=== PATIENT | male | born 1955 | race Caucasian/White ===

== ENCOUNTER 2019-09-19 18:01 | Inpatient (IN) | payer BC, SELFPAY ==
[2019-09-19] VITALS (16 sets, daily range): BP systolic 111–151; BP diastolic 84–129; PULSE 61–153; RESP 20–97; TEMP 36.6–36.9; O2SAT 96–100; BMI 35.2
--- NOTE | 2019-09-19 18:33 | EKG12_ITS ---
Test Reason : SOB Blood Pressure : / mmHG Vent. Rate : 140 BPM Atrial Rate : 138 BPM P-R Int : 000 ms QRS Dur : 106 ms QT Int : 266 ms P-R-T Axes : 000 -33 119 degrees QTc Int : 406 ms Atrial fibrillation with rapid ventricular response Left axis deviation Inferior infarct , age undetermined Anterior [place], Age undetermined Abnormal ECG Confirmed by RAGHAV LYONS, JASMIN ([id number]), clinical editor MARTIN FOWLER ([id number]) on 09/21/2019 1:35:57 PM Referred By: ALFREDITO Confirmed By:JASMIN AVILEZ MD
--- NOTE | 2019-09-19 18:35 | ED.VIS.GEN ---
History of Present Illness Chief Complaint: Shortness of Breath Informant: Patient Onset: Weeks Context: Gradual Onset Timing: Continuous Current Severity: Moderate Maximum Severity: Moderate Narrative: The patient presents to the emergency department with shortness of breath. He states for the past month, he has been having dyspnea. He states in the morning, after he has coffee, he will just feel nauseated and generally unwell. He states throughout the day, he will have the sensation that his heart will be racing. If he walks a distance, he states that he gets short of breath. Over the past week, he is been having increasing orthopnea. He does admit to a 30 pound weight gain. The patient does have a history of congestive heart failure. He denies any chest pain. He denies any fevers or chills. Prior similar symptoms: No Recent Illness/Hospitalization: No Past Medical History - Allergies and Home Meds Allergies/Adverse Reactions: Allergies No Known Allergies Allergy (Verified 09/19/19 18:05) Primary Care Physician: Dayo Avilez MD [Primary Care Provider] - Prior records reviewed: Yes Past Medical History: - - CHF, hypertension, hyperlipidemia Surgical History: noncontributory Lives: With Family Review of Systems General: Denies: Chills, Fever, Sweats Eyes: Denies: Visual changes - bilaterally, Diplopia ENT: Denies: Rhinorrhea, Sore throat Cardiovascular: Reports: Palpitations, Heart racing. Denies: Chest pain Respiratory: Reports: Dyspnea, Dyspnea on exertion, Paroxysmal nocturnal dyspnea. Denies: Cough Gastrointestinal: Denies: Abdominal pain, Nausea, Vomiting, Diarrhea, Melena, Hematochezia Genitourinary: Denies: Dysuria, Hematuria, Frequency Musculoskeletal: Denies: Back pain, Extremity Pain Skin: Denies: Rash, Wounds Neurological: Denies: Headache, Weakness, Numbness Physical Exam Vital Signs/Narrative: Vital Signs Temp Pulse Resp BP Pulse Ox 09/19/19 18:01 98.5 F 61 20 H 139/85 H 96 Inital Vital Signs reviewed: Yes General: Well nourished, Well developed, No Acute Distress Head: Normocephalic, Atraumatic Eyes: Perrl, EOMI ENT: Moist mucous membranes, No rhinorrhea Neck: Supple, Nontender Cardiovascular: No murmurs, Irregular, Tachycardia Respiratory: No distress, Chest nontender, Rales Abdomen: Soft, Nontender, Nondistended, Normal bowel sounds Back: Nontender, Normal Inspection Extremities: Nontender, Edema Skin: Normal color, No rash Neurological: Alert, Oriented x3, Cranial nerves II-XII grossly intact, Normal Strength, Normal Sensation Psychological: Normal affect, Normal Mood Diagnostic/Tx/Re-eval Clinical Impression(s) from Imaging Studies Chest X-Ray 09/19/19 18:37 IMPRESSION: Left base atelectasis and/or small infiltrate. Cardiomegaly. Electronically Signed: Jakobjodi Palacio, at 19:17 EST Tel , Service support , Abnormal Lab Results 09/19/19 09/19/19 09/19/19 18:50 18:50 18:50 WBC 5.2 RBC 4.66 Hgb 15.1 Hct 44.6 MCV 95.7 H MCH 32.4 H MCHC 33.9 RDW Std Deviation 47.3 H RDW Coeff of Nichole 13.5 Plt Count 168 MPV 10.7 Immature Gran % (Auto) 0.800 Neut % (Auto) 60.4 Lymph % (Auto) 26.3 Reagan % (Auto) 11.3 H Eos % (Auto) 0.6 Baso % (Auto) 0.6 Absolute Neuts (auto) 3.2 Absolute Lymphs (auto) 1.37 Nucleated RBC % 0 PT 14.0 INR 1.1 APTT 24.6 Sodium 141 Potassium 4.4 Chloride 110 H Carbon Dioxide 26.0 Anion Gap 5 BUN 20 H Creatinine 1.29 Estim Creat Clear Calc 67.10 Est GFR (MDRD) Af Amer 72 Est GFR (MDRD) Non-Af 60 BUN/Creatinine Ratio 15.5 Glucose 99 Calcium 8.7 Total Bilirubin 0.70 AST 66 H ALT 141 H Alkaline Phosphatase 87 Troponin I 0.108 H Total Protein 6.6 Albumin 3.0 L Globulin 3.6 Albumin/Globulin Ratio 0.8 L - Rhythm Strip Rhythm Strip: A-fib Rate: 150 - EKG Initial EKG Interpretation: Atrial Fibrillation, Non-Specific ST Changes Prior: No Prior - Medical Decision Making The patient presents with exertional dyspnea, orthopnea, and weight gain. EKG was obtained which demonstrated atrial fibrillation with rapid ventricular response. The patient denies any history of atrial fibrillation. I was able to review his records from [facility]. He does have significant history of dilated cardiomyopathy secondary to underlying cardiac disease. The patient was given 3 doses of metoprolol with market improvement of his heart rate and he states that he was feeling improved. His chest x-ray did not show significant volume overload, but given his weight gain and orthopnea, he he was started on IV diuretics. His cardiac enzymes are indeterminant, but with his underlying heart disease and tachycardia I do feel this is likely the cause. He has had no chest pain. At this point, I do feel that he would benefit from admission for continued rate control, diuresis, and cardiology evaluation. Impression 1. New onset atrial fibrillation with rapid ventricular response ED Disposition - Plan for ED Patient: Referrals: Dayo Avilez MD [Primary Care Provider] -
--- NOTE | 2019-09-19 18:37 | RAD_ITS ---
STUDY: X-RAY CHEST REASON FOR EXAM: Male, 64 years old. Shortness of breath TECHNIQUE: Frontal view of the chest COMPARISON: None. FINDINGS: Left base atelectasis and/or small infiltrate is present. The lungs are otherwise clear. There are no pleural effusions. There is no pneumothorax. The heart is enlarged. The visualized osseous structures are within normal limits. RAD/Chest 1 View (Portable) IMPRESSION: Left base atelectasis and/or small infiltrate. Cardiomegaly. Electronically Signed: Jakob Palacio, at 19:17 EST Tel , Service support ,
[2019-09-19 19:07] LABS: Absolute Lymphocyte Count 1.37 X10^3/uL (0.83-4.51); Absolute Neutrophil Count 3.2 X10^3/uL (2.0-7.7); Basophil# 0.03 X10^3/uL; Basophil% 0.6 % (0-1); Eosinophil# 0.03 X10^3/uL; Eosinophils% 0.6 % (0-5); Hematocrit 44.6 % (40-54); Hemoglobin 15.1 g/dL (13.0-16.5); Lymphocyte # 1.37 X10^3/ul (4.0); Lymphocyte % 26.3 % (19-41); Mean Corp Hgb Conc 33.9 g/dL (32-36); Mean Corpuscular Hgb 32.4 pg (27.0-32.0); Mean Corpuscular Volume 95.7 fL (80-94); Mean Platelet Vol. 10.7 fl (6.2-12.0); Monocyte# 0.59 X10^3/uL; Monocyte% 11.3 % (0-10); NRBC Flagged by Analyzer 0 % (0-5); Neutrophil # 3.15 X10^3/uL (2.7-7.7); Neutrophil % 60.4 % (47-70); Platelet Count 168 K/mm3 (150-450); RBC Distribution Width CV 13.5 % (11.6-14.6); RBC Distribution Width SD 47.3 fl (35.1-43.9); Red Blood Count 4.66 M/mm3 (4.6-6.2); White Blood Count 5.2 K/mm3 (4.4-11.0)
[2019-09-19 19:14] LABS: International Normalized Ratio 1.1
[2019-09-19 19:15] LABS: Partial Thromboplast Time 24.6 Seconds (24.1-36.2)
[2019-09-19] MEDS: Metoprolol Tartrate 5 MG/5 ML Vial IV ×3 (19:25→19:37)
[2019-09-19 19:26] LABS: ALB/GLOB Ratio 0.8 RATIO (0.9-2.4); AST(SGOT) 66 U/L (15-37); Alanine Aminotransfer ALT/SGPT 141 U/L (16-61); Alkaline Phosphatase 87 U/L (45-117); Anion Gap 5 (5-15); BUN 20 mg/dL (7-18); BUN/Creat Ratio 15.5 RATIO (10-20); Calcium,Total 8.7 mg/dL (8.5-10.1); Chloride 110 mmol/L (98-107); Creatinine, Serum 1.29 mg/dL (0.70-1.30); EST Glomerular Filtration Rate 60 mL/min (>60); Est Glom Filt Rate - Afr Amer 72 mL/min (>60); Globulin 3.6 g/dL (2.2-4.2); Glucose 99 mg/dL (74-106); Potassium 4.4 mmol/L (3.5-5.1); Protein, Total 6.6 g/dL (6.4-8.2); Sodium Level 141 mmol/L (136-145)
--- NOTE | 2019-09-19 19:51 | PCM.HP.STD ---
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 Associated with symptoms is fatigue. At emergency department patient was found to have A. fib with RVR with heart rate in the 160s for which he was given metoprolol IV and later on started on a Cardizem drip. Past Medical History Medical History: Medical History (Last Reviewed 09/19/19 @ 21:[address] Anuj Jaimes MD) Hypertension I10 Allergies No Known Allergies Allergy (Verified 09/19/19 18:05) Home Medications: Ambulatory Orders Medication Instructions Recorded Apixaban [Eliquis] 5 mg PO BID 09/19/19 Furosemide [Lasix] 40 mg PO DAILY 09/19/19 Lisinopril 5 mg PO DAILY 09/19/19 Lisinopril [Zestril] 20 mg PO DAILY 09/19/19 Metoprolol Succinate [Toprol Xl] 100 mg PO DAILY 09/19/19 Rosuvastatin Calcium 20 mg PO DAILY 09/19/19 Spironolactone 25 mg PO DAILY 09/19/19 Surgical History: - - Cancer cells removed from skin. Lives: With Family Smoking Status: Never smoker Alcohol: Occasional - *Family History Maternal History Items: Diabetes, Stroke Paternal History Items: Heart Disease Review of Systems Constitutional: Reports: Weight Change - Reports about more than 30 pounds weight gain in last 4 months., Fatigue. Denies: Chills, Fever HEENT: Denies: Head Aches, Sinus Congestion, Sinus Drainage Cardiovascular: Reports: Orthopnea, Paroxysmal Noc. Dyspnea. Denies: Chest Pain, Palpitations Respiratory: Reports: Shortness of breath upon exertion. Denies: Cough, Sputum production Gastrointestinal: Denies: Abdominal Pain, Nausea, Vomiting Genitourinary: Denies: Dysuria Musculoskeletal: Denies: Joint Pain, Joint Tenderness Skin: Denies: Rash, Wounds Neurological: Denies: Numbness, Tingling, Focal weakness Psychiatric: Denies: Anxiety, Depression, Homicidal Ideations, Suicidal Ideations Hematologic/ Lymphatic: Denies: Easy Bruising, Easy Bleeding VTE Information - Inpt Only VTE Present on Admission: No VTE Mechan Device Prophylaxis: None VTE Pharm Prophylaxis ordered?: No Reason prophylaxis not ordered:: Treatment Not Indicated - Patient is on Eliquis for history of PE; continue Eliquis for history of PE and for new onset A. fib. Patient Problems: Active and Suspected Problems (Last Updated 09/19/19 @ 21:[address] Anuj Jaimes MD) New onset atrial fibrillation (Acute) Systolic heart failure (Acute) - Physical Exam Vitals/I&O's: Vital Signs Temp Pulse Resp BP Pulse Ox 98.5 F 113 H 24 H 134/114 H 96 09/19/19 18:01 09/19/19 19:36 09/19/19 19:36 09/19/19 19:36 09/19/19 19:36 Oxygen Flow Rate (L/min) 2 Oxygen Delivery Method Nasal Cannula Weight: 121 kg Body Mass Index (BMI) 35.2 General: Alert, Oriented x3, Cooperative HEENT: Atraumatic, PERRLA, EOMI, Normocephalic Neck: Supple, Trachea Midline Lungs: Clear to auscultation, Normal air movement, Short of Breath, Tachypneic Cardiovascular: Normal S1, Normal S2, No murmurs, Irregular Rate, Tachycardic Abdomen: Bowel Sounds Present, Soft, Non Tender Extremities: Capillary Refill Less than 3 Seconds, Edema - Bilateral legs and feet. Skin: No rashes, No breakdown Musculoskeletal: No Tenderness to Palpation of Joints or Extremities Neurological: Cranial nerves II-XII grossly intact Psych/Mental Status: Normal Affect, Appropriate Laboratory Results 09/19/19 18:50: WBC 5.2, RBC 4.66, Hgb 15.1, Hct 44.6, MCV 95.7 H, MCH 32.4 H, MCHC 33.9, RDW Std Deviation 47.3 H, RDW Coeff of Nichole 13.5, Plt Count 168, MPV 10.7, Immature Gran % (Auto) 0.800, Neut % (Auto) 60.4, Lymph % (Auto) 26.3, [place] % (Auto) 11.3 H, Eos % (Auto) 0.6, Baso % (Auto) 0.6, Absolute Neuts (auto) 3.2, Absolute Lymphs (auto) 1.37, Nucleated RBC % 0 09/19/19 18:50: PT 14.0, INR 1.1, APTT 24.6 09/19/19 18:50: Sodium 141, Potassium 4.4, Chloride 110 H, Carbon Dioxide 26.0, Anion Gap 5, BUN 20 H, Creatinine 1.29, Estim Creat Clear Calc 67.10, Est GFR (MDRD) Af Amer 72, Est GFR (MDRD) Non-Af 60, BUN/Creatinine Ratio 15.5, Glucose 99, Calcium 8.7, Total Bilirubin 0.70, AST 66 H, ALT 141 H, Alkaline Phosphatase 87, Troponin I 0.108 H, Total Protein 6.6, Albumin 3.0 L, Globulin 3.6, Albumin/Globulin Ratio 0.8 L 09/19/19 18:50: B-Natriuretic Peptide Pending Assessment/Plan All Active Problems (Last Updated 09/19/19 @ 21:[address] Anuj Jaimes MD) New onset atrial fibrillation (Acute) Systolic heart failure (Acute) The patient is a 64 year old M with a significant history of heart failure; hypertension; hyperlipidemia; basal cell carcinoma of chest wall status post surgery; CAD status post stent who presents emergency department with 2 to 3 weeks 3 of progressively worsening shortness of breath on exertion; and found to have irregularly irregular heart rate and rhythm consistent with acute the patient systolic heart failure and new onset A. fib with rapid ventricular response. New onset A. fib with rapid ventricular response Place on PCU on telemetry Serial cardiac enzymes Last echocardiogram was on August 23, 2019 and it showed ejection fraction 33% . Last echocardiogram was done at [facility]. Per report pulled by emergency department doctor from [facility] left ventricular distal fraction was with 43% on stress echo in June 2015; left ventricular ejection fraction was 21% on echo on January 2018. Resume Eliquis the patient takes at home for history of bilateral PE. Of note last time patient took his Eliquis was about 3 days ago. Received metoprolol IV after which it was discussed emergent department doctor to start patient on Cardizem drip. Continue Cardizem drip started emergency department. Potassium is normal. Check magnesium level. Check TSH Consult [facility] Trend BMP. Acute Exacerbation of systolic heart failure Place on monitored bed on PCU Weight on admission to the floor; and then daily Strict I&O's Impression of chest x-ray: Left basilar atelectasis and/or small infiltrate; cardiomegaly.. Chest x-ray was independently reviewed. I agree with radiologist interpretation. EKG independently reviewed confirms A. fib with rapid ventricular response. Emergency department labs reviewed BNP of 451.3, elevated. Received Lasix 40 mg IV at the emergency department. We will continue patient on Lasix 40 mg IV twice daily. Of note patient is on home Lasix but he is not compliant with. Echocardiogram as above. Patient reports that the plan was to do defibrillator before his presentation. Metoprolol, lisinopril and Aldactone continued. Monitor electrolytes and renal function Titrate diuretics and heart failure/blood pressure medications with blood pressure. Kerlix roll and sean wrap to bilateral lower extremities Fluid restriction of 1500 ml daily 2 g cardiac diet Per note from [facility] system and the plan is for patient to have ICD if his left ventricular ejection fraction remains low. Cardiology consult. Elevated cardiac enzymes Likely secondary to A. fib and acute exacerbation of heart failure. Trend. Elevated liver enzymes Secondary to congestion from heart failure. Trend CMP. CAD status post stent Start patient on aspirin. Crestor continued. DVT Prophylaxis On Eliquis. Code Visit Inpatient E&M: 55757 Init Hosp L3
[2019-09-19] MEDS: Furosemide 40 MG/4 ML Vial IV (20:15)
[2019-09-19] MEDS: APIXABAN 5 MG TABLET PO ×2 (20:15→23:08)
[2019-09-19 20:25] LABS: BNP,B-Type NATRIURETIC PEPTIDE 451.3 pg/mL (0-100)
[2019-09-19 22:37] LABS: Magnesium 2.2 mg/dL (1.6-2.6); Thyroid Stim Hormone (TSH) 2.71 uIU/mL (0.358-3.74)
[2019-09-20] VITALS (45 sets, daily range): BP systolic 92–155; BP diastolic 75–112; PULSE 70–118; RESP 19–35; TEMP 36.7–36.9; O2SAT 95–100
[2019-09-20 02:29] LABS: ALB/GLOB Ratio 0.8 RATIO (0.9-2.4); AST(SGOT) 71 U/L (15-37); Alanine Aminotransfer ALT/SGPT 148 U/L (16-61); Alkaline Phosphatase 91 U/L (45-117); Anion Gap 8 (5-15); BUN 22 mg/dL (7-18); BUN/Creat Ratio 16.3 RATIO (10-20); Calcium,Total 8.5 mg/dL (8.5-10.1); Chloride 110 mmol/L (98-107); Creatinine, Serum 1.35 mg/dL (0.70-1.30); EST Glomerular Filtration Rate 57 mL/min (>60); Est Glom Filt Rate - Afr Amer 69 mL/min (>60); Estimated Creatinine Clearance 62.27 ml/min; Globulin 3.9 g/dL (2.2-4.2); Glucose 124 mg/dL (74-106); Potassium 4.2 mmol/L (3.5-5.1); Protein, Total 6.9 g/dL (6.4-8.2); Sodium Level 141 mmol/L (136-145)
[2019-09-20] MEDS: Aspirin 81 MG TAB.CHEW PO (08:25)
--- NOTE | 2019-09-20 09:38 | CON.PCM_ITS ---
Problem List (1) Systolic heart failure Status: Acute Qualifiers: Heart failure chronicity: acute on chronic Qualified Code(s): I50.23 - Acute on chronic systolic (congestive) heart failure (2) CAD in [place] artery Status: Chronic (3) S/P PTCA (percutaneous transluminal coronary angioplasty) Status: Chronic (4) Cardiomyopathy Status: Chronic Qualifiers: Cardiomyopathy type: ischemic Qualified Code(s): I25.5 - Ischemic cardiomyopathy (5) New onset atrial fibrillation Status: Acute (6) HLD (hyperlipidemia) Status: Chronic (7) HTN (hypertension) Status: Chronic (8) Pulmonary embolism Status: Resolved Reason for Consult Date of Consultation: 09/20/19 History of Present Illness: The patient is a 64 year old old white male who presented for concerns of shortness of breath/dyspnea and was found to be in atrial fibrillation superimposed upon a history of underlying CAD, PCI, and an ischemic mediated cardiomyopathy, pending further evaluation/care for ICD therapy and history of previous pulmonary emboli on chronic anticoagulation therapy-all under the direction of his PCP and his [facility] cardiology team. He states he has been following with [facility] cardiology. He had outpatient visits in August of this year. Based upon his outpatient visits he was referred for evaluation by EP for ICD therapy. In the meantime he states he noticed progressive shortness of breath and dyspnea. He subsequently presented for further evaluation and care. He was found to have atrial fibrillation with RVR. He dates he has been told in the past he has a irregular heartbeat but does not recall whether it is atrial fibrillation or some other form of cardiac dysrhythmia. He denies ongoing chest discomfort. He has had concerns of orthopnea and PND and peripheral pitting edema. There is been no near syncope or syncope. He was found to have indeterminate troponin I levels. He had an ECG that demonstrated atrial fibrillation with rapid ventricular response with a left axis deviation, poor R wave progression, and anterior ND of indeterminate age cannot be excluded, and an inferior ND of indeterminate age pattern. A chest x- ray was performed. The results are as noted. Of note, the patient states that he does not take his prescription medications as they are always prescribed. He states he can miss them for days and then start taking them again. [] Past Medical History Allergies/Adverse Reactions: Allergies No Known Allergies Allergy (Verified 09/19/19 18:05) Home Medications: Ambulatory Orders Medication Instructions Recorded Apixaban [Eliquis] 5 mg PO BID 09/19/19 Furosemide [Lasix] 40 mg PO DAILY 09/19/19 Lisinopril [Zestril] 20 mg PO DAILY 09/19/19 Metoprolol Succinate [Toprol Xl] 100 mg PO DAILY 09/19/19 Rosuvastatin Calcium 20 mg PO DAILY 09/19/19 Spironolactone 25 mg PO DAILY 09/19/19 Past Medical History (Chronic Problems): Chronic Problems (Last Reviewed 09/19/19 @ 21:[address] Anuj Jaimes MD) CAD in [place] artery (Chronic) S/P PTCA (percutaneous transluminal coronary angioplasty) (Chronic) Cardiomyopathy (Chronic) HLD (hyperlipidemia) (Chronic) HTN (hypertension) (Chronic) Surgical History: - - Cancer cells removed from skin. - *Family History Maternal History Items: Diabetes, Stroke Paternal History Items: Heart Disease Lives: With Family Smoking Status: Never smoker Alcohol: Occasional Drugs: None Review of Systems - Review of Systems General: Denies: Fever, Night Sweats, Fatigue Cardiovascular: Reports: Shortness of Breath, Shortness of Breath at Rest, Shortness of Breath with Exertion, Orthopnea, Peripheral Edema. Denies: Chest Discomfort, PND, Palpitations, Lightheadedness, Dizziness, Near Syncope, Syncope Respiratory: Reports: Shortness of Breath. Denies: Cough, Sputum Production, Hemoptysis Gastrointestinal: Denies: Hematemesis, Hematochezia, Melena Genitourinary: Denies: Dysuria, Hematuria Skin: Denies: Rash Subjectve: This is a 64-year-old white male who appears to be resting reasonably comfortably although he does have an element of conversational dyspnea. Objective: Vital Signs Temp Pulse Resp BP Pulse Ox 98.2 F 98 28 H 122/95 H 96 09/20/19 06:00 09/20/19 09:33 09/20/19 09:00 09/20/19 09:00 09/20/19 09:00 Oxygen Flow Rate (L/min) 1.5 Oxygen Delivery Method Room Air Weight: 267 lb 6.731 oz Body Mass Index (BMI) 35.2 Intake and Output for Last 24 Hours 09/18/19 09/19/19 09/20/19 23:59 23:59 23:59 Intake Total 33.92 / 278.92 297.67 / 297.67 Output Total 400 / 400 Balance 33.92 / -121.08 -102.33 / -102.33 General: Awake, Alert, Oriented x 3, Cooperative, Ill Appearing, Obese HEENT: Atraumatic, Normocephalic, PERRL, EOMI, Sclera Non Icteric Oral: Moist Mucosa Neck: Supple, Good ROM, Positive JVD Lungs: Rales - Amor Bases Cardiovascular: Irregular Rhythm, Normal S1, Normal S2 Abdomen: Bowel Sounds Present, Soft, Non Tender Extremities: - - Positive bilateral lower extremity Chava wraps Psych/Mental Status: Appropriate 09/19/19 18:50: WBC 5.2, RBC 4.66, Hgb 15.1, Hct 44.6, MCV 95.7 H, MCH 32.4 H, MCHC 33.9, Plt Count 168, MPV 10.7, Immature Gran % (Auto) 0.800, Neut % (Auto) 60.4, Lymph % (Auto) 26.3, [place] % (Auto) 11.3 H, Eos % (Auto) 0.6, Baso % (Auto) 0.6, Absolute Neuts (auto) 3.2, Nucleated RBC % 0 09/19/19 18:50: PT 14.0, INR 1.1, APTT 24.6 09/19/19 18:50: Sodium 141, Potassium 4.4, Chloride 110 H, Carbon Dioxide 26.0, Anion Gap 5, BUN 20 H, Creatinine 1.29, Est GFR (MDRD) Af Amer 72, Est GFR (MDRD) Non-Af 60, BUN/Creatinine Ratio 15.5, Glucose 99, Calcium 8.7, Total Bilirubin 0.70, Troponin I 0.108 H 09/19/19 18:50: B-Natriuretic Peptide 451.3 H 09/19/19 18:50: Magnesium 2.2 09/19/19 22:32: Troponin I 0.115 H 09/20/19 01:36: Sodium 141, Potassium 4.2, Chloride 110 H, Carbon Dioxide 23.0, Anion Gap 8, BUN 22 H, Creatinine 1.35 H, Est GFR (MDRD) Af Amer 69, Est GFR (MDRD) Non-Af 57 L, BUN/Creatinine Ratio 16.3, Glucose 124 H, Calcium 8.5, Total Bilirubin 0.80 09/20/19 01:36: Troponin I 0.089 H Rhythm: Atrial fibrillation EKG: As above ECHO:?? 20: [facility]: Left ventricle mildly dilated Right ventricle dilated Left atrium dilated Mitral valve-trace MR Tricuspid valve-trace TR Aortic valve-trace AI Pulmonic valve not seen LVEF reported at 34% Stress Test: Cardiac Cath: 06-17-2018: [facility] Left main coronary artery-mild luminal irregularities LAD-proximal 50% stenosis; mid 50% stenosis LCx-20% in-stent stenosis Intermediate ramus-70% stenosis-small branch vessel RCA-moderate disease Impression: Nonobstructive three-vessel CAD in the right dominant distribution Stable CAD when compared to prior catheter in 2014 Cardiac cath: 06-13-2013: [facility] [employer] [place], [place] Left main coronary artery-30% stenosis LAD-60 to 70% stenosis and 70 to 75% stenosis LCx occluded RCA-30 to 40% and 3 to 50% stenosis PCI: [facility] [place] [place] Successful complex angioplasty of the LCx and large obtuse marginal branch using a 3.0?32 and 3.0?12 bare-metal Veriflex stent CXR: Portable chest x-ray: Question increase cardiac silhouette size: Increased pulmonary vascularity: Please see official report Assessment/Plan 1. Acute on chronic systolic mediated CHF The patient presents with findings of acute on chronic systolic mediated CHF. It is unclear whether this is related to dietary indiscretion, medication noncompliance, or concerns of alteration of his underlying cardiovascular disease process. The present time he will be monitored. He will continue medical management. Attempt will be made to augment his medications to improve his underlying card iopulmonary condition. 2. CAD post PCI He has a history of CAD status post previous PCI-remote. His noninvasive and invasive studies, as can be retrieved at this time, are as noted. At the present time he is without ongoing symptoms of acute angina pectoris. He does have indeterminate troponin I levels. This may be a type II event secondary to his acute on chronic systolic mediated CHF with his atrial fibrillation with RVR superimposed upon his ischemic mediated cardiomyopathy and diminished LV systolic function. At the present time he will continue medical management. Depending upon his clinical course he may need further noninvasive or invasive evaluation over time. 3. Ischemic mediated cardiomyopathy He does have a history of an ischemic mediated cardiomyopathy with diminished LV systolic function/V EF as previously noted. It appears he is undergone recent evaluation by his [facility] physicians. He has been recommended for continued medical management and referral for primary prevention ICD therapy. 4. Atrial fibrillation He does have atrial fibrillation. It is unclear whether he has had this in the past. However based on medical records available for review there does not appear to be any immediate mention of atrial fibrillation. At the present time he will continue to be followed. He will continue medical therapy with rate control therapy. He will be placed on IV amiodarone therapy and attempt to assist in rate control and potentially regain sinus rhythm. He will continue his anticoagulant therapy. 5. Hyperlipidemia He will continue medical therapy. 6. Hypertension His blood pressure will be followed. His medications can be adjusted as needed. 7. Pulmonary emboli He has a history of pulmonary emboli. He states he has been on chronic anti coagulant therapy. At the present time this will be continued barring need for interruption for further evaluation and/or care. Comment: The patient's case was discussed and reviewed with the patient and Dr. Ramirez. This note was generated using a voice recognition system and there may be incorrect words, spelling or punctuation that were not noted when reviewing the office note prior to saving.
--- NOTE | 2019-09-20 10:34 | CASEMGMT ---
CHADD WHITFIELD assessment: Face to Face with patient for initial transition planning/care coordination assessment. CHADD WHITFIELD introduced self and role at [facility], pt voices understanding and consents to assessment at this time. Pt is sitting up in bed in no distress at this time. Pt is A/Ox4 at this time and answers all questions appropriately at this time. Care providers, pharmacy, and demographics verified/updated at this time. 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 Pt states was provided discount card initially when started on Eliquis. Living Will/HPOA: Pt states has a LW/HPOA and is aware that they are not on file at [facility] at this time. Pt states that his , Mena Merritt, is HPOA. LNOK: Mena Merritt, Living Arrangements: Pt states lives with in home with shower in basement and states no concerns at home at this time. Pt states he is independent with ADL's. Transportation: Pt states drives self and states no transportation concerns at this time. DME/HHC: Pt states no current DME or need for any at this time. Pt states no hx of HHC or SNF in the past. Pt states was on home oxygen in 2018 s/p PE's and pneumonia. Pt states no concerns with going home at time of discharge. Pt states is retired. Pt states does not smoke and states occasionally drinks ETOH. Pt states no further concerns/needs at this time. CM to follow for any further discharge planning/needs. Advised pt to ask for CM if any further questions/concerns/needs arise, voices understanding. Pt Goal: Home Plan: [place] CHADD WHITFIELD
[2019-09-20] MEDS: 0.9% Saline Lock 10 ML Syringe IV ×2 (10:42→17:17)
[2019-09-20] MEDS: Amiodarone 360 MG in Dextrose 5% Viaflo Bag 192.8 ML 33.3 MG CONT INF (10:56)
[2019-09-20] MEDS: Metoprolol(XL)Succ 100 MG Tablet PO (10:59)
[2019-09-20] MEDS: Spironolactone 25 MG Tablet PO (10:59)
[2019-09-20] MEDS: Furosemide 40 MG/4 ML Vial IV ×2 (10:59→17:18)
[2019-09-20] MEDS: APIXABAN 5 MG TABLET PO ×2 (10:59→22:04)
[2019-09-20] MEDS: Lisinopril 20 MG Tablet PO (10:59)
--- NOTE | 2019-09-20 16:41 | PCM.PROGNOTE ---
Patient Problems: Active and Suspected Problems (Last Reviewed 09/19/19 @ 21:[address] Anuj Jaimes MD) New onset atrial fibrillation (Acute) Systolic heart failure (Acute) Subjective: Patient was seen and examined today, he has no complaints of any shortness of breath or chest discomfort at this time. I talked briefly with cardiology about his care - Physical Exam Vitals/I&O's: Vital Signs Temp Pulse Resp BP Pulse Ox 98.2 F 112 H 27 H 134/100 H 97 09/20/19 06:00 09/20/19 11:30 09/20/19 11:00 09/20/19 11:30 09/20/19 11:00 Oxygen Flow Rate (L/min) 1.5 Oxygen Delivery Method Room Air Weight: 121.3 kg Body Mass Index (BMI) 35.2 Intake and Output for Last 24 Hours 09/18/19 09/19/19 09/20/19 23:59 23:59 23:59 Intake Total 33.92 / 278.92 429.30 / 429.30 Output Total 400 / 400 Balance 33.92 / -121.08 29.30 / 29.30 General: Alert, Oriented x3, Cooperative, No apparent distress, Well developed HEENT: Atraumatic, PERRLA, EOMI, Normocephalic Oral: Moist Mucosa Neck: Supple, No JVD, Negative Carotid Bruits, Trachea Midline, Thyroid Normal Size and Texture Lungs: Normal air movement, No rhonchi, Rales - Inspiratory rales at the bases bilaterally Cardiovascular: No murmurs, PMI Normal, Irregular Rate, No rub noted Abdomen: Bowel Sounds Present, Soft, Non Tender Extremities: Capillary Refill Less than 3 Seconds, Edema - Bilateral lower leg edema is noted, patient is wearing Chava wraps Skin: No rashes, No breakdown Musculoskeletal: No Tenderness to Palpation of Joints or Extremities, No Muscle Wasting Neurological: Cranial nerves II-XII grossly intact, Neuro grossly intact, Sensory exam intact to light touch and pain, Coordination normal Psych/Mental Status: Normal Affect, Appropriate, Alert and oriented to time, place, person, mood and affect Laboratory Results 09/19/19 18:50: WBC 5.2, RBC 4.66, Hgb 15.1, Hct 44.6, MCV 95.7 H, MCH 32.4 H, MCHC 33.9, RDW Std Deviation 47.3 H, RDW Coeff of Nichole 13.5, Plt Count 168, MPV 10.7, Immature Gran % (Auto) 0.800, Neut % (Auto) 60.4, Lymph % (Auto) 26.3, [place] % (Auto) 11.3 H, Eos % (Auto) 0.6, Baso % (Auto) 0.6, Absolute Neuts (auto) 3.2, Absolute Lymphs (auto) 1.37, Nucleated RBC % 0 09/19/19 18:50: PT 14.0, INR 1.1, APTT 24.6 09/19/19 18:50: Sodium 141, Potassium 4.4, Chloride 110 H, Carbon Dioxide 26.0, Anion Gap 5, BUN 20 H, Creatinine 1.29, Estim Creat Clear Calc 67.10, Est GFR (MDRD) Af Amer 72, Est GFR (MDRD) Non-Af 60, BUN/Creatinine Ratio 15.5, Glucose 99, Calcium 8.7, Total Bilirubin 0.70, AST 66 H, ALT 141 H, Alkaline Phosphatase 87, Troponin I 0.108 H, Total Protein 6.6, Albumin 3.0 L, Globulin 3.6, Albumin/Globulin Ratio 0.8 L 09/19/19 18:50: B-Natriuretic Peptide 451.3 H 09/19/19 18:50: Magnesium 2.2, TSH 2.71 09/19/19 22:32: Troponin I 0.115 H 09/20/19 01:36: Sodium 141, Potassium 4.2, Chloride 110 H, Carbon Dioxide 23.0, Anion Gap 8, BUN 22 H, Creatinine 1.35 H, Estim Creat Clear Calc 62.27, Est GFR (MDRD) Af Amer 69, Est GFR (MDRD) Non-Af 57 L, BUN/Creatinine Ratio 16.3, Glucose 124 H, Calcium 8.5, Total Bilirubin 0.80, AST 71 H, ALT 148 H, Alkaline Phosphatase 91, Total Protein 6.9, Albumin 3.0 L, Globulin 3.9, Albumin/Globulin Ratio 0.8 L 09/20/19 01:36: Troponin I 0.089 H Current Medications Acetaminophen (Tylenol) 650 mg PO Q6H PRN PRN PRN Reason: Pain Score 1-10/Temp > 100.7 F Apixaban (Eliquis) 5 mg PO BID [facility] Last Admin: 09/20/19 10:59 Dose: 5 mg Documented by: Aspirin (Aspirin, Baby) 81 mg PO DAILY@0800 [facility] Last Admin: 09/20/19 08:25 Dose: 81 mg Documented by: Atorvastatin Calcium (Lipitor) 40 mg PO QHS [facility] Furosemide (Lasix) 40 mg IV BIDLX [facility] Last Admin: 09/20/19 10:59 Dose: 40 mg Documented by: Glucagon () 1 mg IM .X1 PRN PRN Reason: Hypoglycemia Diltiazem HCl 125 mg/ Dextrose 125 mls @ 10 mls/hr CONT INF .[id number] [facility]; Protocol Last Titration: 09/20/19 11:30 Dose: 10 mg/hr, 10 mls/hr Documented by: Sodium Chloride () 250 mls @ 15 mls/hr IV .[id number] PRN PRN Reason: Saline Flush Sodium Chloride () 250 mls @ 15 mls/hr IV .[id number] PRN PRN Reason: Additional IVPB Infusion Dextrose (Dextrose 10%-Water) 250 mls @ 999 mls/hr IV .Q16M PRN; Protocol PRN Reason: HYPOGLYCEMIA Amiodarone HCl 360 mg/ (Dextrose) 200 mls @ 16.667 mls/hr CONT INF .Q12H [facility] Stop: 09/21/19 09:44 Lisinopril (Zestril) 20 mg PO DAILY [facility] Last Admin: 09/20/19 10:59 Dose: 20 mg Documented by: Metoprolol Succinate (Toprol Xl (Beta Cuauhtemoc)) 100 mg PO DAILY [facility] Last Admin: 09/20/19 10:59 Dose: 100 mg Documented by: Ondansetron HCl (Zofran) 4 mg IV Q8H PRN PRN PRN Reason: NAUSEA/VOMITING Potassium Ch[facility] ([facility]) [facility] Last Admin: 09/20/19 08:25 Dose: 10 meq Documented by: Sodium Chloride () 10 - 40 ml IV UD PRN PRN Reason: SALINE FLUSH Last Admin: 09/20/19 10:42 Dose: 20 ml Documented by: Spironolactone (Aldactone) 25 mg PO DAILY [facility] Last Admin: 09/20/19 10:59 Dose: 25 mg Documented by: Medical Necessity - Tobacco Use Smoking Status: Never smoker Assessment/Plan All Active Problems (Last Reviewed 09/19/19 @ 21:[address] Anuj Jaimes MD) New onset atrial fibrillation (Acute) Systolic heart failure (Acute) Pulmonary embolism (Resolved) #1 acute on chronic systolic CHF-last EF was 35% on his latest echo that was done in August 2019. Continue present treatment per cardiology #2 new onset atrial fibrillation-continue present treatment #3 coronary artery disease #4 ischemic cardiomyopathy #5 essential hypertension #6 chronic anticoagulation-patient is taking Eliquis-he has a past history of pulmonary emboli #7 noncompliance with medical regimen-patient freely admits he does not take his medications as directed at times can compromise his medical care and complicates care plan Code Visit Inpatient E&M: 47313 Subs Hosp L2
[2019-09-20] MEDS: Amiodarone 360 MG in Dextrose 5% Viaflo Bag 192.8 ML 16.7 MG CONT INF (17:17)
[2019-09-20] MEDS: Atorvastatin Calcium 40 MG Tablet PO (22:04)
[2019-09-21] VITALS (29 sets, daily range): BP systolic 93–146; BP diastolic 72–121; PULSE 85–114; RESP 18–29; TEMP 36.3–36.8; O2SAT 86–100
[2019-09-21] MEDS: Amiodarone 360 MG in Dextrose 5% Viaflo Bag 192.8 ML 16.7 MG CONT INF (04:11)
--- NOTE | 2019-09-21 09:20 | PN.CARD_ITS ---
Subjectve: The patient is awake and alert. He states he still gets somewhat short of breath and dyspneic with being up and ambulating. Objective: Vital Signs Temp Pulse Resp BP Pulse Ox 97.6 F L 96 26 H 120/90 H 97 09/21/19 08:00 09/21/19 09:00 09/21/19 09:00 09/21/19 09:00 09/21/19 09:00 Oxygen Flow Rate (L/min) 1.5 Oxygen Delivery Method Room Air Weight: 267 lb 6.731 oz Body Mass Index (BMI) 35.2 Intake and Output for Last 24 Hours 09/19/19 09/20/19 09/21/19 23:59 23:59 23:59 Intake Total 33.92 / 278.92 1568.39 / 1585.09 167.00 / 167.00 Output Total 1775 / 1775 Balance 33.92 / -121.08 -206.61 / -189.91 167.00 / 167.00 General: Awake, Alert, Oriented x 3, Cooperative, No Acute Distress, Obese HEENT: Atraumatic, Normocephalic, PERRL, EOMI, Sclera Non Icteric Oral: Moist Mucosa Neck: Supple, Good ROM, No JVD Lungs: Rales - Amor Bases Cardiovascular: Irregular Rhythm, Normal S1, Normal S2 Abdomen: Bowel Sounds Present, Soft, Non Tender Extremities: - - Bilateral lower extremity Chava wraps Psych/Mental Status: Appropriate Rhythm: Atrial fibrillation Medical Necessity - Tobacco Use Smoking Status: Never smoker Assessment/Plan 1. Acute on chronic systolic mediated CHF The patient presents with findings of acute on chronic systolic mediated CHF. It is unclear whether this is related to dietary indiscretion, medication noncompliance, or concerns of alteration of his underlying cardiovascular disease process, or the recent development of atrial fibrillation per imposed upon his underlying ischemic mediated cardiomyopathy and diminished LV systolic function. The present time he will be monitored. He will continue medical management. Attempt will be made to augment his medications to improve his underlying car diopulmonary condition. This will include diuretic therapy. 2. CAD post PCI He has a history of CAD status post previous PCI-remote. His noninvasive and invasive studies, as can be retrieved at this time, are as noted. At the present time he is without ongoing symptoms of acute angina pectoris. He does have indeterminate troponin I levels. This may be a type II event secondary to his acute on chronic systolic mediated CHF with his atrial fibrillation with RVR superimposed upon his ischemic mediated cardiomyopathy and diminished LV systolic function. At the present time he will continue medical management. Depending upon his clinical course he may need further noninvasive or invasive evaluation over time. 3. Ischemic mediated cardiomyopathy He does have a history of an ischemic mediated cardiomyopathy with diminished LV systolic function/V EF as previously noted. It appears he is undergone recent evaluation by his [facility] physicians. He has been recommended for continued medical management and referral for primary prevention ICD therapy. 4. Atrial fibrillation He does have atrial fibrillation. It is unclear whether he has had this in the past. However based on medical records available for review there does not appear to be any immediate mention of atrial fibrillation. At the present time he will continue to be followed. He will continue medical therapy with rate control therapy. He will be placed on IV amiodarone therapy with plans to convert to oral medical therapy. He will continue his anticoagulant therapy. 5. Hyperlipidemia He will continue medical therapy. 6. Hypertension His blood pressure will be followed. His medications can be adjusted as needed. 7. Pulmonary emboli He has a history of pulmonary emboli. He states he has been on chronic anticoagulant therapy. At the present time this will be continued barring need for interruption for further evaluation and/or care. Comment: The patient's case was discussed and reviewed with the patient and Dr. Ramirez. This note was generated using a voice recognition system and there may be incorrect words, spelling or punctuation that were not noted when reviewing the office note prior to saving.
[2019-09-21] MEDS: Isosorbide Mononitrate 30 MG Tablet PO (09:35)
[2019-09-21] MEDS: Metoprolol(XL)Succ 100 MG Tablet PO (09:35)
[2019-09-21] MEDS: Spironolactone 25 MG Tablet PO (09:35)
[2019-09-21] MEDS: APIXABAN 5 MG TABLET PO ×2 (09:35→22:09)
[2019-09-21] MEDS: Aspirin 81 MG TAB.CHEW PO (09:35)
[2019-09-21] MEDS: Lisinopril 20 MG Tablet PO (09:35)
[2019-09-21] MEDS: Furosemide 100 MG/10 ML Vial 80 MG IV ×2 (09:35→17:07)
[2019-09-21] MEDS: 0.9% Saline Lock 10 ML Syringe IV ×2 (09:36→17:07)
[2019-09-21] MEDS: Amiodarone 200 MG Tablet PO ×2 (13:57→22:08)
--- NOTE | 2019-09-21 17:18 | PN_ITS ---
Patient Problems: Active and Suspected Problems (Last Reviewed 09/19/19 @ 21:[address] Anuj Jaimes MD) New onset atrial fibrillation (Acute) Systolic heart failure (Acute) Subjective: Patient was seen and examined today, he appears comfortable at this time and does not appear short of breath, he does not have any complaints of chest discomfort. He is currently on room air. - Physical Exam Vitals/I&O's: Vital Signs Temp Pulse Resp BP Pulse Ox 97.4 F L 90 24 H 119/84 H 100 09/21/19 17:05 09/21/19 17:05 09/21/19 17:05 09/21/19 17:05 09/21/19 17:05 Oxygen Flow Rate (L/min) 1.5 Oxygen Delivery Method Room Air Weight: 121.3 kg Body Mass Index (BMI) 35.2 Intake and Output for Last 24 Hours 09/19/19 09/20/19 09/21/19 23:59 23:59 23:59 Intake Total 33.92 / 278.92 1568.39 / 1585.09 751.56 / 751.56 Output Total 1775 / 1775 1750 / 1750 Balance 33.92 / -121.08 -206.61 / -189.91 -998.44 / -998.44 General: Alert, Oriented x3, Cooperative, No apparent distress, Well developed, Well nourished HEENT: Atraumatic, PERRLA, EOMI, Normocephalic Oral: Moist Mucosa Neck: Supple, No JVD, Trachea Midline, Thyroid Normal Size and Texture Lungs: Clear to auscultation, Normal air movement, No rhonchi, No wheeze Cardiovascular: No murmurs, PMI Normal, Irregular Rate, No rub noted, No Gallop Abdomen: Bowel Sounds Present, Soft, Non Tender, Non-Distended Extremities: No clubbing, No cyanosis, Capillary Refill Less than 3 Seconds Skin: No rashes, No breakdown Musculoskeletal: No Tenderness to Palpation of Joints or Extremities Neurological: Cranial nerves II-XII grossly intact, Neuro grossly intact, Sensory exam intact to light touch and pain Psych/Mental Status: Normal Affect, Appropriate, Alert and oriented to time, place, person, mood and affect Current Medications Acetaminophen (Tylenol) 650 mg PO Q6H PRN PRN PRN Reason: Pain Score 1-10/Temp > 100.7 F Amiodarone HCl (Cordarone) 200 mg PO TID [facility] Stop: 09/27/19 22:01 Last Admin: 09/21/19 13:57 Dose: 200 mg Documented by: Amiodarone HCl (Cordarone) 200 mg PO BID [facility] Stop: 10/11/19 22:01 Amiodarone HCl (Cordarone) 200 mg PO DAILY [facility] Apixaban (Eliquis) 5 mg PO BID [facility] Last Admin: 09/21/19 09:35 Dose: 5 mg Documented by: Aspirin (Aspirin, Baby) 81 mg PO DAILY@0800 [facility] Last Admin: 09/21/19 09:35 Dose: 81 mg Documented by: Atorvastatin Calcium (Lipitor) 40 mg PO QHS [facility] Last Admin: 09/20/19 22:04 Dose: 40 mg Documented by: Furosemide (Lasix) 80 mg IV BIDLX [facility] Last Admin: 09/21/19 17:07 Dose: 80 mg Documented by: Glucagon () 1 mg IM .X1 PRN PRN Reason: Hypoglycemia Sodium Chloride () 250 mls @ 15 mls/hr IV .[id number] PRN PRN Reason: Saline Flush Sodium Chloride () 250 mls @ 15 mls/hr IV .[id number] PRN PRN Reason: Additional IVPB Infusion Dextrose (Dextrose 10%-Water) 250 mls @ 999 mls/hr IV .Q16M PRN; Protocol PRN Reason: HYPOGLYCEMIA Isosorbide Mononitrate (Imdur) 30 mg PO DAILY [facility] Last Admin: 09/21/19 09:35 Dose: 30 mg Documented by: Lisinopril (Zestril) 20 mg PO DAILY [facility] Last Admin: 09/21/19 09:35 Dose: 20 mg Documented by: Metoprolol Succinate (Toprol Xl (Beta Cuauhtemoc)) 100 mg PO DAILY [facility] Last Admin: 09/21/19 09:35 Dose: 100 mg Documented by: Ondansetron HCl (Zofran) 4 mg IV Q8H PRN PRN PRN Reason: NAUSEA/VOMITING Potassium [facility] ([facility]) [facility] Last Admin: 09/21/19 09:35 Dose: 10 meq Documented by: Sodium Chloride () 10 - 40 ml IV UD PRN PRN Reason: SALINE FLUSH Last Admin: 09/21/19 17:07 Dose: 10 ml Documented by: Spironolactone (Aldactone) 25 mg PO DAILY [facility] Last Admin: 09/21/19 09:35 Dose: 25 mg Documented by: Medical Necessity - Tobacco Use Smoking Status: Never smoker Assessment/Plan All Active Problems (Last Reviewed 09/19/19 @ 21:[address] Anuj Jaimes MD) New onset atrial fibrillation (Acute) Systolic heart failure (Acute) Pulmonary embolism (Resolved) #1 acute on chronic systolic CHF-last EF was 35% on his latest echo that was done in August 2019. Continue present treatment per cardiology #2 new onset atrial fibrillation-continue present treatment #3 coronary artery disease #4 ischemic cardiomyopathy #5 essential hypertension #6 chronic anticoagulation-patient is taking Eliquis-he has a past history of pulmonary emboli #7 noncompliance with medical regimen-patient freely admits he does not take his medications as directed at times can compromise his medical care and complicates care plan #8 creatinine elevation-I will recheck his BMP tomorrow Code Visit Inpatient E&M: 95594 Subs Hosp L2
[2019-09-21] MEDS: Senna/Docusate Sodium 1 Tablet PO (22:08)
[2019-09-21] MEDS: Atorvastatin Calcium 40 MG Tablet PO (22:14)
[2019-09-22 02:51] VITALS: PULSE 91
[2019-09-22 03:50] VITALS: BP 111/78; PULSE 92; RESP 18; TEMP 36.2; O2SAT 97
[2019-09-22] MEDS: Amiodarone 200 MG Tablet PO (05:45)
[2019-09-22 06:00] LABS: BUN 37 mg/dL (7-18); Glucose 108 mg/dL (74-106)
[2019-09-22 06:01] LABS: Anion Gap 8 (5-15); Calcium,Total 8.4 mg/dL (8.5-10.1); Chloride 108 mmol/L (98-107); Creatinine, Serum 1.68 mg/dL (0.70-1.30); EST Glomerular Filtration Rate 44 mL/min (>60); Est Glom Filt Rate - Afr Amer 53 mL/min (>60); Estimated Creatinine Clearance 51.52 ml/min; Potassium 3.6 mmol/L (3.5-5.1); Sodium Level 140 mmol/L (136-145)
[2019-09-22 07:00] VITALS: PULSE 82
[2019-09-22 07:39] VITALS: O2SAT 99
[2019-09-22 09:13] VITALS: BP 117/80; PULSE 102; RESP 18; TEMP 36.4; O2SAT 99
[2019-09-22] MEDS: Metoprolol(XL)Succ 100 MG Tablet PO (09:13)
[2019-09-22] MEDS: Senna/Docusate Sodium 1 Tablet PO (09:13)
[2019-09-22] MEDS: Aspirin 81 MG TAB.CHEW PO (09:14)
[2019-09-22] MEDS: Lisinopril 20 MG Tablet PO (09:14)
[2019-09-22] MEDS: Furosemide 100 MG/10 ML Vial 80 MG IV (09:14)
[2019-09-22] MEDS: APIXABAN 5 MG TABLET PO (09:14)
[2019-09-22] MEDS: Spironolactone 25 MG Tablet PO (09:14)
[2019-09-22] MEDS: Isosorbide Mononitrate 30 MG Tablet PO (09:14)
[2019-09-22] MEDS: 0.9% Saline Lock 10 ML Syringe IV (09:14)
[2019-09-22 09:23] VITALS: O2SAT 92; O2SAT 99
--- NOTE | 2019-09-22 09:40 | PCM.PN.CARD ---
Subjectve: The patient looks better and states he feels better today. He states he is breathing more comfortably. Objective: Vital Signs Temp Pulse Resp BP Pulse Ox 97.5 F L 102 H 18 117/80 99 09/22/19 09:13 09/22/19 09:13 09/22/19 09:13 09/22/19 09:13 09/22/19 09:23 Oxygen Flow Rate (L/min) 1.5 Oxygen Delivery Method Room Air Weight: 260 lb 12.909 oz Body Mass Index (BMI) 35.2 Intake and Output for Last 24 Hours 09/20/19 09/21/19 09/22/19 23:59 23:59 23:59 Intake Total 1568.39 / 1585.09 1661.56 / 1661.56 150 / 150 Output Total 1775 / 1775 3575 / 3575 500 / 500 Balance -206.61 / -189.91 -1913.44 / -1913.44 -350 / -350 General: Awake, Alert, Oriented x 3, Cooperative, Obese HEENT: Atraumatic, Normocephalic, PERRL, EOMI, Sclera Non Icteric Oral: Moist Mucosa Neck: Supple, Good ROM, No JVD Lungs: Clear to auscultation Cardiovascular: Irregular Rhythm, Normal S1, Normal S2 Abdomen: Bowel Sounds Present, Soft, Non Tender Extremities: Trace RLE Edema, Trace LLE Edema Psych/Mental Status: Appropriate 09/22/19 05:10: Sodium 140, Potassium 3.6, Chloride 108 H, Carbon Dioxide 24.0, Anion Gap 8, BUN 37 H, Creatinine 1.68 H, Est GFR (MDRD) Af Amer 53 L, Est GFR (MDRD) Non-Af 44 L, BUN/Creatinine Ratio 22.0 H, Glucose 108 H, Calcium 8.4 L, Magnesium 2.0 Rhythm: Atrial fibrillation: Nonsustained wide-complex rhythm Medical Necessity - Tobacco Use Smoking Status: Never smoker Assessment/Plan 1. Acute on chronic systolic mediated CHF The patient presents with findings of acute on chronic systolic mediated CHF. It is unclear whether this is related to dietary indiscretion, medication noncompliance, or concerns of alteration of his underlying cardiovascular disease process, or the recent development of atrial fibrillation per imposed upon his underlying ischemic mediated cardiomyopathy and diminished LV systolic function. The present time he will be monitored. He will continue medical management. 2. CAD post PCI He has a history of CAD status post previous PCI-remote. His noninvasive and invasive studies, as can be retrieved at this time, are as noted. At the present time he is without ongoing symptoms of acute angina pectoris. He does have indeterminate troponin I levels. This may be a type II event secondary to his acute on chronic systolic mediated CHF with his atrial fibrillation with RVR superimposed upon his ischemic mediated cardiomyopathy and diminished LV systolic function. At the present time he will continue medical management. Depending upon his clinical course he may need further noninvasive or invasive evaluation over time. 3. Ischemic mediated cardiomyopathy He does have a history of an ischemic mediated cardiomyopathy with diminished LV systolic function/LVEF as previously noted. It appears he is undergone recent evaluation by his [facility] physicians. He has been recommended for continued medical management and referral for primary prevention ICD therapy. 4. Atrial fibrillation He does have atrial fibrillation. It is unclear whether he has had this in the past. However based on medical records available for review there does not appear to be any immediate mention of atrial fibrillation. At the present time he will continue to be followed. He will continue medical therapy with rate control therapy. He has been changed to oral amiodarone therapy. He will continue his anticoagulant therapy. 5. Hyperlipidemia He will continue medical therapy. 6. Hypertension His blood pressure will be followed. His medications can be adjusted as needed. 7. Pulmonary emboli He has a history of pulmonary emboli. He states he has been on chronic anticoagulant therapy. At the present time this will be continued barring need for interruption for further evaluation and/or care. For all, the present time, the patient needs continued medical care. He needs to continue to follow with his [facility] general administrator for his underlying atrial dysrhythmia/CHF as well as referral to electrophysiology for consideration for primary prevention ICD. Comment: The patient's case was discussed and reviewed with the patient and Dr. Ramirez. This note was generated using a voice recognition system and there may be incorrect words, spelling or punctuation that were not noted when reviewing the office note prior to saving.
--- NOTE | 2019-09-22 09:48 | DCINST_ITS ---
- Discharge Diagnoses Current Active Problems: Current Active and Chronic Problems (Last Reviewed 09/19/19 @ 21:[address] Anuj Jaimse MD) New onset atrial fibrillation (Acute) Systolic heart failure (Acute) CAD in [place] artery (Chronic) S/P PTCA (percutaneous transluminal coronary angioplasty) (Chronic) Cardiomyopathy (Chronic) HLD (hyperlipidemia) (Chronic) HTN (hypertension) (Chronic) You will use the following diet at home:: No restrictions Your food should be the consistency of: Regular Your liquids should be the consistency of: Regular/Thin Discharge Activity: Return to Normal Activity Weight Bearing Status: Full weight bearing Allergies/Adverse Reactions: Allergies No Known Allergies Allergy (Verified 09/19/19 18:05) Medications to take at Discharge Apixaban [Eliquis] 5 mg PO BID 09/19/19 Lisinopril [Zestril] 20 mg PO DAILY 09/19/19 Metoprolol Succinate [Toprol Xl] 100 mg PO DAILY 09/19/19 Rosuvastatin Calcium 20 mg PO DAILY 09/19/19 Spironolactone 25 mg PO DAILY 09/19/19 Amiodarone HCl [Cordarone] 200 mg PO UD #60 tab 09/22/19 Aspirin [Aspirin, Baby] 81 mg PO DAILY@0800 tab.chew 09/22/19 Furosemide [Lasix] 80 mg PO BID #120 tab 09/22/19 Isosorbide Mononitrate [Imdur] 30 mg PO DAILY #30 tab 09/22/19 The following prescriptions were given: Amiodarone HCl [Cordarone] 200 mg PO UD #60 tab Transmission Status: Pending to [id number] Isosorbide Mononitrate [Imdur] 30 mg PO DAILY #30 tab Transmission Status: Pending to [id number] Furosemide [Lasix] 80 mg PO BID #120 tab Transmission Status: Pending to [id number] Primary Care Physician: Dayo Avilez MD [Primary Care Provider] - Please follow up with your Primary Care Physician in: in one week-get BMP done Test Results: Test results from this visit will be discussed in further detail at your follow- up appointment, if applicable. Please Follow Up With: Dr. Barnhart When: on October 13-arrive at 1045 am
--- NOTE | 2019-09-22 18:33 | DS.PCM_ITS ---
Discharge Date and Diagnosis Date of Admission: 09/19/19 Date of Discharge: 09/22/19 - Primary Discharge Diagnosis #1 acute on chronic systolic CHF #2 new onset atrial fibrillation #3 coronary artery disease #4 ischemic cardiomyopathy #5 essential hypertension #6 chronic anticoagulation #7 noncompliance with medical regimen #8 creatinine elevation - Secondary Discharge Diagnosis Chronic Problems (Last Reviewed 09/19/19 @ 21:[address] Anuj Jaimes MD) CAD in [place] artery (Chronic) S/P PTCA (percutaneous transluminal coronary angioplasty) (Chronic) Cardiomyopathy (Chronic) HLD (hyperlipidemia) (Chronic) HTN (hypertension) (Chronic) Hospital Course and Treatment Operations: None Procedures: None Summary of Care Provided: The patient is a 64 year old M presented to the emergency room at [facility] with shortness of breath. Patient has a history of heart disease. EKG was obtained which does demonstrate atrial fibrillation with rapid ventricular response, patient had no history of atrial fibrillation. Patient was given metoprolol with improvement of the heart rate, chest x-ray showed a left base atelectasis and/or small infiltrate, Gretta peptide was elevated at 451, troponin was slightly elevated at 0.10. Patient was admitted to PCU for atrial fibrillation new onset with RVR and CHF, he was seen in consultation by cardiology and started on amiodarone. Patient was given IV diuresis, there is a slight rise in the patient's creatinine. On 09/22/2019, patient was seen and examined: On examination he appeared in good health and spirits. Vital signs as documented. Skin warm and dry and without overt rashes. Neck without JVD. Lungs clear. Heart exam notable for irregular rhythm, normal sounds and absence of murmurs, rubs or gallops. Abdomen unremarkable and without evidence of organomegaly, masses, or abdominal aortic enlargement. Extremities nonedematous. Neuro: Cranial nerves II through XII are grossly intact, no focal motor deficits were noted, sensation to light touch and pinprick intact. Psych: Patient is alert and oriented x3, he does not appear anxious or depressed On 09/22/2019, patient was seen and examined and felt to be in stable condition for discharge home. - Physical Exam Vitals/I&O's: Vital Signs Temp Pulse Resp BP Pulse Ox 97.5 F L 102 H 18 117/80 99 09/22/19 09:13 09/22/19 09:13 09/22/19 09:13 09/22/19 09:13 09/22/19 09:23 Oxygen Flow Rate (L/min) 1.5 Oxygen Delivery Method Room Air Weight: 118.3 kg Body Mass Index (BMI) 35.2 Intake and Output for Last 24 Hours 09/20/19 09/21/19 09/22/19 23:59 23:59 23:59 Intake Total 1568.39 / 1585.09 1661.56 / 1661.56 150 / 150 Output Total 1775 / 1775 3575 / 3575 500 / 500 Balance -206.61 / -189.91 -1913.44 / -1913.44 -350 / -350 Laboratory Results 09/22/19 05:10: Sodium 140, Potassium 3.6, Chloride 108 H, Carbon Dioxide 24.0, Anion Gap 8, BUN 37 H, Creatinine 1.68 H, Estim Creat Clear Calc 51.52, Est GFR (MDRD) Af Amer 53 L, Est GFR (MDRD) Non-Af 44 L, BUN/Creatinine Ratio 22.0 H, Glucose 108 H, Calcium 8.4 L, Magnesium 2.0 Discharge Activity: Return to Normal Activity Weight Bearing Status: Full weight bearing Home Medications: Medications to take at Discharge Apixaban [Eliquis] 5 mg PO BID 09/19/19 Lisinopril [Zestril] 20 mg PO DAILY 09/19/19 Metoprolol Succinate [Toprol Xl] 100 mg PO DAILY 09/19/19 Rosuvastatin Calcium 20 mg PO DAILY 09/19/19 Spironolactone 25 mg PO DAILY 09/19/19 Amiodarone HCl [Cordarone] 200 mg PO UD #60 tab 09/22/19 Aspirin [Aspirin, Baby] 81 mg PO DAILY@0800 tab.chew 09/22/19 Furosemide [Lasix] 80 mg PO BID #120 tab 09/22/19 Isosorbide Mononitrate [Imdur] 30 mg PO DAILY #30 tab 09/22/19 Following Prescrptions Were Given to Patient: Amiodarone HCl [Cordarone] 200 mg PO UD #60 tab Transmission Status: Received by [id number] Isosorbide Mononitrate [Imdur] 30 mg PO DAILY #30 tab Transmission Status: Received by [id number] Furosemide [Lasix] 80 mg PO BID #120 tab Transmission Status: Received by [id number] Primary Care Physician: Dayo Avilez MD [Primary Care Provider] - Please follow up with your Primary Care Physician in: in one week-get BMP done Please Follow Up With: Dr. Barnhart When: on October 13-arrive at 1045 am Disposition: Home Minutes spent on discharge:: 32 Patient Condition:: Stable Medical Necessity - Tobacco Use Smoking Status: Never smoker Meaningful Use Info Meaningful Use Diagnoses (Choose all that apply): CHF - CHF CAS/ARB ordered at discharge?: Yes Documented LVEF (%): 35 Inpatient E&M: 29620 Disch Hosp
== END 2019-09-22 11:28 | disposition home or self-care (01) | DRG 308 ==
LOC: ED 19:08 → PCU 22:03
PROVIDERS: Internal Medicine Cardiovascular Disease; Admitting Provider Hospitalist; Emergency Provider Emergency Medicine; PCP Family Medicine; Visit Provider Internal Medicine
DX: I48.91 Unspecified atrial fibrillation (principal); I50.23 Acute on chronic systolic (congestive) heart failure; I25.10 Atherosclerotic heart disease of native coronary artery without angina pectoris; I25.5 Ischemic cardiomyopathy; I11.0 Hypertensive heart disease with heart failure; E78.5 Hyperlipidemia, unspecified; Z86.711 Personal history of pulmonary embolism; Z91.14 Patient's other noncompliance with medication regimen; Z95.5 Presence of coronary angioplasty implant and graft; Z79.01 Long term (current) use of anticoagulants; R74.8 Abnormal levels of other serum enzymes
CPT/HCPCS: 36415; 71045; 80048; 80053; 83735; 83880; 84443; 84484; 85025; 85610; 85730; 93005; 97162; 97802; 99251; 99285; A4216; G0463; J1940

== ENCOUNTER → 2019-09-29 11:47 | Outpatient (CLI) | payer BC, SELFPAY ==
[2019-09-19 21:44] VITALS: BMI 35.2
[2019-09-29 15:45] LABS: Anion Gap 5 (5-15); BUN 27 mg/dL (7-18); BUN/Creat Ratio 14.6 RATIO (10-20); Calcium,Total 8.9 mg/dL (8.5-10.1); Chloride 101 mmol/L (98-107); Creatinine, Serum 1.85 mg/dL (0.70-1.30); EST Glomerular Filtration Rate 40 mL/min (>60); Est Glom Filt Rate - Afr Amer 48 mL/min (>60); Glucose 86 mg/dL (74-106); Potassium 4.1 mmol/L (3.5-5.1); Sodium Level 138 mmol/L (136-145)
== END ==
PROVIDERS: PCP Family Medicine; Visit Provider Family Medicine
DX: I10 Essential (primary) hypertension (principal)
CPT/HCPCS: 36415; 80048

== ENCOUNTER 2020-01-25 10:57 | Inpatient (IN) | payer BC, SELFPAY ==
[2019-09-19 21:44] VITALS: BMI 35.2
[2020-01-25] VITALS (9 sets, daily range): BP systolic 122–153; BP diastolic 76–113; PULSE 76–105; RESP 16–19; TEMP 36.5–37.2; O2SAT 95–97; BMI 33.7; BMI 33.6
--- NOTE | 2020-01-25 11:17 | CT_ITS ---
STUDY: CTA CHEST REASON FOR EXAM: Male, 65 years old. SOB, HX PE RADIATION DOSAGE (If Supplied By Facility): CTDIvol = ( 12.51 ) mGy, DLP = ( 506.57 ) mGycm TECHNIQUE: The examination was performed with the intravenous administration of 100 CC ISOVUE 370. Post-processing of the angiographic images was performed, with multiplanar reformation and 3D reconstruction. Individualized dose optimization techniques were used for this CT. COMPARISON: Comparison is made with prior chest radiograph dated September 19, 2019. FINDINGS: Normal enhancement of the main pulmonary artery and right and left pulmonary arteries. Normal enhancement of the bilateral peripheral pulmonary arteries. There is no demonstrated pulmonary embolism. There is atherosclerotic calcification of the aortic arch with tortuosity. There is no demonstrated aortic dissection. There are calcifications of the coronary arteries. There are visualized mediastinal lymph nodes, which are within normal size limits, and with normal morphology. Normal hilar regions. Normal visualized trachea and bronchi. The lungs are well expanded. There is a 3.8 cm x 2.8 cm peripheral based soft tissue density in the lateral aspect of the left lower lobe. Bronchovascular markings are seen entering this density suggestive of possible round atelectasis. Is also evidence of increased markings in the posterior medial aspect of the right lower lobe suggestive of scarring. There is blunting of the left costophrenic angle. A PET scan is recommended for further evaluation. Normal chest wall structures. There are degenerative changes of thoracic spine. Small anal hernia. CT/CTA Chest W/WO Contrast IMPRESSION: No evidence of palm embolism. Peripheral based 3.8 cm x 2.8 cm soft tissue density in the lateral aspect of the left lower lobe as described. This may represent round atelectasis although a PET scan is recommended for further evaluation. Mild degree of scarring at the right lung base Electronically Signed: Arnold Carrillo, at 12:52 EDT , Service support ,
--- NOTE | 2020-01-25 11:17 | EKG12_ITS ---
Test Reason : DYSRHYTHMIA Blood Pressure : / mmHG Vent. Rate : 098 BPM Atrial Rate : 105 BPM P-R Int : 000 ms QRS Dur : 118 ms QT Int : 364 ms P-R-T Axes : 000 -43 110 degrees QTc Int : 464 ms Atrial fibrillation Left axis deviation Inferior infarct (cited on or before 19-SEP-2019) Abnormal ECG Confirmed by KAYLEIGH LYONS, RADHA ([id number]), manager editorial MARTIN FOWLER ([id number]) on 01/26/2020 1:10:56 PM Referred By: JIMMY Confirmed By:RADHA VICTOR MD
--- NOTE | 2020-01-25 11:20 | ED.DCSUM_ITS ---
History of Present Illness Chief Complaint: General Illness Informant: Patient Onset: Days Activity at onset: Exertion Timing: Intermittent Quality: Dyspnea on exertion Chest Pain: None Narrative: Is a 65-year-old male with history of saddle pulmonary emboli, A. fib and pleural effusions presenting with worsening dyspnea on exertion. Patient saw his retail helper 1 week ago where he, and that he had a couple days of dark stools. At that time he was taken off of his Eliquis. He followed up at [facility] general surgery today for evaluation for endoscopy. There he was found to be pretty dyspneic on exertion and there was concern that he might have developed a pulmonary emboli as he has been off of his Eliquis. He states he is had no further black or bloody stools. He states he has been having some dyspnea on exertion for some time now. He states it is noticeable when he walks to the chicken coop and back. He states this is about [address] He has no worsening swelling of his lower extremities. He denies any associated chest pain. He denies any other complaints at this time. PE Risk Factors: Prior DVT or PE Past Medical History - Allergies and Home Meds Allergies/Adverse Reactions: Allergies No Known Allergies Allergy (Verified 01/25/20 10:57) Primary Care Physician: Dayo Avilez MD [Primary Care Provider] - Past Medical History: - - Systolic heart failure, atrial fibrillation, coronary artery disease, cardiomyopathy, hypertension, hyperlipidemia, pulmonary embolism, history of skin cancer Surgical History: - - Cancer cells removed from skin. Lives: Spouse/ Significant Other Smoking Status: Never smoker - Family History Maternal Family History: Reports: Diabetes, Stroke Paternal Family History: Reports: Heart Disease Review of Systems General: Denies: Chills, Fever, Sweats Eyes: Denies: Visual changes - bilaterally, Diplopia ENT: Denies: Rhinorrhea, Sore throat Cardiovascular: Denies: Chest pain, Palpitations Respiratory: Reports: Dyspnea on exertion. Denies: Dyspnea, Cough, Orthopnea Gastrointestinal: Denies: Abdominal pain, Nausea, Vomiting, Diarrhea, Melena, Hematochezia Genitourinary: Denies: Dysuria, Hematuria, Frequency Musculoskeletal: Denies: Back pain, Extremity Pain Skin: Denies: Rash, Wounds Neurological: Denies: Headache, Weakness, Numbness Physical Exam Vital Signs/Narrative: Vital Signs Temp Pulse Resp BP Pulse Ox 01/25/20 10:58 98.2 F 87 16 143/113 H 95 Inital Vital Signs reviewed: Yes General: Well nourished, Well developed, No Acute Distress Head: Normocephalic, Atraumatic Eyes: Perrl, EOMI. Negative for: Pale conjunctiva ENT: Moist mucous membranes, No rhinorrhea, TM's clear Neck: Supple, Nontender, No JVD Cardiovascular: Regular rate, Regular rhythm, No murmurs Respiratory: No distress, Chest nontender, - - Very mild crackles at the bases bilaterally Abdomen: Soft, Nontender, Nondistended, Normal bowel sounds Back: Nontender, Normal Inspection Extremities: Nontender, No edema Skin: Normal color, No rash Neurological: Alert, Oriented x3, Cranial nerves II-XII grossly intact, Normal Strength, Normal Sensation Psychological: Normal affect, Normal Mood Diagnostic/Tx/Re-eval Clinical Impression(s) from Imaging Studies Chest CTA 01/25/20 11:17 IMPRESSION: No evidence of palm embolism. Peripheral based 3.8 cm x 2.8 cm soft tissue density in the lateral aspect of the left lower lobe as described. This may represent round atelectasis although a PET scan is recommended for further evaluation. Mild degree of scarring at the right lung base Electronically Signed: Arnold Carrillo, at 12:52 EDT , Service support , Laboratory Data 01/25/20 01/25/20 01/25/20 11:36 11:36 11:36 WBC 5.8 RBC 4.66 Hgb 14.5 Hct 45.1 MCV 96.8 H MCH 31.1 MCHC 32.2 RDW Std Deviation 53.9 H RDW Coeff of Nichole 15.2 H Plt Count 151 MPV 10.6 Immature Gran % (Auto) 0.500 Neut % (Auto) 68.0 Lymph % (Auto) 17.4 L [place] % (Auto) 13.0 H Eos % (Auto) 0.2 Baso % (Auto) 0.9 Absolute Neuts (auto) 3.9 Absolute Lymphs (auto) 1.01 Nucleated RBC % 0 Sodium 142 Potassium 4.9 Chloride 110 H Carbon Dioxide 26.0 Anion Gap 6 BUN 32 H Creatinine 1.61 H Estim Creat Clear Calc 53.07 Est GFR (MDRD) Af Amer 56 L Est GFR (MDRD) Non-Af 46 L BUN/Creatinine Ratio 19.9 Glucose 115 H Calcium 9.4 Troponin I < 0.015 B-Natriuretic Peptide 882.6 H - Rhythm Strip Rhythm Strip: A-fib Rate: 98 Ectopy: None - EKG Initial EKG Interpretation: Atrial Fibrillation, - - Atrial fibrillation a rate of 98Left axis deviation. Normal intervalsNonspecific T wave inversion in 1 and aVL with no reciprocal changes - Medical Decision Making Patient is evaluated for worsening dyspnea on exertion. He does have a history of PE that was postoperative and has been off of his Eliquis for the past week due to concern for dark stools and the potential for GI bleed. Patient is guaiac negative in the emergency room. He is now longer having the dark stools. He does have some mild conversational dyspnea on exam. Cardiopulmonary work-up is negative for PE but does show an elevation of his proBNP. Ataxia twice what it was when he was last admitted for CHF exacerbation. Patient is ambulating the emergency room and dropped fairly quickly to 85% on room air. In addition he is symptomatic during this. Patient is given IV Lasix in the emergency room and will be admitted for likely CHF exacerbation. He is agreeable with this plan. He stable for the general medical floor at time of disposition. Patient is found to have an incidental soft tissue mass of his left lung. He is informed of this finding and need for further outpatient follow-up for it. ED Disposition - Plan for ED Patient: Disposition: Acute Care Hospital [facility] Diagnosis: Systolic heart failure, Dyspnea on exertion Referrals: Dayo Avilez MD [Primary Care Provider] -
[2020-01-25 11:43] LABS: Absolute Lymphocyte Count 1.01 X10^3/uL (0.83-4.51); Absolute Neutrophil Count 3.9 X10^3/uL (2.0-7.7); Basophil# 0.05 X10^3/uL; Basophil% 0.9 % (0-1); Eosinophil# 0.01 X10^3/uL; Eosinophils% 0.2 % (0-5); Hematocrit 45.1 % (40-54); Hemoglobin 14.5 g/dL (13.0-16.5); Lymphocyte # 1.01 X10^3/ul (4.0); Lymphocyte % 17.4 % (19-41); Mean Corp Hgb Conc 32.2 g/dL (32-36); Mean Corpuscular Hgb 31.1 pg (27.0-32.0); Mean Corpuscular Volume 96.8 fL (80-94); Mean Platelet Vol. 10.6 fl (6.2-12.0); Monocyte# 0.75 X10^3/uL; NRBC Flagged by Analyzer 0 % (0-5); Neutrophil # 3.94 X10^3/uL (2.7-7.7); Platelet Count 151 K/mm3 (150-450); RBC Distribution Width CV 15.2 % (11.6-14.6); RBC Distribution Width SD 53.9 fl (35.1-43.9); Red Blood Count 4.66 M/mm3 (4.6-6.2); White Blood Count 5.8 K/mm3 (4.4-11.0)
[2020-01-25 12:01] LABS: Anion Gap 6 (5-15); BUN 32 mg/dL (7-18); BUN/Creat Ratio 19.9 RATIO (10-20); Calcium,Total 9.4 mg/dL (8.5-10.1); Chloride 110 mmol/L (98-107); Creatinine, Serum 1.61 mg/dL (0.70-1.30); EST Glomerular Filtration Rate 46 mL/min (>60); Est Glom Filt Rate - Afr Amer 56 mL/min (>60); Estimated Creatinine Clearance 53.07 ml/min; Glucose 115 mg/dL (74-106); Potassium 4.9 mmol/L (3.5-5.1); Sodium Level 142 mmol/L (136-145)
[2020-01-25 12:03] LABS: BNP,B-Type NATRIURETIC PEPTIDE 882.6 pg/mL (0-100)
[2020-01-25] MEDS: Furosemide 40 MG/4 ML Vial IV ×2 (14:10→17:39)
--- NOTE | 2020-01-25 14:27 | HP.PCM_ITS ---
Problem List (1) HFrEF (heart failure with reduced ejection fraction) Status: Acute (2) New onset atrial fibrillation Status: Chronic (3) Systolic heart failure Status: Chronic Qualifiers: Heart failure chronicity: acute on chronic Qualified Code(s): I50.23 - Acute on chronic systolic (congestive) heart failure (4) CAD in [place] artery Status: Chronic (5) S/P PTCA (percutaneous transluminal coronary angioplasty) Status: Chronic (6) Cardiomyopathy Status: Chronic Qualifiers: Cardiomyopathy type: ischemic Qualified Code(s): I25.5 - Ischemic cardiomyopathy (7) HLD (hyperlipidemia) Status: Chronic (8) HTN (hypertension) Status: Chronic (9) Pulmonary embolism Status: Resolved (10) Dyspnea on exertion Status: Acute History of Present Illness Date of Admission: 01/25/20 Chief Complaint: short of breath The patient is a 65 year old M with a known history of CHF as well as pulmonary emboli. Patient had noted some black stool for couple days and notified his pulp screen operator. His cardiology group recommend he discontinue his apixaban that he takes for his atrial fibrillation as well as his history of VTE and to see surgery for colonoscopy as he has never had a colonoscopy before. Patient was to have a colonoscopy today but was sent here because of shortness of breath and having been taken off of his apixaban. Patient underwent a CT angiogram of the chest that showed no pulmonary emboli but did show a peripheral based 3.8 x 2.8 cm soft tissue density in the lateral aspect. Patient BNP was elevated at over 800. Patient did receive IV furosemide. Patient was ambulated in the hallway prior to the furosemide and dropped down to 85% on room air. Patient has just been short of breath with exertion since August but has been more tired as of late and sleeping more. Patient's weight has gone up from roughly 242 to now over 250. Patient states that he does not check his weight daily at home. He states that his furosemide dose was recently decreased due to some concern for his kidney function. [] Past Medical History Past Medical History (Chronic Problems): Chronic Problems (Last Reviewed 09/19/19 @ 21:[address] Anuj Jaimes MD) New onset atrial fibrillation (Chronic) Systolic heart failure (Chronic) CAD in [place] artery (Chronic) S/P PTCA (percutaneous transluminal coronary angioplasty) (Chronic) Cardiomyopathy (Chronic) HLD (hyperlipidemia) (Chronic) HTN (hypertension) (Chronic) Medical History: Medical History (Last Reviewed 09/19/19 @ 21:[address] Anuj Jaimes MD) Hypertension I10 Allergies No Known Allergies Allergy (Verified 01/25/20 10:57) Home Medications: Ambulatory Orders Medication Instructions Recorded Apixaban [Eliquis] 5 mg PO BID 09/19/19 Lisinopril [Zestril] 20 mg PO DAILY 09/19/19 Metoprolol Succinate [Toprol Xl] 150 mg PO DAILY 09/19/19 Rosuvastatin Calcium 20 mg PO QHS 09/19/19 Spironolactone 25 mg PO DAILY 09/19/19 Aspirin [Aspirin, Baby] 81 mg PO DAILY@0800 tab.chew 09/22/19 Isosorbide Mononitrate [Imdur] 30 mg PO DAILY #30 tab 09/22/19 Amiodarone HCl [Cordarone] 200 mg PO DAILY 01/25/20 Cholecalciferol (Vitamin D3) 6,000 unit PO DAILY 01/25/20 [Vitamin D3] Furosemide [Lasix] 20 mg PO DAILY 01/25/20 Nitroglycerin [Nitrostat] 0.4 mg SL Q5M PRN 01/25/20 Potassium Gluconate [Potassium] 198 mg PO DAILY 01/25/20 Surgical History: - - Cancer cells removed from skin. Lives: Spouse/ Significant Other Smoking Status: Former smoker - *Family History Maternal History Items: Diabetes, Stroke Paternal History Items: Heart Disease Review of Systems Constitutional: Reports: Anorexia, Malaise, Weight Change, - - Patient denies any sick contacts to anyone with COVID-19. States that he was checked for COVID-19 a week ago and that was negative.. Denies: Chills, Fever Eyes: Denies: Blurred vision, Double vision HEENT: Denies: Head Aches, Sinus Congestion, Sinus Drainage Cardiovascular: Denies: Chest Pain, Edema Respiratory: Reports: Shortness of Breath, Shortness of breath upon exertion. Denies: Cough Gastrointestinal: Denies: Abdominal Pain, Nausea, Vomiting Genitourinary: Denies: Dysuria Musculoskeletal: Denies: Joint Pain, Joint Tenderness Skin: Denies: Rash, Wounds Neurological: Denies: Numbness, Tingling, Focal weakness Hematologic/ Lymphatic: Reports: Hx of blood clot. Denies: Easy Bruising, Easy Bleeding Comment: All review of systems were negative except as mentioned above in the history of present illness and the other review of systems. VTE Information - Inpt Only VTE Present on Admission: No VTE Mechan Device Prophylaxis: None VTE Pharm Prophylaxis ordered?: No Reason prophylaxis not ordered:: Treatment Not Indicated - Physical Exam Vitals/I&O's: Vital Signs Temp Pulse Resp BP Pulse Ox 36.8 C 89 19 H 153/111 H 97 01/25/20 14:05 01/25/20 14:05 01/25/20 14:05 01/25/20 14:05 01/25/20 14:05 Oxygen Delivery Method Room Air Weight: 116.12 kg Body Mass Index (BMI) 33.7 General: Alert, Cooperative, No apparent distress HEENT: Atraumatic, Normocephalic Oral: Moist Mucosa, No Gingival or Mucosal Lesions/ Ulcerations Neck: No JVD, No Nodes, Thyroid Normal Size and Texture Lungs: Clear to auscultation, Normal air movement, No rhonchi, No wheeze, No rales Cardiovascular: Regular rate, Regular Rhythm, Normal S1, Normal S2, No murmurs Abdomen: Bowel Sounds Present, Soft, Non Tender, Non-Distended, No Hepato- splenomegaly Extremities: No edema, No Calf Tenderness Skin: No rashes, No breakdown Musculoskeletal: No Tenderness to Palpation of Joints or Extremities, No Muscle Wasting Neurological: Coordination normal, Gait narrow based and stable Psych/Mental Status: Normal Affect, Appropriate Microbiology Past 72 Hours 01/25/20 11:20 Stool Stool Occult Blood (ANNE MARIE) - Final Laboratory Results 01/25/20 11:36: WBC 5.8, RBC 4.66, Hgb 14.5, Hct 45.1, MCV 96.8 H, MCH 31.1, MCHC 32.2, RDW Std Deviation 53.9 H, RDW Coeff of Nichole 15.2 H, Plt Count 151, MPV 10.6, Immature Gran % (Auto) 0.500, Neut % (Auto) 68.0, Lymph % (Auto) 17.4 L, [place] % (Auto) 13.0 H, Eos % (Auto) 0.2, Baso % (Auto) 0.9, Absolute Neuts (auto) 3.9, Absolute Lymphs (auto) 1.01, Nucleated RBC % 0 01/25/20 11:36: Sodium 142, Potassium 4.9, Chloride 110 H, Carbon Dioxide 26.0, Anion Gap 6, BUN 32 H, Creatinine 1.61 H, Estim Creat Clear Calc 53.07, Est GFR (MDRD) Af Amer 56 L, Est GFR (MDRD) Non-Af 46 L, BUN/Creatinine Ratio 19.9, Glucose 115 H, Calcium 9.4, Troponin I < 0.015 01/25/20 11:36: B-Natriuretic Peptide 882.6 H EKG reviewed and showed atrial fibrillation with a rate control. CT of the chest showed no pulmonary emboli but did show the mass in the left lower lobe Assessment/Plan All Active Problems (Last Reviewed 09/19/19 @ 21:[address] Anuj Jaimes MD) Pulmonary embolism (Resolved) Dyspnea on exertion (Acute) HFrEF (heart failure with reduced ejection fraction) (Acute) 1. Acute heart failure with reduced ejection fraction: Patient had an echo at [facility] that showed an EF of 34%. Patient's furosemide has recent been decreased and patient is also not checking his weight daily so I feel that patient has just been steadily increasing more short of breath due to progressive fluid accumulation. Patient certainly not in any florid CHF at this time but would benefit from further diuresis with IV furosemide. Patient may benefit from changing his furosemide from 20 daily to 40 daily or twice a day. Continue with the lisinopril and metoprolol succinate. Request records from [facility] for recent echo reports if none has been done in the past 6 months and would recommend getting an echocardiogram while he is here. I did encourage the patient to weigh himself daily when he is discharged. 2. Acute respiratory insufficiency: Patient's pulse ox dropped down to 85% with ambulation. Would recommend checking a amatory pulse ox prior to discharge. 3. Lung mass: Could be atelectasis though could have been commented on x-ray from September. Recommend outpatient follow-up with repeat imaging in the next few months and/or pulmonary consultation. 4. Atrial fibrillation: Rate controlled. There is been discussion with his pulp screen operator to possibly have him cardioverted which was planning being done but with the black stool that was put on pause. We will continue with the apixaban, amiodarone and metoprolol succinate 5. History of VTE: Patient has had a history of saddle embolus. Patient will be resumed on apixaban. 6. History of black stool: Just recently. Patient was Hemoccult negative here. Follow-up with Dr. Atkinson for colonoscopy. 7. VTE prophylaxis: Low risk as patient is already anticoagulated. 8. Advanced care planning: Patient wishes to be full CODE STATUS. Case discussed with the patient's at bedside. Inpatient E&M: 59791 Init Hosp L3
[2020-01-25] MEDS: 0.9% Saline Lock 10 ML Syringe IV (17:39)
[2020-01-25] MEDS: Atorvastatin Calcium 40 MG Tablet PO (21:09)
[2020-01-25] MEDS: APIXABAN 5 MG TABLET PO (21:09)
[2020-01-26] VITALS (9 sets, daily range): BP systolic 92–127; BP diastolic 72–83; PULSE 71–89; RESP 18; TEMP 36.6–36.8; O2SAT 96
[2020-01-26 06:01] LABS: Absolute Lymphocyte Count 1.16 X10^3/uL (0.83-4.51); Absolute Neutrophil Count 2.8 X10^3/uL (2.0-7.7); Basophil# 0.05 X10^3/uL; Basophil% 1.1 % (0-1); Eosinophil# 0.03 X10^3/uL; Eosinophils% 0.6 % (0-5); Hematocrit 46.3 % (40-54); Lymphocyte # 1.16 X10^3/ul (4.0); Lymphocyte % 24.4 % (19-41); Mean Corp Hgb Conc 32.4 g/dL (32-36); Mean Corpuscular Hgb 31.3 pg (27.0-32.0); Mean Corpuscular Volume 96.7 fL (80-94); Mean Platelet Vol. 10.6 fl (6.2-12.0); Monocyte# 0.69 X10^3/uL; Monocyte% 14.5 % (0-10); NRBC Flagged by Analyzer 0 % (0-5); Neutrophil # 2.81 X10^3/uL (2.7-7.7); Platelet Count 133 K/mm3 (150-450); RBC Distribution Width CV 15.3 % (11.6-14.6); RBC Distribution Width SD 53.7 fl (35.1-43.9); Red Blood Count 4.79 M/mm3 (4.6-6.2); White Blood Count 4.8 K/mm3 (4.4-11.0)
[2020-01-26 06:33] LABS: Anion Gap 7 (5-15); BUN 35 mg/dL (7-18); BUN/Creat Ratio 19.9 RATIO (10-20); Calcium,Total 9.2 mg/dL (8.5-10.1); Chloride 102 mmol/L (98-107); Creatinine, Serum 1.76 mg/dL (0.70-1.30); EST Glomerular Filtration Rate 42 mL/min (>60); Est Glom Filt Rate - Afr Amer 51 mL/min (>60); Estimated Creatinine Clearance 48.55 ml/min; Glucose 114 mg/dL (74-106); Potassium 3.9 mmol/L (3.5-5.1); Sodium Level 139 mmol/L (136-145)
[2020-01-26] MEDS: Isosorbide Mononitrate 30 MG Tablet PO (09:09)
[2020-01-26] MEDS: Spironolactone 25 MG Tablet PO (09:09)
[2020-01-26] MEDS: APIXABAN 5 MG TABLET PO (09:09)
[2020-01-26] MEDS: Aspirin 81 MG TAB.CHEW PO (09:09)
[2020-01-26] MEDS: Amiodarone 200 MG Tablet PO (09:09)
[2020-01-26] MEDS: Metoprolol(XL)Succ 50 MG Tablet 150 MG PO (09:09)
[2020-01-26] MEDS: Furosemide 40 MG/4 ML Vial IV (09:10)
[2020-01-26] MEDS: 0.9% Saline Lock 10 ML Syringe IV (09:10)
--- NOTE | 2020-01-26 09:35 | CASEMGMT ---
SW completed a Palliative Care tool on patient. He scored a 1 so no referral was made at this time. Mickie CLARK MSW
--- NOTE | 2020-01-26 10:51 | CASEMGMT ---
CHADD WHITFIELD assessment: Face to Face with patient for initial transition planning/care coordination assessment. CHADD WHITFIELD introduced self and role at [facility], pt voices understanding and consents to assessment at this time. Pt is sitting up in bed in no distress at this time. Pt is A/Ox4 at this time and answers all questions appropriately at this time. Pt's is at bedside during assessment. Care providers, pharmacy, and demographics verified/updated at this time. Presentation: Sent from Teofilo's office for possible blood clots Admitting dx: CHF PCP: Raghav Specialists: Puneet, [facility] cardio; [facility]-has not seen yet Preferred Pharmacy: [facility] Insurance: [place] Prescription Benefit: [place] Living Will/HPOA: Pt states has LW/HPOA and they are on file at [facility] at this time. Pt states his , Mena Merritt, is HPOA. LNOK: Mena Merritt, ; Rasheed Merritt, son Living Arrangements: Pt states lives in 1 story home with and states no concerns at home at this time. Pt states is independent with ADL's. Transportation: Pt states drives self and states no transportation concerns at this time. DME/HHC: Pt states has a w/c and bp cuff but states does not use. Pt states would prefer [facility] pharmacy for home oxygen, if qualifies at discharge. Pt states no hx of HHC or SNF in the past. Pt states no concerns with going home at time of discharge. Pt states is retired. Pt states does not smoke cigarettes or drink ETOH. Pt states no further concerns/needs at this time. CM to follow for home oxygen and any further discharge planning/needs. Advised pt to ask for CM if any further questions/concerns/needs arise, voices understanding. Pt Goal: Home Plan[place]IT[place]
--- NOTE | 2020-01-26 10:52 | PCM.DC ---
- Discharge Diagnoses Current Active Problems: Current Active and Chronic Problems (Last Reviewed 09/19/19 @ 21:[address] Anuj Jaimes MD) Systolic heart failure (Chronic) Dyspnea on exertion (Acute) You will use the following diet at home:: Cardiac, Fluid restricted (specify 2000 mls, 1500 mls) - 1500 cc/day Your food should be the consistency of: Regular Your liquids should be the consistency of: Regular/Thin Discharge Activity: Return to Normal Activity Additional Instructions: You will need a BMP (lab) in 1 week, call your PCP to arrange this. Allergies/Adverse Reactions: Allergies No Known Allergies Allergy (Verified 01/25/20 10:57) Medications to take at Discharge Apixaban [Eliquis] 5 mg PO BID 09/19/19 Lisinopril [Zestril] 20 mg PO DAILY 09/19/19 Metoprolol Succinate [Toprol Xl] 150 mg PO DAILY 09/19/19 Rosuvastatin Calcium 20 mg PO QHS 09/19/19 Spironolactone 25 mg PO DAILY 09/19/19 Aspirin [Aspirin, Baby] 81 mg PO DAILY@0800 tab.chew 09/22/19 Isosorbide Mononitrate [Imdur] 30 mg PO DAILY #30 tab 09/22/19 Amiodarone HCl [Cordarone] 200 mg PO DAILY 01/25/20 Cholecalciferol (Vitamin D3) [Vitamin D3] 6,000 unit PO DAILY 01/25/20 Nitroglycerin [Nitrostat] 0.4 mg SL Q5M PRN 01/25/20 Furosemide [Lasix] 40 mg PO DAILY #30 tab 01/26/20 Potassium Chloride [K-Dur] 20 meq PO DAILY #30 tab 01/26/20 The following prescriptions were given: Potassium Chloride [K-Dur] 20 meq PO DAILY #30 tab Transmission Status: Pending to [facility] Furosemide [Lasix] 40 mg PO DAILY #30 tab Transmission Status: Pending to [facility] Primary Care Physician: Dayo Avilez MD [Primary Care Provider] - Please follow up with your Primary Care Physician in: 1-2 weeks Test Results: Test results from this visit will be discussed in further detail at your follow-up appointment, if applicable. Please Follow Up With: Ahsan Kenney MD - CARDIOLOGY When: 3-4 weeks
--- NOTE | 2020-01-26 13:38 | PCM.DC.SUM ---
<Kody Chapa - Last Filed: 01/26/20 13:38> Discharge Date and Diagnosis Date of Admission: 01/25/20 Date of Discharge: 01/26/20 - Primary Discharge Diagnosis Acute Problems: Active Problems (Last Reviewed 09/19/19 @ 21:[address] Anuj Jaimes MD) Acute on chronic systolic CHF exacerbation pAfib lung soft tissue mass unclear etiology CAD with prior stent, ischemic cardiomyopathy Hx PE Suspected CKDIII - Secondary Discharge Diagnosis Chronic Problems: Chronic Problems (Last Reviewed 09/19/19 @ 21:[address] Anuj Jaimes MD) New onset atrial fibrillation (Chronic) Systolic heart failure (Chronic) CAD in [place] artery (Chronic) S/P PTCA (percutaneous transluminal coronary angioplasty) (Chronic) Cardiomyopathy (Chronic) HLD (hyperlipidemia) (Chronic) HTN (hypertension) (Chronic) Hospital Course and Treatment Imaging Results: CT/CTA Chest W/WO Contrast IMPRESSION: No evidence of palm embolism. Peripheral based 3.8 cm x 2.8 cm soft tissue density in the lateral aspect of the left lower lobe as described. This may represent round atelectasis although a PET scan is recommended for further evaluation. Mild degree of scarring at the right lung base Operations: None Procedures: None Summary of Care Provided: Hospital Course: The patient is a 65 year old M with pmhx of CAD, ischemic CM, systolic CHF, pAfib, PE, who presented to the ER with SOB worse with exertion. He had an elevated BNP, 8 lb weight gain, and CTA without acute process. He had a pulse ox of 85% while ambulating on room air. CTA did reveal a 3.8 x 2.8 cm soft tissue density that will need f.u with as an o/p. He was admitted for acute on chronic systolic CHF exacerbation. He was started on IV Lasix. He had recently had his home Lasix dose cut in half. He responded very well to IV Lasix. The patient had his previous cardiac work-up at the [facility] through his normal technical intern so we did not have all of his records here however in prior records show he had an echocardiogram on November 07, 2019 at [facility] with EF of 34%. He was here in September of this year with an acute on chronic systolic CHF exacerbation as well. Patient had good diuresis overnight and the following morning he was able to ambulate on room air without the need for oxygen. He had no further symptoms and desired to be discharged home. He was transitioned to oral Lasix 40 once daily. He will need a follow-up BMP this week. He will need follow-up with his PCP in 1 to 2 weeks. He desires to follow-up with cardiology here in [place] as opposed to going back to [place], I have recommended that he follow-up with whom he saw on prior admission in 3 to 4 weeks. He was discharged home in stable condition. This patient was seen by Kody Chapa PA-C under the supervision of Doctor Gloria. [] - Physical Exam Vitals/I&O's: Vital Signs Temp Pulse Resp BP Pulse Ox 97.8 F 84 18 92/78 96 01/26/20 08:47 01/26/20 11:58 01/26/20 08:47 01/26/20 13:07 01/26/20 13:23 Oxygen Flow Rate (L/min) [ 95 AMBULATING on Room Air] Oxygen Flow Rate (L/min) [At 95 REST on Room Air] Oxygen Delivery Method Room Air Weight: 251 lb 12.286 oz Body Mass Index (BMI) 33.6 Intake and Output for Last 24 Hours 01/24/20 01/25/20 01/26/20 23:59 23:59 23:59 Intake Total 1140 / 1140 600 / 600 Output Total 4050 / 4050 1250 / 1250 Balance -2910 / -2910 -650 / -650 General: Alert, Oriented x3, Cooperative HEENT: Atraumatic, PERRLA, EOMI, Normocephalic Neck: Supple, No JVD, Negative Carotid Bruits Lungs: Clear to auscultation, Normal air movement Cardiovascular: Regular rate, No murmurs Abdomen: Bowel Sounds Present, Soft, Non Tender Extremities: No edema, Capillary Refill Less than 3 Seconds Skin: No rashes, No breakdown Musculoskeletal: No Tenderness to Palpation of Joints or Extremities Neurological: Cranial nerves II-XII grossly intact Psych/Mental Status: Normal Affect, Appropriate Microbiology Past 72 Hours 01/25/20 11:20 Stool Stool Occult Blood (ANNE MARIE) - Final Laboratory Results 01/25/20 15:04: Troponin I < 0.015 01/25/20 18:05: Troponin I < 0.015 01/26/20 05:30: WBC 4.8, RBC 4.79, Hgb 15.0, Hct 46.3, MCV 96.7 H, MCH 31.3, MCHC 32.4, RDW Std Deviation 53.7 H, RDW Coeff of Nichole 15.3 H, Plt Count 133 L, MPV 10.6, Immature Gran % (Auto) 0.400, Neut % (Auto) 59.0, Lymph % (Auto) 24.4, [place] % (Auto) 14.5 H, Eos % (Auto) 0.6, Baso % (Auto) 1.1 H, Absolute Neuts (auto) 2.8, Absolute Lymphs (auto) 1.16, Nucleated RBC % 0 01/26/20 05:30: Sodium 139, Potassium 3.9, Chloride 102, Carbon Dioxide 30.0, Anion Gap 7, BUN 35 H, Creatinine 1.76 H, Estim Creat Clear Calc 48.55, Est GFR (MDRD) Af Amer 51 L, Est GFR (MDRD) Non-Af 42 L, BUN/Creatinine Ratio 19.9, Glucose 114 H, Calcium 9.2 Current Medications Acetaminophen (Tylenol) 650 mg PO Q6H PRN PRN PRN Reason: Pain Score 1-10/Temp > 100.7 F Amiodarone HCl (Cordarone) 200 mg PO DAILY [facility] Last Admin: 01/26/20 09:09 Dose: 200 mg Documented by: Apixaban (Eliquis) 5 mg PO BID [facility] Last Admin: 01/26/20 09:09 Dose: 5 mg Documented by: Aspirin (Aspirin, Baby) 81 mg PO DAILY@0800 [facility] Last Admin: 01/26/20 09:09 Dose: 81 mg Documented by: Atorvastatin Calcium (Lipitor) 40 mg PO QHS [facility] Last Admin: 01/25/20 21:09 Dose: 40 mg Documented by: Dextrose (D50w Syringe) 0 gm IV X1 PRN; Protocol PRN Reason: Hypoglycemia Furosemide (Lasix) 40 mg IV BID@1000,1800 [facility] Last Admin: 01/26/20 09:10 Dose: 40 mg Documented by: Glucagon () 1 mg IM .X1 PRN PRN Reason: Hypoglycemia Sodium Chloride () 500 mls @ 15 mls/hr IV PRN PRN PRN Reason: Blood Transfusion Sodium Chloride () 250 mls @ 15 mls/hr IV .[id number] PRN PRN Reason: Saline Flush Sodium Chloride () 250 mls @ 15 mls/hr IV .[id number] PRN PRN Reason: Additional IVPB Infusion Isosorbide Mononitrate (Imdur) 30 mg PO DAILY [facility] Last Admin: 01/26/20 09:09 Dose: 30 mg Documented by: Lisinopril (Zestril) 20 mg PO DAILY [facility] Last Admin: 01/26/20 13:11 Dose: Not Given Documented by: Metoprolol Succinate (Toprol Xl (Beta Cuauhtemoc)) 150 mg PO DAILY [facility] Last Admin: 01/26/20 09:09 Dose: 150 mg Documented by: Nitroglycerin (Nitrostat) 0.4 mg SUBLINGUAL Q5M PRN PRN Reason: CARDIAC/CHEST PAIN Ondansetron HCl (Zofran) 4 mg IV Q8H PRN PRN PRN Reason: NAUSEA/VOMITING Sodium Chloride () 10 - 40 ml IV UD PRN PRN Reason: SALINE FLUSH Last Admin: 01/26/20 09:10 Dose: 10 ml Documented by: Spironolactone (Aldactone) 25 mg PO DAILY [facility] Last Admin: 01/26/20 09:09 Dose: 25 mg Documented by: Discharge Diet: Low fat/ Low Cholesterol, 2000 mg Sodium Diet Discharge Activity: Return to Normal Activity Home Medications: Medications to take at Discharge Apixaban [Eliquis] 5 mg PO BID 09/19/19 Lisinopril [Zestril] 20 mg PO DAILY 09/19/19 Metoprolol Succinate [Toprol Xl] 150 mg PO DAILY 09/19/19 Rosuvastatin Calcium 20 mg PO QHS 09/19/19 Spironolactone 25 mg PO DAILY 09/19/19 Aspirin [Aspirin, Baby] 81 mg PO DAILY@0800 tab.chew 09/22/19 Isosorbide Mononitrate [Imdur] 30 mg PO DAILY #30 tab 09/22/19 Amiodarone HCl [Cordarone] 200 mg PO DAILY 01/25/20 Cholecalciferol (Vitamin D3) [Vitamin D3] 6,000 unit PO DAILY 01/25/20 Nitroglycerin [Nitrostat] 0.4 mg SL Q5M PRN 01/25/20 Furosemide [Lasix] 40 mg PO DAILY #30 tab 01/26/20 Potassium Chloride [K-Dur] 20 meq PO DAILY #30 tab 01/26/20 Following Prescrptions Were Given to Patient: Potassium Chloride [K-Dur] 20 meq PO DAILY #30 tab Transmission Status: Received by [facility] Furosemide [Lasix] 40 mg PO DAILY #30 tab Transmission Status: Received by [facility] Primary Care Physician: Dayo Avilez MD [Primary Care Provider] - Please follow up with your Primary Care Physician in: 1-2 weeks Please Follow Up With: Ahsan Kenney MD - CARDIOLOGY When: 3-4 weeks Disposition: Home Minutes spent on discharge:: 35 Patient Condition:: Stable Medical Necessity - Tobacco Use Smoking Status: Never smoker Meaningful Use Info Meaningful Use Diagnoses (Choose all that apply): CHF - CHF CAS/ARB ordered at discharge?: Yes Documented LVEF (%): 34 <Jeannie Castro E - Last Filed: 01/27/20 09:49> Discharge Date and Diagnosis - Primary Discharge Diagnosis Acute Problems: Active Problems (Last Reviewed 09/19/19 @ 21:[address] Anuj Jaimes MD) Dyspnea on exertion (Acute) - Secondary Discharge Diagnosis Chronic Problems: Chronic Problems (Last Reviewed 09/19/19 @ 21:[address] Anuj Jaimes MD) New onset atrial fibrillation (Chronic) Systolic heart failure (Chronic) CAD in [place] artery (Chronic) S/P PTCA (percutaneous transluminal coronary angioplasty) (Chronic) Cardiomyopathy (Chronic) HLD (hyperlipidemia) (Chronic) HTN (hypertension) (Chronic) Hospital Course and Treatment Summary of Care Provided: Hospitalist note: Discharge summary above reviewed and I concur with above discharge and treatment plan. Patient presented to the emergency room because of worsening shortness of breath with exertion, found to have acute on chronic systolic CHF. His EKG revealed no evidence of acute ischemic changes. His troponin was normal. BNP was elevated. Patient was treated with IV Lasix for diuresis. He had 2D echocardiogram from October, that revealed ejection fraction of 35%. With IV diuresis, his symptoms improved and he was able to come off oxygen. Patient mentioned that his dose of Lasix was decreased recently because of worsening creatinine. His creatinine has been around 1.6-1.8 in the last 5 months. Ambulatory pulse oximetry performed and his pulse ox did not drop below 88% with ambulation on room air. Patient discharged home in a stable medical condition, discharged on Lasix 40 mg p.o. daily, discharged on potassium supplement, continued on his previous home medications without any changes, recommended follow-up with PCP in 1 to 2 weeks, follow-up with cardiology in 3 to 4 weeks. - Physical Exam General: Alert, Oriented x3, Cooperative, No apparent distress. HEENT: Atraumatic, PERRLA, EOMI. Neck: Supple, No JVD, Negative Carotid Bruits, Trachea Midline, Thyroid Normal. Lungs: Diminished breath sounds bilateral, otherwise clear, No rhonchi, No wheeze, No rales. Cardiovascular: Regular rate, Regular Rhythm, Normal S1, Normal S2, PMI Normal. Abdomen: Bowel Sounds Present, Soft, Non Tender, Non-Distended, No Hepato-splenomegaly. Extremities: No clubbing, No cyanosis, No edema Skin: No rashes, No breakdown Neurological: Cranial nerves are intact, neuro grossly intact Vital Signs are stable. This note was generated with [employer] dictation software. It may contain incorrect words, spelling, and punctuation that were not noted in checking the note before signing. - Physical Exam Vitals/I&O's: Vital Signs Temp Pulse Resp BP Pulse Ox 97.8 F 84 18 92/78 96 01/26/20 08:47 01/26/20 11:58 01/26/20 08:47 01/26/20 13:07 01/26/20 13:23 Oxygen Flow Rate (L/min) [ 95 AMBULATING on Room Air] Oxygen Flow Rate (L/min) [At 95 REST on Room Air] Oxygen Delivery Method Room Air Weight: 251 lb 12.286 oz Body Mass Index (BMI) 33.6 Intake and Output for Last 24 Hours 01/24/20 01/25/20 01/26/20 23:59 23:59 23:59 Intake Total 1140 / 1140 600 / 600 Output Total 4050 / 4050 1250 / 1250 Balance -2910 / -2910 -650 / -650 Microbiology Past 72 Hours 01/25/20 11:20 Stool Stool Occult Blood (ANNE MARIE) - Final Laboratory Results 01/25/20 15:04: Troponin I < 0.015 01/25/20 18:05: Troponin I < 0.015 01/26/20 05:30: WBC 4.8, RBC 4.79, Hgb 15.0, Hct 46.3, MCV 96.7 H, MCH 31.3, MCHC 32.4, RDW Std Deviation 53.7 H, RDW Coeff of Nichole 15.3 H, Plt Count 133 L, MPV 10.6, Immature Gran % (Auto) 0.400, Neut % (Auto) 59.0, Lymph % (Auto) 24.4, [place] % (Auto) 14.5 H, Eos % (Auto) 0.6, Baso % (Auto) 1.1 H, Absolute Neuts (auto) 2.8, Absolute Lymphs (auto) 1.16, Nucleated RBC % 0 01/26/20 05:30: Sodium 139, Potassium 3.9, Chloride 102, Carbon Dioxide 30.0, Anion Gap 7, BUN 35 H, Creatinine 1.76 H, Estim Creat Clear Calc 48.55, Est GFR (MDRD) Af Amer 51 L, Est GFR (MDRD) Non-Af 42 L, BUN/Creatinine Ratio 19.9, Glucose 114 H, Calcium 9.2 Current Medications Acetaminophen (Tylenol) 650 mg PO Q6H PRN PRN PRN Reason: Pain Score 1-10/Temp > 100.7 F Amiodarone HCl (Cordarone) 200 mg PO DAILY [facility] Last Admin: 01/26/20 09:09 Dose: 200 mg Documented by: Apixaban (Eliquis) 5 mg PO BID [facility] Last Admin: 01/26/20 09:09 Dose: 5 mg Documented by: Aspirin (Aspirin, Baby) 81 mg PO DAILY@0800 [facility] Last Admin: 01/26/20 09:09 Dose: 81 mg Documented by: Atorvastatin Calcium (Lipitor) 40 mg PO QHS [facility] Last Admin: 01/25/20 21:09 Dose: 40 mg Documented by: Dextrose (D50w Syringe) 0 gm IV X1 PRN; Protocol PRN Reason: Hypoglycemia Furosemide (Lasix) 40 mg IV BID@1000,1800 [facility] Last Admin: 01/26/20 09:10 Dose: 40 mg Documented by: Glucagon () 1 mg IM .X1 PRN PRN Reason: Hypoglycemia Sodium Chloride () 500 mls @ 15 mls/hr IV PRN PRN PRN Reason: Blood Transfusion Sodium Chloride () 250 mls @ 15 mls/hr IV .[id number] PRN PRN Reason: Saline Flush Sodium Chloride () 250 mls @ 15 mls/hr IV .[id number] PRN PRN Reason: Additional IVPB Infusion Isosorbide Mononitrate (Imdur) 30 mg PO DAILY [facility] Last Admin: 01/26/20 09:09 Dose: 30 mg Documented by: Lisinopril (Zestril) 20 mg PO DAILY [facility] Last Admin: 01/26/20 13:11 Dose: Not Given Documented by: Metoprolol Succinate (Toprol Xl (Beta Cuauhtemoc)) 150 mg PO DAILY [facility] Last Admin: 01/26/20 09:09 Dose: 150 mg Documented by: Nitroglycerin (Nitrostat) 0.4 mg SUBLINGUAL Q5M PRN PRN Reason: CARDIAC/CHEST PAIN Ondansetron HCl (Zofran) 4 mg IV Q8H PRN PRN PRN Reason: NAUSEA/VOMITING Sodium Chloride () 10 - 40 ml IV UD PRN PRN Reason: SALINE FLUSH Last Admin: 01/26/20 09:10 Dose: 10 ml Documented by: Spironolactone (Aldactone) 25 mg PO DAILY [facility] Last Admin: 01/26/20 09:09 Dose: 25 mg Documented by: Disposition: Home Minutes spent on discharge:: 28 Patient Condition:: Stable Meaningful Use Info Meaningful Use Diagnoses (Choose all that apply): CHF - CHF CAS/ARB ordered at discharge?: Yes Documented LVEF (%): 34 Inpatient E&M: [id number] Disch Hosp
--- NOTE | 2020-01-27 15:23 | CASEMGMT ---
[facility]ADD CM DC PHONE CALL DC DATE: 01/26/2020 DC DISPOSITION: Home DC DIAGNOSIS: CHF LACE/STRATA: 04/21 F/U APPTS MADE PRIOR TO DC: yes Attempted call to phone. No answer and no messaging with name identifier. Shamar TONEYN RN ACM
== END 2020-01-26 14:53 | disposition home or self-care (01) | DRG 293 ==
LOC: ED 13:46 → PCU 14:32
PROVIDERS: Emergency Provider Emergency Medicine; PCP Family Medicine; Visit Provider Hospitalist
DX: I11.0 Hypertensive heart disease with heart failure (principal); I50.23 Acute on chronic systolic (congestive) heart failure; I48.0 Paroxysmal atrial fibrillation; I25.5 Ischemic cardiomyopathy; R06.89 Other abnormalities of breathing; I25.10 Atherosclerotic heart disease of native coronary artery without angina pectoris; E78.5 Hyperlipidemia, unspecified; Z79.01 Long term (current) use of anticoagulants; Z79.899 Other long term (current) drug therapy; Z79.82 Long term (current) use of aspirin; Z86.711 Personal history of pulmonary embolism; Z85.828 Personal history of other malignant neoplasm of skin; Z95.5 Presence of coronary angioplasty implant and graft; Z87.891 Personal history of nicotine dependence
CPT/HCPCS: 36415; 71275; 80048; 82274; 83880; 84484; 85025; 93005; 99285; Q9967; A4216; J1940

== ENCOUNTER → 2020-02-01 14:07 | Outpatient (CLI) | payer BC, SELFPAY ==
[2020-01-25 14:42] VITALS: BMI 33.6
[2020-02-01 17:47] LABS: Anion Gap 11 (5-15); BUN 47 mg/dL (7-18); BUN/Creat Ratio 21.5 RATIO (10-20); Calcium,Total 9.7 mg/dL (8.5-10.1); Chloride 102 mmol/L (98-107); Creatinine, Serum 2.19 mg/dL (0.70-1.30); EST Glomerular Filtration Rate 33 mL/min (>60); Est Glom Filt Rate - Afr Amer 39 mL/min (>60); Glucose 105 mg/dL (74-106); Potassium 4.9 mmol/L (3.5-5.1); Sodium Level 138 mmol/L (136-145)
== END ==
PROVIDERS: PCP Family Medicine; Visit Provider Family Medicine
DX: I50.9 Heart failure, unspecified (principal)
CPT/HCPCS: 36415; 80048

== ENCOUNTER → 2020-02-28 14:56 | Outpatient (CLI) | payer BC, SELFPAY ==
[2020-01-25 14:42] VITALS: BMI 33.6
[2020-02-28 13:45] VITALS: BMI 33.0
[2020-02-28 16:11] LABS: Anion Gap 6 (5-15); BUN 41 mg/dL (7-18); BUN/Creat Ratio 17.7 RATIO (10-20); Calcium,Total 9.1 mg/dL (8.5-10.1); Chloride 108 mmol/L (98-107); Creatinine, Serum 2.32 mg/dL (0.70-1.30); EST Glomerular Filtration Rate 30 mL/min (>60); Est Glom Filt Rate - Afr Amer 37 mL/min (>60); Glucose 100 mg/dL (74-106); Potassium 4.7 mmol/L (3.5-5.1); Sodium Level 140 mmol/L (136-145)
[2020-02-28 16:16] LABS: BNP,B-Type NATRIURETIC PEPTIDE 365.2 pg/mL (0-100)
== END ==
PROVIDERS: PCP Family Medicine; Referring Provider Physician Assistant Medical; Visit Provider Family Medicine
DX: I50.9 Heart failure, unspecified (principal); K92.1 Melena
CPT/HCPCS: 36415; 80048; 83880

== ENCOUNTER → 2020-02-29 | Outpatient (CLI) | payer BC, SELFPAY ==
[2020-02-28 13:45] VITALS: BMI 33.0
== END | disposition home or self-care (01) ==
LOC: LABSPEC 12:17
PROVIDERS: PCP Family Medicine; Referring Provider Physician Assistant Medical; Visit Provider Physician Assistant Medical
DX: K92.1 Melena (principal)
CPT/HCPCS: 82274

== ENCOUNTER 2020-03-28 07:19 | Day surgery (SDC) | payer BC, SELFPAY ==
--- NOTE | 2020-03-14 01:16 | HP_ITS ---
Intake Vital Signs 03/14/20 BMI 33.0 03/14/20 Height 6 ft 1 in 03/14/20 Weight: 251 lb 4 oz 03/14/20 BMI 33.1 03/14/20 BP 130/84 H 03/14/20 Blood Pressure Location Rt brachial 03/14/20 Position Sitting 03/14/20 Respiration 16 Intake Visit Reasons: MELENA Chief Complaint: melena Last [place]er Required: No Is patient in pain?: No Allergies No Known Allergies Allergy (Verified 03/14/20 13:07) Medications Apixaban [Eliquis] 5 mg PO BID 09/19/19 [History Confirmed 03/14/20] Lisinopril [Zestril] 20 mg PO DAILY 09/19/19 [History Confirmed 03/14/20] Metoprolol Succinate [Toprol Xl] 150 mg PO DAILY 09/19/19 [History Confirmed 03/14/20] Rosuvastatin Calcium 20 mg PO QHS 09/19/19 [History Confirmed 03/14/20] Spironolactone 25 mg PO DAILY 09/19/19 [History Confirmed 03/14/20] Aspirin [Aspirin, Baby] 81 mg PO DAILY@0800 tab.chew 09/22/19 [Rx Confirmed 03/14/20] Isosorbide Mononitrate [Imdur] 30 mg PO DAILY #30 tab 09/22/19 [Rx Confirmed 03/14/20] Amiodarone HCl [Cordarone] 200 mg PO DAILY 01/25/20 [History Confirmed 03/14/20] Cholecalciferol (Vitamin D3) [Vitamin D3] 6,000 unit PO DAILY 01/25/20 [History Confirmed 03/14/20] Nitroglycerin [Nitrostat] 0.4 mg SL Q5M PRN 01/25/20 [History Confirmed 03/14/20] Furosemide [Lasix] 40 mg PO DAILY #30 tab 01/26/20 [Rx Confirmed 03/14/20] potassium chloride 20 mEq tablet,extended release(part/cryst) 99 meq PO DAILY tab 02/28/20 [History Confirmed 03/14/20] [facility] Medical History New onset atrial fibrillation (Chronic) CAD in [place] artery (Chronic) Cardiomyopathy (Chronic) HLD (hyperlipidemia) (Chronic) HTN (hypertension) (Chronic) Hypertension (Chronic) Surgical History S/P PTCA (percutaneous transluminal coronary angioplasty) (Chronic) Social History (Updated 03/14/20 @ 13:[address] Isaiah Monzon MD) Smoking Status: Never smoker HPI HPI Surgical H&P: Yes HPI: SADIQ DOYLE, is a 65 M who presents to the office today for Evaluation for colonoscopy. Patient was being evaluated by his claim processor for A. fib and is going to be getting a defibrillator. He was complaining of some dark Stools and fecal occult blood test came back as positive. He does notice that he has some looser stools in the morning. He has had only one episode of dark stools and his stools now have been normal. He is not anemic. ROS General General: Yes weight change and fatigue; no appetite, colon cancer, breast cancer or weakness HEENT HEENT: No difficulty swallowing, eye injury, eye surgery, swollen glands or hoarseness Endo Endocrine: No thyroid disease, diabetes mellitus, thyroid cancer, Hair loss, heat intolerance or cold intolerance Skin Skin: No rash or changing moles Breast Breast: No left breast lump, right breast lump, nipple discharge, breast pain, abnormal mammogram, abnormal US or breast enlargement Musc Musculoskeletal: Yes back problems and arthritis; no rheumatoid arthritis, gout or joint pain Cardio Cardiovascular: Yes murmur, heart disease, atrial fibrillation, high blood pressure, heart attack, heart stent and shortness of breat with exertion; no pacemaker, palpitations or chest pain Psych Psychiatric: No depression, anxiety or hearing voices Resp Respiratory: Yes shortness of breath, Yes sleep apnea, No cough, No COPD, No asthma, No emphysema, No wheezing Gastro Gastrointestinal: No abdominal pain, No nausea or vomiting, Yes diarrhea, No constipation, Yes blood in stool, No acid reflux, Yes hemorrhoids, No ulcers, No gallbladder problem, No black,tarry stools Shivam Hematologic: Yes blood thinners, No blood disorders, No bleeding, No anemia, No blood clots Neuro Neurologic: No system reviewed and no additional complaints, except as docu, No as per HPI, No abnormal walking, No abnormal hearing, No abnormal movements, No abnormal speech, No behavioral changes, No burning sensations, No confusion, No seizure-like activity, No unsteadiness, No dizziness, No localized weakness, No frequent falls, No headache(s), No lack of coordination, No loss of vision, No memory loss, Yes numbness, No other visual disturbances, No radiating pain, No restless legs, No sensory deficit, No fainting, Yes tingling, No tremor(s), No weakness, No other Exam Const General: no acute distress, well developed, well hydrated Orientation: oriented to person, oriented to place, oriented to time [facility] Head: normocephalic, atraumatic Ears: external ears normal Mouth: moist mucous membranes Eyes Sclera: sclerae normal Pupils: normal by confrontation Neck Neck: no lymphadenopathy noted Neck mass: No Thyroid: thyroid normal, symmetrical Chest Chest palpation & inspection: normal inspection of the chest Breast Palpation: No nipple discharge Resp Effort & Inspection: normal respiratory effort Auscultation: clear to auscultation bilaterally Percussion: percussion normal Cardio Rate: regular rate Rhythm: regular rhythm Heart Sounds: murmur GI Palpation: soft, no hepatosplenomegaly, no masses, nontender Rectal Exam: other Other: Rectal exam deferred. Extrem General: normal to inspection, no clubbing, cyanosis or edema Assessment & Plan Problems 1. Heme positive stool R19.5 Plan I have discussed the above with the patient. I have offered the patient colonoscopy for evaluation. I have explained the risks/benefits of the procedure and described the procedure. I have discussed the risks with the patient, including but not limited to: infection, bleeding, perforation of the GI tract requiring emergency surgery, inability to complete the procedure, injury to any internal organs, complications of anesthesia, etc. - the patient understands and agrees to proceed. I have answered all the patient's questions to the patient's satisfaction and the patient has no further questions. The patient has been given instructions for the colon cleansing preparation. Coding Level of Care Code Off vis,new,level 3 Diagnoses Heme positive stool R19.5 COVID (Procedure Consent) Procedure Criteria Procedure Criteria: Yes Elective The surgeon/proceduralist and patient have discussed in detail the risk of exposure to and/or potential harm posed by the COVID-19 virus with having a surgery/procedure at this time versus the risk of? delaying the surgery/procedure. It is not possible to know either the risk of delaying the surgery or procedure or chance of getting an infection with perfect accuracy, but a joint decision was made between the patient and the surgeon/proceduralist ?to proceed at this time with the scheduled surgery/procedure as indicated on the consent form. 03/14/20 1316 <Electronically signed by Isaiah davies MD> Date _ Isaiah Monzon MD I have re-examined the patient. There are no clinical changes since date of exam.
[2020-03-14 13:09] VITALS: BMI 33.0
[2020-03-28] VITALS (7 sets, daily range): BP systolic 86–125; BP diastolic 65–92; PULSE 71–80; RESP 16–18; TEMP 36.1–36.6; O2SAT 94–99; BMI 32.9
[2020-03-28] MEDS: Lactated Ringers 1,000 ML 100 ML IV (07:49)
--- NOTE | 2020-03-28 08:38 | OP.CCLET_ITS ---
03/28/2020 Dayo Avilez Re : Colonoscopy procedure for Rudy Merritt Dear Raghav This procedure was performed on Saturday, March 28, 2020. My impressions and recommendations are as follows: Impressions : - Non-bleeding internal hemorrhoids. - The examination was otherwise normal. - No specimens collected. Recommendations : - Discharge patient to home. - Resume previous diet. - Continue present medications. - Await pathology results. - Repeat colonoscopy in 10 years for screening purposes. - Return to primary care physician (date not yet determined). My findings are described in the full procedure note, which is enclosed. If I can be of further assistance, please feel free to contact me at Doctor phone number(s): , Fax: [phone], Work: . Sincerely, MD Isaiah Kendrick MD 03/28/2020 8:37:50 AM This report has been signed electronically.
--- NOTE | 2020-03-28 08:38 | OP.COLON_ITS ---
Patient Name: Rudy Merritt Procedure Date: 03/28/2020 8:15 AM Date of : 1955 Age: 65 Procedure: Colonoscopy Indications: Heme positive stool Providers: Isaiah Monzon MD Referring MD: Dayo Avilez Medicines: See the Anesthesia note for documentation of the administered medications Patient Profile: This is a 65 year old male. Refer to note in patient chart for documentation of history and physical. Last Colonoscopy: more than 10 years ago. Complications: No immediate complications. Procedure: Pre-Anesthesia Assessment: - Prior to the procedure, a History and Physical was performed, and patient medications and allergies were reviewed. The patient's tolerance of previous anesthesia was also reviewed. The risks and benefits of the procedure and the sedation options and risks were discussed with the patient. All questions were answered, and informed consent was obtained. Prior Anticoagulants: The patient has taken aspirin, last dose was 7 days prior to procedure. ASA Grade Assessment: III - A patient with severe systemic disease. After reviewing the risks and benefits, the patient was deemed in satisfactory condition to undergo the procedure. After I obtained informed consent, the scope was passed under direct vision. Throughout the procedure, the patient's blood pressure, pulse, and oxygen saturations were monitored continuously. The colonoscope was introduced through the anus and advanced to the cecum, identified by appendiceal orifice and ileocecal valve. The colonoscopy was performed without difficulty. The patient tolerated the procedure well. The quality of the bowel preparation was good. Scope In: 8:23:31 AM Scope Withdrawal Time 0 hours 6 minutes 56 seconds Scope Out: 8:33:49 AM Total Procedure Duration Time 0 hours 10 minutes 18 seconds Findings: Non-bleeding internal hemorrhoids were found during retroflexion. The hemorrhoids were mild and small. The exam was otherwise without abnormality. Impression: - Non-bleeding internal hemorrhoids. - The examination was otherwise normal. - No specimens collected. Recommendation: - Discharge patient to home. - Resume previous diet. - Continue present medications. - Await pathology results. - Repeat colonoscopy in 10 years for screening purposes. - Return to primary care physician (date not yet determined). Procedure Code(s): --- Professional --- 42095, Colonoscopy, flexible; diagnostic, including collection of specimen(s) by brushing or washing, when performed (separate procedure) Diagnosis Code(s): --- Professional --- K64.8, Other hemorrhoids R19.5, Other fecal abnormalities CPT copyright 2017 [employer]. All rights reserved. The codes documented in this report are preliminary and upon label coder review may be revised to meet current compliance requirements. MD Isaiah Kendrick MD 03/28/2020 8:37:50 AM This report has been signed electronically. Number of Addenda: 0 Note Initiated On: 03/28/2020 8:15 AM
== END 2020-03-28 09:38 | disposition home or self-care (01) ==
LOC: EN 07:19 → AC 07:20
PROVIDERS: Anesthesiology; PCP Family Medicine; Referring Provider Family Medicine; Visit Provider Surgery
PROC: 0DJD8ZZ Inspection of Lower Intestinal Tract, Via Natural or Artificial Opening Endoscopic (ICD-10-PCS; CPT 45378; principal; 2020-03-28 08:25)
DX: K64.8 Other hemorrhoids (principal); R19.5 Other fecal abnormalities; K92.1 Melena; Z11.59 Encounter for screening for other viral diseases; I48.91 Unspecified atrial fibrillation; I25.10 Atherosclerotic heart disease of native coronary artery without angina pectoris; I42.9 Cardiomyopathy, unspecified; I10 Essential (primary) hypertension; E78.5 Hyperlipidemia, unspecified; R73.03 Prediabetes; M19.90 Unspecified osteoarthritis, unspecified site; G47.30 Sleep apnea, unspecified; Z79.01 Long term (current) use of anticoagulants; Z79.82 Long term (current) use of aspirin; Z79.899 Other long term (current) drug therapy; I25.2 Old myocardial infarction; Z86.711 Personal history of pulmonary embolism; Z87.891 Personal history of nicotine dependence; Z95.5 Presence of coronary angioplasty implant and graft
CPT/HCPCS: 45378; 87635; C9803; J7120; J1610; J2405; U0003

== ENCOUNTER 2020-05-01 10:48 | Day surgery (SDC) | payer BC, SELFPAY ==
--- NOTE | 2020-03-14 01:16 | HP_ITS ---
Intake Vital Signs 03/14/20 BMI 33.0 03/14/20 Height 6 ft 1 in 03/14/20 Weight: 251 lb 4 oz 03/14/20 BMI 33.1 03/14/20 BP 130/84 H 03/14/20 Blood Pressure Location Rt brachial 03/14/20 Position Sitting 03/14/20 Respiration 16 Intake Visit Reasons: MELENA Chief Complaint: melena Care Professional Required: No Is patient in pain?: No Allergies No Known Allergies Allergy (Verified 03/14/20 13:07) Medications Apixaban [Eliquis] 5 mg PO BID 09/19/19 [History Confirmed 03/14/20] Lisinopril [Zestril] 20 mg PO DAILY 09/19/19 [History Confirmed 03/14/20] Metoprolol Succinate [Toprol Xl] 150 mg PO DAILY 09/19/19 [History Confirmed 03/14/20] Rosuvastatin Calcium 20 mg PO QHS 09/19/19 [History Confirmed 03/14/20] Spironolactone 25 mg PO DAILY 09/19/19 [History Confirmed 03/14/20] Aspirin [Aspirin, Baby] 81 mg PO DAILY@0800 tab.chew 09/22/19 [Rx Confirmed 03/14/20] Isosorbide Mononitrate [Imdur] 30 mg PO DAILY #30 tab 09/22/19 [Rx Confirmed 03/14/20] Amiodarone HCl [Cordarone] 200 mg PO DAILY 01/25/20 [History Confirmed 03/14/20] Cholecalciferol (Vitamin D3) [Vitamin D3] 6,000 unit PO DAILY 01/25/20 [History Confirmed 03/14/20] Nitroglycerin [Nitrostat] 0.4 mg SL Q5M PRN 01/25/20 [History Confirmed 03/14/20] Furosemide [Lasix] 40 mg PO DAILY #30 tab 01/26/20 [Rx Confirmed 03/14/20] potassium chloride 20 mEq tablet,extended release(part/cryst) 99 meq PO DAILY tab 02/28/20 [History Confirmed 03/14/20] [facility], [facility] Medical History New onset atrial fibrillation (Chronic) 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 Isaiah Monzon MD) Smoking Status: Never smoker HPI HPI HPI: SADIQ DOYLE, is a 65 M who presents to the office today for HPI HPI Surgical H&P: Yes HPI: SADIQ DOYLE, is a 65 M who presents to the office today for Evaluation for colonoscopy. Patient was being evaluated by his dyer assistant for A. fib and is going to be getting a defibrillator. He was complaining of some dark Stools and fecal occult blood test came back as positive. He does notice that he has some looser stools in the morning. He has had only one episode of dark stools and his stools now have been normal. He is not anemic. ROS General General: Yes weight change and fatigue; no appetite, colon cancer, breast cancer or weakness HEENT HEENT: No difficulty swallowing, eye injury, eye surgery, swollen glands or hoarseness Endo Endocrine: No thyroid disease, diabetes mellitus, thyroid cancer, Hair loss, heat intolerance or cold intolerance Skin Skin: No rash or changing moles Breast Breast: No left breast lump, right breast lump, nipple discharge, breast pain, abnormal mammogram, abnormal US or breast enlargement Musc Musculoskeletal: Yes back problems and arthritis; no rheumatoid arthritis, gout or joint pain Cardio Cardiovascular: Yes murmur, heart disease, atrial fibrillation, high blood pressure, heart attack, heart stent and shortness of breat with exertion; no pacemaker, palpitations or chest pain Psych Psychiatric: No depression, anxiety or hearing voices Resp Respiratory: Yes shortness of breath, Yes sleep apnea, No cough, No COPD, No asthma, No emphysema, No wheezing Gastro Gastrointestinal: No abdominal pain, No nausea or vomiting, Yes diarrhea, No constipation, Yes blood in stool, No acid reflux, Yes hemorrhoids, No ulcers, No gallbladder problem, No black,tarry stools Shivam Hematologic: Yes blood thinners, No blood disorders, No bleeding, No anemia, No blood clots Neuro Neurologic: No system reviewed and no additional complaints, except as docu, No as per HPI, No abnormal walking, No abnormal hearing, No abnormal movements, No abnormal speech, No behavioral changes, No burning sensations, No confusion, No seizure-like activity, No unsteadiness, No dizziness, No localized weakness, No frequent falls, No headache(s), No lack of coordination, No loss of vision, No memory loss, Yes numbness, No other visual disturbances, No radiating pain, No restless legs, No sensory deficit, No fainting, Yes tingling, No tremor(s), No weakness, No other Exam Const General: no acute distress, well developed, well hydrated Orientation: oriented to person, oriented to place, oriented to time [facility] Head: normocephalic, atraumatic Ears: external ears normal Mouth: moist mucous membranes Eyes Sclera: sclerae normal Pupils: normal by confrontation Neck Neck: no lymphadenopathy noted Neck mass: No Thyroid: thyroid normal, symmetrical Chest Chest palpation & inspection: normal inspection of the chest Breast Palpation: No nipple discharge Resp Effort & Inspection: normal respiratory effort Auscultation: clear to auscultation bilaterally Percussion: percussion normal Cardio Rate: regular rate Rhythm: regular rhythm Heart Sounds: murmur GI Palpation: soft, no hepatosplenomegaly, no masses, nontender Rectal Exam: other Other: Rectal exam deferred. Extrem General: normal to inspection, no clubbing, cyanosis or edema Assessment & Plan Problems 1. Heme positive stool R19.5 Plan I have discussed the above with the patient. I have offered the patient colonoscopy for evaluation. I have explained the risks/benefits of the procedure and described the procedure. I have discussed the risks with the patient, including but not limited to: infection, bleeding, perforation of the GI tract requiring emergency surgery, inability to complete the procedure, injury to any internal organs, complications of anesthesia, etc. - the patient understands and agrees to proceed. I have answered all the patient's questions to the patient's satisfaction and the patient has no further questions. The patient has been given instructions for the colon cleansing preparation. Coding Level of Care Code Off vis,new,level 3 Diagnoses Heme positive stool R19.5 COVID (Procedure Consent) Procedure Criteria Procedure Criteria: Yes Elective The surgeon/proceduralist and patient have discussed in detail the risk of exposure to and/or potential harm posed by the COVID-19 virus with having a surgery/procedure at this time versus the risk of? delaying the surgery/procedure. It is not possible to know either the risk of delaying the surgery or procedure or chance of getting an infection with perfect accuracy, but a joint decision was made between the patient and the surgeon/proceduralist ?to proceed at this time with the scheduled surgery/procedure as indicated on the consent form. 03/14/20 1316 <Electronically signed by Isaiah davies MD> Date _ Isaiah Monzon MD
[2020-04-12 10:59] VITALS: BMI 33.5
[2020-04-23 11:11] LABS: Absolute Lymphocyte Count 0.96 X10^3/uL (0.83-4.51); Absolute Neutrophil Count 2.6 X10^3/uL (2.0-7.7); Basophil# 0.03 X10^3/uL; Basophil% 0.7 % (0-1); Eosinophil# 0.01 X10^3/uL; Eosinophils% 0.2 % (0-5); Hematocrit 46.5 % (40-54); Hemoglobin 15.2 g/dL (13.0-16.5); Lymphocyte # 0.96 X10^3/ul (4.0); Mean Corp Hgb Conc 32.7 g/dL (32-36); Mean Corpuscular Hgb 31.6 pg (27.0-32.0); Mean Corpuscular Volume 96.7 fL (80-94); Mean Platelet Vol. 10.3 fl (6.2-12.0); Monocyte# 0.73 X10^3/uL; Monocyte% 16.7 % (0-10); NRBC Flagged by Analyzer 0 % (0-5); Neutrophil # 2.61 X10^3/uL (2.7-7.7); Neutrophil % 59.9 % (47-70); Platelet Count 144 K/mm3 (150-450); RBC Distribution Width SD 49.1 fl (35.1-43.9); Red Blood Count 4.81 M/mm3 (4.6-6.2); White Blood Count 4.4 K/mm3 (4.4-11.0)
[2020-04-23 11:41] LABS: Anion Gap 3 (5-15); BUN 33 mg/dL (7-18); BUN/Creat Ratio 17.3 RATIO (10-20); Calcium,Total 9.3 mg/dL (8.5-10.1); Chloride 107 mmol/L (98-107); Creatinine, Serum 1.91 mg/dL (0.70-1.30); EST Glomerular Filtration Rate 38 mL/min (>60); Est Glom Filt Rate - Afr Amer 46 mL/min (>60); Glucose 115 mg/dL (74-106); Potassium 4.7 mmol/L (3.5-5.1); Sodium Level 140 mmol/L (136-145)
[2020-04-30 08:33] VITALS: BMI 33.5
--- NOTE | 2020-05-01 11:59 | PCM.HP.BLA ---
Problem List (1) New onset atrial fibrillation Status: Chronic History and Physical Date of Admission: 05/01/20 [facility] [address] [place] [address] OFFICE VISIT Date of Service: 04/12/20 MR#: [id number] Acct: [id number] Name: SADIQ DOYLE Rep #: [id number] : 1955 Provider: GILL Frankel Age/Sex: 65/M [place] [facility] [place] Status: Signed HPI HPI History of Present Illness Surgical H&P: Yes Details: This is a 65-year-old gentleman who presents here today a cardiovascular follow up. He was seen by us during a hospital stay in September of this year where he was admitted for increased shortness of breath. He was noted to have atrial fibrillation with RVR. He does have a history of coronary artery disease, PCI, ischemic mediated cardiomyopathy, previous PE. He did follow with [facility] cardiology. He had also noted at that time that he was being referred to EP at [facility] for possible ICD placement. He was started on amiodarone. He sts that EP was not pursuing an ICD He was admitted on January 25, 2020 for acute on chronic systolic heart failure. He was noted to have an 8 pound weight gain. He was given IV Lasix. It was also noted that he had a soft tissue mass in his lung, this was to be worked up and an outpatient basis. He is here today as a hospital follow-up. Pt sts that he was last into see EP at [facility] and he was in the process of getting scheduled for a cardioversion. This was placed on hold d/t blood in his stools. He has not had this worked up yet. The day he was to have this done, it was noted that he was SOB and it was felt that he should be seen on our ER. He did undergo a colonoscopy, his bleeding was felt to be related to hemorrhoids. Pt does not have any chest pain. He does feel that he is SOB with exertion. He notes that this is worse than last year. He does not feel that this is any worse than when he was here last. He does orthopneic. He does not feel any palpitations. He does occasionally have lightheadedness with positional changes. He does not have any edema. EKG today demonstrates atrial fibrillation with a heart rate of 82. Intake Vital Signs 04/12/20 Height 6 ft 1 in 04/12/20 Weight: 254 lb 04/12/20 BMI 33.5 04/12/20 BP 119/90 H 04/12/20 Blood Pressure Location Lt brachial 04/12/20 Position Sitting 04/12/20 Respiration 18 04/12/20 Pulse 62 04/12/20 Pulse Source Monitor 04/12/20 Pulse Oximetry (%) 98 Intake Visit Reasons: 6 wk FU Sawmill Hand Required: No Is patient in pain?: No Allergies No Known Allergies Allergy (Verified 04/12/20 10:59) Medications Apixaban [Eliquis] 5 mg PO BID 09/19/19 [History Confirmed 04/12/20] Metoprolol Succinate [Toprol Xl] 150 mg PO DAILY 09/19/19 [History Confirmed 04/12/20] Rosuvastatin Calcium 20 mg PO QHS 09/19/19 [History Confirmed 04/12/20] Aspirin [Aspirin, Baby] 81 mg PO DAILY@0800 tab.chew 09/22/19 [Rx Confirmed 04/12/20] Isosorbide Mononitrate [Imdur] 30 mg PO DAILY #30 tab 09/22/19 [Rx Confirmed 04/12/20] Cholecalciferol (Vitamin D3) [Vitamin D3] 6,000 unit PO DAILY 01/25/20 [History Confirmed 04/12/20] potassium chloride 20 mEq tablet,extended release(part/cryst) 99 meq PO DAILY tab 02/28/20 [History Confirmed 04/12/20] Ubidecarenone [Coq-10] 200 mg PO DAILY 03/16/20 [History Confirmed 04/12/20] amiodarone 200 mg tablet 200 mg PO DAILY #90 tab 04/12/20 [Rx Confirmed 04/12/20] furosemide 40 mg tablet 40 mg PO DAILY #90 tab 04/12/20 [Rx Confirmed 04/12/20] lisinopril 20 mg tablet 20 mg PO DAILY #90 tab 04/12/20 [Rx Confirmed 04/12/20] nitroglycerin 0.4 mg sublingual tablet 0.4 mg SUBLINGUAL Q5M PRN #25 tab 04/12/20 [Rx Confirmed 04/12/20] PFSH Medical History New onset atrial fibrillation (Chronic) 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) Cardiomyopathy (Chronic) HLD (hyperlipidemia) (Chronic) HTN (hypertension) (Chronic) Hypertension (Chronic) Surgical History S/P PTCA (percutaneous transluminal coronary angioplasty) (Chronic) Social History (Updated 04/12/20 @ 13:35 by Gabriela GARLAND, PA) Smoking Status: Former smoker ROS Const Const: Negative for fatigue, weakness, fever(s) or headache(s) Eyes Eyes: Negative for blind spots, loss of peripheral vision or transient loss of vision ENT ENT: Negative for headache(s) Cardio Chest Pain: No Palpitations: No Edema: None Muscle aches with walking: None Resp Respiratory: Positive for SOB with activity; negative for SOB at rest, SOB orthopnea\SOB lying down or Cough GI GI: Negative nausea, vomiting, heartburn or vomiting blood/hematemesis : Negative for hematuria Musc Musc: Negative for muscle aches/ myalgia Neuro Neuro: Negative for headache(s) or weakness Shivam Hematologic/Lymphatic: Negative for easy bleeding Endo Endo: Negative for fatigue Cardiology Exam Const Appearance: cooperative, no acute distress and well developed Orientation: alert, awake and oriented x3 Head Head: normocephalic and atraumatic Mouth: moist mucous membranes Eyes General: appearance normal, both eyes and all related structures Conjunctivae: conjunctivae normal Pupils: PERRL EOM: EOM intact bilaterally Neck Neck: normal visual inspection, no lymphadenopathy and no JVD Carotids: Negative bruit Neck Mass: Negative Neck mass Chest Chest inspection: normal inspection of the chest and symmetric chest movement Auscultation: Bilateral: Clear to Auscultation Cardio Palpation: normal PMI Rate: regular rate Rhythm: irregularly irregular Heart sounds: S1 normal and S2 normal; negative rub, gallop or murmur GI GI: normal to inspection, soft, no hepatosplenomegaly and bowel sounds present; negative tender Neuro General: alert, awake, oriented x3, CN's II-XI intact bilaterally and moves all extremities Extremities Pulses: Normal: Right Posterior Tibial Pulse, Left Posterior Tibial Pulse, Right Radial Pulse, Left Radial Pulse Lower Extremity Edema: None: Bilateral Psych Psychological: normal affect Assessment & Plan 1. New onset atrial fibrillation I48.91 Plan Patient remains in atrial fibrillation. Would like to proceed with a cardioversion. This is scheduled with Dr. Kenney in the near future. He will have been anticoagulated for at least 30 days. This was stopped for short period of time for his colonoscopy. He will remain on his current dose of beta-nirmal in addition to his amiodarone. Patient Instructions Your cardioversion is scheduled for 05/01 with an arrival time of 1100 and procedure time of 1230. Nothing to eat after midnight. In the morning: Lisinopril, metoprolol, Eliquis, Amiodarone, Isosorbide, ASA. You will need a ambulette driver that day Orders Orders: 12 Lead EKG performed by [facility] Today 2. HTN (hypertension) I10 Plan Adequately controlled on current medications will not make any adjustments. Orders Orders: Basic Metabolic Profile (BMP) 2 Weeks CBC W/Diff, Automated 2 Weeks 3. HLD (hyperlipidemia) E78.5 Plan Patient will continue with current high intensity statin. 4. Ischemic cardiomyopathy I25.5 Plan Patient does not have any symptoms of congestive heart failure. It is noted that his renal function has worsened over the last year. We will have him stop his spironolactone. He will repeat his BMP in 2 weeks. If this is still elevated will consider decreasing his lisinopril or his diuretic. He is on a beta-nirmal. After patient has been cardioverted we will plan on repeating his echocardiogram to reassess his LV function. If it is not improved we will consider him for a ICD and possible CHARGE ACCOUNT IDENTIFICATION CLERK device. Patient Instructions Stop your spirolactone. I am concerned about your renal function. Obtain labs in 2 weeks- which would be prior to your cardioversion. Orders Orders: Basic Metabolic Profile (BMP) 2 Weeks CBC W/Diff, Automated 2 Weeks 5. CAD in [place] artery I25.10 Plan Patient does not have any symptoms of angina. We will continue with aggressive medical management. Plan Detail Other Medications New: amiodarone 200 mg PO DAILY 90 tabs 3RF heart lisinopril 20 mg PO DAILY 90 tabs 3RF blood pressure Changed: From: nitroglycerin 0.4 mg SL Q5M PRN CHEST PAIN To: nitroglycerin 0.4 mg sublingual Q5M PRN 25 tabs 3RF CHEST PAIN Refilled: furosemide 40 mg PO DAILY 90 tabs 3RF water Discontinued: spironolactone Discontinued Reason: Order Completed 25 mg PO DAILY Follow Up 3 Months (MMM/PFM) 04/12/20 (Cardioversion scheduled for 05/01- he will need one week ekg F/U) Coding Level of Care Code Off vis,est,level 4 Diagnoses New onset atrial fibrillation I48.91 HTN (hypertension) I10 HLD (hyperlipidemia) E78.5 Ischemic cardiomyopathy I25.5 ??Cardiomyopathy type: ischemic CAD in [place] artery I25.10 Coding Level of Care Code Off vis,est,level 4 Diagnoses New onset atrial fibrillation I48.91 HTN (hypertension) I10 HLD (hyperlipidemia) E78.5 Ischemic cardiomyopathy I25.5 ??Cardiomyopathy type: ischemic CAD in [place] artery I25.10 Supplemental Info Supplemental Information ECHO:??20 20: [facility]: Left ventricle mildly dilated Right ventricle dilated Left atrium dilated Mitral valve-trace MR Tricuspid valve-trace TR Aortic valve-trace AI Pulmonic valve not seen LVEF reported at 34% Stress Test: Cardiac Cath: 06-17-2018: [facility] Left main coronary artery-mild luminal irregularities LAD-proximal 50% stenosis; mid 50% stenosis LCx-20% in-stent stenosis Intermediate ramus-70% stenosis-small branch vessel RCA-moderate disease Impression: Nonobstructive three-vessel CAD in the right dominant distribution Stable CAD when compared to prior catheter in 2014 Cardiac cath: 06-13-2013: [place], [place] Left main coronary artery-30% stenosis LAD-60 to 70% stenosis and 70 to 75% stenosis LCx occluded RCA-30 to 40% and 3 to 50% stenosis PCI: [place]?25?20 13: [place], [place] Successful complex angioplasty of the LCx and large obtuse marginal branch using a 3.0?32 and 3.0?12 bare-metal Veriflex stent Diagnostics Electrocardiogram 04/12/20 COVID (Procedure Consent) Procedure Criteria Procedure Criteria: Yes Elective The surgeon/proceduralist and patient have discussed in detail the risk of exposure to and/or potential harm posed by the COVID-19 virus with having a surgery/procedure at this time versus the risk of? delaying the surgery/procedure. It is not possible to know either the risk of delaying the surgery or procedure or chance of getting an infection with perfect accuracy, but a joint decision was made between the patient and the surgeon/proceduralist ?to proceed at this time with the scheduled surgery/procedure as indicated on the consent form. 04/12/20 1335 <Electronically signed by Gabriela GARLAND> Date Gabriela GARLAND Cosigner Signature: Date (if applicable) CC: Dr. Dayo Avilez MD ~ I have re-examined the patient. There are no clinical changes since date of exam. Procedure Criteria Procedure Type: Elective COVID Risk Discussion: The surgeon/proceduralist and patient have discussed in detail the risk of exposure to and/or potential harm posed by the COVID-19 virus with having a surgery/procedure at this time versus the risk of delaying the surgery/procedure. It is not possible to know either the risk of delaying the surgery or procedure or chance of getting an infection with perfect accuracy, but a joint decision was made between the patient and the surgeon/proceduralist to proceed at this time with the scheduled surgery/procedure as indicated on the consent form.
--- NOTE | 2020-05-01 12:22 | CARDIOVERS_ITS ---
Cardioversion Cardioversion: Date: 05-01-2020 Procedure: Synchronized Biphasic DC Cardioversion Indications: Atrial fibrillation Consent: Per the Patient Anesthesia: per Dr. Randle of pulmonology and critical care medicine with etomidate 6 mg IV push total Procedure: Synchronized Biphasic DC Cardioversion: 200 J x1: Result: Sinus rhythm Complications: no apparent complications This note was generated with [employer] dictation software. It may contain incorrect words, spelling, and punctuation that were not noted in checking the note before signing.
--- NOTE | 2020-05-01 13:07 | PRO.PCM_ITS ---
Problem List (1) New onset atrial fibrillation Status: Chronic (2) Dyspnea on exertion Status: Acute (3) HFrEF (heart failure with reduced ejection fraction) Status: Acute (4) CAD in [place] artery Status: Chronic (5) HLD (hyperlipidemia) Status: Chronic (6) HTN (hypertension) Status: Chronic (7) S/P PTCA (percutaneous transluminal coronary angioplasty) Status: Chronic Procedure Report Date of Procedure: 05/01/20 - Conscious sedation CONSCIOUS SEDATION REPORT BRIEF HISTORY OF PRESENT ILLNESS: The patient is a 65-year-old male who presented to [facility] for an elective outpatient cardioversion due to underlying atrial fibrillation. The patient reports no PO intake since midnight. The patient does not have a history of obstructive sleep apnea. The patient reports no history of smoking and COPD. The patient denies any recent constitutional symptoms such as fevers, chills, nausea or vomiting. The patient denies previous anesthetic complications. Patient's last ejection fraction was reported at 35%. Patient did take Eliquis on the day of testing. PHYSICAL EXAMINATION: VITAL SIGNS: Reviewed and were acceptable. GENERAL: The patient is a male, in no apparent distress, speaking in full sentences. HEENT: Normocephalic, atraumatic. Mucous membranes are moist and pink. Good mouth opening noted. Trachea is midline. Good neck mobility. MP IV CHEST: S1, S2 irregularly irregular. No murmurs, rubs or gallops were noted. LUNGS: Clear to auscultation bilaterally without appreciable wheezes, rales or rhonchi. ABDOMEN: Soft, nontender, nondistended. Positive bowel sounds. EXTREMITIES: There is no clubbing, cyanosis or edema. ASA Class: II DESCRIPTION OF PROCEDURE: After confirmation of informed consent, the patient's anesthesia plan was reviewed in detail. Etomidate was chosen. Risks and benefits were reviewed and the patient agreed to proceed. At 12:06 PM, the patient was given 4 mg of etomidate. The patient required a total of 6 mg of etomidate throughout the procedure to achieve appropriate sedation. The patient achieved an appropriate level of sedation and received 1 attempt synchronized cardioversion, at [address] Kenney at the bedside. This was successful in achieving normal sinus rhythm. The patient was monitored until 12:20 PM, at which time the patient reached their baseline mental status and function. The patient tolerated the procedure well. COMPLICATIONS: None ESTIMATED BLOOD LOSS: None RECOMMENDATIONS: Okay to recover in usual fashion. [id number]: Other Procedure See Report - 42334 - 14 min
== END 2020-05-01 13:15 | disposition home or self-care (01) ==
PROVIDERS: Physician Assistant Medical; PCP Family Medicine; Referring Provider Internal Medicine Cardiovascular Disease; Visit Provider Internal Medicine Cardiovascular Disease
DX: I48.91 Unspecified atrial fibrillation (principal); I25.10 Atherosclerotic heart disease of native coronary artery without angina pectoris; I11.0 Hypertensive heart disease with heart failure; E78.5 Hyperlipidemia, unspecified; I25.5 Ischemic cardiomyopathy; Z79.01 Long term (current) use of anticoagulants; Z79.82 Long term (current) use of aspirin; Z86.711 Personal history of pulmonary embolism; Z79.899 Other long term (current) drug therapy; Z95.5 Presence of coronary angioplasty implant and graft
CPT/HCPCS: 36415; 80048; 85025; 92960; 93005; J7040

== ENCOUNTER → 2020-07-17 14:12 | Outpatient (CLI) | payer BC, SELFPAY ==
[2020-07-17 12:55] VITALS: BMI 34.4
[2020-07-17 14:59] LABS: ALB/GLOB Ratio 0.8 RATIO (0.9-2.4); AST(SGOT) 66 U/L (15-37); Alanine Aminotransfer ALT/SGPT 55 U/L (16-61); Albumin, Serum 3.5 g/dL (3.2-5.0); Alkaline Phosphatase 83 U/L (45-117); Anion Gap 6 (5-15); BUN 23 mg/dL (7-18); BUN/Creat Ratio 12.3 RATIO (10-20); Calcium,Total 8.2 mg/dL (8.5-10.1); Chloride 103 mmol/L (98-107); Creatinine, Serum 1.87 mg/dL (0.70-1.30); EST Glomerular Filtration Rate 39 mL/min (>60); Est Glom Filt Rate - Afr Amer 47 mL/min (>60); Free T3 2.6 pg/mL (2.18-3.98); Globulin 4.5 g/dL (2.2-4.2); Glucose 95 mg/dL (74-106); Potassium 4.3 mmol/L (3.5-5.1); Sodium Level 137 mmol/L (136-145); T4 Free Direct 1.36 ng/dL (0.76-1.46); Thyroid Stim Hormone (TSH) 3.87 uIU/mL (0.358-3.74)
== END ==
PROVIDERS: PCP Family Medicine; Visit Provider Physician Assistant Medical
DX: I25.10 Atherosclerotic heart disease of native coronary artery without angina pectoris (principal); I48.91 Unspecified atrial fibrillation; I25.5 Ischemic cardiomyopathy; Z79.899 Other long term (current) drug therapy
CPT/HCPCS: 36415; 80053; 84439; 84443; 84481

== ENCOUNTER → 2020-07-27 12:39 | Outpatient (CLI) | payer BC, SELFPAY ==
[2020-07-17 12:55] VITALS: BMI 34.4
--- NOTE | 2020-07-27 13:47 | ECHOCS_ITS ---
Reason For Study: CHF Procedure This was a 2D Doppler, Color Flow transthoracic echocardiogram. The study was technically difficult. Contrast injection was performed. Exam performed in department. Left Ventricle Moderately dilated left ventricle. Moderate segmental systolic dysfunction (see wall motion). The estimated ejection fraction is 30 %. Diastolic function is indeterminate. Anterio-Basal: Hypokinetic. Lateral-Basal: Hypokinetic. Posterior-Basal: Hypokinetic. Infero-Basal: Akinetic. Basal inferoseptal: Hypokinetic. Mid-Anterior : Hypokinetic. Mid-Lateral : Hypokinetic. Mid-Posterior: Akinetic. Mid-Inferior: Akinetic. Anterior [place] : Akinetic. Inferior [place] : Hypokinetic. Lateral [place] : Akinetic. Right Ventricle Normal RV size. Normal systolic function. Atria The left atrium is mildly enlarged. Normal right atrium. No doppler evidence for ASD. Mitral Valve There is no mitral annular calcification. Normal mitral valve. Mild (1+) mitral valve insufficiency. Tricuspid Valve Normal tricuspid valve. Mild tricuspid valve insufficiency. Right ventricular systolic pressure estimated to be 36 mmHg. Aortic Valve Trisinus/trileaflet aortic valve. Mild focal aortic valve calcification. Pulmonic Valve The pulmonic valve is not well visualized. Great Vessels Mildly dilated aortic root. Pericardium/Pleural No pericardial effusion. Medication 22 gauge I.V. with prn adaptor inserted into right arm. Diluted definity 5.0ml given slow IV push to enhance endocardial definition. MMode/2D Measurements & Calculations LVIDd: 6.2 cm IVSd: 1.1 cm Ao root diam: 4.2 cm LVIDs: 5.4 cm LVPWd: 0.99 cm RVDd: 4.4 cm FS: 12.7 % LAV(MOD-bp): 55.7 ml LA A4 area: 22.8 cm2 LA dimension(2D): 4.6 cm LAV(MOD-bp) Indexed: 22.9 ml/m2 LAV(MOD-sp2): 42.5 ml LAV(MOD-sp4): 68.4 ml RA A4 area: 13.7 cm2 Time Measurements MV dec time: 0.35 sec Doppler Measurements & Calculations MV E max mynor: 48.6 cm/sec Lat Peak E' Mynor: 7.5 cm/sec Med Peak E' Mynor: 4.5 cm/sec MV A max mynor: 61.9 cm/sec E/E' lat: 6.5 E/E' med: 10.8 MV E/A: 0.79 Ao V2 max: 120.2 cm/sec LV V1 max: 80.2 cm/sec PA V2 max: 98.0 cm/sec Ao max P.8 mmHg LV V1 max P.6 mmHg TR max mynor: 285.8 cm/sec TR max P.7 mmHg Interpretation Summary The study was technically difficult. Contrast injection was performed. Moderately dilated left ventricle. Moderate segmental systolic dysfunction (see wall motion). The estimated ejection fraction is 30 %. The left atrium is mildly enlarged. Mild (1+) mitral valve insufficiency. Mild tricuspid valve insufficiency. Mild focal aortic valve calcification. Mildly dilated aortic root. Right ventricular systolic pressure estimated to be 36 mmHg. Diastolic function is indeterminate. Ordering Physician: Gabriela Frankel Referring Physician: CONNIE LR Performed By: Mony Leonardo RDCS, RVT
--- NOTE | 2020-07-28 08:36 | PFTCOMP_ITS ---
COMPLETE PULMONARY FUNCTION TEST INTERPRETATION Brief HPI: Patient is a 65 year old male, currently under the care of Dr. Kenney, who presents to [facility] for complete pulmonary function tests secondary to diagnosis of drug therapy. Respiratory therapist reports good effort and reproducible results. Interpretation: Forced expiration spirometry shows no large airways obstructive ventilatory defect with an FEV1 of 43% predicted. There is no significant bronchodilator re sponse by strict ATS criteria. Spirograms are of good quality and plateau slowly, indicating slowly emptying areas of the lungs. The respiratory flow volume loop shows decreased expiratory flow rates at all lung volumes consistent with airway obstruction. Lung volumes by body plethysmography show a decreased total lung capacity at 5.17 L, 75% predicted. There is a trend towards air trapping, but this does not reach clinical significance by ATS criteria Diffusion capacity by carbon monoxide is decreased at 48% predicted. The airway resistance is slightly elevated. No previous pulmonary function tests were available for review. Impression: Mild restrictive ventilatory defect with stigmata of possible concomitant airway obstruction. Consider evaluation for pleural effusion or uncompensated congestive heart failure.
== END ==
PROVIDERS: PCP Family Medicine; Referring Provider Physician Assistant Medical; Visit Provider Physician Assistant Medical
DX: I25.10 Atherosclerotic heart disease of native coronary artery without angina pectoris (principal); I48.91 Unspecified atrial fibrillation; I25.5 Ischemic cardiomyopathy; Z79.899 Other long term (current) drug therapy
CPT/HCPCS: 93306; 94060; 94726; 94729; Q9957; A4216; C8929

== ENCOUNTER 2020-08-31 16:47 | Emergency (ER) | payer BC, SELFPAY ==
[2020-07-17 12:55] VITALS: BMI 34.4
[2020-08-31 16:48] VITALS: BP 169/108; PULSE 61; RESP 18; TEMP 35.1; O2SAT 95; BMI 35.2
--- NOTE | 2020-08-31 17:02 | EKG12_ITS ---
Test Reason : EDEMA Blood Pressure : / mmHG Vent. Rate : 054 BPM Atrial Rate : 054 BPM P-R Int : 216 ms QRS Dur : 114 ms QT Int : 466 ms P-R-T Axes : 016 -43 071 degrees QTc Int : 441 ms Sinus bradycardia with 1st degree A-V block Left axis deviation Anterior infarct , age undetermined Abnormal ECG Confirmed by BRY LYONS, PATRICIA ([id number]), news videotape editor SCOTT BOURGEOIS ([id number]) on 09/03/2020 11:46:14 A M Referred By: RYAN Confirmed By:BONIFACIO LONDONO MD
--- NOTE | 2020-08-31 17:05 | US_ITS ---
STUDY: VENOUS DOPPLER ULTRASOUND - LEFT LOWER EXTREMITY REASON FOR EXAM: Male, 65 years old. LT ANKLE SWELLING/ COLD TECHNIQUE: Ultrasound evaluation of the deep vein system to include hollis-scale imaging and compression was performed. Hollis-scale imaging and Doppler sonographic evaluation, including duplex spectral analysis and qualitative color flow sonography, was performed. COMPARISON: None. FINDINGS: Common Femoral Vein: Normal compression, spontaneity and augmentation. Normal color Doppler. Common Femoral Vein/Greater Saphenous Junction: Normal compression, spontaneity and augmentation. Normal color Doppler. Deep Femoral Vein: Normal compression, spontaneity and augmentation. Normal color Doppler. Femoral Proximal: Normal compression, spontaneity and augmentation. Normal color Doppler. Femoral Middle: Normal compression, spontaneity and augmentation. Normal color Doppler. Femoral Distal: Normal compression, spontaneity and augmentation. Normal color Doppler. Popliteal Vein: Normal compression, spontaneity and augmentation. Normal color Doppler. Posterior Tibial Vein: Normal compression, spontaneity and augmentation. Normal color Doppler. Peroneal Vein: Normal compression, spontaneity and augmentation. Normal color Doppler. The right common femoral vein was evaluated and is normal. US/Venous Duplex Imag/Limited/Uni IMPRESSION: No demonstrated deep venous thrombosis of the left leg Electronically Signed: Rashad Seaman MD at 18:58 EST , Service support ,
--- NOTE | 2020-08-31 17:07 | RAD_ITS ---
STUDY: X-RAY - LEFT ANKLE REASON FOR EXAM: Male, 65 years old. LEFT ANKLE SWELLING. UNKNOWN OF WHEN IT STARTED. NO INJURY. TECHNIQUE: 3 view(s) of the ankle. COMPARISON: None. FINDINGS: Mild cortical spurring and small loose bodies are present in the ankle mortise as well as the connection points of the medial malleolus and talus and lateral malleolus and talus indicating ligamentous involvement. Mild soft tissue swelling is present. Several small loose bodies are present in the posterior aspect of the ankle joint. No visualized fracture. Normal visualized distal tibia and fibula. Normal tibiotalar articulation and ankle mortise. Normal visualized talus and calcaneus. The visualized subtalar, talonavicular, calcaneocuboid and tarsal articulations are normal. The soft tissue structures are unremarkable. RAD/Ankle min 3 Views IMPRESSION: Appearance of avulsive injuries of the deltoid and anterior talofibular ligament insertion points with subsequent cortical spurring in addition to mild osteoarthritis. Electronically Signed: Rashad Seaman MD at 17:46 EST , Service support ,
[2020-08-31 17:36] VITALS: BP 124/73; PULSE 59; RESP 15; TEMP 37; O2SAT 99
[2020-08-31 17:56] LABS: Absolute Lymphocyte Count 1.08 X10^3/uL (0.83-4.51); Absolute Neutrophil Count 2.2 X10^3/uL (2.0-7.7); Basophil# 0.03 X10^3/uL; Basophil% 0.7 % (0-1); Eosinophil# 0.01 X10^3/uL; Eosinophils% 0.2 % (0-5); Hematocrit 50.9 % (40-54); Hemoglobin 16.6 g/dL (13.0-16.5); Lymphocyte # 1.08 X10^3/ul (4.0); Lymphocyte % 26.5 % (19-41); Mean Corp Hgb Conc 32.6 g/dL (32-36); Mean Corpuscular Volume 95.1 fL (80-94); Mean Platelet Vol. 10.5 fl (6.2-12.0); Monocyte# 0.79 X10^3/uL; Monocyte% 19.4 % (0-10); NRBC Flagged by Analyzer 0 % (0-5); Neutrophil # 2.15 X10^3/uL (2.7-7.7); Neutrophil % 52.7 % (47-70); Platelet Count 145 K/mm3 (150-450); RBC Distribution Width CV 13.7 % (11.6-14.6); RBC Distribution Width SD 47.8 fl (35.1-43.9); Red Blood Count 5.35 M/mm3 (4.6-6.2); White Blood Count 4.1 K/mm3 (4.4-11.0)
[2020-08-31 18:20] LABS: BNP,B-Type NATRIURETIC PEPTIDE 157.8 pg/mL (0-100)
[2020-08-31 18:24] LABS: ALB/GLOB Ratio 0.7 RATIO (0.9-2.4); AST(SGOT) 56 U/L (15-37); Alanine Aminotransfer ALT/SGPT 64 U/L (16-61); Albumin, Serum 3.2 g/dL (3.2-5.0); Alkaline Phosphatase 75 U/L (45-117); Anion Gap 5 (5-15); BUN 28 mg/dL (7-18); BUN/Creat Ratio 16.4 RATIO (10-20); Chloride 104 mmol/L (98-107); Creatinine, Serum 1.71 mg/dL (0.70-1.30); EST Glomerular Filtration Rate 43 mL/min (>60); Est Glom Filt Rate - Afr Amer 52 mL/min (>60); Estimated Creatinine Clearance 48.53 ml/min; Globulin 4.5 g/dL (2.2-4.2); Glucose 83 mg/dL (74-106); Potassium 4.3 mmol/L (3.5-5.1); Protein, Total 7.7 g/dL (6.4-8.2); Sodium Level 139 mmol/L (136-145)
--- NOTE | 2020-08-31 18:49 | ED.DCSUM_ITS ---
- ER Visit Summary Date of Service: 08/31/20 Chief Complaint: Left ankle swelling History of Present Illness: The patient is a [address] Dayo Kenney. He reports his left ankles been swollen for 2 weeks. He denies any pain. He denies any trauma. No fall, MVA, or change in activity. Ports he has had paresthesias in his left foot for months. reports that his foot was cold last week and earlier today. Review of systems: General: No fever, chills, cold sweats. Cardiovascular: No chest pain, palpitations. Respiratory: No cough, shortness of breath, dyspnea on exertion. No orthopnea or PND. Gastrointestinal: No abdominal pain, nausea, vomiting, diarrhea, melena, or he matochezia. Genitourinary: No dysuria, frequency, hematuria. Skin: No rash. Neuro: No headache, numbness, weakness. Physical Examination: Vitals: Stable. Afebrile. General: Well-nourished and well-developed. Head: Normocephalic atraumatic. Neck: Supple, no lymphadenopathy. No JVD. Nontender. Cardiovascular: Regular rate and rhythm. No murmurs. Respiratory: No respiratory distress. Clear to auscultation bilaterally. Abdominal: Soft, nontender, nondistended, normal bowel sounds. No guarding, rebound, or peritoneal signs. Back: Nontender. Extremities: Mild soft tissue swelling over the ankle. His foot is not cool or pale. He has decreased sensation to light touch bilaterally. There is no palpable dorsalis pedis pulse bilaterally. He has 3 to 4-second capillary refill on the left and approximately 5-second capillary refill on the right. Skin: Normal color, no rash. Neurologic: Alert and oriented ?3. Cranial nerves II through XII are intact. Normal strength and sensation. Psych: Normal affect. Test Results: EKG sinus bradycardia at 54. It is unchanged from April 2020. Troponin is negative. BNP is 157.8. LFTs show an ALT of 64 and AST of 56. Globulin is 4.5. Chem-7 shows a BUN of 28 and creatinine 1.71. Creatinine ranged between 1.29?2.32 in 2019. CBC shows a white count of 4.1 with a hemoglobin of 16.6, platelets 145, monocytes 19. Clinical Impression(s) from Imaging Studies Venous Duplex 08/31/20 17:05 IMPRESSION: No demonstrated deep venous thrombosis of the left leg Electronically Signed: Rashad Seaman MD at 18:58 EST , Service support , Ankle X-Ray 08/31/20 17:07 IMPRESSION: Appearance of avulsive injuries of the deltoid and anterior talofibular ligament insertion points with subsequent cortical spurring in addition to mild osteoarthritis. Electronically Signed: Rashad Seaman MD at 17:46 EST , Service support , Emergency Department Course and Treatment: Patient refused pain medications and is resting comfortably. I had a prolonged discussion with that I suspect this is really more musculoskeletal swelling from his ankle than anything vascular. Treatment Plan: Patient be discharged instructions to follow-up with his atm mechanic as soon as possible for further evaluation and treatment. Return to the emergency department for any worsening symptoms. Disposition: To home in improved and stable condition. Impression: 1. Left ankle swelling. This note was generated with [employer] dictation software. It may contain incorrect words, spelling, and punctuation that were not noted in review of the chart prior to signing ED Disposition - Plan for ED Patient: Disposition: Home or Assisted Living Instructions: What Is Arthritis? Additional Instructions: Follow up with your Television Tube Inspector as soon as possible.
[2020-08-31 19:07] VITALS: BP 126/77; PULSE 50; RESP 17; RESP 18; O2SAT 94; O2SAT 95
== END 2020-08-31 19:14 | disposition home or self-care (01) ==
LOC: ED 17:07
PROVIDERS: Emergency Provider Emergency Medicine; PCP Family Medicine
DX: M25.472 Effusion, left ankle (principal); R20.2 Paresthesia of skin; I11.0 Hypertensive heart disease with heart failure; I50.9 Heart failure, unspecified; I48.91 Unspecified atrial fibrillation; I25.10 Atherosclerotic heart disease of native coronary artery without angina pectoris; Z79.01 Long term (current) use of anticoagulants; Z79.82 Long term (current) use of aspirin; Z79.899 Other long term (current) drug therapy; Z86.711 Personal history of pulmonary embolism; Z95.5 Presence of coronary angioplasty implant and graft
CPT/HCPCS: 73610; 80053; 83880; 84484; 85025; 93005; 93971; 99284; A4216

== ENCOUNTER → 2020-11-08 11:22 | Outpatient (CLI) | payer BC, SELFPAY ==
[2020-11-08 10:28] VITALS: BMI 34.9
[2020-11-08 13:28] LABS: AST(SGOT) 53 U/L (15-37); Alanine Aminotransfer ALT/SGPT 60 U/L (16-61); Albumin, Serum 3.6 g/dL (3.2-5.0); Alkaline Phosphatase 70 U/L (45-117); Bilirubin, Direct 0.21 mg/dL (0.00-0.30); Free T3 2.7 pg/mL (2.18-3.98); Globulin 4.6 g/dL (2.2-4.2); Protein, Total 8.2 g/dL (6.4-8.2); T4 Free Direct 1.29 ng/dL (0.76-1.46); Thyroid Stim Hormone (TSH) 3.63 uIU/mL (0.358-3.74)
== END ==
PROVIDERS: PCP Family Medicine; Referring Provider Physician Assistant Medical; Visit Provider Physician Assistant Medical
DX: I48.0 Paroxysmal atrial fibrillation (principal); I25.10 Atherosclerotic heart disease of native coronary artery without angina pectoris; Z79.899 Other long term (current) drug therapy
CPT/HCPCS: 36415; 80076; 84439; 84443; 84481

== ENCOUNTER → 2021-01-09 15:01 | Outpatient (CLI) | payer BC, SELFPAY ==
[2021-01-02 13:33] VITALS: BMI 35.1
[2021-01-09 15:07] LABS: Bacteria 0 SEEN /hpf (None Seen); Mucous, Urine 0 SEEN /hpf (<or=2+); Red Blood Cells-Urine 0 SEEN /hpf (0-5); Squamous Epithelial Cells - UA 0 SEEN /hpf (0-5); White Blood Cells 0 SEEN /hpf (0-5)
[2021-01-09 16:07] LABS: Hematocrit 49.6 % (40-54); Hemoglobin 16.7 g/dL (13.0-16.5); Mean Corp Hgb Conc 33.7 g/dL (32-36); Mean Corpuscular Hgb 33.2 pg (27.0-32.0); Mean Corpuscular Volume 98.6 fL (80-94); Mean Platelet Vol. 11.3 fl (6.2-12.0); Platelet Count 151 K/mm3 (150-450); RBC Distribution Width CV 13.6 % (11.6-14.6); RBC Distribution Width SD 49.6 fl (35.1-43.9); Red Blood Count 5.03 M/mm3 (4.6-6.2); White Blood Count 4.9 K/mm3 (4.4-11.0)
[2021-01-09 16:08] LABS: Color, Urine Yellow (Yellow); Glucose, Dipstick Normal (Normal); Ketone-Dipstick Negative (Negative); Leukocyte Esterase-Dipstick Negative /ul (Negative); Nitrite-Dipstick Negative (Negative); Occult Blood-Urine Negative /ul (Negative); Protein-Dipstick Negative (Negative); Urine Bilirubin Dipstick Negative (Negative); Urine Clarity Clear (Clear); Urine Urobilinogen Normal (Normal)
[2021-01-09 16:21] LABS: International Normalized Ratio 1.1; Prothrombin Time (Protime)PT. 13.6 SECONDS (11.7-14.9)
[2021-01-09 16:34] LABS: Anion Gap 7 (5-15); BUN 31 mg/dL (7-18); BUN/Creat Ratio 18.3 RATIO (10-20); Calcium,Total 9.6 mg/dL (8.5-10.1); Chloride 101 mmol/L (98-107); Creatinine, Serum 1.69 mg/dL (0.70-1.30); EST Glomerular Filtration Rate 44 mL/min (>60); Est Glom Filt Rate - Afr Amer 53 mL/min (>60); Glucose 100 mg/dL (74-106); Potassium 4.4 mmol/L (3.5-5.1); Sodium Level 138 mmol/L (136-145)
== END ==
PROVIDERS: PCP Family Medicine; Referring Provider Internal Medicine Cardiovascular Disease; Visit Provider Internal Medicine Cardiovascular Disease
DX: I25.10 Atherosclerotic heart disease of native coronary artery without angina pectoris (principal); I25.5 Ischemic cardiomyopathy; I48.0 Paroxysmal atrial fibrillation; I50.23 Acute on chronic systolic (congestive) heart failure
CPT/HCPCS: 36415; 80048; 81001; 85027; 85610

== ENCOUNTER → 2021-01-11 13:10 | Outpatient (CLI) | payer BC, SELFPAY ==
[2021-01-02 13:33] VITALS: BMI 35.1
== END ==
PROVIDERS: PCP Family Medicine; Referring Provider Physician Assistant Medical; Visit Provider Physician Assistant Medical
DX: I50.20 Unspecified systolic (congestive) heart failure (principal)
CPT/HCPCS: 87635; C9803; U0005; U0003

== ENCOUNTER 2021-01-17 09:44 | Day surgery (SDC) | payer BC, SELFPAY ==
[2020-11-08 10:28] VITALS: BMI 34.9
[2021-01-02 13:33] VITALS: BMI 35.1
[2021-01-16 08:29] VITALS: BMI 35.1
[2021-01-17] VITALS (14 sets, daily range): BP systolic 114–166; BP diastolic 72–107; PULSE 46–54; RESP 16–18; TEMP 36.4–36.9; O2SAT 93–97
--- NOTE | 2021-01-17 10:36 | PCM.HP.BLA ---
History and Physical Date of Admission: 01/17/21 Surgical H&P: Yes Details: This is a 65-year-old gentleman who presents here today to discuss ICD placement. He has a history of coronary artery disease with PCI, ischemic cardiomyopathy, atrial fibrillation with RVR with cardioversion in April 2020, congestive heart failure. He was evaluated by EP at [facility]. Prior to placing an ICD they want to attempt a cardioversion first. Patient was started on amiodarone. There was some delay in having him pursue a cardioversion due to blood in his stools. However patient did undergo a cardioversion in April 2020. He did run out of his diuretic, he did restart his lasix. He does note that he had more SOB. He notes that he has some edema. His SOB was bad enough to consider going to the Er. He is also out of his spirolactone. There has been some confusion over which medication he should be taking. He thought we help his Imdur for his kidney function. This was to be resumed at his last visit for increased BP. BP is okay today. Intake Vital Signs 12/20/20 13:37 Height 6 ft Weight: 259 lb BMI 35.1 BP 116/68 Blood Pressure Location Lt brachial Position Sitting Respiration 18 Pulse 54 L Pulse Source Monitor Intake Visit Reasons: update H & P/ [facility] 1:30 Travelift Operator Required: No Accompanied by: Is patient in pain?: No Allergies No Known Allergies Allergy (Verified 12/20/20 14:02) Medications apixaban 5 mg PO BID 09/19/19 [History Confirmed 12/20/20] aspirin 81 mg PO DAILY@0800 tab.chew 09/22/19 [Rx Confirmed 12/20/20] cholecalciferol (vitamin D3) 6,000 unit PO DAILY 01/25/20 [History Confirmed 12/20/20] coenzyme Q10 200 mg PO DAILY 03/16/20 [History Confirmed 12/20/20] furosemide 40 mg tablet 40 mg PO DAILY #90 tab 04/12/20 [Rx Confirmed 12/20/20] lisinopril 20 mg tablet 20 mg PO DAILY #90 tab 04/12/20 [Rx Confirmed 12/20/20] nitroglycerin 0.4 mg sublingual tablet 0.4 mg SUBLINGUAL Q5M PRN #25 tab 04/12/20 [Rx Confirmed 12/20/20] amiodarone 200 mg tablet 200 mg PO DAILY #90 tab 10/25/20 [Rx Confirmed 12/20/20] metoprolol succinate 100 mg tablet,extended release 24 hr 100 mg PO DAILY tablet 11/08/20 [History Confirmed 12/20/20] potassium chloride 20 mEq tablet,extended release 20 meq PO DAILY 11/08/20 [History Confirmed 12/20/20] spironolactone 25 mg tablet 25 mg PO DAILY #90 tab 12/20/20 [Rx Confirmed 12/20/20] Ejection fraction %: 30 to 34 [facility] Medical History Atherosclerotic heart disease of [place] coronary artery without angina pectoris CAD in [place] artery Cardiomyopathy Essential hypertension HLD (hyperlipidemia) Ischemic cardiomyopathy New onset atrial fibrillation PAF (paroxysmal atrial fibrillation) Surgical History History of cardioversion (~05/01/20) S/P PTCA (percutaneous transluminal coronary angioplasty) Family History Father Heart disease Grandfather Diabetes Social History Smoking Status: Never smoker alcohol intake: current alcohol intake frequency: holidays/special occasions only substance use type: does not use caffeine: Yes Type: coffee Number of servings: 1 ROS Const Const: Negative for fatigue, weakness, headache(s), frequent falls, difficulty sleeping or excessive sweating Eyes Eyes: Negative for loss of peripheral vision, transient loss of vision, blurry vision, double vision or tunnel vision ENT ENT: Positive for balance problems; Negative for headache(s), dizziness or Nosebleed/epistaxis Cardio Chest Pain: No Palpitations: No Edema: Bilateral Muscle aches with walking: None Resp Respiratory: Positive for SOB with activity (With increased activity. Was out of lasix X 1 week, restarted 12/19/20); Negative for SOB at rest, SOB orthopnea\SOB lying down, Cough or paroxysmal nocturnal dyspnea GI GI: Negative nausea, vomiting, heartburn or black,tarry stools : Negative for hematuria Musc Musc: Positive for joint pain and balance problems; Negative for muscle aches/ myalgia or muscle weakness Skin Skin: Negative non-healing lesions, rash or unusual bruising Neuro Neuro: Negative for dizziness, lightheadedness, near syncope, syncope, frequent falls, headache(s), weakness, blurry vision, double vision or lack of coordination Shivam Hematologic/Lymphatic: Negative for easy bleeding or easy bruising Endo Endo: Negative for fatigue, excessive sweating or increased thirst/drinking Psych Psych: Negative for anxiety or depression Allergy Allergy/Immunology: Negative for hives and Negative for rash Cardiology Exam Const Appearance: cooperative, healthy appearing, comfortable, no acute distress and well developed Orientation: alert, awake and oriented x3 Head Head: normal to inspection Ears: hearing grossly normal bilaterally Nose: external nose normal Face and Sinus: face symmetric Mouth: oral mucosae normal, lip normal and moist mucous membranes Eyes General: appearance normal, both eyes and all related structures Eyelids: eyelids normal Conjunctivae: conjunctivae normal Pupils: PERRL EOM: EOM intact bilaterally Neck Neck: normal visual inspection and trachea midline; Negative no JVD Carotids: Negative bruit Chest Chest inspection: normal inspection of the chest Auscultation: Bilateral: Clear to Auscultation Cardio Palpation: normal PMI Rate: regular rate Rhythm: regular rhythm Heart sounds: S1 normal and S2 normal; Negative rub, gallop or murmur GI GI: soft, no hepatosplenomegaly and bowel sounds present Neuro General: patient alert, patient awake, patient oriented x3 and CN's II-XI intact bilaterally Extremities Pulses: Normal: Right Posterior Tibial Pulse, Left Posterior Tibial Pulse, Right Radial Pulse and Left Radial Pulse Lower Extremity Edema: Trace: Bilateral Psych Psychological: normal affect Assessment and Plan Assessment and Plan (1) Systolic heart failure: Status: Chronic Qualifiers: Heart failure chronicity: acute on chronic Qualified Code(s): I50.23 - Acute on chronic systolic (congestive) heart failure Orders: Orders: 12 Lead EKG performed by BMS Today Plan - Gabriela GARLAND, PA: Patient does have [place] heart association class III. Feel that because he ran out of his diuretics his symptoms have worsened. We will have him increase his Lasix to 40 mg twice a day for 3 days. Otherwise he will go back to 40 mg a day. He will continue with his spironolactone. We will have him hold his isosorbide. Would like to evaluate his BMP with the restarting of his spironolactone. Patient Instructions: Do not resume your isosorbide, I am restarting your spirolactone. I will use your blood work from [facility] for your device to recheck your kidney function Increase your lasix to 40 mg in the AM and 40 mg in the afternoon for 3 days (2) Ischemic cardiomyopathy: Status: Chronic Orders: Orders: 12 Lead EKG performed by BMS Today (3) Atherosclerotic heart disease of [place] coronary artery without angina pectoris: Status: Chronic Orders: Orders: 12 Lead EKG performed by BMS Today (4) PAF (paroxysmal atrial fibrillation): Status: Chronic Orders: Orders: 12 Lead EKG performed by BMS Today Sukumar GARLAND PA: Patient has not had any symptomatic recurrence. He will continue with his beta-nirmal, anticoagulation and amiodarone. He will continue to be monitored with his routine labs and pulmonary function test for his amiodarone use. (5) Essential hypertension: Status: Chronic Orders: Orders: 12 Lead EKG performed by BMS Today Sukumar GARLAND PA: Blood pressure adequately controlled today will not make any adjustments. Plan Details Other Medications: New: spironolactone 25 mg PO DAILY 30 tabs 1RF spironolactone 25 mg PO DAILY 90 tabs 3RF Discontinued: isosorbide mononitrate ER Discontinued Reason: Order Completed 30 mg PO DAILY 30 tabs 0RF On Hold: potassium chloride ER Hold Comment: starting spirolactone 20 mEq PO DAILY Other Orders: Orders: 12 Lead EKG performed by BMS Today I50.20 Additional Comments: A SDM interaction occurred at this visit using an SDM tool prior to initial implant of ICD. Follow Up: 12/20/20 (keep as is) Coding Level of Care Code Off vis,est,level 4 Diagnoses Systolic heart failure I50.23 Heart failure chronicity: acute on chronic Ischemic cardiomyopathy I25.5 Atherosclerotic heart disease of [place] coronary artery without angina pectoris I25.10 PAF (paroxysmal atrial fibrillation) I48.0 Essential hypertension I10 Coding Level of Care Code Off vis,est,level 4 Diagnoses Systolic heart failure I50.23 Heart failure chronicity: acute on chronic Ischemic cardiomyopathy I25.5 Atherosclerotic heart disease of [place] coronary artery without angina pectoris I25.10 PAF (paroxysmal atrial fibrillation) I48.0 Essential hypertension I10 Supplemental Info Supplemental Information ECHO:?4?20 20: [facility]: Left ventricle mildly dilated Right ventricle dilated Left atrium dilated Mitral valve-trace MR Tricuspid valve-trace TR Aortic valve-trace AI Pulmonic valve not seen LVEF reported at 34% Stress Test: Cardiac Cath: 06-17-2018: [facility] Left main coronary artery-mild luminal irregularities LAD-proximal 50% stenosis; mid 50% stenosis LCx-20% in-stent stenosis Intermediate ramus-70% stenosis-small branch vessel RCA-moderate disease Impression: Nonobstructive three-vessel CAD in the right dominant distribution Stable CAD when compared to prior catheter in 2014 Cardiac cath: 06-13-2013: [place], [place] Left main coronary artery-30% stenosis LAD-60 to 70% stenosis and 70 to 75% stenosis LCx occluded RCA-30 to 40% and 3 to 50% stenosis PCI: Moses??20 13: [facility] [place], [place] Successful complex angioplasty of the LCx and large obtuse marginal branch using a 3.0?32 and 3.0?12 bare-metal Veriflex stent Echocardiogram 07/2020: Moderately dilated left ventricle. Moderate segmental systolic dysfunction (see wall motion). The estimated ejection fraction is 30 %. The left atrium is mildly enlarged. Mild (1+) mitral valve insufficiency. Mild tricuspid valve insufficiency. Mild focal aortic valve calcification. Mildly dilated aortic root. Right ventricular systolic pressure estimated to be 36 mmHg. Diastolic function is indeterminate. COVID (Elective Procedure): The surgeon/proceduralist and patient have discussed in detail the risk of exposure to and/or potential harm posed by the COVID-19 virus with having a surgery/procedure at this time versus the risk of? delaying the surgery/procedure. It is not possible to know either the risk of delaying the surgery or procedure or chance of getting an infection with perfect accuracy, but a joint decision was made between the patient and the surgeon/proceduralist ?to proceed at this time with the scheduled surgery/procedure as indicated on the consent form. Patient seen and evaluated prior to device implant. No changes noted from most recent office visit. He may proceed with plan per Dr. Coppola and team.
--- NOTE | 2021-01-17 12:34 | OP.PCM_ITS ---
Operative Report Date of Procedure: 01/17/21
--- NOTE | 2021-01-17 12:34 | PCM.OP.BLANK ---
Operative Report Date of Procedure: 01/17/21
--- NOTE | 2021-01-17 12:38 | OP.PCM_ITS ---
Operative Report Date of Procedure: 01/17/21 Diagnosis: Ischemic Cardiomyopathy with NYHA Class ii; Left ventricular ejection fraction 30 despite optimal medical therapy. ICD for primary prevention Preoperative diagnosis implantation of VVI ICD Postoperative diagnosis same as above After informed consent and IV antibiotics the patient was brought to the [place] catheterization laboratory. The left side of the chest was prepped and draped in the usual sterile manner. The patient was sedated with intermittent boluses of IV Versed and fentanyl as well as subcutaneous 1% lidocaine. An incision was made inferior to the clavicle to accommodate the size of the hardware device. The pocket was created using blunt and Bovie dissection. Hemostasis was obtained. Using the Seldinger technique the axillary vein was cannulated once and a guidewire was advanced under fluoroscopic guidance. Over the guidewire a sheath was advanced. Through this sheath, the electrode was positioned under fluoroscopic guidance into the right ventricle and was actively fixated. Once actively fixated, the lead was tested to check for proper sensing, capture threshold, impedance and to exclude diaphragmatic stimulation. Once the lead was implanted and all electrical parameters were confirmed to be functioning normally with appropriate values, the leads was then sutured to the pectoralis muscle with 2-0 silk on the Silastic collar ?2. The sponge and needle count were correct. Hemostasis was obtained. Antibiotic solution was used to flush the pocket. The new device was brought to the field. The lead was placed in the appropriate position of the header of the device and were secured by the setscrews and confirmed by the tug test. The device and the leads were then placed in the pocket. Pocket was closed with a deep layer of running 2-0 Vicryl, superficial layer of running 4-0 Vicryl and skin with Steri- Strips that were covered with a rolled 4 x 4's and Tegaderm. The patient left the lab with the device programmed to chronic parameters. There were no complications. Implanted system is a vvi chamber [place] [employer] ICD Lead and device serial and model numbers are available in the chart documents provided by the device company inside outside sales representative procedure summary.
[2021-01-17] MEDS: Acetaminophen 325 MG Tablet PO (15:56)
[2021-01-17] MEDS: Cefazolin 2 GM in 0.9% Normal Saline 100 ML IV (16:58)
[2021-01-18 03:00] VITALS: PULSE 47
[2021-01-18 04:00] VITALS: BP 130/95; PULSE 52; RESP 18; TEMP 36.8; O2SAT 97
[2021-01-18 04:44] LABS: Absolute Lymphocyte Count 0.99 X10^3/uL (0.83-4.51); Absolute Neutrophil Count 2.3 X10^3/uL (2.0-7.7); Basophil# 0.02 X10^3/uL; Basophil% 0.5 % (0-1); Eosinophil# 0.03 X10^3/uL; Eosinophils% 0.7 % (0-5); Hematocrit 41.2 % (40-54); Hemoglobin 13.5 g/dL (13.0-16.5); Lymphocyte # 0.99 X10^3/ul (0.83-4.51); Lymphocyte % 24.5 % (19-41); Mean Corp Hgb Conc 32.8 g/dL (32-36); Mean Corpuscular Hgb 32.8 pg (27.0-32.0); Mean Platelet Vol. 10.7 fl (6.2-12.0); Monocyte# 0.67 X10^3/uL; Monocyte% 16.6 % (0-10); NRBC Flagged by Analyzer 0 % (0-5); Platelet Count 107 K/mm3 (150-450); RBC Distribution Width CV 13.4 % (11.6-14.6); RBC Distribution Width SD 49.7 fl (35.1-43.9); Red Blood Count 4.12 M/mm3 (4.6-6.2)
[2021-01-18 05:00] LABS: Anion Gap 7 (5-15); BUN 34 mg/dL (7-18); BUN/Creat Ratio 21.4 RATIO (10-20); Calcium,Total 8.3 mg/dL (8.5-10.1); Chloride 105 mmol/L (98-107); Creatinine, Serum 1.59 mg/dL (0.70-1.30); EST Glomerular Filtration Rate 47 mL/min (>60); Est Glom Filt Rate - Afr Amer 57 mL/min (>60); Glucose 109 mg/dL (74-106); Potassium 4.3 mmol/L (3.5-5.1); Sodium Level 139 mmol/L (136-145)
--- NOTE | 2021-01-18 05:55 | RAD_ITS ---
STUDY: X-RAY CHEST REASON FOR EXAM: Male, 66 years old patient status post ICD and pacemaker placement. TECHNIQUE: PA and lateral views of the chest. COMPARISON: Chest radiograph dated 09/19/2019. FINDINGS: Left-sided intracardiac pacemaker is present. Cardiac monitoring leads are present. The lungs are clear and underexpanded. There appears be a small left-sided pleural effusion. There is mild cardiac enlargement. Normal mediastinum and anneliese. Normal visualized pulmonary arteries. There is atherosclerotic calcification of the aortic arch with tortuosity. Normal visualized thoracic spine. Normal visualized ribs, clavicles, and shoulders. There is no demonstrated abnormality of the visualized soft tissue structures of the upper abdomen. RAD/Chest 3 View IMPRESSION: No radiographic evidence for pneumothorax after placement of intracardiac pacemaker. Electronically Signed: Lisset Kendrick MD at 7:58 EDT , Service support ,
[2021-01-18 07:00] VITALS: PULSE 49
--- NOTE | 2021-01-18 07:48 | PCM.DC ---
Discharge Instructions Diet Discharge Diet: Low fat / Low cholesterol Activity Discharge Activity: - (Please see written post ICD placement instructions) May shower in (days): 3 Weight Bearing Status: No weight bearing Keep extremity elevated above heart level: Left Arm (Please see written post ICD instructions) Dressing / Incision Call your doctor if your incision/area has: Continuous Slow Oozing, Sudden Increased Bleeding, Increased Pain/ Swelling, Increased Redness, Foul Smelling Discharge and Swelling at the incision site Call your doctor if you observe: Fever of 101 or Higher, Shortness of breath, Dizziness, Fainting spells, Swelling in the ankles, Chest pain, Increased palpitations (irregular heartbeat) and Uncontrolled pain Suture Line Care: Avoid Pulling/Pushing and Avoid Pinching/Bending Remove Dressing in: 3 days Cleanse incision/area with: Do not get Incision Wet, Keep Dressing Clean & Dry and - (Wound Care: Please see written post ICD instructions) Follow Up Care Please Follow Up With: radha When: [facility] Roberts RN: ICD check: 01/30/2021: 14:00 (2:00 PM) // Dr. Kenney: 05/02/2021: 13:45 (1:45 PM) Test Results: Test results from this visit will be discussed in further detail at your follow-up appointment, if applicable. Discharge Plan Admission Primary Reason for Your Visit: ICD Placement Attending Provider: Vivek Coppola Primary Care Provider: Dayo Avilez Discharge Orders/Prescriptions Prescriptions: Continued nitroglycerin 0.4 mg tablet, sublingual 0.4 mg SUBLINGUAL Q5M PRN (Reason: CHEST PAIN) Qty: 25 RF: 3 furosemide 40 mg tablet 40 mg PO DAILY Qty: 90 RF: 3 lisinopril 20 mg tablet 20 mg PO DAILY Qty: 90 RF: 3 potassium chloride 20 mEq tablet extended release 20 meq PO DAILY RF: 0 Hold Instructions: starting spirolactone spironolactone 25 mg tablet 25 mg PO DAILY Qty: 90 RF: 3 aspirin 81 MG tablet,chewable 81 mg PO DAILY@0800 RF: 0 cholecalciferol (vitamin D3) 2,000 UNIT capsule 6,000 unit PO DAILY RF: 0 coenzyme Q10 100 MG capsule 200 mg PO DAILY RF: 0 amiodarone 200 mg tablet 200 mg PO DAILY Qty: 90 RF: 3 metoprolol succinate 100 mg tablet extended release 24 hr 100 mg PO DAILY RF: 0 Held apixaban 5 mg tablet 5 mg PO BID RF: 0 Hold Instructions: Hold until post ICD wound check in the office Referrals / Follow Up: Ahsan Kenney MD [STAFF PHYSICIAN] - Dayo Avilez MD [Primary Care Provider] - Disposition Disposition (needs filled in before D/C Order can be placed): Home, Self Care
--- NOTE | 2021-01-18 08:03 | DS.PCM_ITS ---
Providers Primary Care Physician: Dr. Dayo Avilez MD Reason For Visit: ISCHEMIC CARDIOMYOPATHY Diagnosis Discharge Diagnosis (1) Atherosclerotic heart disease of [place] coronary artery without angina pectoris: Status: Chronic Code(s): I25.10 - Atherosclerotic heart disease of [place] coronary artery without angina pectoris (2) Ischemic cardiomyopathy: Status: Chronic Code(s): I25.5 - Ischemic cardiomyopathy (3) HFrEF (heart failure with reduced ejection fraction): Status: Acute Code(s): I50.20 - Unspecified systolic (congestive) heart failure (4) PAF (paroxysmal atrial fibrillation): Status: Chronic Code(s): I48.0 - Paroxysmal atrial fibrillation (5) HLD (hyperlipidemia): Status: Chronic Code(s): E78.5 - Hyperlipidemia, unspecified (6) Essential hypertension: Status: Chronic Code(s): I10 - Essential (primary) hypertension (7) ICD (implantable cardioverter-defibrillator), single, in situ: Status: Acute Code(s): Z95.810 - Presence of automatic (implantable) cardiac defibrillator Medications at Discharge Home Medications apixaban 5 mg PO BID 09/19/19 aspirin 81 mg PO DAILY@0800 tab.chew 09/22/19 cholecalciferol (vitamin D3) 6,000 unit PO DAILY 01/25/20 coenzyme Q10 200 mg PO DAILY 03/16/20 furosemide 40 mg tablet 40 mg PO DAILY #90 tab 04/12/20 lisinopril 20 mg tablet 20 mg PO DAILY #90 tab 04/12/20 nitroglycerin 0.4 mg sublingual tablet 0.4 mg SUBLINGUAL Q5M PRN #25 tab 04/12/20 amiodarone 200 mg tablet 200 mg PO DAILY #90 tab 10/25/20 metoprolol succinate 100 mg tablet,extended release 24 hr 100 mg PO DAILY tablet 11/08/20 potassium chloride 20 mEq tablet,extended release 20 meq PO DAILY 11/08/20 spironolactone 25 mg tablet 25 mg PO DAILY #90 tab 12/20/20 Hospital Course Procedures - (ICD Placement) Summary of Care Provided Minutes Spent on Discharge: 45 Hospital Course: This is a 86-year-old white male with a past medical history of CAD, PCI, ischemic mediated cardiomyopathy, heart failure with reduced ejection fraction, paroxysmal atrial fibrillation, hyperlipidemia, and hypertension who presented for ICD placement. The patient underwent ICD placement on 01-17-[address] Coppola of [facility] electrophys[facility]. The patient was monitored overnight. He appeared to be symptomatically and hemodynamically stable. He did not appear to have any acute adverse findings on his post ICD placement follow-up studies. On this day he was felt stable for release home for continued outpatient cardiovascular follow-up. Physical Exam Const alert, oriented x3 and no apparent distress General Appearance: cooperative, comfortable, well kempt and well developed HEENT normocephalic and head/scalp atraumatic Neck full ROM and no JVD Chest Chest: left pectoral incision and other Left pectoral surgical site: Surgical dressing in place: Clean and dry: Resp clear to auscultation bilaterally Cardio regular rate, regular rhythm, S1 normal heart sound and S2 normal heart sound GI normal to inspection, nondistended, normoactive bowel sounds Extremity full ROM Skin no rashes or lesions noted Neuro oriented x3, moves all extremities, no focal motor deficits and no sensory deficits noted Psych mental status grossly normal Weight / BMI Weight Weight: 259 lb Body Mass Index (BMI) 35.1 ABG / Lab / Microbiology Data Result Diagrams: 01/18/21 03:55 01/18/21 03:55 Laboratory: Laboratory Results - last 24 hr 01/18/21 01/18/21 03:55 03:55 WBC 4.0 L RBC 4.12 L Hgb 13.5 Hct 41.2 MCV 100.0 H MCH 32.8 H MCHC 32.8 RDW Std Deviation 49.7 H RDW Coeff of Nichole 13.4 Plt Count 107 L MPV 10.7 Immature Gran % (Auto) 0.700 Neut % (Auto) 57.0 Lymph % (Auto) 24.5 [place] % (Auto) 16.6 H Eos % (Auto) 0.7 Baso % (Auto) 0.5 Absolute Neuts (auto) 2.3 Absolute Lymphs (auto) 0.99 Nucleated RBC % 0 Sodium 139 Potassium 4.3 Chloride 105 Carbon Dioxide 27.0 Anion Gap 7 BUN 34 H Creatinine 1.59 H Est GFR (MDRD) Af Amer 57 L Est GFR (MDRD) Non-Af 47 L BUN/Creatinine Ratio 21.4 H Glucose 109 H Calcium 8.3 L Radiography Diagnostic Testing: Radiology Impression Chest X-Ray 07/02/21 05:55 IMPRESSION: No radiographic evidence for pneumothorax after placement of intracardiac pacemaker. Electronically Signed: Lisset Kendrick MD at 7:58 EDT , Service support , D/C Instructions Discharge Diet: Low fat / Low cholesterol May shower in (days): 3 Weight Bearing Status: No weight bearing Keep extremity elevated above heart level: Left Arm (Please see written post ICD instructions) Call your doctor if your incision/area has: Continuous Slow Oozing, Sudden Increased Bleeding, Increased Pain/ Swelling, Increased Redness, Foul Smelling Discharge and Swelling at the incision site Call your doctor if you observe: Fever of 101 or Higher, Shortness of breath, Dizziness, Fainting spells, Swelling in the ankles, Chest pain, Increased palpitations (irregular heartbeat) and Uncontrolled pain Suture Line Care: Avoid Pulling/Pushing and Avoid Pinching/Bending Cleanse incision/area with: Do not get Incision Wet, Keep Dressing Clean & Dry and - (Wound Care: Please see written post ICD instructions) Please Follow Up With: radha When: [facility] Roberts RN: ICD check: 01/30/2021: 14:00 (2:00 PM) // Dr. Kenney: 05/02/2021: 13:45 (1:45 PM) Meaningful Use Info Meaningful Use Diagnoses (Choose all that apply): None applicable Discharge Plan Admission Primary Reason for Your Visit: ICD Placement Attending Provider: Vivek Coppola Primary Care Provider: Dayo Avilez Discharge Orders/Prescriptions Prescriptions: Continued nitroglycerin 0.4 mg tablet, sublingual 0.4 mg SUBLINGUAL Q5M PRN (Reason: CHEST PAIN) Qty: 25 RF: 3 furosemide 40 mg tablet 40 mg PO DAILY Qty: 90 RF: 3 lisinopril 20 mg tablet 20 mg PO DAILY Qty: 90 RF: 3 potassium chloride 20 mEq tablet extended release 20 meq PO DAILY RF: 0 Hold Instructions: starting spirolactone spironolactone 25 mg tablet 25 mg PO DAILY Qty: 90 RF: 3 aspirin 81 MG tablet,chewable 81 mg PO DAILY@0800 RF: 0 cholecalciferol (vitamin D3) 2,000 UNIT capsule 6,000 unit PO DAILY RF: 0 coenzyme Q10 100 MG capsule 200 mg PO DAILY RF: 0 amiodarone 200 mg tablet 200 mg PO DAILY Qty: 90 RF: 3 metoprolol succinate 100 mg tablet extended release 24 hr 100 mg PO DAILY RF: 0 Held apixaban 5 mg tablet 5 mg PO BID RF: 0 Hold Instructions: Hold until post ICD wound check in the office Referrals / Follow Up: Ahsan Kenney MD [STAFF PHYSICIAN] - Dayo Avilez MD [Primary Care Provider] - Disposition Disposition (needs filled in before D/C Order can be placed): Home, Self Care
[2021-01-18 08:20] VITALS: BP 147/81; PULSE 56; RESP 18; TEMP 36.2; O2SAT 97
[2021-01-18] MEDS: Amiodarone 200 MG Tablet PO (08:26)
[2021-01-18] MEDS: Aspirin 81 MG TAB.CHEW PO (08:26)
[2021-01-18] MEDS: Furosemide 40 MG Tablet PO (08:26)
[2021-01-18] MEDS: Potassium Chloride Oral Tablet 20 MEQ PO (08:26)
[2021-01-18] MEDS: Lisinopril 20 MG Tablet PO (08:26)
[2021-01-18] MEDS: Spironolactone 25 MG Tablet PO (08:26)
[2021-01-18 10:36] VITALS: BP 147/81; PULSE 56; RESP 18; TEMP 36.2; O2SAT 97
[2021-01-18 11:00] VITALS: PULSE 51
--- NOTE | 2021-01-18 12:47 | NURSING ---
D/C problem w/ [employer] involving eliquis order. New system cannot accept meds being on hold. D/C instructions state to hold eliquis until wound check on 01/30/21. Attempted to reach industrial hygiene engineer to fix order. Unable to reach MD d/t his phone was misplaced. Pt verbalized understanding to hold eliquis until wound check on 01/30/21.
== END 2021-01-18 08:00 | disposition home or self-care (01) ==
LOC: CLSP 09:44 → PCU 01-18 07:59
PROVIDERS: Internal Medicine Cardiovascular Disease; PCP Family Medicine; Visit Provider Internal Medicine Cardiovascular Disease
DX: Z45.02 Encounter for adjustment and management of automatic implantable cardiac defibrillator (principal); I25.5 Ischemic cardiomyopathy; I11.0 Hypertensive heart disease with heart failure; I50.23 Acute on chronic systolic (congestive) heart failure; I25.10 Atherosclerotic heart disease of native coronary artery without angina pectoris; E78.5 Hyperlipidemia, unspecified; Z79.01 Long term (current) use of anticoagulants; Z79.82 Long term (current) use of aspirin; Z79.899 Other long term (current) drug therapy; Z95.810 Presence of automatic (implantable) cardiac defibrillator
CPT/HCPCS: 33249; 36415; 71047; 80048; 85025; 93641; 99152; 99153; J7040; J7050; C1894

== ENCOUNTER 2021-01-28 20:29 | Emergency (ER) | payer BC, SELFPAY ==
[2021-01-16 08:29] VITALS: BMI 35.1
[2021-01-28 20:30] VITALS: BP 138/93; PULSE 62; RESP 16; TEMP 37.1; O2SAT 97; BMI 34.8
--- NOTE | 2021-01-28 20:41 | RAD_ITS ---
STUDY: X-RAY - LEFT TIBIA AND FIBULA REASON FOR EXAM: Male, 66 years old. Fall, injury TECHNIQUE: 3 view(s) of the tibia and fibula were obtained. COMPARISON: None. FINDINGS: A moderate size acute oblique fractures present in the proximal one third fibular shaft with mild displacement. No additional acute fractures are seen. The visualized aspects of the tibial shaft are unremarkable. Mild cortical burning) cavity of the medial side of the talar dome is likely due to a small osteochondral defect or sequela from old trauma. The soft tissues of the upper calf are mildly swollen. Atherosclerotic calcifications are present. RAD/Tibia & Fibula 2 Views IMPRESSION: Moderate size acute fracture of the proximal one third fibula Electronically Signed: Rashad Seaman MD at 21:59 EDT , Service support ,
--- NOTE | 2021-01-28 20:55 | RAD_ITS ---
STUDY: X-RAY - LEFT ANKLE REASON FOR EXAM: Male, 66 years old. Pain post fall TECHNIQUE: 3 view(s) of the ankle. COMPARISON: None. FINDINGS: Mild soft tissue swelling is present. A small osteophyte is present at the undersurface of the medial malleolus. An osteophyte or chronic cortical irregularity is seen over the dorsum of the head of the talus which could be degenerative or related to old trauma. There is no evidence of an acute fracture. A small soft tissue calcification or loose body is present posterior aspect of the joint space. Normal visualized distal tibia and fibula. Normal medial and lateral malleoli. Normal tibiotalar articulation and ankle mortise. Normal visualized talus and calcaneus. The visualized subtalar, talonavicular, calcaneocuboid and tarsal articulations are normal. RAD/Ankle min 3 Views IMPRESSION: 1. Mild soft tissue swelling is present. A small osteophyte is present at the undersurface of the medial malleolus. An osteophyte or chronic cortical irregularity is seen over the dorsum of the head of the talus which could be degenerative or related to old trauma. There is no evidence of an acute fracture. Electronically Signed: Rashad Seaman MD at 21:43 EDT , Service support ,
--- NOTE | 2021-01-28 20:59 | ED.VIS.FALL ---
HPI HPI - Fall History of Present Illness Chief Complaint: Fall Informant: patient Narrative Narrative: Patient is a 66-year-old male who presents to the emergency department for injury to left lower extremity. He states he was walking down a small hill whenever he slipped on the grass. He was complaining of carroll pain on the left lower leg. This went down to the ankle. He did not try to ambulate and called the EMS. Patient is currently not on anticoagulation but is typically on apixaban. This was being held as he recently just had a pacemaker placed. He denies hitting his head or losing consciousness. No other injury to other extremities. No chest pain, shortness of breath or abdominal pain. No back pain. [facility] Medical History (Updated 01/28/21 @ 22:[address] Anuj Martinez, ) Atherosclerotic heart disease of [place] coronary artery without angina pectoris CAD in [place] artery Cardiomyopathy Essential hypertension HLD (hyperlipidemia) ICD (implantable cardioverter-defibrillator), single, in situ Ischemic cardiomyopathy New onset atrial fibrillation PAF (paroxysmal atrial fibrillation) Home Medications apixaban 5 mg PO BID 09/19/19 [History Last Taken 01/15/21] aspirin 81 mg PO DAILY@0800 tab.chew 09/22/19 [Rx Last Taken 05/01/20] cholecalciferol (vitamin D3) 6,000 unit PO DAILY 01/25/20 [History Last Taken 03/27/20] coenzyme Q10 200 mg PO DAILY 03/16/20 [History Last Taken 03/27/20] furosemide 40 mg tablet 40 mg PO DAILY #90 tab 04/12/20 [Rx Last Taken Unknown] lisinopril 20 mg tablet 20 mg PO DAILY #90 tab 04/12/20 [Rx Last Taken 01/17/21] nitroglycerin 0.4 mg sublingual tablet 0.4 mg SUBLINGUAL Q5M PRN #25 tab 04/12/20 [Rx Last Taken Unknown] metoprolol succinate 100 mg tablet,extended release 24 hr 100 mg PO DAILY tablet 11/08/20 [History Last Taken 01/17/21] potassium chloride 20 mEq tablet,extended release 20 meq PO DAILY 11/08/20 [History Last Taken Unknown] spironolactone 25 mg tablet 25 mg PO DAILY #90 tab 12/20/20 [Rx Last Taken Unknown] amiodarone 200 mg tablet 200 mg PO DAILY #90 tab 01/23/21 [Rx Last Taken Unknown] hydrocodone-acetaminophen 1 tab PO Q8H PRN 3 Days #10 tab 01/28/21 [Rx Last Taken Unknown] Allergy/AdvReac Type Severity Reaction Status Date / Time No Known Allergies Allergy Verified 01/28/21 20:32 Family History Father Heart disease Grandfather Diabetes Surgical History History of cardioversion (~05/01/20) S/P PTCA (percutaneous transluminal coronary angioplasty) Social History Smoking Status: Never smoker alcohol intake: current alcohol intake frequency: holidays/special occasions only substance use type: does not use caffeine: Yes Type: coffee Number of servings: 1 ROS ROS ED Constitutional Constitutional ED: Denies chills or fever(s) Eyes Eyes: Denies change in vision ENT ENT ED: Denies epistaxis or rhinorrhea Cardiovascular Cardiovascular: Denies chest pain or palpitations Respiratory/Chest Respiratory/Chest: Denies cough or dyspnea Gastrointestinal Gastrointestinal: Denies abdominal pain, nausea or vomiting Musculoskeletal Musculoskeletal: Reports arthralgias; Denies back pain or neck pain Integumentary Denies rash Neurologic Neurologic: Denies dizziness, headache(s) or weakness EXAM Physical Exam Const Vital Signs: 01/28/21 22:23 Respiratory Effort Normal Respiratory Depth Normal Respiratory Pattern Normal Oxygen Delivery Method Room Air Positive well nourished and well developed General Appearance ED: well developed and NAD HEENT Reports normocephalic, head/scalp atraumatic and moist mucous membranes Eyes PERRL and EOMs intact bilaterally Neck supple Chest Wall inspection of chest normal Resp normal respiratory effort and clear to auscultation bilaterally Cardio regular rate and regular rhythm GI non-tender Palpation: soft Extremity Extremity Narrative: 5 out of 5 muscle strength. Good range of motion in all joints of the lower extremity. 2+ DP pulse on the left. Mild decrease in sensation which she states is chronic. There is some swelling around the entire ankle but no significant tenderness. There is tenderness at the distal tibia. No obvious deformity appreciated. Neuro no sensory deficits noted Sensorium / Orientation: alert Motor Exam: strength 5/5 throughout Psych mental status grossly normal Skin no rashes or lesions noted MDM MDM MDM Narrative Medical decision making narrative: Patient presents the ED for left lower extremity injury after fall from standing. Will check an x-ray to evaluate for fracture. No open wounds. Patient currently not on any anticoagulation medications. X-ray was significant for proximal fibula fracture. No other fracture dislocation noted. Will recommend symptomatic treatment at home. He is given orthopedic surgery referral for follow-up. Return precautions are reviewed. He understands and is agreeable this plan. Discharged home in stable condition. All questions were answered. Radiography Diagnostic Testing: Radiology Impression Tibia/Fibula X-Ray 01/28/21 20:41 IMPRESSION: Moderate size acute fracture of the proximal one third fibula Electronically Signed: Rashad Seaman MD at 21:59 EDT , Service support , Ankle X-Ray 01/28/21 20:55 IMPRESSION: 1. Mild soft tissue swelling is present. A small osteophyte is present at the undersurface of the medial malleolus. An osteophyte or chronic cortical irregularity is seen over the dorsum of the head of the talus which could be degenerative or related to old trauma. There is no evidence of an acute fracture. Electronically Signed: Rashad Seaman MD at 21:43 EDT , Service support , X-ray of the ankle and tibia/fibula interpreted by myself. There is a proximal fibula fracture. No other fracture or dislocation appreciated. Agree with radiologist interpretation. Discharge Plan Triage Chief Complaint: Fall ED Provider: Anuj Martinez Dx/Rx/DC Orders Clinical Impression: Fracture of fibula, proximal Instructions: Understanding an Ankle Fracture Prescriptions: New hydrocodone-acetaminophen 5-325 mg tablet 1 tab PO Q8H PRN (Reason: pain) 3 Days Qty: 10 RF: 0 No Action nitroglycerin 0.4 mg tablet, sublingual 0.4 mg SUBLINGUAL Q5M PRN (Reason: CHEST PAIN) Qty: 25 RF: 3 furosemide 40 mg tablet 40 mg PO DAILY Qty: 90 RF: 3 lisinopril 20 mg tablet 20 mg PO DAILY Qty: 90 RF: 3 potassium chloride 20 mEq tablet extended release 20 meq PO DAILY RF: 0 Hold Instructions: starting spirolactone spironolactone 25 mg tablet 25 mg PO DAILY Qty: 90 RF: 3 apixaban 5 mg tablet 5 mg PO BID RF: 0 Hold Instructions: Hold until post ICD wound check in the office aspirin 81 MG tablet,chewable 81 mg PO DAILY@0800 RF: 0 cholecalciferol (vitamin D3) 2,000 UNIT capsule 6,000 unit PO DAILY RF: 0 coenzyme Q10 100 MG capsule 200 mg PO DAILY RF: 0 metoprolol succinate 100 mg tablet extended release 24 hr 100 mg PO DAILY RF: 0 amiodarone 200 mg tablet 200 mg PO DAILY Qty: 90 RF: 3 Primary Care Provider: Dayo Avilez Referrals: Beto Ocampo DO [STAFF PHYSICIAN] - 2 Days Dayo Avilez MD [Primary Care Provider] - Disposition Disposition: Home, Self Care Discharge Date/Time: 01/28/21 22:24
[2021-01-28] MEDS: HYDROcodone Bitartrate/Apap 5/325 Tablet PO (22:16)
== END 2021-01-28 22:24 | disposition home or self-care (01) ==
PROVIDERS: Emergency Provider Emergency Medicine; PCP Family Medicine
DX: S82.832A Other fracture of upper and lower end of left fibula, initial encounter for closed fracture (principal); W17.81XA Fall down embankment (hill), initial encounter; Y93.01 Activity, walking, marching and hiking; Y92.9 Unspecified place or not applicable; Y99.9 Unspecified external cause status; I48.0 Paroxysmal atrial fibrillation; I25.5 Ischemic cardiomyopathy; I25.10 Atherosclerotic heart disease of native coronary artery without angina pectoris; I10 Essential (primary) hypertension; E78.5 Hyperlipidemia, unspecified; Z79.01 Long term (current) use of anticoagulants; Z79.82 Long term (current) use of aspirin; Z79.899 Other long term (current) drug therapy; Z95.810 Presence of automatic (implantable) cardiac defibrillator
CPT/HCPCS: 73590; 73610; 99284

== ENCOUNTER → 2021-03-01 | Outpatient (CLI) | payer BC, SELFPAY | END | disposition home or self-care (01) | LOC: LABSPEC 12:36 | PROVIDERS: PCP Family Medicine; Referring Provider Family Medicine; Visit Provider Family Medicine | DX: R19.7 Diarrhea, unspecified (principal) | CPT/HCPCS: 82274; 83630; 87493; 87506 ==

== ENCOUNTER 2021-10-16 09:47 | Outpatient (CLI) | payer OTHER, BC, SELFPAY ==
[2021-10-16 11:06] LABS: Absolute Neutrophil Count 2.7 X10^3/uL (2.0-7.7); Basophil# 0.03 X10^3/uL; Basophil% 0.6 % (0-1); Eosinophil# 0.04 X10^3/uL; Eosinophils% 0.8 % (0-5); Hematocrit 49.8 % (40-54); Hemoglobin 17.5 g/dL (13.0-16.5); Lymphocyte % 26.2 % (19-41); Mean Corp Hgb Conc 35.1 g/dL (32-36); Mean Corpuscular Hgb 33.7 pg (27.0-32.0); Mean Platelet Vol. 11.1 fl (6.2-12.0); Monocyte# 0.86 X10^3/uL; Monocyte% 17.3 % (0-10); NRBC Flagged by Analyzer 0 % (0-5); Neutrophil % 54.3 % (47-70); Platelet Count 178 K/mm3 (150-450); RBC Distribution Width CV 13.9 % (11.6-14.6); Red Blood Count 5.19 M/mm3 (4.6-6.2)
[2021-10-16 11:37] LABS: BNP,B-Type NATRIURETIC PEPTIDE 98.6 pg/mL (0-100)
[2021-10-16 11:46] LABS: Anion Gap 4 (5-15); BUN 53 mg/dL (7-18); BUN/Creat Ratio 21.2 RATIO (10-20); Calcium,Total 9.7 mg/dL (8.5-10.1); Chloride 98 mmol/L (98-107); EST Glomerular Filtration Rate 28 mL/min (>60); Est Glom Filt Rate - Afr Amer 34 mL/min (>60); Glucose 112 mg/dL (74-106); Magnesium 2.1 mg/dL (1.6-2.6); Potassium 5.4 mmol/L (3.5-5.1); Sodium Level 132 mmol/L (136-145); Thyroid Stim Hormone (TSH) 4.11 uIU/mL (0.358-3.74)
== END 2021-10-16 23:59 | disposition home or self-care (01) ==
LOC: LAB 09:48
PROVIDERS: PCP Family Medicine; Referring Provider Physician Assistant Medical; Visit Provider Physician Assistant Medical
DX: I48.0 Paroxysmal atrial fibrillation (principal); I50.20 Unspecified systolic (congestive) heart failure; I11.0 Hypertensive heart disease with heart failure; I25.5 Ischemic cardiomyopathy; I25.10 Atherosclerotic heart disease of native coronary artery without angina pectoris; E78.5 Hyperlipidemia, unspecified; Z95.810 Presence of automatic (implantable) cardiac defibrillator
CPT/HCPCS: 36415; 80048; 83735; 83880; 84443; 85025

== ENCOUNTER 2021-11-05 10:30 | Day surgery (SDC) | payer OTHER, BC, SELFPAY ==
[2021-11-04 07:24] VITALS: BMI 33.0
--- NOTE | 2021-11-04 16:55 | HP.PCM_ITS ---
History and Physical Date of Admission: 11/05/21 [facility] [address] [place] [address] [phone] OFFICE VISITDate of Service: 10/16/21 MR#:[id number]:[id number]: SADIQ DOYLE Deborah #:[id number]:[id number] Provider: GILL Geller/Sex: 66/M Location:[facility]:Signed HPI HPI History of Present Illness Details: This is a 66-year-old white male who presents today for outpatient cardiovascular follow-up of his history of CAD, PCI, ischemic mediated cardiomyopathy, atrial fibrillation (status post synchronized biphasic DC cardioversion-April,), systolic mediated CHF, status post ICD placement, hyperlipidemia, and hypertension. Pt notes that he has increased SOB over the last few weeks. He notes that he is more SOB with exertion and is having coughing. He finds that his is more fatigued at times. He does not have any chest pain. He does not have any palpitations that he is aware of. He is in AFib today. He does not have any edema or bloating. He does not have any lightheadedness/dizziness. His legs do hurt when he walks. Intake Vital Signs 10/16/21 08:53 Height 6 ft 1 in Weight: 250 lb BMI 33.0 BP 122/88 H Blood Pressure Location Lt brachial Position Sitting Respiration 20 H Pulse 74 Pulse Source Monitor Pulse Oximetry (%) 94 Intake Visit Reasons: needs med refills Area Development Consultant Required: No Is patient in pain?: No Allergies No Known Allergies Allergy (Verified 10/16/21 08:53) Medications aspirin 81 mg PO DAILY@0800 tab.chew 09/22/19 [Rx Confirmed 10/16/21] cholecalciferol (vitamin D3) 6,000 unit PO DAILY 01/25/20 [History Confirmed 10/16/21] coenzyme Q10 200 mg PO DAILY 03/16/20 [History Confirmed 10/16/21] nitroglycerin 0.4 mg sublingual tablet 0.4 mg SUBLINGUAL Q5M PRN #25 tab 04/12/20 [Rx Confirmed 10/16/21] hydrocodone-acetaminophen 1 tab PO Q8H PRN 3 Days #10 tab 01/28/21 [Rx Confirmed 10/16/21] lisinopril 20 mg tablet 20 mg PO DAILY #90 tab 05/09/21 [Rx Confirmed 10/16/21] amiodarone 200 mg tablet 200 mg PO DAILY #90 tab 10/16/21 [Rx Confirmed 10/16/21] apixaban 5 mg tablet 5 mg PO BID #180 tab 10/16/21 [Rx Confirmed 10/16/21] furosemide 40 mg tablet 40 mg PO DAILY #90 tab 10/16/21 [Rx Confirmed 10/16/21] metoprolol succinate 100 mg tablet,extended release 24 hr 100 mg PO DAILY #90 tab 10/16/21 [Rx Confirmed 10/16/21] potassium chloride 20 mEq tablet,extended release 20 meq PO DAILY #90 tab 10/16/21 [Rx Confirmed 10/16/21] spironolactone 25 mg tablet 25 mg PO DAILY #90 tab 10/16/21 [Rx Confirmed 10/16/21] PFSH Medical History Atherosclerotic heart disease of [place] coronary artery without angina pectoris CAD in [place] artery Cardiomyopathy Essential hypertension HLD (hyperlipidemia) ICD (implantable cardioverter-defibrillator), single, in situ Ischemic cardiomyopathy New onset atrial fibrillation PAF (paroxysmal atrial fibrillation) Surgical History History of cardioversion (~05/01/20) S/P PTCA (percutaneous transluminal coronary angioplasty) Family History Father Heart disease Grandfather Diabetes Social History Smoking Status: Never smoker alcohol intake: current alcohol intake frequency: holidays/special occasions only substance use type: does not use caffeine: Yes Type: coffee Number of servings: 1 ROS Const Const: Positive for fatigue; Negative for weakness, headache(s), frequent falls, excessive sweating, weight gain or weight loss Eyes Eyes: Negative for blind spots, loss of peripheral vision, transient loss of vision, blurry vision, change in vision or double vision ENT ENT: Negative for headache(s), dizziness, tinnitus, Nosebleed/epistaxis or balance problems Cardio Chest Pain: No Palpitations: No Edema: None Muscle aches with walking: Bilateral Resp Respiratory: Positive for SOB with activity and Cough; Negative for SOB at rest or SOB orthopnea\SOB lying down GI GI: Negative nausea, vomiting, heartburn, bloating, vomiting blood/hematemesis, bright, red blood in stools or black,tarry stools : Negative for hematuria Musc Musc: Positive for muscle aches/ myalgia and muscle weakness; Negative for joint pain or balance problems Skin Skin: Negative rash or wounds Neuro Neuro: Negative for dizziness, lightheadedness, near syncope, syncope, orthostatic symptoms, frequent falls, headache(s), weakness, confusion, memory loss, restless legs, blurry vision or double vision Shivam Hematologic/Lymphatic: Negative for easy bleeding or easy bruising Endo Endo: Positive for fatigue; Negative for cold intolerance, heat intolerance or excessive sweating Psych Psych: Negative for anxiety or depression Allergy Allergy/Immunology: Negative for rash Cardiology Exam Const Appearance: cooperative, healthy appearing, comfortable, no acute distress and well developed Orientation: alert, awake and oriented x3 Head Head: normal to inspection Ears: hearing grossly normal bilaterally Nose: external nose normal Face and Sinus: face symmetric Mouth: oral mucosae normal, lip normal and moist mucous membranes Eyes General: appearance normal, both eyes and all related structures Eyelids: eyelids normal Conjunctivae: conjunctivae normal Pupils: PERRL EOM: EOM intact bilaterally Neck Neck: normal visual inspection and trachea midline; Negative no JVD Carotids: Negative bruit Chest Chest inspection: normal inspection of the chest Auscultation: Bilateral: Clear to Auscultation Cardio Palpation: normal PMI Rate: regular rate Rhythm: irregularly irregular Heart sounds: S1 normal and S2 normal; Negative rub, gallop or murmur GI GI: soft, no hepatosplenomegaly and bowel sounds present Neuro General: patient alert, patient awake, patient oriented x3 and CN's II-XI intact bilaterally Extremities Pulses: Normal: Right Posterior Tibial Pulse, Left Posterior Tibial Pulse, Right Radial Pulse and Left Radial Pulse Lower Extremity Edema: Trace: Bilateral Psych Psychological: normal affect Supplemental Info Supplemental Information ECHO:?4?20 20: [facility]: Left ventricle mildly dilated Right ventricle dilated Left atrium dilated Mitral valve-trace MR Tricuspid valve-trace TR Aortic valve-trace AI Pulmonic valve not seen LVEF reported at 34% Echocardiogram 07/2020: Moderately dilated left ventricle. Moderate segmental systolic dysfunction (see wall motion). The estimated ejection fraction is 30 %. The left atrium is mildly enlarged. Mild (1+) mitral valve insufficiency. Mild tricuspid valve insufficiency. Mild focal aortic valve calcification. Mildly dilated aortic root. Right ventricular systolic pressure estimated to be 36 mmHg. Diastolic function is indeterminate. [place] Left main coronary artery-30% stenosis LAD-60 to 70% stenosis and 70 to 75% stenosis LCx occluded RCA-30 to 40% and 3 to 50% stenosis PCI: [place]?25?20 13: [place] Successful complex angioplasty of the LCx and large obtuse marginal branch using a 3.0?32 and 3.0?12 bare-metal Veriflex stent Cardiac Cath: 06-17-2018: [facility] Left main coronary artery-mild luminal irregularities LAD-proximal 50% stenosis; mid 50% stenosis LCx-20% in-stent stenosis Intermediate ramus-70% stenosis-small branch vessel RCA-moderate disease Impression: Nonobstructive three-vessel CAD in the right dominant distribution Stable CAD when compared to prior catheter in 2014 Labs: No Data to Display Diagnostics: Electrocardiogram Pacemaker Check Pulmonary: No Data to Display Assessment and Plan Assessment and Plan (1) HFrEF (heart failure with reduced ejection fraction): Status: Acute Orders: Orders: Basic Metabolic Profile (BMP) Today Magnesium Today Thyroid Stim Hormone (TSH) Today CBC W/Diff, Automated Today BNP,B-Type NATRIURETIC PEPTIDE Today Plan - Gabriela GARLAND PA: With pt worsening SOB will obtain labs. Concerned about Acute symptoms of CHF. Concerned that this is related to his return to Afib is contributing to his symptoms. (2) PAF (paroxysmal atrial fibrillation): Status: Chronic Orders: Orders: Basic Metabolic Profile (BMP) Today Magnesium Today Thyroid Stim Hormone (TSH) Today CBC W/Diff, Automated Today BNP,B-Type NATRIURETIC PEPTIDE Today Plan - Gabriela GARLAND, PA: Unfortunatley pt has returned to Afib. He has not stopped his anticoagulation. Will discuss with Dr. Kenney about pursuing a DCCV. His rate is controlled (3) Atherosclerotic heart disease of [place] coronary artery without angina pectoris: Status: Chronic Orders: Orders: Basic Metabolic Profile (BMP) Today Magnesium Today Thyroid Stim Hormone (TSH) Today CBC W/Diff, Automated Today BNP,B-Type NATRIURETIC PEPTIDE Today Plan - Gabriela GARLAND, PA: Stable, from a cardiac standpoint patient does not have any symptoms of angina. We recommend that they continue with current aggressive medical management and risk factor modification. (4) Essential hypertension: Status: Chronic Orders: Orders: Basic Metabolic Profile (BMP) Today Magnesium Today Thyroid Stim Hormone (TSH) Today CBC W/Diff, Automated Today BNP,B-Type NATRIURETIC PEPTIDE Today Plan - Gabriela GARLAND, PA: Blood pressure is well controlled on current medications, we do not recommend any changes at this time. (5) HLD (hyperlipidemia): Status: Chronic Orders: Orders: Basic Metabolic Profile (BMP) Today Magnesium Today Thyroid Stim Hormone (TSH) Today CBC W/Diff, Automated Today BNP,B-Type NATRIURETIC PEPTIDE Today (6) ICD (implantable cardioverter-defibrillator), single, in situ: Status: Acute Orders: Orders: Basic Metabolic Profile (BMP) Today Magnesium Today Thyroid Stim Hormone (TSH) Today CBC W/Diff, Automated Today BNP,B-Type NATRIURETIC PEPTIDE Today Plan - Gabriela GARLAND, PA: ICD is functioning appropriately. Pt has not had any discharges from their device, they will continue with regular scheduled ICD interrogations. Plan Details Other Medications: New: furosemide 40 mg PO DAILY 90 tabs 3RF water metoprolol succinate ER 100 mg PO DAILY 90 tabs 3RF blood pressure potassium chloride ER 20 mEq PO DAILY 90 tabs 3RF Refilled: amiodarone 200 mg PO DAILY 90 tabs 3RF heart apixaban 5 mg PO BID 180 tabs 3RF blood thinner spironolactone 25 mg PO DAILY 90 tabs 3RF Other Orders: Orders: 12 Lead EKG performed by BMS Today I48.91 Basic Metabolic Profile (BMP) Today I25.5 Magnesium Today I25.5 Thyroid Stim Hormone (TSH) Today I25.5 CBC W/Diff, Automated Today I25.5 BNP,B-Type NATRIURETIC PEPTIDE Today I25.5 Additional Comments: Thank you for allowing me to participate in the care of your patient. Please don't hesitate to call if any issues arise. This note was generated using a voice recognition system and there may be incorrect words, spelling or punctuation that were not noted when reviewing the office note prior to saving. Follow Up: 3 Months (MMM) Coding Level of Care Code Off vis,est,level 4 Diagnoses HFrEF (heart failure with reduced ejection fraction) I50.20 PAF (paroxysmal atrial fibrillation) I48.0 Atherosclerotic heart disease of [place] coronary artery without angina pectoris I25.10 Essential hypertension I10 HLD (hyperlipidemia) E78.5 ICD (implantable cardioverter-defibrillator), single, in situ Z95.810 Coding Level of Care Code Off vis,est,level 4 Diagnoses HFrEF (heart failure with reduced ejection fraction) I50.20 PAF (paroxysmal atrial fibrillation) I48.0 Atherosclerotic heart disease of [place] coronary artery without angina pectoris I25.10 Essential hypertension I10 HLD (hyperlipidemia) E78.5 ICD (implantable cardioverter-defibrillator), single, in situ Z95.810 10/16/21 1257<Electronically signed by Gabriela GARLAND>Date Gabriela GARLAND Cosigner Signature:Date (if applicable) CC: Dr. Dayo Avilez MD ~ Assessment & Plan Addt'l Comments I have re-examined the patient. There are no clinical changes since date of exam
--- NOTE | 2021-11-05 12:35 | CARDIOVERS ---
Cardioversion Cardioversion: Date: 11-05-2021 Procedure: Synchronized Biphasic DC Cardioversion Indications: Atrial fibrillation/flutter Consent: Per the Patient Anesthesia: per Dr. Curran of pulmonology and critical care medicine with etomidate 6 mg IV push total Procedure: Synchronized Biphasic DC Cardioversion: 200 J x 1: Result: Atrial flutter with 2-1 AV conduction Anesthesia: Per Dr. Curran of pulmonology and critical care medicine with etomidate 8 mg IV push total Synchronized Biphasic DC cardioversion: 300 J x 1: Result: Sinus rhythm/sinus bradycardia Complications: no apparent complications This note was generated with [employer]u Buruation software. It may contain incorrect words, spelling, and punctuation that were not noted in checking the note before signing.
--- NOTE | 2021-11-05 12:47 | PRO.PCM_ITS ---
Procedure Report Date of Procedure: 11/05/21 CONSCIOUS SEDATION REPORT DATE OF SERVICE: November 05, 2021 BRIEF HISTORY OF PRESENT ILLNESS: The patient is a 66-year-old male who presented to [facility] for elective outpatient cardioversion due to underlying atrial fibrillation. The patient did undergo a prior cardioversion in April 2020, during which time, he received etomidate for sedation. The patient denied any prior anesthetic complications. He has never been diagnosed with obstructive sleep apnea. His last surface echocardiogram demonstrated an ejection fraction of approximately 30%. He is currently anticoagulated on Eliquis. PHYSICAL EXAMINATION: VITAL SIGNS: Reviewed and were acceptable. GENERAL: The patient is an obese male, in no apparent distress, speaking in full sentences. HEENT: Normocephalic, atraumatic. Mucous membranes are moist and pink. Good mouth opening noted. Trachea is midline. CHEST: S1, S2 irregularly irregular. No murmurs, rubs or gallops were noted. LUNGS: Clear to auscultation bilaterally without appreciable wheezes, rales or rhonchi. ABDOMEN: Soft, nontender, nondistended. Positive bowel sounds. EXTREMITIES: There is no clubbing, cyanosis or edema. ASA Class: II DESCRIPTION OF PROCEDURE: After confirmation of informed consent, the patient's anesthesia plan was reviewed in detail. Etomidate was chosen. Risks and benefits were reviewed and the patient agreed to proceed. At 1206, the patient was given 6 mg of etomidate. The patient achieved an appropriate level of sedation and was given a 200 joule synchronized cardioversion by Dr. Kenney at the bedside. This ultimately was unsuccessful in achieving normal sinus rhythm. Therefore, the patient was then administered 8 mg of etomidate and a second attempt at cardioversion at 300 J was undertaken. This attempt was successful in restoring normal sinus rhythm. The patient was monitored until 1230, at which time, he reached his baseline mental status and function. The patient tolerated the procedure well. COMPLICATIONS: None ESTIMATED BLOOD LOSS: None RECOMMENDATIONS: Okay to recover in usual fashion. Procedures Pulmonary 9xxxx: [id number] Con Sedation (+ [id number] (Total of 24 minutes))
== END 2021-11-05 13:30 | disposition home or self-care (01) ==
LOC: CLSP 10:31
PROVIDERS: PCP Family Medicine; Referring Provider Physician Assistant Medical; Visit Provider Physician Assistant Medical
DX: I48.0 Paroxysmal atrial fibrillation (principal); I11.0 Hypertensive heart disease with heart failure; I50.22 Chronic systolic (congestive) heart failure; I25.10 Atherosclerotic heart disease of native coronary artery without angina pectoris; E78.5 Hyperlipidemia, unspecified; I25.5 Ischemic cardiomyopathy; Z95.810 Presence of automatic (implantable) cardiac defibrillator; Z79.82 Long term (current) use of aspirin; Z79.01 Long term (current) use of anticoagulants; Z98.61 Coronary angioplasty status
CPT/HCPCS: 92960; 93005; J7040

== ENCOUNTER → 2021-11-12 | Outpatient (CLI) | payer OTHER, BC, SELFPAY ==
[2021-11-12 10:39] LABS: Anion Gap 5 (5-15); BUN 38 mg/dL (7-18); BUN/Creat Ratio 17.6 RATIO (10-20); Calcium,Total 8.9 mg/dL (8.5-10.1); Chloride 103 mmol/L (98-107); Creatinine, Serum 2.16 mg/dL (0.70-1.30); EST Glomerular Filtration Rate 33 mL/min (>60); Est Glom Filt Rate - Afr Amer 40 mL/min (>60); Glucose 109 mg/dL (74-106); Potassium 4.7 mmol/L (3.5-5.1); Sodium Level 137 mmol/L (136-145)
== END | disposition home or self-care (01) ==
PROVIDERS: PCP Family Medicine; Referring Provider Internal Medicine Cardiovascular Disease; Visit Provider Internal Medicine Cardiovascular Disease
DX: I48.0 Paroxysmal atrial fibrillation (principal); I25.10 Atherosclerotic heart disease of native coronary artery without angina pectoris
CPT/HCPCS: 36415; 80048

== ENCOUNTER → 2022-01-28 | Outpatient (CLI) | payer MEDICARE, SELFPAY ==
[2022-01-28 11:10] LABS: BNP,B-Type NATRIURETIC PEPTIDE 204.9 pg/mL (0-100)
[2022-01-28 11:18] LABS: Anion Gap 6 (5-15); BUN 25 mg/dL (7-18); BUN/Creat Ratio 14.4 RATIO (10-20); Chloride 104 mmol/L (98-107); Creatinine, Serum 1.74 mg/dL (0.70-1.30); EST Glomerular Filtration Rate 42 mL/min (>60); Est Glom Filt Rate - Afr Amer 51 mL/min (>60); Glucose 103 mg/dL (74-106); Potassium 3.8 mmol/L (3.5-5.1); Sodium Level 138 mmol/L (136-145)
== END | disposition home or self-care (01) ==
LOC: LAB 09:56
PROVIDERS: PCP Family Medicine; Referring Provider Physician Assistant Medical; Visit Provider Physician Assistant Medical
DX: I25.5 Ischemic cardiomyopathy (principal); I50.20 Unspecified systolic (congestive) heart failure
CPT/HCPCS: 36415; 80048; 83880

== ENCOUNTER → 2022-02-07 | Outpatient (CLI) | payer MEDICARE, SELFPAY ==
--- NOTE | 2022-02-07 14:03 | RAD_ITS ---
EXAM: XR CHEST, 2 VIEWS CLINICAL INDICATION: Cardioversion TECHNIQUE: Frontal and lateral views of the chest. This report was created using Splother report generation technology. COMPARISON: 01/18/2021. FINDINGS: LUNGS AND PLEURAL SPACES: Scarring or atelectasis in the left base. No pneumothorax. No effusion. HEART: Unremarkable. Cardiac silhouette not enlarged. MEDIASTINUM: Central airways and mediastinal contour are unremarkable. BONES/JOINTS: Unremarkable. SOFT TISSUES: Unremarkable. TUBES, LINES AND DEVICES: No change AICD pacemaker. RAD/Chest PA and Lateral IMPRESSION: 1. Scarring or atelectasis in the left base. 2. No acute cardiopulmonary abnormality. Electronically Signed: Beto Laird MD at 0:02 EDT ,
== END | disposition home or self-care (01) ==
LOC: RAD 14:02
PROVIDERS: PCP Family Medicine; Referring Provider Physician Assistant Medical; Visit Provider Physician Assistant Medical
DX: I48.19 Other persistent atrial fibrillation (principal); I48.92 Unspecified atrial flutter; Z95.810 Presence of automatic (implantable) cardiac defibrillator
CPT/HCPCS: 71046

== ENCOUNTER 2022-02-18 10:14 | Day surgery (SDC) | payer MEDICARE, SELFPAY ==
--- NOTE | 2022-02-13 14:37 | HP.PCM_ITS ---
History and Physical Date of Admission: 02/18/22 [facility] [address] [place], [place] [address] OFFICE VISIT Date of Service:? 01/28/22 MR#: [id number] Acct: [id number] Name:? SADIQ DOYLE Rep #: [id number] : 1955 ?Provider: ?GILL Frankel Age/Sex:? 67/M ?Location: [facility] Status: Signed HPI HPI History of Present Illness Details: This is a 66-year-old white male who presents today for outpatient cardiovascular follow-up of his history of CAD, PCI, ischemic mediated cardiomyopathy, atrial fibrillation (status post synchronized biphasic DC cardioversion-April,, October 2021), systolic mediated CHF, status post ICD placement, hyperlipidemia, and hypertension. Pt did undergo a successful cardioversion in October.? He was symptomatic with his Atrial fib. Unfortunately today it appears he returned to Afib. EKG today demonstrates this.? He notes that he has been having dizziness.? He notes that approx 4 weeks ago he was walking, he felt his legs suddenly fo weak and he felt dizzy.? he fell in his neighbors yard.? He notes that since then he has felt more dizzy.? It is noted that on his HF index on his device it has been increasing. He finds that his is more SOB with exertion, this is more recent.? At times he is okay. He does not have any swelling that he is aware of. Intake Vital Signs ? 10/17/2207:53 11/05/2210:04 01/28/2209:05 01/28/2209:39 Height 6 ft 1 in 6 ft 1 in 6 ft 1 in 6 ft 1 in Weight: ? 250 lb 252 lb 254 lb BMI ? ? 33.2 33.5 BP ? ? ? 118/70 Pulse ? ? ? 71 Intake Visit Reasons:?3 M FU Water Analyst Required: No Accompanied by: no one Is patient in pain?: No Allergies No Known Allergies Allergy (Verified 01/28/22 09:11) Medications aspirin 81 mg chewable tablet 81 mg PO DAILY@0800 09/22/19 [Rx Confirmed 01/28/22] cholecalciferol (vitamin D3) 50 mcg (2,000 unit) capsule 6,000 unit PO DAILY SUPPLEMENT 01/25/20 [History Confirmed 01/28/22] coenzyme Q10 100 mg capsule 200 mg PO DAILY 03/16/20 [History Confirmed 01/28/22] nitroglycerin 0.4 mg sublingual tablet 0.4 mg sublingual Q5M PRN CHEST PAIN #25 tabs 04/12/20 [Rx Confirmed 01/28/22] hydrocodone-acetaminophen 5-325mg 5mg-325mg 1 tab PO Q8H PRN pain 3 days #10 tabs 01/28/21 [Rx Confirmed 01/28/22] amiodarone 200 mg tablet 200 mg PO DAILY heart #90 tabs 10/16/21 [Rx Confirmed 01/28/22] apixaban 5 mg tablet 5 mg PO BID blood thinner #180 tabs 10/16/21 [Rx Confirmed 01/28/22] furosemide 40 mg tablet 40 mg PO DAILY water #90 tabs 10/16/21 [Rx Confirmed 01/28/22] lisinopril 20 mg tablet 10 mg PO DAILY blood pressure #90 tabs 11/05/21 [Rx Confirmed 01/28/22] metoprolol succinate 100 mg tablet,extended release 24 hr 50 mg PO DAILY blood pressure #90 tabs 11/13/21 [Rx Confirmed 01/28/22] PFSH Medical History? Atherosclerotic heart disease of [place] coronary artery without angina pectoris CAD in [place] artery Cardiomyopathy Essential hypertension HLD (hyperlipidemia) ICD (implantable cardioverter-defibrillator), single, in situ Ischemic cardiomyopathy New onset atrial fibrillation PAF (paroxysmal atrial fibrillation) Persistent atrial fibrillation Surgical History? History of cardioversion (~11/05/21) S/P PTCA (percutaneous transluminal coronary angioplasty) Family History? Father Heart diseaseGrandfather Diabetes Social History? Smoking Status:? Never smoker alcohol intake:? current alcohol intake frequency: holidays/special occasions only substance use type:? does not use caffeine:? Yes Type: coffee Number of servings: 1 ROS Const Const: Negative for fatigue, weakness, headache(s), frequent falls, excessive sweating, weight gain or weight loss Eyes Eyes: Negative for blind spots, loss of peripheral vision, transient loss of vision, blurry vision, change in vision or double vision ENT ENT: Positive for dizziness; Negative for headache(s), tinnitus, Nosebleed/epistaxis or balance problems Cardio Chest Pain: No Palpitations: No Edema: None Muscle aches with walking: None Resp Respiratory: Positive for SOB with activity; Negative for SOB at rest, SOB orthopnea\SOB lying down or Cough GI GI: Negative nausea, vomiting, heartburn, bloating, vomiting blood/hematemesis, bright, red blood in stools or black,tarry stools : Negative for hematuria Musc Musc: Negative for muscle aches/ myalgia, muscle weakness, joint pain or balance problems Skin Skin: Negative rash or wounds Neuro Neuro: Positive for dizziness and near syncope; Negative for lightheadedness, syncope, orthostatic symptoms, frequent falls, headache(s), weakness, confusion, memory loss, restless legs, blurry vision or double vision Shivam Hematologic/Lymphatic: Negative for easy bleeding or easy bruising Endo Endo: Negative for fatigue, cold intolerance, heat intolerance or excessive sweating Psych Psych: Negative for anxiety or depression Allergy Allergy/Immunology: Negative for rash Cardiology Exam Const Appearance: cooperative, healthy appearing, comfortable, no acute distress and well developed Orientation: alert, awake and oriented x3 Head Head: normal to inspection Ears: hearing grossly normal bilaterally Nose: external nose normal Face and Sinus: face symmetric Mouth: oral mucosae normal, lip normal and moist mucous membranes Eyes General: appearance normal, both eyes and all related structures Eyelids: eyelids normal Conjunctivae: conjunctivae normal Pupils: PERRL EOM: EOM intact bilaterally Neck Neck: normal visual inspection and trachea midline; Negative no JVD Carotids: Negative bruit Chest Chest inspection: normal inspection of the chest Auscultation: Bilateral: Clear to Auscultation Cardio Palpation: normal PMI Rate: regular rate Rhythm: irregularly irregular Heart sounds: S1 normal and S2 normal; Negative rub, gallop or murmur GI GI: soft, no hepatosplenomegaly and bowel sounds present Neuro General: patient alert, patient awake, patient oriented x3 and CN's II-XI intact bilaterally Extremities Pulses: Normal: Right Posterior Tibial Pulse, Left Posterior Tibial Pulse, Right Radial Pulse and Left Radial Pulse Lower Extremity Edema: Trace: Bilateral Psych Psychological: normal affect Supplemental Info Supplemental Information ECHO:??20 20: [facility]: Left ventricle mildly dilated Right ventricle dilated Left atrium dilated Mitral valve-trace MR Tricuspid valve-trace TR Aortic valve-trace AI Pulmonic valve not seen LVEF reported at 34% Echocardiogram 07/2020: Moderately dilated left ventricle. Moderate segmental systolic dysfunction (see wall motion). The estimated ejection fraction is 30 %. The left atrium is mildly enlarged. Mild (1+) mitral valve insufficiency. Mild tricuspid valve insufficiency. Mild focal aortic valve calcification. Mildly dilated aortic root. Right ventricular systolic pressure estimated to be 36 mmHg. Diastolic function is indeterminate. [facility] [place] [place] Left main coronary artery-30% stenosis LAD-60 to 70% stenosis and 70 to 75% stenosis LCx occluded RCA-30 to 40% and 3 to 50% stenosis PCI: [facility]??20 13[facility] [place] [place] Successful complex angioplasty of the LCx and large obtuse marginal branch using a 3.0?32 and 3.0?12 bare-metal Veriflex stent Cardiac Cath: 06-17-2018: [facility] Left main coronary artery-mild luminal irregularities LAD-proximal 50% stenosis; mid 50% stenosis LCx-20% in-stent stenosis Intermediate ramus-70% stenosis-small branch vessel RCA-moderate disease Impression: Nonobstructive three-vessel CAD in the right dominant distribution Stable CAD when compared to prior catheter in 2014 Labs: ?? ? No Data to Display Diagnostics: ?? ? Electrocardiogram ? Pacemaker Check ? Pulmonary: ?? ? No Data to Display Assessment and Plan Assessment and Plan (1) HFrEF (heart failure with reduced ejection fraction): ?Status:?Acute ?Plan: Patient's [employer] device is demonstrating heart failure symptoms.? He does have some weight gain and does appear more short of breath with exertion.? Do believe that he is having symptoms of heart failure.? Would like to increase his Lasix to 40 mg twice a day for 5 days.? Will obtain labs. (2) PAF (paroxysmal atrial fibrillation): ?Status:?Chronic ?Plan: We will unfortunately pt has returned to Afib. Question if this is paroxysmal.? It does seem to correlate with the elevated HF reading on his ICD.? He has not stopped his anticoagulation.? He is on metoprolol and amiodarone.? Will discuss with Dr. Kenney about pursuing a DCCV. His rate is controlled (3) Atherosclerotic heart disease of [place] coronary artery without angina pectoris: ?Status:?Chronic ?Plan: Stable, from a cardiac standpoint patient does not have any symptoms of angina.? We recommend that they continue with current aggressive medical management and risk factor modification. (4) Essential hypertension: ?Status:?Chronic ?Plan: Blood pressure is well controlled on current medications, we do not recommend any changes at this time. (5) HLD (hyperlipidemia): ?Status:?Chronic (6) ICD (implantable cardioverter-defibrillator), single, in situ: ?Status:?Acute ?Plan: ICD is functioning appropriately. Pt has not had any discharges from their device, they will continue with regular scheduled ICD interrogations. ? ? ? Orders: Orders 12 Lead EKG performed by [facility] 01/28/22 I48.19 - Other p ersistent atrial fibrillation ? Basic Metabolic Profile (BMP) 01/28/22 I25.5 - Ischemic cardiomyopathy , I50.20 - Unspecified systolic (congestive) heart failure ? BNP,B-Type NATRIURETIC PEPTIDE 01/28/22 I25.5 - Ischemic cardiomyopathy , I50.20 - Unspecified systolic (congestive) heart failure ?Patient Instructions: Get your labs on your way out Increase your lasix to 40 mg twice a day for 5 days I will call you after I see your labs and talk to Dr. Kenney Plan Details Additional Comments: Thank you for allowing me to participate in the care of your patient.? Please don't hesitate to call if any issues arise. This note was generated using a voice recognition system and there may be incorrect words, spelling or punctuation that were not noted when reviewing the office note prior to saving. Follow Up: ? ? 6 Weeks (MMM) Coding Level of Care Code Off vis,est,level 4 Diagnoses HFrEF (heart failure with reduced ejection fraction)? I50.20 PAF (paroxysmal atrial fibrillation)? I48.0 Atherosclerotic heart disease of [place] coronary artery without angina pectoris? I25.10 Essential hypertension? I10 HLD (hyperlipidemia)? E78.5 ICD (implantable cardioverter-defibrillator), single, in situ? Z95.810 Coding Level of Care Code Off vis,est,level 4 Diagnoses HFrEF (heart failure with reduced ejection fraction)? I50.20 PAF (paroxysmal atrial fibrillation)? I48.0 Atherosclerotic heart disease of [place] coronary artery without angina pectoris? I25.10 Essential hypertension? I10 HLD (hyperlipidemia)? E78.5 ICD (implantable cardioverter-defibrillator), single, in situ? Z95.810 01/30/22 1300 <Electronically signed by Gabriela GARLAND> Date Gabriela GARLAND Cosigner Signature: Date (if applicable) CC:? Dr. Dayo Avilez MD ~ Assessment & Plan Addt'l Comments Addendum: The patient's case has been discussed and reviewed with GILL Mijares. The tentative plan is to continue medical therapy and proceed with an attempt at regaining sinus rhythm with synchronized biphasic DC cardioversion. The procedure risks have been discussed with the patient. He is agreeable to this approach. I have re-examined the patient. There are no clinical changes since date of exam
[2022-02-17 08:58] VITALS: BMI 33.5
--- NOTE | 2022-02-18 12:37 | CARDIOVERS_ITS ---
Cardioversion Cardioversion: Date: 02-18-2022 Procedure: Synchronized Biphasic DC Cardioversion Indications: Atrial flutter Consent: Per the Patient Anesthesia: per Dr. Randle of pulmonology and critical care medicine with etomidate 12 mg IV push total Procedure: Synchronized Biphasic DC Cardioversion: 50 J x 1: Result: Atrial flutter Synchronized Biphasic DC cardioversion: 200 J x 1: Result: Sinus rhythm Complications: no apparent complications This note was generated with Clinverseation software. It may contain incorrect words, spelling, and punctuation that were not noted in checking the note before signing.
--- NOTE | 2022-02-18 13:38 | PCM.OP.PRO ---
Procedure Report Date of Procedure: 02/18/22 CONSCIOUS SEDATION REPORT BRIEF HISTORY OF PRESENT ILLNESS: The patient is a 67-year-old male who presented to [facility] for an elective outpatient cardioversion due to underlying atrial flutter. The patient reports no PO intake since midnight, but is currently therapeutic on anticoagulation. The patient does have a history of DAV, but is noncompliant with therapy. The patient reports no history of smoking or COPD. The patient denies any recent constitutional symptoms such as fevers, chills, nausea or vomiting. The patient denies previous applicable anesthetic complications. PHYSICAL EXAMINATION: VITAL SIGNS: Reviewed and were acceptable. GENERAL: The patient is a male, in no apparent distress, speaking in full sentences. HEENT: Normocephalic, atraumatic. Mucous membranes are moist and pink. Good mouth opening noted. Trachea is midline. Good neck mobility. MP III CHEST: S1, S2 irregularly irregular. No murmurs, rubs or gallops were noted. LUNGS: Clear to auscultation bilaterally without appreciable wheezes, rales or rhonchi. ABDOMEN: Soft, nontender, nondistended. Positive bowel sounds. EXTREMITIES: There is no clubbing, cyanosis or edema. ASA Class: II DESCRIPTION OF PROCEDURE: After confirmation of informed consent, the patient's anesthesia plan was reviewed in detail. Etomidate was chosen. Risks and benefits were reviewed and the patient agreed to proceed. At 11:59 AM, the patient was given 4 mg of etomidate. The patient required a total of 12 mg of propofol throughout the procedure to achieve appropriate sedation. The patient achieved an appropriate level of sedation and received 2 attempt s synchronized cardioversion, at 50 J and [address] Kenney at the bedside. This was successful in achieving normal sinus rhythm. The patient was monitored until 12:13 PM, at which time the patient reached their baseline mental status and function. The patient tolerated the procedure well. COMPLICATIONS: None ESTIMATED BLOOD LOSS: None RECOMMENDATIONS: Okay to recover in usual fashion. Procedures Pulmonary 9xxxx: [id number] Con Sedation
== END 2022-02-18 13:05 | disposition home or self-care (01) ==
PROVIDERS: PCP Family Medicine; Referring Provider Internal Medicine Cardiovascular Disease; Visit Provider Internal Medicine Cardiovascular Disease
DX: I48.91 Unspecified atrial fibrillation (principal); I11.0 Hypertensive heart disease with heart failure; I50.22 Chronic systolic (congestive) heart failure; I48.0 Paroxysmal atrial fibrillation; I48.19 Other persistent atrial fibrillation; I25.5 Ischemic cardiomyopathy; I25.10 Atherosclerotic heart disease of native coronary artery without angina pectoris; E78.5 Hyperlipidemia, unspecified; Z79.01 Long term (current) use of anticoagulants; Z79.899 Other long term (current) drug therapy; Z95.810 Presence of automatic (implantable) cardiac defibrillator
CPT/HCPCS: 92960; 93005; J7040

== ENCOUNTER → 2022-05-22 | Outpatient (CLI) | payer MEDICARE, SELFPAY ==
[2022-05-22 12:10] LABS: Absolute Lymphocyte Count 1.09 X10^3/uL (0.83-4.51); Absolute Neutrophil Count 3.1 X10^3/uL (2.0-7.7); Basophil# 0.04 X10^3/uL; Basophil% 0.8 % (0-1); Eosinophil# 0.06 X10^3/uL; Eosinophils% 1.3 % (0-5); Hemoglobin 17.2 g/dL (13.0-16.5); Lymphocyte # 1.09 X10^3/ul (0.83-4.51); Lymphocyte % 22.8 % (19-41); Mean Corp Hgb Conc 34.4 g/dL (32-36); Mean Corpuscular Volume 95.8 fL (80-94); Mean Platelet Vol. 9.9 fl (6.2-12.0); Monocyte# 0.52 X10^3/uL; Monocyte% 10.9 % (0-10); NRBC Flagged by Analyzer 0 % (0-5); Neutrophil # 3.06 X10^3/uL (2.7-7.7); Neutrophil % 63.8 % (47-70); Platelet Count 151 K/mm3 (150-450); RBC Distribution Width CV 13.7 % (11.6-14.6); RBC Distribution Width SD 48.4 fl (35.1-43.9); Red Blood Count 5.22 M/mm3 (4.6-6.2); White Blood Count 4.8 K/mm3 (4.4-11.0)
[2022-05-22 13:05] LABS: ALB/GLOB Ratio 0.8 RATIO (0.9-2.4); AST(SGOT) 51 U/L (15-37); Alanine Aminotransfer ALT/SGPT 50 U/L (16-61); Albumin, Serum 3.4 g/dL (3.2-5.0); Alkaline Phosphatase 70 U/L (45-117); Anion Gap 6 (5-15); BUN 38 mg/dL (7-18); BUN/Creat Ratio 21.1 RATIO (10-20); Calcium,Total 9.2 mg/dL (8.5-10.1); Chloride 101 mmol/L (98-107); EST Glomerular Filtration Rate 40 mL/min (>60); Est Glom Filt Rate - Afr Amer 49 mL/min (>60); Globulin 4.4 g/dL (2.2-4.2); Glucose 85 mg/dL (74-106); Potassium 4.6 mmol/L (3.5-5.1); Protein, Total 7.8 g/dL (6.4-8.2); Sodium Level 136 mmol/L (136-145); Thyroid Stim Hormone (TSH) 3.34 uIU/mL (0.358-3.74)
== END | disposition home or self-care (01) ==
LOC: LAB 11:32
PROVIDERS: PCP Family Medicine; Referring Provider Physician Assistant Medical; Visit Provider Physician Assistant Medical
DX: I11.0 Hypertensive heart disease with heart failure (principal); I50.20 Unspecified systolic (congestive) heart failure; I48.91 Unspecified atrial fibrillation; I25.10 Atherosclerotic heart disease of native coronary artery without angina pectoris; E78.5 Hyperlipidemia, unspecified
CPT/HCPCS: 36415; 80053; 84443; 85025

== ENCOUNTER → 2022-05-28 | Outpatient (CLI) | payer MEDICARE, SELFPAY ==
--- NOTE | 2022-05-29 05:41 | PFTCOMP_ITS ---
COMPLETE PULMONARY FUNCTION TEST INTERPRETATION Brief HPI: Patient is a 67-year-old male, currently under the care of Gabriela Frankel, who presents to [facility] for complete pulmonary function tests secondary to diagnosis of high risk med use. Respiratory therapist reports good effort and reproducible results. Interpretation: Forced expiration spirometry shows a moderately severe large airways obstructive ventilatory defect with an FEV1 of 51% predicted. There is a significant bronc hodilator response in FVC and FEV1 by strict ATS criteria. Spirograms are of good quality and plateau slowly, indicating slowly emptying areas of the lungs. The respiratory flow volume loop shows decreased expiratory flow rates at all lung volumes consistent with airway obstruction. Lung volumes by body plethysmography show a decreased total lung capacity at 4.52 L, 62% predicted. All other lung volumes are reduced symmetrically. Diffusion capacity by carbon monoxide is normal at 81% predicted. The airway resistance is elevated. Compared to previous pulmonary function tests from 07/27/2020, there is been a significant decrease in air trapping with improvement in DLCO. Impression: Partial reversible moderately severe mixed ventilatory defect with relatively p reserved diffusing capacity, but improvements compared to previous testing
== END | disposition home or self-care (01) ==
LOC: PSN 07:54
PROVIDERS: PCP Family Medicine; Visit Provider Physician Assistant Medical
DX: Z79.899 Other long term (current) drug therapy (principal)
CPT/HCPCS: 94060; 94726; 94729

== ENCOUNTER → 2023-01-13 | Outpatient (CLI) | payer MEDICARE, SELFPAY ==
[2023-01-13 10:50] LABS: Anion Gap 6 (5-15); BUN 29 mg/dL (7-18); BUN/Creat Ratio 15.9 RATIO (10-20); Calcium,Total 9.2 mg/dL (8.5-10.1); Chloride 102 mmol/L (98-107); Creatinine, Serum 1.82 mg/dL (0.70-1.30); EST Glomerular Filtration Rate 40 mL/min (>60); Est Glom Filt Rate - Afr Amer 48 mL/min (>60); Glucose 110 mg/dL (74-106); Potassium 4.8 mmol/L (3.5-5.1); Sodium Level 137 mmol/L (136-145)
== END | disposition home or self-care (01) ==
PROVIDERS: PCP Physician Assistant; Referring Provider Internal Medicine Cardiovascular Disease; Visit Provider Internal Medicine Cardiovascular Disease
DX: I48.92 Unspecified atrial flutter (principal)
CPT/HCPCS: 36415; 80048

== ENCOUNTER 2023-01-27 10:52 | Day surgery (SDC) | payer MEDICARE, SELFPAY ==
[2023-01-26 08:08] VITALS: BMI 31.4
--- NOTE | 2023-01-27 12:41 | PCM.OP.PRO ---
Procedure Report Date of Procedure: 01/27/23 DC cardioversion. Indication: 68-year-old man with a history of persistent atrial flutter and ventricular dysfunction. Patient was brought to the cardiac catheterization lab in the postabsorptive nonsedated state. Patient was seen by Dr. Curran of the critical care division. Informed consent was obtained. The patient was administered 10 mg of intravenous etomidate. 300 J of synchronized biphasic energy were applied with prompt reversal to sinus rhythm. Patient was also administered 2 mg of intravenous midazolam. Patient tolerated the procedure well. EKG demonstrated sinus mechanism. Conclusion: Successful DC cardioversion from atrial flutter to sinus rhythm. Increase metoprolol to 50 mg twice a day. Continue anticoagulation. Continue diuretics. Follow-up as per office protocol.
--- NOTE | 2023-01-27 12:46 | PCM.OP.PRO ---
Procedure Report Date of Procedure: 01/27/23 CONSCIOUS SEDATION REPORT DATE OF SERVICE: January 27, 2023 BRIEF HISTORY OF PRESENT ILLNESS: The patient is a 68-year-old male who presented to [facility] for elective outpatient cardioversion due to underlying atrial fibrillation. The patient did undergo a prior cardioversion in February 2022, during which time, etomidate was utilized for sedation purposes. The patient is systemically anticoagulated on Eliquis. His last surface echocardiogram demonstrated an ejection fraction of 30%. The patient does have a history of DAV, but is noncompliant with therapy. He has no tobacco abuse history or diagnosis of COPD. PHYSICAL EXAMINATION: VITAL SIGNS: Reviewed and were acceptable. GENERAL: The patient is a male, in no apparent distress, speaking in full sentences. HEENT: Normocephalic, atraumatic. Mucous membranes are moist and pink. Good mouth opening noted. Trachea is midline. Good neck mobility. CHEST: S1, S2 irregularly irregular. No murmurs, rubs or gallops were noted. LUNGS: Clear to auscultation bilaterally without appreciable wheezes, rales or rhonchi. ABDOMEN: Soft, nontender, nondistended. Positive bowel sounds. EXTREMITIES: There is no clubbing, cyanosis or edema. ASA Class: II DESCRIPTION OF PROCEDURE: After confirmation of informed consent, the patient's anesthesia plan was reviewed in detail. Etomidate was chosen. Risks and benefits were reviewed and the patient agreed to proceed. At 1221, the patient was given 10 mg of etomidate. The patient achieved an appropriate level of sedation and was given a 300 joule synchronized cardioversion by Dr. Maya at the bedside. This was successful in achieving normal sinus rhythm. Postprocedure, the patient was administered 2 mg of Versed as well. The patient was monitored until 1242, at which time he reached his baseline mental status and function. The patient tolerated the procedure well. COMPLICATIONS: None ESTIMATED BLOOD LOSS: None RECOMMENDATIONS: Okay to recover in usual fashion. Procedures Pulmonary 9xxxx: [id number] Con Sedation
== END 2023-01-27 13:35 | disposition home or self-care (01) ==
LOC: CLSP 10:57
PROVIDERS: PCP Physician Assistant; Referring Provider Internal Medicine Cardiovascular Disease; Visit Provider Internal Medicine Cardiovascular Disease
DX: I48.0 Paroxysmal atrial fibrillation (principal); I50.22 Chronic systolic (congestive) heart failure; I11.0 Hypertensive heart disease with heart failure; I48.92 Unspecified atrial flutter; Z79.01 Long term (current) use of anticoagulants; I25.10 Atherosclerotic heart disease of native coronary artery without angina pectoris; E78.5 Hyperlipidemia, unspecified; Z79.82 Long term (current) use of aspirin; Z79.899 Other long term (current) drug therapy; Z95.810 Presence of automatic (implantable) cardiac defibrillator; I25.5 Ischemic cardiomyopathy
CPT/HCPCS: 92960; 93005; J7040

== ENCOUNTER → 2023-04-22 | Outpatient (CLI) | payer MEDICARE, SELFPAY ==
[2023-04-22 12:36] LABS: Anion Gap 8 (5-15); BUN 38 mg/dL (7-18); BUN/Creat Ratio 18.4 RATIO (10-20); Chloride 100 mmol/L (98-107); Creatinine, Serum 2.06 mg/dL (0.70-1.30); EST Glomerular Filtration Rate 35 mL/min (>60); Est Glom Filt Rate - Afr Amer 42 mL/min (>60); Glucose 111 mg/dL (74-106); Potassium 3.5 mmol/L (3.5-5.1); Sodium Level 137 mmol/L (136-145)
== END | disposition home or self-care (01) ==
LOC: LAB 11:41
PROVIDERS: PCP Physician Assistant; Referring Provider Nurse Practitioner Family; Visit Provider Nurse Practitioner Family
DX: I25.10 Atherosclerotic heart disease of native coronary artery without angina pectoris (principal); I50.23 Acute on chronic systolic (congestive) heart failure; I11.0 Hypertensive heart disease with heart failure; I48.91 Unspecified atrial fibrillation; I25.5 Ischemic cardiomyopathy
CPT/HCPCS: 36415; 80048

== ENCOUNTER → 2023-05-06 | Outpatient (CLI) | payer MEDICARE, SELFPAY ==
--- NOTE | 2023-05-06 13:53 | ECHOCS_ITS ---
Reason For Study: ISCHEMIC CARDIOMYOPATHY Procedure This was a 2D Doppler, Color Flow transthoracic echocardiogram. Contrast injection was performed. Exam performed in department. Left Ventricle Mildly dilated left ventricle. The left ventricular ejection fraction is 25 %. There is moderate to severe global hypokinesis of the left ventricle. Right Ventricle Normal RV size. ICD or pacer leads identified within the right ventricle. Normal systolic function. Atria Normal left atrium. Normal right atrium. Mitral Valve Normal mitral valve. Tricuspid Valve Normal tricuspid valve. Mild (1+) tricuspid valve insufficiency. Pulmonary artery systolic pressure is 39 mmHg. Aortic Valve Trisinus/trileaflet aortic valve. Mild focal aortic valve calcification. Pulmonic Valve The pulmonic valve is not well visualized. Great Vessels Normal aortic root. The pulmonary artery is normal size. Normal inferior vena cava. Pericardium/Pleural No pericardial effusion. Medication 22 gauge I.V. with prn adaptor inserted into right arm. Diluted definity 2.5ml given slow IV push to enhance endocardial definition. MMode/2D Measurements & Calculations LVIDd: 6.3 cm IVSd: 0.95 cm LVOT diam: 2.3 cm LVIDs: 5.6 cm LVPWd: 0.82 cm RVDd: 3.8 cm FS: 11.1 % LVOT area: 4.2 cm2 Ao root diam: 3.6 cm LAV(MOD-bp): 64.3 ml LVAd ap4: 41.2 cm2 LAV(MOD-bp) Indexed: 27.7 ml/m2 LVLd ap4: 8.9 cm LAV(MOD-sp2): 62.3 ml EDV(MOD-sp4): 157.9 ml LAV(MOD-sp4): 58.0 ml EDV(sp4-el): 161.9 ml LVAs ap4: 34.8 cm2 LVLs ap4: 8.4 cm ESV(MOD-sp4): 119.1 ml ESV(sp4-el): 122.9 ml EF(MOD-sp4): 24.5 % EF(sp4-el): 24.1 % LVAd ap2: 45.1 cm2 SV(MOD-sp4): 38.8 ml SV(MOD-sp2): 44.3 ml LVLd ap2: 9.6 cm EDV(MOD-sp2): 174.3 ml EDV(sp2-el): 179.6 ml LVAs ap2: 36.3 cm2 LVLs ap2: 8.5 cm ESV(MOD-sp2): 130.0 ml ESV(sp2-el): 131.6 ml EF(MOD-sp2): 25.4 % SV(sp4-el): 39.0 ml LA dimension(2D): 5.0 cm LA A4 area: 21.0 cm2 RA A4 area: 17.7 cm2 TAPSE: 1.9 cm Time Measurements MV dec time: 0.15 sec Doppler Measurements & Calculations MV E max mynor: 65.8 cm/sec Lat Peak E' Mynor: 9.4 cm/sec Med Peak E' Mynor: 7.2 cm/sec E/E' lat: 7.0 E/E' med: 9.1 Ao V2 max: 93.5 cm/sec LV V1 max: 70.7 cm/sec SV(LVOT): 49.5 ml Ao max P.5 mmHg LV V1 max P.0 mmHg Ao V2 mean: 67.8 cm/sec LV V1 mean P.2 mmHg Ao mean P.0 mmHg LV V1 mean: 50.8 cm/sec Ao V2 VTI: 15.3 cm LV V1 VTI: 11.8 cm AV (velocity ratio): 0.77 ELIDA(I,D): 3.2 cm2 ELIDA(V,D): 3.2 cm2 PA V2 max: 66.7 cm/sec TR max mynor: 292.6 cm/sec PA max PG (full): 0.84 mmHg TR max P.3 mmHg ECHO/Echo Complete W/ Contrast Interpretation Summary Mildly dilated left ventricle. The left ventricular ejection fraction is 25 %. There is moderate to severe global hypokinesis of the left ventricle. Pulmonary artery systolic pressure is 39 mmHg. Contrast injection was performed. The study was technically limited. Ordering Physician: Roland Suresh Referring Physician: Roland Suresh Performed By: Randee Aguirre RDCS
== END | disposition home or self-care (01) ==
LOC: CVS 13:51
PROVIDERS: PCP Physician Assistant; Referring Provider Nurse Practitioner Family; Visit Provider Nurse Practitioner Family
DX: I25.5 Ischemic cardiomyopathy (principal)
CPT/HCPCS: 93306; Q9957; A4216; C8929

== ENCOUNTER → 2023-05-21 | Outpatient (CLI) | payer MEDICARE, SELFPAY ==
[2023-05-21 13:16] LABS: Absolute Lymphocyte Count 1.46 X10^3/uL (0.83-4.51); Basophil# 0.05 X10^3/uL; Basophil% 0.9 % (0-1); Eosinophil# 0.01 X10^3/uL; Eosinophils% 0.2 % (0-5); Hematocrit 50.9 % (40-54); Hemoglobin 17.7 g/dL (13.0-16.5); Lymphocyte # 1.46 X10^3/ul (0.83-4.51); Lymphocyte % 26.6 % (19-41); Mean Corp Hgb Conc 34.8 g/dL (32-36); Mean Corpuscular Hgb 33.3 pg (27.0-32.0); Mean Corpuscular Volume 95.7 fL (80-94); Mean Platelet Vol. 10.2 fl (6.2-12.0); Monocyte# 0.96 X10^3/uL; Monocyte% 17.5 % (0-10); NRBC Flagged by Analyzer 0 % (0-5); Neutrophil # 2.97 X10^3/uL (2.7-7.7); Neutrophil % 54.3 % (47-70); Platelet Count 186 K/mm3 (150-450); RBC Distribution Width CV 14.9 % (11.6-14.6); RBC Distribution Width SD 52.7 fl (35.1-43.9); Red Blood Count 5.32 M/mm3 (4.6-6.2); White Blood Count 5.5 K/mm3 (4.4-11.0)
[2023-05-21 13:40] LABS: BNP,B-Type NATRIURETIC PEPTIDE 196.7 pg/mL (0-100)
[2023-05-21 13:41] LABS: Anion Gap 7 (5-15); BUN 30 mg/dL (7-18); BUN/Creat Ratio 14.1 RATIO (10-20); Calcium,Total 9.2 mg/dL (8.5-10.1); Chloride 97 mmol/L (98-107); Creatinine, Serum 2.13 mg/dL (0.70-1.30); EST Glomerular Filtration Rate 33 mL/min (>60); Est Glom Filt Rate - Afr Amer 40 mL/min (>60); Glucose 93 mg/dL (74-106); Potassium 4.1 mmol/L (3.5-5.1); Sodium Level 135 mmol/L (136-145)
== END | disposition home or self-care (01) ==
LOC: LAB 12:10
PROVIDERS: PCP Physician Assistant; Referring Provider Nurse Practitioner Gerontology; Visit Provider Nurse Practitioner Gerontology
DX: R06.00 Dyspnea, unspecified (principal)
CPT/HCPCS: 36415; 80048; 83880; 85025

== ENCOUNTER → 2023-06-18 | Outpatient (CLI) | payer MEDICARE, SELFPAY ==
--- NOTE | 2023-06-18 18:24 | STRESSREP_ITS ---
Stress Test Report Pharmacologic myocardial perfusion stress test. 68-year-old man with a history of ischemic cardiomyopathy status post ICD implantation Resting EKG demonstrates atrial fibrillation with a rate of 69 bpm. Resting blood pressure is 132/98 mmHg. 0.4 mg of regadenoson was infused per usual protocol followed by rapid intravenous saline flush injection. Continuous EKG monitoring was performed. The maximum heart rate was 80 bpm which was 51% of max impacted heart rate the maximum workload was 1 metabolic equivalent. At rest there were no ST or T wave changes noted to suggest ischemia and at peak infusion nonspecific ST changes were noted which did not meet the criteria for ischemia. No clinical angina is noted. The final blood pressure was 116/80 mmHg. Myocardial perfusion protocol. 14.5 mCi of technetium 99m sestamibi was injected at rest. 0.4 mg of regadenoson was infused per usual protocol. At peak infusion 45 mCi of tech netium 99m sestamibi was injected stress images were obtained stress and rest images were reconstructed and compared in the short axis vertical long and horizontal long axis. Gated images were also obtained. Perfusion SPECT analysis: Review of the stress images demonstrate normal uptake of tracer noted in all areas of the myocardium except for the lateral wall which had a medium size defect. The resting images similar demonstrated normal uptake of tracer noted in all areas of the myocardium with a medium size defect noted in the lateral wall.. No areas of reversibility are noted to suggest ischemia. The above was suggestive of a previous lateral wall infarct. Gated SPECT analysis: The gated ejection fraction is 21%. Conclusion: Pharmacologic myocardial perfusion stress test with evidence of lateral wall infarct No ischemia noted Cardiomyopathy present Atrial fibrillation present
== END | disposition home or self-care (01) ==
LOC: CVS 07:00
PROVIDERS: PCP Physician Assistant; Referring Provider Nurse Practitioner Gerontology; Visit Provider Nurse Practitioner Gerontology
DX: R06.09 Other forms of dyspnea (principal); I50.23 Acute on chronic systolic (congestive) heart failure; I25.10 Atherosclerotic heart disease of native coronary artery without angina pectoris; I25.5 Ischemic cardiomyopathy; E78.5 Hyperlipidemia, unspecified
CPT/HCPCS: 78452; 93017; A9500; A4216; J2785

== ENCOUNTER 2023-07-27 10:21 | Day surgery (SDC) | payer MEDICARE, SELFPAY ==
--- NOTE | 2023-07-06 11:35 | RAD_ITS ---
STUDY: X-RAY CHEST REASON FOR EXAM: Male, 68 years old. Cardioversion TECHNIQUE: 02/07/2022 COMPARISON: 02/07/2022 FINDINGS: Left pacer in place. Bilateral basilar atelectasis is present similar to prior exam. There is no demonstrated pleural abnormality. Normal size heart. Normal mediastinum and anneliese. Normal visualized pulmonary arteries. Normal visualized aortic arch and descending thoracic aorta. Normal visualized thoracic spine. Normal visualized ribs, clavicles, and shoulders. There is no demonstrated abnormality of the visualized soft tissue structures of the upper abdomen. RAD/Chest PA and Lateral IMPRESSION: Similar basilar atelectasis compared to prior with no evidence of new focal infiltrate. Electronically Signed: Aba Vera DO at 18:46 EST ,
[2023-07-06 12:06] LABS: Anion Gap 8 (5-15); BUN 26 mg/dL (7-18); Calcium,Total 8.8 mg/dL (8.5-10.1); Chloride 99 mmol/L (98-107); EST Glomerular Filtration Rate 36 mL/min (>60); Est Glom Filt Rate - Afr Amer 43 mL/min (>60); Glucose 141 mg/dL (74-106); Potassium 3.8 mmol/L (3.5-5.1); Sodium Level 138 mmol/L (136-145)
--- NOTE | 2023-07-07 09:54 | PCM.HP.BLA ---
History and Physical Date of Admission: 07/27/23 This is a 68-year-old white male who presents today for cardioversion. He has a history of CAD, PCI, ischemic mediated cardiomyopathy, atrial fibrillation (status post synchronized biphasic DC cardioversion-April,, October 2021, February 2022), systolic mediated CHF, status post ICD placement, hyperlipidemia, and hypertension. Pt did undergo a successful cardioversion in February. From a cardiac standpoint, the patient is doing well. He denies any palpitations, chest pain, pressure or heaviness. He does have SOB with walking too fast. He denies Orthopnea, and PND. He does not have bleeding issues; no blood in urine, stool or nosebleeds. He does acknowledge a decrease in energy level. He denies myalgias, or claudication. He does not have edema, or sudden weight gain. He does have occasional lightheadedness with quick positional changes. He denies dizziness, syncopal or near syncopal episodes, and headaches. Intake Vital Signs See EMR Allergies See EMR Medications See EMR [facility] Medical History Atherosclerotic heart disease of [place] coronary artery without angina pectoris CAD in [place] artery Cardiomyopathy Essential hypertension HLD (hyperlipidemia) ICD (implantable cardioverter-defibrillator), single, in situ Ischemic cardiomyopathy New onset atrial fibrillation PAF (paroxysmal atrial fibrillation) Persistent atrial fibrillation Surgical History History of cardioversion (~11/05/21) S/P PTCA (percutaneous transluminal coronary angioplasty) Family History Father Heart diseaseGrandfather Diabetes Social History Smoking Status: Never smoker alcohol intake: current alcohol intake frequency: holidays/special occasions only substance use type: does not use caffeine: Yes Type: coffee Number of servings: 1 Cardiology Exam Const Appearance: cooperative, healthy appearing, comfortable, no acute distress and well developed Orientation: alert, awake and oriented x3 Head Head: normal to inspection Ears: hearing grossly normal bilaterally Nose: external nose normal Face and Sinus: face symmetric Eyes General: appearance normal, both eyes and all related structures Eyelids: eyelids normal Conjunctivae: conjunctivae normal Pupils: PERRL EOM: EOM intact bilaterally Neck Neck: normal visual inspection and trachea midline; Negative no JVD Carotids: Negative bruit Chest Chest inspection: normal inspection of the chest Auscultation: Bilateral: Clear to Auscultation Cardio Palpation: normal PMI Rate: regular rate Rhythm: irregular rhythm Heart sounds: S1 normal and S2 normal; Negative rub, gallop or murmur GI GI: normal to inspection and soft Neuro General: patient alert, patient awake, patient oriented x3 and CN's II-XI intact bilaterally Extremities Pulses: Normal: Right Posterior Tibial Pulse, Left Posterior Tibial Pulse, Right Radial Pulse and Left Radial Pulse Lower Extremity Edema: None: Bilateral Psych Psychological: normal affect Supplemental Info Supplemental Information Assessment and Plan Assessment and Plan (1) PAF (paroxysmal atrial fibrillation): Status: Chronic Plan: Patient has a history of paroxysmal atrial fibrillation. His most recent echocardiogram from 05/06/2023 demonstrated ejection fraction of 25%, and normal atrial size. This was reviewed with him. His most recent demonstrated atrial flutter/fibrillation with a heart rate of 68 bpm, and left bundle branch block. He was referred to EP for possible ablation, and EP is recommending a cardioversion prior to ablation. Patient is agreeable to this, and will proceed. At this time, he will continue amiodarone 200 mg daily, metoprolol succinate 50 mg twice daily, and Eliquis 5 mg twice daily.
[2023-07-24 08:29] VITALS: BMI 32.0
--- OUTSIDE RECORDS SUMMARY | 2023-07-27 10:51 | XMS RPT_ITS | CCD ---
Author Name Unknown Address [id number] [place] [address] Organization [facility] Care Team Providers Care Oncology Nurse Name Role Phone GARO VELIZ Unavailable Unavailable RAGHAVDAYO POWELL Unavailable Unavailable Jaffe, Rhoda Bre Unavailable Unavaila ble Jaffe, Rhoda Bre Unavailable Unavaila ble Rings Keegan Admitting Unavailable Rings Keegan Attending Unavailable Dayo Avilez A Primary Care Unavailable Newbill, Maggy Lira Admitting Unavailable NewbillMaggy Attending Unavailable Raghav, Dayo A Primary Care Unavailable Newbill, Maggy Lira Admitting Unavailable Newbill, Maggy Lira Attending Unavailable Raghav, Dayo A Primary Care Unavailable Newbill, Maggy Lira Admitting Unavailable NewbillMaggy Attending Unavailable Raghav, Dayo A Primary Care Unavailable Guanakito Dsouza Attending Unavailable Raghav, Dayo A Primary Care Unavailable Tiki Lopez Admitting Unavailabl e Tiki Lopez Attending Unavailabl e Guanakito Dsouza Consulting Unavailable Raghav Dayo A Primary Care Unavailable Vish, Catie R Unavailable Newbill, Maggy M Unavailable Unavailable Unavailable Newbill, Maggy Primary Care Unavailable Dr. Shaniqua Barrow Attending Unavailable Newbill, Maggy Primary Care Unavailable Hipolito Camacho Attending Unavailable Hipolito Camacho Referring Unavailable Newbill, Maggy Primary Care Unavailable Newbill, Maggy Attending Unavailable Dr. Shaniqua Barrow Attending Unavailable Newbill, Maggy Primary Care Unavailable Dr. Hipolito Camacho Referring Unavail able DOUG, DRESS FITTER, DNP KARINA CLARK Attending Unava ilable Newbill, Maggy Primary Care Unavailable Newbill, Maggy Referring Unavailable Doug, Dr. Hipolito Car Attending Unavail able Newbill, Maggy Primary Care Unavailable Young, Dr. Hipolito Car Attending Unavail able Young, Dr. Hipolito Car Referring Unavail able Newbill, Maggy Primary Care Unavailable Newbill, Maggy Primary Care Unavailable Newbill, Maggy Attending Unavailable Newbill, Maggy Referring Unavailable Dayo Avilez MD Primary Care Provider No, Referral Unavailable Unavailable Beto Barnhart MD Unavailable [phone] Newbill PA-C, Maggy M Unavailable Newbill PA-C Maggy M Primary Care Provider [phone] NEWBILL, MAGGY M Referring Unavailable NEWBILL, MAGGY M Primary Care Unavailable NEWBILL, MAGGY M Attending Unavailable NEWBILL, MAGGY M Primary Care Unavailable NEWBILL, MAGGY M Primary Care Unavailable KOCHAR, ARSHNEEL Referring Unavailable KOCHAR, ARSHNEEL Referring Unavailable KOCHAR, ARSHNEEL Attending Unavailable KOCHAR, ARSHNEEL Referring Unavailable Allergies Allergy Classification Reported Allergen(s) Allergy Type Date of Onset Reaction(s) Facility (6 sources) bee pollen Allergy to substance (finding) [facility] [place] [facility] Work Phone: (8 sources) Bee pollen; Translations: [BEE POLLEN] Drug Allergy 9 Other: See Comments [facility] (7 sources) ragwee, pollen [Other] Propensity to adverse reactions 6 [facility] (1 source) OTHER; Translations: [OTHER] Propensity to adverse reactions (disorder) 6 [facility] Repository Medications Current Medications Medication Drug Class(es) Dates Sig (Normalized) Sig (Original) 24 hr metoprolol succinate 50 mg extended release oral tablet (16 sources) beta-Adrenergic Cuauhtemoc Start: 09-02-2022 take 1 tablet by mouth twice daily metoprolol succinate XL (Toprol-XL) 50 mg 24 hr tablet Take 1 tablet (50 mg) by mouth 2 times a day. 0 09/02/2022 Active Completed/Discontinued Medications Medication Drug Class(es) Dates Sig (Normalized) Sig (Original) amiodarone hydrochloride 200 mg oral tablet (12 sources) Antiarrhythmic Start: 10-14-2019 take 1 tablet by mouth once daily amiodarone (PACERONE) 200 mg tablet Take 1 tablet by mouth once daily. 90 tablet 3 10/14/2019 Active Problems Active Problems Problem Classification Problem Date Documented Da te Episodic/Chronic Cardiac dysrhythmias (12 sources) Paroxysmal atrial fibrillation; Translations: [Paroxysmal atrial fibrillation] Onset: 12-28-2019 12-28-2019 Chronic Chronic kidney disease (6 sources) Chronic kidney disease stage 3B ; Translations: [Chronic kidney disease, Stage III (moderate)] Chronic Chronic kidney disease (2 sources) Chronic kidney disease; Translations: [Chronic kidney disease, stage 3b] Onset: 10-03-2022 Chronic ulcer of skin (4 sources) Non-pressure chronic ulcer of unspecified part of right lower leg with unspecified severity; Translations: [Non-pressure chronic ulcer of unspecified part of right lower leg with unspecified severity (CMS/HCC)] Onset: 06-29-2023 Chronic Congestive heart failure; nonhypertensive (13 sources) Heart failure with reduced ejection fraction; Translations: [Unspecified systolic (congestive) heart failure] Onset: 03-26-2018 03-26-2018 Chronic Coronary atherosclerosis and other heart disease (7 sources) Patient post percutaneous transluminal coronary angioplasty; Translations: [Coronary angioplasty status] 06-08-2015 Episodic Disorders of lipid metabolism (7 sources) Hyperlipidemia; Translations: [Hyperlipidemia, unspecified] Onset: 01-12-2002 07-03-2015 Chronic Essential hypertension (13 sources) Hypertensive disorder; Translations: [Unspecified essential hypertension] Onset: 01-12-2002 06-08-2015 Chronic Fracture of lower limb (20 sources) Closed fracture of distal fibula ; Translations: [Aftercare for healing traumatic fracture of lower leg] Onset: 10-22-2022 Episodic Joint disorders and dislocations; trauma-related (7 sources) Derangement of knee; Translations: [Other internal derangement of knee] Onset: 01-12-2002 11-13-2003 Chronic Other connective tissue disease (1 source) Pain in left foot; Translations: [Pain in left foot] Onset: 09-02-2022 Episodic Other diseases of veins and lymphatics (1 source) Stasis dermatitis; Translations: [Venous insufficiency (chronic) (peripheral)] 06-29-2023 Episodic Other diseases of veins and lymphatics (4 sources) Venous insufficiency (chronic) (peripheral); Translations: [Venous insufficiency (chronic) (peripheral)] Onset: 06-29-2023 Episodic Other injuries and conditions due to external causes (6 sources) Injury of left ankle; Translations: [Knee, leg, ankle, and foot injury] Episodic Other injuries and conditions due to external causes (4 sources) Unspecified injury of left ankle, initial encounter; Translations: [Unspecified injury of left ankle, initial encounter] Onset: 09-02-2022 Episodic Other nervous system disorders (17 sources) Abnormal gait; Translations: [Abnormality of gait] Episodic Other non-traumatic joint disorders (17 sources) Ankle stiff; Translations: [Stiffness of joint, not elsewhere classified, ankle and foot] Episodic Other non-traumatic joint disorders (17 sources) Chronic ankle pain; Translations: [Pain in joint, ankle and foot] Episodic Other nutritional; endocrine; and metabolic disorders (7 sources) Disorder of lipid metabolism; Translations: [Disorder of lipoprotein metabolism, unspecified] 06-08-2015 Chronic Other nutritional; endocrine; and metabolic disorders (7 sources) Obese class I; Translations: [Obesity, unspecified] Onset: 08-23-2019 08-23-2019 Chronic Other screening for suspected conditions (not mental disorders or infectious disease) (7 sources) Patient encounter status; Translations: [Screening for malignant neoplasms of prostate] 06-21-2023 Episodic Other skin disorders (1 source) Localized swelling, mass and lump, left lower limb; Translations: [Localized swelling, mass and lump, left lower limb] Onset: 09-02-2022 Episodic Pulmonary heart disease (7 sources) Pulmonary embolism; Translations: [Other pulmonary embolism with acute cor pulmonale] Onset: 03-26-2018 03-26-2018 Chronic Residual codes; unclassified (1 source) 3+ pitting edema; Translations: [Edema, unspecified] 06-29-2023 Episodic Residual codes; unclassified (4 sources) Edema; Translations: [Edema, unspecified] Onset: 06-29-2023 06-29-2023 Episodic Residual codes; unclassified (3 sources) Edema, unspecified; Translations: [Edema, unspecified] Onset: 06-29-2023 Episodic Sprains and strains (20 sources) Sprain of ankle; Translations: [Other specified aftercare] Episodic Superficial injury; contusion (6 sources) Splinter in foot; Translations: [Superficial foreign body (splinter) of foot and toe(s), without major open wound and without mention of infection] Episodic Varicose veins of lower extremity (5 sources) Varicose veins of right lower extremity with ulcer of unspecified site; Translations: [Varicose veins of lower extremities with ulcer] Onset: 06-29-2023 06-29-2023 Episodic Past or Other Problems Problem Classification Problem Date Documented Da te Episodic/Chronic Other non-epithelial cancer of skin (13 sources) History of malignant neoplasm of skin; Translations: [Personal history of other malignant neoplasm of skin] Onset: 02-02-2019 02-02-2019 Episodic Unclassified (2 sources) Onset: 06-29-2023 06-29-2023 Results Test Name Value Interpretation Reference Range Facil ity Vital Signs Date Time Vital Sign Value Performing Clinician Facility 06-29-2023 13:08-0500 Body height 185.4 cm Maggy NewBlossoml PA-C Work Phone: [facility] 06-29-2023 13:08-0500 Body mass index (BMI) [Ratio] 31.29 kg/m2 Maggy Newbill PA-C Work Phone: [facility] 06-29-2023 13:08-0500 Body temperature 97.11 [degF] Maggy Newbill PA-C Work Phone: [facility] 06-29-2023 13:08-0500 Body weight 107.59 kg Maggy Newbill PA-C Work Phone: [facility] 06-29-2023 13:08-0500 Diastolic blood pressure 88 mm[Hg] Maggy Newbill PA-C Work Phone: [facility] 06-29-2023 13:08-0500 Heart rate 69 /min Maggy Newbill PA-C Work Phone: [facility] 06-29-2023 13:08-0500 SaO2% (BldA) [Mass fraction] 94 % Maggy Arizmendi PA-C Work Phone: [facility] 06-29-2023 13:08-0500 Systolic blood pressure 126 mm[Hg] Maggy Arizmendi PA-C Work Phone: [facility] 06-17-2023 15:20-0500 Body height 185.4 cm Garland Escobar MD Work Phone: [facility] 06-17-2023 15:20-0500 Body weight 110.22 kg Garland Escobar MD Work Phone: [facility] 06-17-2023 15:20-0500 Diastolic blood pressure 81 mm[Hg] Garland Escobar MD Work Phone: [facility] 06-17-2023 15:20-0500 Heart rate 69 /min Garland Escobar MD Work Phone: [facility] 06-17-2023 15:20-0500 Systolic blood pressure 120 mm[Hg] Garland Escobar MD Work Phone: [facility] 01-28-2023 10:06-0400 Body mass index (BMI) [Ratio] 32.48 kg/m2 Maggy Augusta Edgardavidsheela Work Phone: [facility] Work Phone: 01-28-2023 10:06-0400 Body surface area Derived from formula 2.35 m2 Maggy Augusta Edgardavidsheela Work Phone: [facility] Uli 3 DO Work Phone: 01-28-2023 10:06-0400 Body weight 111.68 kg Maggy Augusta Terrazassheela Work Phone: [facility] DO Work Phone: 01-28-2023 10:06-0400 Diastolic blood pressure 80 mm[Hg] Maggy Augusta Edgardavidl Work Phone: [facility] Uli 3 DO Work Phone: 01-28-2023 10:06-0400 Heart rate 58 /min Maggy Augusta Terrazasl Work Phone: [facility] Uli 3 DO Work Phone: 01-28-2023 10:06-0400 SaO2% (BldA) [Mass fraction] 95 % Maggy Terrazasl Work Phone: [facility] Uli 3 DO Work Phone: 01-28-2023 10:06-0400 Systolic blood pressure 126 mm[Hg] Maggy Augusta Terrazasl Work Phone: [facility] 3 DO Work Phone: 09-23-2022 13:33-0500 Body mass index (BMI) [Ratio] 33.33 kg/m2 Maggy Arizmendi Work Phone: [facility] Work Phone: 09-23-2022 13:33-0500 Body surface area Derived from formula 2.38 m2 Maggy Arizmendi Work Phone: [facility] Work Phone: 09-23-2022 13:33-0500 Body weight 114.58 kg Maggysonny Arizmendi Work Phone: [facility] Work Phone: 09-23-2022 13:33-0500 Diastolic blood pressure 80 mm[Hg] Maggy Augusta Terrazasl Work Phone: [facility] Work Phone: 09-23-2022 13:33-0500 Heart rate 49 /min Maggysonny Terrazasl Work Phone: [facility] Work Phone: 09-23-2022 13:33-0500 SaO2% (BldA) [Mass fraction] 97 % Maggy Arizmendi Work Phone: [facility] Work Phone: 09-23-2022 13:33-0500 Systolic blood pressure 102 mm[Hg] Maggy Terrazasl Work Phone: [facility] Work Phone: 09-02-2022 14:25-0500 Body height 185.42 cm Maggy Terrazas Work Phone: [facility] [place] [facility] Work Phone: 09-02-2022 14:25-0500 Body mass index (BMI) [Ratio] 33.19 kg/m2 Maggy Arizmendi Work Phone: [facility] [place] [facility] Work Phone: 09-02-2022 14:25-0500 Body surface area Derived from formula 2.37 m2 Maggy Arizmendi Work Phone: [facility] [place] [facility] Work Phone: 09-02-2022 14:25-0500 Body temperature 97.5 [degF] Maggy Arizmendi Work Phone: [facility] [place] [facility] Work Phone: 09-02-2022 14:25-0500 Body weight 114.13 kg Maggy Arizmendi Work Phone: [facility] [place] [facility] Work Phone: 09-02-2022 14:25-0500 Diastolic blood pressure 86 mm[Hg] Maggy Terrazas Work Phone: [facility] [place] [facility] Work Phone: 09-02-2022 14:25-0500 Heart rate 56 /min Maggy Arizmendi Work Phone: [facility] [place] [facility] Work Phone: 09-02-2022 14:25-0500 SaO2% (BldA) [Mass fraction] 99 % Maggy Augusta Ugo Work Phone: [facility] Work Phone: 09-02-2022 14:25-0500 Systolic blood pressure 148 mm[Hg] Maggy Augusta Ugo Work Phone: [facility] Work Phone: Encounters Encounter Date Encounter Type Care Provider Facility Start: 06-30-2023 Telephone encounter Garland mcdaniels MD Work Phone: Cardiology Procedures Date Procedure Procedure Detail Performing Clinician Start: 06-29-2023 XR CHEST 2 VIEWS MAGGY STEWART Start: 06-29-2023 CBC panel - Blood by Automated count MAGGY ARIZMENDI Start: 06-29-2023 Comprehensive metabo lic 2000 panel - Serum or Plasma MAGGY ARIZMENDI Start: 06-29-2023 Natriuretic peptide B [Mass/volume] in Blood MAGGY ARIZMENDI Start: 06-29-2023 Radiologic exam ches t 2 views Maggy GARLAND-C Work Phone: Start: 06-17-2023 ICD CLINIC CHECK Deborah Escobar MD Work Phone: Start: 06-17-2023 Thyrotropin [Units/v olume] in Serum or Plasma [facility] Start: 12-26-2022 Lipid 1996 panel - S eliana or Plasma Garland Escobar MD Work Phone: Start: 09-05-2022 Thyrotropin [Units/v olume] in Serum or Plasma Maggy Arizmendi PA-C Work Phone: Start: 07-02-2015 Lipid 1996 panel - S eliana or Plasma Vince Darling DO Work Phone: Insertion of pulse generator of implantable cardioverter defibrillator Maggy Arizmendi Work Phone: Plan of Treatment Date Care Activity Detail Author Start: 12-27-2027 Lipid 1996 panel - Serum or Plasma Lipid Screening [facility] Start: 12-27-2027 Lipid panel [facility] Start: 06-17-2026 Diabetes Screening Diabetes Screening [facility] Start: 06-17-2024 Thyroid stimulating hormone measurement TSH Level [facility] Start: 09-05-2023 Thyroid stimulating hormone measurement TSH Level [facility] Start: 09-02-2023 FUV, Provider: Maggy Arizmendi, Status: Pen, Time: 10:30 AM FUV, Provider: Maggy Arizmendi, Status: Pen, Time: 10:30 AM [facility] Work Phone: Start: 09-02-2023 End: 09-02-2023 Patient encounter procedure 09/02/2023 10:30 AM EST Office Visit [facility] [address] [place] [id number] Maggy Arizmendi PA-C [address] [facility] [place] [address] [facility] Start: 08-20-2023 End: 06-30-2024 Basic metabolic 2000 panel - Serum or Plasma BASIC METABOLIC PNL Lab Routine Paroxysmal atrial fibrillation (HCC) Expected: 08/20/2023, Expires: 06/30/2024 [facility] Work Phone: Immunizations Immunization Date Immunization Notes Care Provider Fa cility 06-02-1993 hepatitis B vaccine, pediatric or pediatric/adolescent dosage Maggy Deras Newbill Work Phone: [facility] [place] [facility] Work Phone: 12-29-1992 hepatitis B vaccine, pediatric or pediatric/adolescent dosage Maggy M Newbill Work Phone: [facility] [place] [facility] Work Phone: 12-29-1992 TD(adult) unspecifie d formulation Maggy M Newbill Work Phone: [facility] [place] [facility] Work Phone: 11-24-1992 hepatitis B vaccine, pediatric or pediatric/adolescent dosage Maggy M Newbill Work Phone: [facility] [place] [facility] Work Phone: Payers Date Payer Category Payer Medicare [id number] 2022 Medicare [id number] 2017 Unknown 2015 Unknown [id number] 1957 Unknown [id number] 2.16.84 [id number]. 1957 Unknown [id number] 2.16.84 0.1.453616.3.579.2. 1957 Unknown [id number] 2.16.84 0.1.487276.3.579.2. 1957 Unknown [id number] 2.16.84 0.1.247579.3.579.2. 1957 Unknown [id number] 2.16.84 0.1.765642.3.579.2. 1957 Unknown [id number] 2.16.84 0.1.033734.3.579.2. 1957 Unknown [id number] 2.16.8 40.1.852194.3.579.2.1068 1957 Unknown [id number] 2.16.8 [id number] 1957 Unknown [id number] 2.16.8 40.1.001763.3.579.2.1068 1957 Unknown [id number] 2.16.8 40.1.488386.3.579.2.1068 1957 Unknown [id number] 2.16. [id number] 1957 Unknown [id number] 2.16. 840.1.233049.3.579.2.356 1957 Unknown [id number] 2.16. [id number] 1957 Unknown [id number] 2.16. [id number] 1957 Unknown [id number] 2.16.84 0.1.834757.3.579.2.1243 1957 Unknown [id number] 2.16.8 40.1.476064.3.579.2.1244 1957 Unknown [id number] 2.16.8 [id number] Social History Date Type Detail Facility Start: 12-19-2019 End: 06-29-2023 Patient consumes caffeinated coffee Patient consumes caffeinated coffee [facility] Start: 02-01-2018 End: 06-29-2023 Tobacco smoking status NHIS Never smoked tobacco [facility] Start: 02-01-2018 End: 06-17-2023 Tobacco use and exposure Former smokeless tobacco user [facility] End: 2018 History of tobacco use Chews Tobacco [facility] Start: 01-18-2020 End: 06-29-2023 Alcohol intake Ex-drinker (finding) [facility] Start: 12-19-2019 End: 06-29-2023 Alcohol Use Disorder Identification Test - Consumption [AUDIT-C] [facility] How often to you hav e a drink containing alcohol? Never [facility] Average Number of Drinks Not on file [facility] Start: 06-08-2015 End: 06-17-2023 Tobacco Comment 1 can every 4-5 days [facility] Start: 1955 Sex Assigned At Not on file [facility] Start: 06-17-2023 Alcohol intake Current drinker of alcohol (finding) [facility] Start: 06-17-2023 Alcohol Comment rare, few times a year [facility] Start: 06-29-2023 Tobacco use and exposure Smokeless tobacco non-user [facility] Work Phone: Start: 06-19-2023 End: 06-29-2023 Exposure to SARS-CoV-2 (event) Not sure [facility] Clinical Notes 04-26-2021 to 06-30-2023 Telephone Encounter - Lisset Carr RN - 06/30/2023 3:03 PM ESTTelephone Encounter - Lisset Carr RN - 06/30/2023 3:00 PM Reanna Arizmendi PA-C - 06/29/2023 1:10 PM ESTPatient Instructions Note Date & Type Note Facility 06-30-2023 Miscellaneous Notes The date of 09/10/23 with offered & accepted by patient. DCC is scheduled LOCALLY ON 07/27/23. Needs Labs (CBC,BMP,30 day T&S with Confirm) in [facility] within 30 days prior to procedure date - patient will coordinate. Dr. Escobar will see patient on the day of procedure in prep room. Medication instructions given, as indicated below. Stated understanding. ----- Message from Garland Escobar MD sent at 06/21/2023 2:03 PM EST ----- Regarding: PVI +/- Flutter Patient: Rudy Merritt EP Lab Procedure requested: Ablations PVI ablation CPT 82995 Anticoagulation Status: Eliquis (apixaban) Requesting Physician: Garland Escobar MD Procedural Physician: Garland Escobar MD Date of last H&P or Date of upcoming H&P: 06/17/23 Indications for procedure: Atrial Fibrillation Procedure time frame: Patient convenience (as soon as possible) Current Meds: Current Outpatient Medications: metoprolol succinate ER (TOPROL XL) 50 mg 24 hr tablet aspirin 81 mg cap VITAMIN K2 100 MCG CAPSULE KRILL OIL ORAL dapagliflozin propanediol (FARXIGA) 10 mg tablet amLODIPine (NORVASC) 5 mg tablet apixaban (ELIQUIS) 5 mg tab(s) furosemide (LASIX) 40 mg tablet nitroglycerin sublingual (NITROSTAT) 0.4 mg SL tablet amiodarone (PACERONE) 200 mg tablet spironolactone (ALDACTONE) 25 mg tablet cholecalciferol, vitamin D3, (VITAMIN D3 ORAL) Magnesium Oxide 500 mg tab input Section Potential Research Patient: No General anesthesia needed: Yes Moderate anesthesia needed: No Patient a candidate of same day discharge: No Mapping Ablation:Biosense Murillo (CARTO) CT Scan needed pre-procedure: No ECHO needed pre-procedure:None Anticoagulation: Stop :Eliquis (apixaban) Stop medication: Morning of procedure Stop Antiarrhythmic: No Stop Beta Cuauhtemoc/ Calcium Channel Cuauhtemoc: No ASA: N/A Additional instructions:None Garland Escobar MD June 21, 2023 2:03 PM documented in this encounter [facility] 06-29-2023 History of Present illness Narrative Subjective Patient ID: Rudy Merritt is a 68 y.o. male who presents for Leg Swelling (Right lower leg swelling, dark red discoloration with discomfort x 5 days./Patient states thinks it is gout and has been taking his 's antibiotic.). HPI Patient presents for evaluation of right lower leg swelling and erythema. Patient reports at least 5 days of this. Patient initially thought it was gout as instructed by a neighbor or friend. And then the patient started taking his 's doxycycline. The patient's right lower leg has progressively worsened despite the treatment of the and the friend. Patient is in A-fib and is scheduled to have cardioversion. Patient reports worsening shortness of breath. 40 mg Lasix twice daily as well as 25 mg spironolactone. Patient does follow with cardiology. Review of Systems Constitutional: See HPI Cardiovascular: See HPI. Integumentary: See HPI Neurologic: Alert and oriented X4, No numbness, No tingling. All other systems are negative Objective BP 126/88 Pulse 69 Temp 36.2 C (97.1 F) (Temporal) Ht 1.854 m (6' 1 ) Wt 108 kg (237 lb 3.2 oz) SpO2 94% BMI 31.29 kg/m Physical Exam General: Alert and oriented, No acute distress. Eye: Pupils are equal, round and reactive to light, Extraocular movements are intact, Normal conjunctiva. HENT: Normocephalic, Normal hearing, Oral mucosa is moist, No pharyngeal erythema, No sinus tenderness. Neck: Supple, Non-tender, No lymphadenopathy. Respiratory: Lungs are clear to auscultation, Respirations are non-labored, Breath sounds are equal Cardiovascular: Irregularly irregular rhythm, normal rate Gastrointestinal: Non-distended. Musculoskeletal: Normal range of motion, Normal strength, No tenderness, No swelling, No deformity, Normal gait. Integumentary: Right lower leg with 3-4+ pitting edema; the entire lower two thirds of the lower leg is deep red with areas of purple; there is 1 small ulceration anteriorly; no evidence of infection Neurologic: Alert, Oriented, Normal sensory, Normal motor function, No focal deficits, Cranial Nerves II-XII are grossly intact Psychiatric: Cooperative, Appropriate mood & affect. Assessment/Plan Pitting edema/Stasis dermatitis/stasis ulceration/history of heart failure: CBC, CMP, BNP, and chest x-ray. Prescription written for 2 pair of compression socks. Use of these reviewed. Patient counseled that he is on the precipice of having significant complications regarding the stasis ulcerations/dermatitis. Patient advised to elevate legs when at home and wear compression socks all the time except for when sleeping. Recommend close follow-up with cardiology. Patient also encouraged to contact the office if stasis ulceration begins to worsen. Patient instructed to apply Neosporin to any wounds that appear in the meantime. Continue doxycycline. Problem List Items Addressed This Visit None Visit Diagnoses 3+ pitting edema - Primary Relevant Orders Comprehensive Metabolic Panel CBC B-type natriuretic peptide XR chest 2 views Acute stasis dermatitis of right lower extremity Relevant Orders Comprehensive Metabolic Panel CBC B-type natriuretic peptide XR chest 2 views Stasis leg ulcer, right (CMS/HCC) Relevant Orders Comprehensive Metabolic Panel CBC B-type natriuretic peptide XR chest 2 views Heart failure, unspecified HF chronicity, unspecified heart failure type (CMS/HCC) Relevant Medications metoprolol succinate XL (Toprol-XL) 50 mg 24 hr tablet amLODIPine (Norvasc) 5 mg tablet Other Relevant Orders B-type natriuretic peptide Final diagnoses: [R60.9] 3+ pitting edema [I87.2] Acute stasis dermatitis of right lower extremity [I83.019, L97.919] Stasis leg ulcer, right (CMS/HCC) [I50.9] Heart failure, unspecified HF chronicity, unspecified heart failure type (CMS/HCC) documented in this encounter [facility] Work Phone: 06-22-2023 Miscellaneous Notes Called patient in attempt to schedule DCC as requested by Dr. Escobar. The patient stated that he is going to have it done locally at [place]. Leonor Grant RN ----- Message from Garland Escobar MD sent at 06/21/2023 2:02 PM EST ----- Regarding: DCCV Please schedule patient for DCC. Timeframe: now Date of last H&P: 06/17/23 Three weeks uninterrupted anticoagulation: Yes MAVERICK needed: No Special instructions: None Garland Escobar MD June 21, 2023 2:02 PM documented in this encounter [facility] 06-17-2023 Note HNO ID: [id number] Author: Garland Escobar MD Service: ? Author Type: Physician Type: Progress Notes Filed: 06/21/2023 2:05 PM Note Text: [facility] [place] [facility] Department of Cardiovascular Medicine SECTION OF CARDIAC PACING and ELECTROPHYSIOLOGY OUTPATIENT VISIT DATE June 17, 2023 OUTPATIENT VISIT TYPE NEW PRIMARY CARE PHYSICIAN: Dayo Avilez [address] [place] [address] REFERRING PHYSICIAN: SELF CHIEF COMPLAINT: Atrial fibrillation/flutter HISTORY OF PRESENT ILLNESS: Rudy Merritt is a 68 y/o male who presents for atrial fibrillation/atrial flutter and evaluation for ablation. He has a history of CAD, s/p PCI (2012), ICM (EF 25% 04/2023) , s/p VVI ICD (01/2021), HTN, HLD, PE, atrial fibrillation and atrial flutter, s/p multiple DCCV most recently 01/27/2023. He was first diagnosed with Afib/AFL in and underwent multiple DCCV. He was started amiodarone about a year ago. He reports the longest he stayed in SR after DCCV was around a year. His most recent cardioversion was 01/27/2023. He reports he was back out of rhythm around a month later. He has never been on other antiarrhythmics. He was recommended to be evaluated for ablation. He reports he has been very fatigued and doesn't sleep well at night. He endorses shortness of breath with exertion. He can have infrequent chest pain on exertion (thinks only when in cold air). He endorses lightheadedness with positional changes. He denies palpitations or syncope. Last Echo 05/06/2023 EF=25%. He is scheduled for a stress test locally tomorrow. Tolerating Eliquis without bleeding complications CHADS2-Vasc Score Breakdown 4 Total Score 1 Age 65-74 years old 1 History of CHF 1 History of hypertension 1 History of vascular disease PAST MEDICAL HISTORY Diagnosis Date Atrial fibrillation (HCC) Atrial flutter (HCC) CAD (coronary artery disease) Heart failure with reduced ejection fraction (HCC) 03/26/2018 HTN (hypertension) Lipid disorder Other pulmonary embolism with acute cor pulmonale (HCC) 03/26/2018 Post PTCA Pulmonary embolism (HCC) PAST SURGICAL HISTORY Procedure Laterality Date ARTHROSCOPY KNEE DIAGNOSTIC W/WO SYNOVIAL BX SPX Arthroscopy, knee CARDIOVERSION CORONARY ENDARTERCOMY OPEN ANY METHOD 05/20/2013 Angioplasty SOCIAL HISTORY Social History Tobacco Use Smoking status: Never Smokeless tobacco: Former Types: Chew Quit date: 2018 Tobacco comments: 1 can every 4-5 days Vaping Use Vaping Use: Never used Substance Use Topics Alcohol use: Yes Comment: rare, few times a year Drug use: Never FAMILY HISTORY Problem Relation Age of Onset Ischemic Heart Disease Father age 67, congestive failure Hypertension Brother living other (HTN) Mother living other (hTN) Sister living Stroke Maternal Grandfather ALLERGIES: ALLERGIES Allergen Reactions Bee Pollen Other: See Comments sinus Greg, Pollen [Oth* MEDICATIONS: metoprolol succinate ER (TOPROL XL) 50 mg 24 hr tablet Take 50 mg by mouth two times a day. aspirin 81 mg cap Take by mouth. VITAMIN K2 100 MCG CAPSULE KRILL OIL ORAL Take by mouth. dapagliflozin propanediol (FARXIGA) 10 mg tablet Take by mouth daily with breakfast. amLODIPine (NORVASC) 5 mg tablet Take by mouth once daily. apixaban (ELIQUIS) 5 mg tab(s) Take 1 tablet by mouth twice daily. furosemide (LASIX) 40 mg tablet Take 0.5 tablets by mouth once daily. (Patient taking differently: Take 40 mg by mouth two times a day.) amiodarone (PACERONE) 200 mg tablet Take 1 tablet by mouth once daily. spironolactone (ALDACTONE) 25 mg tablet Take 1 tablet by mouth once daily. cholecalciferol, vitamin D3, (VITAMIN D3 ORAL) Take 500 mg by mouth once daily. Magnesium Oxide 500 mg tab Take by mouth once daily. nitroglycerin sublingual (NITROSTAT) 0.4 mg SL tablet Dissolve 1 tablet under the tongue every 5 minutes as needed. REVIEW OF SYSTEMS: General, constitutional: Weight loss or gain- No, Fever or chills-No, Weakness-yes, Trouble sleeping-yes. Head, Eyes, Ears, Mouth: Headache, head injury-No, Glasses or contact lenses-yes, Pain-No, Impaired vision-No, Decreased hearing-No, Ringing in ears-yes, Nose bleeds-yes, Dental difficulties-No, Bleeding gums-No, Dentures-No. Neck: Swelling-No, Pain-yes, Stiffness-yes. Respiratory: Cough-No, Spitting up blood-No, Shortness of breath-yes, Wheezing or asthma-No. Musculoskeletal: Muscle or joint pain or stiffness-yes, Joint swelling-No. Gastrointestinal: Difficulty swallowing-No, Heartburn-No, Change in bowel habits-No, Blood in stool, Dark black stools-No. Neurological/Psychiatric: Weakness, paralysis-yes, Numbness-yes, Tingling-No, Tremor-No, Nervousness or anxiety-No, Depressed mood-No, Memory loss-No. Skin: Rash-No, Itching-No. Hematological: Eas (more content not included)... [facility] 06-17-2023 Instructions Garland Escobar MD - 06/17/2023 4:27 PM EST Please get your bloodwork done (Thyroid function, liver function, kidney function) Please get a chest x ray done Plan for a cardioversion (can be done locally) We will do an atrial fibrillation and atrial flutter ablation in the near future We will also plan to upgrade your defibrillator to a 3 wire system to see if we can improve your heart squeeze function documented in this encounter [facility] 06-17-2023 History of Present illness Narrative Images from the original note were not included. [facility] [place] [facility] Department of Cardiovascular Medicine SECTION OF CARDIAC PACING and ELECTROPHYSIOLOGY OUTPATIENT VISIT DATE June 17, 2023 OUTPATIENT VISIT TYPE NEW PRIMARY CARE PHYSICIAN: Dayo Avilez [address] [place], [place] [id number] REFERRING PHYSICIAN: SELF CHIEF COMPLAINT: Atrial fibrillation/flutter HISTORY OF PRESENT ILLNESS: Rudy Merritt is a 68 y/o male who presents for atrial fibrillation/atrial flutter and evaluation for ablation. He has a history of CAD, s/p PCI (2012), ICM (EF 25% 04/2023) , s/p VVI ICD (01/2021), HTN, HLD, PE, atrial fibrillation and atrial flutter, s/p multiple DCCV most recently 01/27/2023. He was first diagnosed with Afib/AFL in and underwent multiple DCCV. He was started amiodarone about a year ago. He reports the longest he stayed in SR after DCCV was around a year. His most recent cardioversion was 01/27/2023. He reports he was back out of rhythm around a month later. He has never been on other antiarrhythmics. He was recommended to be evaluated for ablation. He reports he has been very fatigued and doesn't sleep well at night. He endorses shortness of breath with exertion. He can have infrequent chest pain on exertion (thinks only when in cold air). He endorses lightheadedness with positional changes. He denies palpitations or syncope. Last Echo 05/06/2023 EF=25%. He is scheduled for a stress test locally tomorrow. Tolerating Eliquis without bleeding complications CHADS2-Vasc Score Breakdown 4 Total Score 1 Age 65-74 years old 1 History of CHF 1 History of hypertension 1 History of vascular disease PAST MEDICAL HISTORY Diagnosis Date Atrial fibrillation (HCC) Atrial flutter (HCC) CAD (coronary artery disease) Heart failure with reduced ejection fraction ([facility]) 03/26/2018 HTN (hypertension) Lipid disorder Other pulmonary embolism with acute cor pulmonale ([facility]) 03/26/2018 Post PTCA Pulmonary embolism ([facility]) PAST SURGICAL HISTORY Procedure Laterality Date ARTHROSCOPY KNEE DIAGNOSTIC W/WO SYNOVIAL BX SPX Arthroscopy, knee CARDIOVERSION CORONARY ENDARTERCOMY OPEN ANY METHOD 05/20/2013 Angioplasty SOCIAL HISTORY Social History Tobacco Use Smoking status: Never Smokeless tobacco: Former Types: Chew Quit date: 2018 Tobacco comments: 1 can every 4-5 days Vaping Use Vaping Use: Never used Substance Use Topics Alcohol use: Yes Comment: rare, few times a year Drug use: Never FAMILY HISTORY Problem Relation Age of Onset Ischemic Heart Disease Father age 67, congestive failure Hypertension Brother living other (HTN) Mother living other (hTN) Sister living Stroke Maternal Grandfather ALLERGIES: ALLERGIES Allergen Reactions Bee Pollen Other: See Comments sinus Serafin Garza [Oth* MEDICATIONS: metoprolol succinate ER (TOPROL XL) 50 mg 24 hr tablet Take 50 mg by mouth two times a day. aspirin 81 mg cap Take by mouth. VITAMIN K2 100 MCG CAPSULE KRILL OIL ORAL Take by mouth. dapagliflozin propanediol (FARXIGA) 10 mg tablet Take by mouth daily with breakfast. amLODIPine (NORVASC) 5 mg tablet Take by mouth once daily. apixaban (ELIQUIS) 5 mg tab(s) Take 1 tablet by mouth twice daily. furosemide (LASIX) 40 mg tablet Take 0.5 tablets by mouth once daily. (Patient taking differently: Take 40 mg by mouth two times a day.) amiodarone (PACERONE) 200 mg tablet Take 1 tablet by mouth once daily. spironolactone (ALDACTONE) 25 mg tablet Take 1 tablet by mouth once daily. cholecalciferol, vitamin D3, (VITAMIN D3 ORAL) Take 500 mg by mouth once daily. Magnesium Oxide 500 mg tab Take by mouth once daily. nitroglycerin sublingual (NITROSTAT) 0.4 mg SL tablet Dissolve 1 tablet under the tongue every 5 minutes as needed. REVIEW OF SYSTEMS: General, constitutional: Weight loss or gain- No, Fever or chills-No, Weakness-yes, Trouble sleeping-yes. Head, Eyes, Ears, Mouth: Headache, head injury-No, Glasses or contact lenses-yes, Pain-No, Impaired vision-No, Decreased hearing-No, Ringing in ears-yes, Nose bleeds-yes, Dental difficulties-No, Bleeding gums-No, Dentures-No. Neck: Swelling-No, Pain-yes, Stiffness-yes. Respiratory: Cough-No, Spitting up blood-No, Shortness of breath-yes, Wheezing or asthma-No. Musculoskeletal: Muscle or joint pain or stiffness-yes, Joint swelling-No. Gastrointestinal: Difficulty swallowing-No, Heartburn-No, Change in bowel habits-No, Blood in stool, Dark black stools-No. Neurological/Psychiatric: Weakness, paralysis-yes, Numbness-yes, Tingling-No, Tremor-No, Nervousness or anxiety-No, Depressed mood-No, Memory loss-No. Skin: Rash-No, Itching-No. Hematological: Easy bruising-yes, Easy bleeding-No. Endocrine: Heat or cold intolerance-No, Excessive sweating-No, Frequent urination-No, Frequent thirst-No. Felisa Clayton RN PHYSICAL EXAMINATION: BP 120/81 Pulse 69 Ht 185.4 cm (6' 1 ) Wt 110.2 kg (243 lb) BMI 32.06 kg/m General: Well appearing, in no acute distress. Skin: No clubbing, no cyanosis. Eyes: Extra ocular movements intact Neck: No jugular venous distention, no carotid bruits, carotids have a normal upstroke Lungs: Clear to auscultation bilaterally, no wheezing or rhonchi. Heart: irregularly irregular rhythm, PMI not displaced, S1, S2 normal, no murmur. Abdomen: Soft, nontender, bowel sounds normal, Extremities: No peripheral edema . Neuro: Oriented to person, place and time, alert, cooperative, gait coordinated. CARDIOVASCULAR MEDICINE TESTING: Today's EKG SINGLE LEAD ICD EVALUATION 06/17/2023 PRESENTS FOR: patient is new to [facility] and has OPD with Dr. Escobar PRESENTING EGM: VS , irregular R-R intervals UNDERLYING RHYTHM: AFL per today's EKG BATTERY STATUS: Estimated time remaining to MYRTLE is 14 years COUNTERS SINCE: past one year ATRIAL ARRHYTHMIAS: no atrial diagnostics. On eliquis per EPIC VENTRICULAR ARRHYTHMIAS: There have been no ventricular detections since the last evaluation. LEAD MEASUREMENTS: Capture and sensing are appropriate. The pacing output maintains safety margin. Review of the lead impedance trends are normal. IMPLANT SITE/ SYMPTOMS: The incision and pocket are pain-free (0/10), well healed and without signs of erosion or infection. No arm swelling, syncope, pre-syncope or device related pocket stimulation. OTHER DIAGNOSTICS: Total V pacing <1%, PROGRAMMING CHANGES MADE TODAY: none FOLLOW UP: Locally Coty Merida RN OSH Echo 05/06/2023 OSH EKG 05/21/2023 IMPRESSION: Mr. Merritt is a 68 year old male with hx CAD, s/p PCI (2012), ICM (EF 25% 04/2023) , s/p VVI ICD (01/2021), HTN, HLD, PE, atrial fibrillation and atrial flutter, s/p multiple DCCV most recently 01/27/2023 who resents for atrial fibrillation/flutter management. Symptomatically he has had more fatigue and SOB recently. EKG today with coarse fib. He appears mildly volume overloaded today on exam with pitting lower extremity edema. Decompensation may be in the setting of atrial fibrillation. Given recurrence despite amiodarone and known CKD will plan for ablation for rhythm control. DCCV in the short term as a bridge to ablation PLAN AND RECOMMENDATIONS: #Atrial fibrillation - Continue apixaban 5mg BID, CHADSVASC 4 - Continue amiodarone 200mg daily (TSH, LFTs wnl today, CXR and PFTs pending) - DCCV (patient to do locally) - PVI +/- flutter ablation #HFrEF (EF 35%) 2/2 ICM - NYHA class III, Stage C - Mild volume overload today - Beta cuauhtemoc: Metop succ 50mg BID - MRA: Spironolactone 35mg daily - SGLT2: Farxiga 10mg daily - CAS/ARB/ARNI: Not on this likely in the s/o CKD - Device: s/p single chamber ICD - consider upgrade to MEDICAID COLLECTION SPECIALIST-D, EKG today with QRS 150, left bundloid IVCD (S waves in V5/V6) I personally interviewed, confirmed and edited the above information as obtained by others. CONTACT INFORMATION: Garland Escobar MD documented in this encounter [facility] 06-15-2023 Miscellaneous Notes Referral and outside medical records scanned into [employer]. Referral routed to appointment desk for appropriate scheduling. documented in this encounter [facility] 09-17-2022 History of Present illness Narrative Patient being seen in follow-up for chronic kidney disease stage IIIb with history of hypertensionLabs reviewedGlucose 107Sodium 136, potassium 3.9, chloride 98, bicarb 29Renal function with a BUN of 29 and creatinine of 1.59, this is essentially unchanged from his check in September at which time he was 21 and 1.57Hepatic function all within normal limits except for an AST of 44Lipid profile with total cholesterol 248, HDL 78, LDL 152, triglycerides 91He is doing wellHe has no complaints of difficulties voidingHe has some mild edema of his left ankle, he also is recovering from multiple fractures from this legHe has no complaints of shortness of breathHis blood pressure has been well controlled [facility] Uli [facility] Work Phone: 04-26-2021 History of Present illness Narrative Had patient don his shoe with this date for all stretches. Patient has an area on opposite leg at the ankle that is scabbed over with some areas that have dried yellow seepage. Instructed patient to inform his MD at the appointment Thursday. Patient states that the other leg has been doing that since his fracture. Patient had DF tightness with slant board stretch this date. Able to use flex band for stretches this date. [facility] Work Phone: [facility] Diagnosis Atrial fibrillation, persistent (HCC)- Primary Atrial fibrillation Encounter for therapeutic drug monitoring Heart failure with reduced ejection fraction (HCC) Heart failure, unspecified [facility] Diagnosis 3+ pitting edema- Primary Acute stasis dermatitis of right lower extremity Stasis leg ulcer, right (CMS/HCC) Heart failure, unspecified HF chronicity, unspecified heart failure type (CMS/HCC) documented in this encounter [facility] Work Phone: Evaluation note* Diagnosis Paroxysmal atrial fibrillation (HCC)- Primary Atrial fibrillation [facility] Diagnosis Edema, unspecified documented in this encounter [facility] Work Phone: History of Present illness Narrative* Mr. MERRITT presents with signs and symptoms consistent with Left Ankle Fracture and Sprain of Tibiofibular Ligament, as well as PT diagnosis of Left ankle pain, stiffness, and difficulty with gait and demonstrates impairments/limitations in Left ankle AROM and PROM, significant myofascial restriction throughout L lower leg musculature, decreased motor control with difficulty with eversion/inversion AROM, and apparent complications with edema and possible start to CRPS with Left lower leg with increased redness compared to RLE this date. Pt verbalized good understanding of all edu and HEP with HO given. Pt educated on desensitization and increasing elevation with LLE to attempt to decrease swelling. They would benefit from skilled Physical Therapy with combination of manual therapy techniques to decrease myofascial and joint restrictions, as well as progression of exercises for ROM, flexibility, strength, core stabilization, and glute retraining, and body mechanics education throughout POC to progress towards independence with ADL s/IADL s and return to PLOF. * Clinical Presentation: Evolving with changing characteristics. * Level of Complexity: low * Problem List: activity limitations, ADLs/IADLs/self care skills, balance, decreased functional level, fall risk, flexibility, gait/locomotion, motor function/control/tone, pain, participation restrictions, range of motion/joint mobility, strength and transfers. [facility] Work Phone: History of Present illness Narrative* Pt confirmed via and Full Name. * Pt presented with Tennis shoe on RLE and Pneumatic Boot on LLE this date. Edu to bring additional tennis shoe at next visits to allow for better performance of OKC exercises until weight bearing outside of boot is allowed. Difficulty with fine motor with marble cigar packer and picker. Added vasopneumatic device with cold at end of session to improve edema in Left Ankle with good response from pt. [facility] Work Phone: History of Present illness NarrativeAdded Nustep this date per protocol. No exacerbation of pain with use of Nustep. Patient took 10 steps to the bike wearing athletic shoe and kept L LE externally rotated. Patient has area on R uninvolved lower leg that is actively seeping and also has dried blood. Encouraged patient to keep the area covered prior to coming to PT and to inform his MD today at his F/U of the persistent area.[facility] Work Phone: History of Present illness NarrativeEncouraged patient again this date to have the L LE looked at by MD. Area was not seeping today anddid not have dried blood but did have some scabbing. Progressed to standing exercises this date in the clinic to focus on more Wbing exercises. Fatigues quickly this date with the new exercises. Patient was challenged by new exercises. Held Game Ready d/t minimal swelling this date after consult with PT. [facility] Work Phone: History of Present illness NarrativePatient was able to complete PRE's better this date in standing vs last visit when he had a lot of discomfort. Improved ROM with heel and toe raises this date in the clinic. Cues to ambulate with feet facing forward d/t exaggerated ER of the LE's, L >R. [facility] Work Phone: History of Present illness Narrative* Was able to add increased standing and proprioception exercises this date. Patient did have to takestanding rest breaks throughout. * Response to treatment: no change in pain, improved motor control and improved knowledge and understanding of condition. [facility] Work Phone: History of Present illness Narrative* Patient was fatigued and challenged by progression of PRE's this date in the clinic on the airex. Patient had to take standing rest breaks. Difficulty with ROM with use of the BAPS board. Patient wants to ER the L LE with side steps. * Response to treatment: no change in pain, improved strength, improved motor control, improved posture, improved gait and improved knowledge and understanding of condition. [facility] Work Phone: History of Present illness Narrative* Pt confirmed via and Full Name. * Pt reassessed this date by supervising PT with improvements noted in Left ankle AROM as well as MMTin LLE compared to initial evaluation. Pt continues to verbalized non-compliance with HEP throughout full POC so no updates given this date. Pt does report subjective improvements with LEFS score improving from 48/80 to 61/80. Pt verbalizes he would like to be done with therapy after final visit with CAT DOG OR OTHER PET GROOMER this upcoming Thursday. He does still have ROM deficits into Left ankle DF and PF, but has demonstrated improved range compared to evaluation. * Response to treatment: no change in pain, improved strength, improved motor control, improved posture, improved gait and improved knowledge and understanding of condition. [facility] Work Phone: history of Present illness Narrative* Pt confirmed via and Full Name. * Pt reassessed this date by supervising PT with improvements noted in Left ankle AROM as well as MMTin LLE compared to initial evaluation. Pt continues to verbalized non-compliance with HEP throughout full POC so no updates given this date. Pt does report subjective improvements with LEFS score improving from 48/80 to 61/80. Pt verbalizes he would like to be done with therapy after final visit with CAT DOG OR OTHER PET GROOMER this upcoming Thursday. He does still have ROM deficits into Left ankle DF and PF, but has demonstrated improved range compared to evaluation. * Response to treatment: no change in pain, improved strength, improved motor control, improved posture, improved gait and improved knowledge and understanding of condition. [facility] Work Phone: History of Present illness Narrative* Made sure patient had everything he needed for HEP at home today prior to completion of session. Answered all questions pertaining to HEP and made sure patient has contact information. Patient continued to have ROM deficits during gait causing increased antalgic gait. Circumducts when stepping overhurdle, improvements after cues. * Response to treatment: no change in pain, improved strength, improved motor control, improved posture, improved gait and improved knowledge and understanding of condition. [facility] Work Phone: History of Present illness Narrative* Patient presents to [facility]. * Patient has medical history of A-fib, SC, bilateral PEs, and hypertension currently managed with lisinopril, amiodarone, Eliquis, potassium, and spironolactone. Patient is status post pacer implantation and cardioversion. This is all managed by cardiology. Patient has chronic onychomycosis and feet numbness managed by podiatry. * The patient's only entry in the charts over the past 3 years is BMP and BNP. Most recently, BMP showed creatinine of 2.36, BUN of 58, sodium of 132, chloride 94, and GFR of 30, BNP was 176 and these were drawn on 30 July 2021. There is one other injury in the chart from 29 April 2021 with similar BMP findings. Patient states that cardiology ordered these and did adjust medications but no other work-up resulted from these findings. Patient was formally on a statin but stopped taking it due to adverse reactions. * Acutely, patient reports subacute left ankle pain. Several months ago, the patient twisted the ankle on ice causing injury. Patient put in a splint and iced it with rest and elevation. Patient reports modest improvement with this treatment but then this was reaggravated recently and swelling, pain,and reduced range of motion persisted. Patient does have a walking boot and use this briefly but iscurrently using an air splint. Pain is exacerbated by ambulation with no alleviating factors. * Patient also requesting evaluation of right plantar foot pain. Patient believes it might be a splinter or a wart on the mid right plantar foot. Pain in this area with ambulation and pressure. No reported evidence of infection or bleeding. * Patient is current with colonoscopy. Patient has not seen primary care in several years. [facility] Work Phone: History of Present illness Narrative* Patient presents to establish care. * Patient has medical history of A-fib, SC, bilateral PEs, and hypertension currently managed with lisinopril, amiodarone, Eliquis, potassium, and spironolactone. Patient is status post pacer implantation and cardioversion. This is all managed by cardiology. Patient has chronic onychomycosis and feet numbness managed by podiatry. * The patient's only entry in the charts over the past 3 years is BMP and BNP. Most recently, BMP showed creatinine of 2.36, BUN of 58, sodium of 132, chloride 94, and GFR of 30, BNP was 176 and these were drawn on 30 July 2021. There is one other injury in the chart from 29 April 2021 with similar BMP findings. Patient states that cardiology ordered these and did adjust medications but no other work-up resulted from these findings. Patient was formally on a statin but stopped taking it due to adverse reactions. * Acutely, patient reports subacute left ankle pain. Several months ago, the patient twisted the ankle on ice causing injury. Patient put in a splint and iced it with rest and elevation. Patient reports modest improvement with this treatment but then this was reaggravated recently and swelling, pain,and reduced range of motion persisted. Patient does have a walking boot and use this briefly but iscurrently using an air splint. Pain is exacerbated by ambulation with no alleviating factors. * Patient also requesting evaluation of right plantar foot pain. Patient believes it might be a splinter or a wart on the mid right plantar foot. Pain in this area with ambulation and pressure. No reported evidence of infection or bleeding. * Patient is current with colonoscopy. Patient has not seen primary care in several years. [facility] Work Phone: History of Present illness Narrative* Patient presents to establish care. * Patient has medical history of A-fib, SC, bilateral PEs, and hypertension currently managed with lisinopril, amiodarone, Eliquis, potassium, and spironolactone. Patient is status post pacer implantation and cardioversion. This is all managed by cardiology. Patient has chronic onychomycosis and feet numbness managed by podiatry. * The patient's only entry in the charts over the past 3 years is BMP and BNP. Most recently, BMP showed creatinine of 2.36, BUN of 58, sodium of 132, chloride 94, and GFR of 30, BNP was 176 and these were drawn on 30 July 2021. There is one other injury in the chart from 29 April 2021 with similar BMP findings. Patient states that cardiology ordered these and did adjust medications but no other work-up resulted from these findings. Patient was formally on a statin but stopped taking it due to adverse reactions. * Acutely, patient reports subacute left ankle pain. Several months ago, the patient twisted the ankle on ice causing injury. Patient put in a splint and iced it with rest and elevation. Patient reports modest improvement with this treatment but then this was reaggravated recently and swelling, pain,and reduced range of motion persisted. Patient does have a walking boot and use this briefly but iscurrently using an air splint. Pain is exacerbated by ambulation with no alleviating factors. * Patient also requesting evaluation of right plantar foot pain. Patient believes it might be a splinter or a wart on the mid right plantar foot. Pain in this area with ambulation and pressure. No reported evidence of infection or bleeding. * Patient is current with colonoscopy. Patient has not seen primary care in several years. [facility] Work Phone: reason for referral (narrative)* Outpatient Procedure (Routine) - Authorized Specialty Diagnoses / Procedures Referred By Kasie gordon Referred To [facility] Diagnoses PAF (paroxysmal atrial fibrillation) (HCC) Procedures ECG COMPLETE ECG ROUTINE ECG W/LEAST 12 LDS W/I&R Garland Escobar MD [address] [place] [id number] [facility] [address] [place] [address] Referral ID Status Reason Start Date Expiration Date Visits Requested Visits Authorized [id number] Authorized Auto-Generat ed Referral 3 06/14/2024 1 1 [facility] for visit Narrative* Initial Evaluation . Left Ankle Sprain. * Referred by: Catie [facility] Work Phone: Summary Purpose Family History No Family History Records FoundUnknown Family Member Name Dates Details Family history of hypertensi on: Mother, Father, Sister, Brother(V17.49, Z82.49) Status:Active Family history of cardiac di sorder: Father(V17.49, Z82.49) Status:Active Unknown Family Member Name Dates Details Family history of hypertensi on: Mother, Father, Sister, Brother(V17.49, Z82.49) Status:Active Family history of cardiac di sorder: Father(V17.49, Z82.49) Status:Active Unknown Family Member Name Dates Details Family history of hypertensi on: Mother, Father, Sister, Brother(V17.49, Z82.49) Status:Active Family history of cardiac di sorder: Father(V17.49, Z82.49) Status:Active Unknown Family Member Name Dates Details Family history of hypertensi on: Mother, Father, Sister, Brother(V17.49, Z82.49) Status:Active Family history of cardiac di sorder: Father(V17.49, Z82.49) Status:Active Unknown Family Member Name Dates Details Family history of hypertensi on: Mother, Father, Sister, Brother(V17.49, Z82.49) Status:Active Family history of cardiac di sorder: Father(V17.49, Z82.49) Status:Active Unknown Family Member Name Dates Details Family history of hypertensi on: Mother, Father, Sister, Brother(V17.49, Z82.49) Status:Active Family history of cardiac di sorder: Father(V17.49, Z82.49) Status:Active Advance Directives No Advanced Directives Records FoundNo Advanced Directives Records FoundNo Advanced Directives Records FoundNo Advanced Directives Records FoundNo Advanced Directives Records FoundNo Advanced Directives Records FoundNo Advanced Directives Records FoundNo Advanced Directives Records FoundNo Advanced Directives Records FoundNo Advanced Directives Records FoundNo Advanced Directives Records Found Chief Complaint * Patient here today to get established as a new patient, last seen by PCP 2-3 years ago. * Having left ankle discomfort with swelling intermittently since injured in June 2022, slipping on the snow at home. * Colonoscopy done 2019, PSA and Prostate exam unknown. * Influenza vaccine offered, patient declined. * Patient here today to get established as a new patient, last seen by PCP 2-3 years ago. * Having left ankle discomfort with swelling intermittently since injured in June 2022, slipping on the snow at home. * Colonoscopy done 2019, PSA and Prostate exam unknown. * Influenza vaccine offered, patient declined. * Patient here today to get established as a new patient, last seen by PCP 2-3 years ago. * Having left ankle discomfort with swelling intermittently since injured in June 2022, slipping on the snow at home. * Colonoscopy done 2019, PSA and Prostate exam unknown. * Influenza vaccine offered, patient declined. 3 MONTH FUV- LAB REVIEW 12/26/2022 Reason for Referral Specialty Diagnoses / Procedures Referred By Contac t Referred To Contact Diagnoses Heart failure with reduced ejection fraction (HCC) Procedures CARDIOVASCULAR MEDICINE OP FOLLOW UP APPT ORDER Garland Escobar MD [address] [place] [id number] Referral ID Status Reason Start Date Expiration Date Visits Requested Visits Authorized [id number] Ref Not Required PCP Requested Referral 06/21/2023 06/20/2024 1 1 Specialty Diagnoses / Procedures Referred By Contcary t Referred To Contact [facility] Diagnoses Paroxysmal atrial fibrillation (HCC) Encounter for therapeutic drug monitoring Procedures SPIROMETRY BASELINE ONLY SPMTRY W/VC EXPIRATORY KAITLIN W/WO MXML VOL VNTJ Garland Escobar MD [address] [place] [id number] [facility] [address] [place] [id number] Referral ID Status Reason Start Date Expiration Date Visits Requested Visits Authorized [id number] Pending Review Auto-Generat ed Referral 06/21/2023 07/20/2024 1 1 Specialty Diagnoses / Procedures Referred By Contac t Referred To Contact [facility] Diagnoses Paroxysmal atrial fibrillation (HCC) Encounter for therapeutic drug monitoring Procedures LUNG DIFFUSION CAPACITY (DLCO) DIFFUSING CAPACITY Garland Escobar MD [address] [place] [address] [facility] [address] [place] [phone] Referral ID Status Reason Start Date Expiration Date Visits Requested Visits Authorized [id number] Pending Review Auto-Generat ed Referral 06/21/2023 07/20/2024 1 1 Specialty Diagnoses / Procedures Referred By Kasie gordon Referred To Contact Radiology Diagnoses 3+ pitting edema Acute stasis dermatitis of right lower extremity Stasis leg ulcer, right (CMS/HCC) Procedures XR chest 2 views Maggy Arizmendi PA-C [address] [facility] [place] [address] Referral ID Status Reason Start Date Expiration Date Visits Requested Visits Authorized [id number] Authorized Perform Procedure 3 06/28/2024 1 1 Specialty Diagnoses / Procedures Referred By Kasie gordon Referred To Contact Radiology Diagnoses Edema, unspecified Procedures XR chest 2 views Maggy Arizmendi, MARIAAC [address] [facility] [place] [address] Referral ID Status Reason Start Date Expiration Date Visits Requested Visits Authorized [id number] Authorized Perform Procedure 3 06/28/2024 1 1 Additional Source Comments (unrecognized sect ion and content) No Status Records FoundNo Status Records FoundNo Status Records FoundNo Status Records FoundNo Status Records FoundNo Status Records FoundNo Status Records FoundNo Status Records FoundNo Status Records FoundNo Status Records FoundNo Status Records Found INFORMATION SOURCE (unrecogn ized section and content) DATE CREATED AUTHOR AUTHOR'S ORGANIZ ATION 03/09/2018 [facility] DATE CREATED AUTHOR AUTHOR'S ORGANIZ ATION 11/14/2018 [facility] DATE CREATED AUTHOR AUTHOR'S ORGANIZ ATION 01/30/2019 [facility] DATE CREATED AUTHOR AUTHOR'S ORGANIZ ATION 10/26/2022 [facility] DATE CREATED AUTHOR AUTHOR'S ORGANIZ ATION 01/29/2023 [facility] DATE CREATED AUTHOR AUTHOR'S ORGANIZ ATION 01/29/2023 [employer] DATE CREATED AUTHOR AUTHOR'S ORGANIZ ATION 07/01/2023 [facility] DATE CREATED AUTHOR AUTHOR'S ORGANIZ ATION 07/01/2023 [facility] DATE CREATED AUTHOR AUTHOR'S ORGANIZ ATION 07/05/2023 [facility] DATE CREATED AUTHOR AUTHOR'S ORGANIZ ATION 07/06/2023 [facility] Source Comments (unrecognize d section and content) In the event this informatio n is protected by the Federal Confidentiality of Alcohol and Drug Abuse Patient Records regulations: The Federal rules restrict any use of the information to criminally investigate or prosecute any alcohol or drug abuse patient.[facility] the event this information is protected by the Federal Confidentiality of Alcohol and Drug Abuse Patient Records regulations: The Federal rules restrict any use of the information to criminally investigate or prosecute any alcohol or drug abuse patient.[facility] the event this information is protected by the Federal Confidentiality of Alcohol and Drug Abuse Patient Records regulations: The Federal rules restrict any use of the information to criminally investigate or prosecute any alcohol or drug abuse patient.[facility] the event this information is protected by the Federal Confidentiality of Alcohol and Drug Abuse Patient Records regulations: The Federal rules restrict any use of the information to criminally investigate or prosecute any alcohol or drug abuse patient.[facility] the event this information is protected by the Federal Confidentiality of Alcohol and Drug Abuse Patient Records regulations: The Federal rules restrict any use of the information to criminally investigate or prosecute any alcohol or drug abuse patient.[facility] the event this information is protected by the Federal Confidentiality of Alcohol and Drug Abuse Patient Records regulations: The Federal rules restrict any use of the information to criminally investigate or prosecute any alcohol or drug abuse patient.[facility] the event this information is protected by the Federal Confidentiality of Alcohol and Drug Abuse Patient Records regulations: The Federal rules restrict any use of the information to criminally investigate or prosecute any alcohol or drug abuse patient.[facility] Reason for Visit (unrecogniz ed section and content) Reason Onset Date Comments Atrial Fibrillation 06/21/2023 Reason Comments Schedule Surgery EPS-DCC Reason Comments Leg Swelling Right lower leg swel ling, dark red discoloration with discomfort x 5 days.Patient states thinks it is gout and has been taking his 's antibiotic. Reason Comments Schedule Surgery PVI ablation+/-AFL R FA Specialty Diagnoses / Procedures Referred By Kasie t Referred To Contact Radiology Diagnoses Edema, unspecified Procedures XR chest 2 views Maggy Arizmendi PA-C [address] [facility] [place] [address] Referral ID Status Reason Start Date Expiration Date Visits Requested Visits Authorized [id number] Authorized Perform Procedure 3 06/28/2024 1 1 Care Teams (unrecognized sec tion and content) Oncology Nurse Relationship Specialty Start Date End Date Dayo Avilez MD [address] [place] [address] PCP - General Family Medicine 03/18/18 No, Referral Referring 06/15/18 Beto Barnhart MD [address] [place] [address] Primary Staff Physician Cardiology 01/23/21 Oncology Nurse Relationship Specialty Start Date End Date No, Referral Referring 06/15/18 Beto Barnhart MD [address] [place] [address] Primary Staff Physician Cardiology 01/23/21 Maggy Arizmendi PA-C [address] [facility] Physician [place], [place] [phone] Hematology/Oncology 06/17/23 Oncology Nurse Relationship Specialty Start Date End Date No, Referral Referring 06/15/18 Beto Barnhart MD [address] [place] [address] Primary Staff Physician Cardiology 01/23/21 Maggy Arizmendi PA-C [address] [facility] [place] [address] Hematology/Oncology 06/17/23 Oncology Nurse Relationship Specialty Start Date End Date No, Referral Referring 06/15/18 Beto Barnhart MD [address] [place], [place] [id number] Primary Staff Physician Cardiology 01/23/21 Maggy Arizmendi PA-C [address] [facility] [place] [address] Hematology/Oncology 06/17/23 Oncology Nurse Relationship Specialty Start Date End Date Maggy Arizmendi PA-C [address] [facility] [place] [address] PCP - General 09/02/22 Oncology Nurse Relationship Specialty Start Date End Date No, Referral Referring 06/15/18 Beto Barnhart MD [address] [place] [address] Primary Staff Physician Cardiology 01/23/21 Maggy Arizmendi PA-C [address] [facility] [place] [address] Hematology/Oncology 06/17/23 Oncology Nurse Relationship Specialty Start Date End Date Maggy Arizmendi PA-C [address] [facility] [place] [address] PCP - General 09/02/22 FOR RECORDS PERTAINING TO PATIENTS WHO ARE OR HAVE BEEN ENROLLED IN A CHEMICAL DEPENDENCY/SUBSTANCEABUSE PROGRAM, SOME INFORMATION MAY BE OMITTED. This clinical summary was aggregated from multiple sources. Caution should be exercised in using it in the provision of clinical care. This summary normalizes information from multiple sources, and as a consequence, information in this document may materially change the coding, format and clinical context of patient data. In addition, data may be omitted in some cases. CLINICAL DECISIONS SHOULD BE BASED ON THE PRIMARY CLINICAL RECORDS. [facility] [employer] [facility]. provides no warranty or guarantee of the accuracy or completeness of information in this document.
--- NOTE | 2023-07-27 12:11 | PCM.OP.PRO ---
Procedure Report Date of Procedure: 07/27/23 CONSCIOUS SEDATION REPORT DATE OF SERVICE: July 27, 2023 BRIEF HISTORY OF PRESENT ILLNESS: The patient is a 68-year-old male who presented to [facility] for elective outpatient cardioversion due to underlying atrial fibrillation. The patient did undergo a prior cardioversion in January 2023, at which time, the patient was noted to require 10 mg of etomidate to achieve an appropriate level of sedation. The patient denied any prior anesthetic complications. His last surface echocardiogram demonstrated an ejection fraction of approximately 25%. The patient is systemically anticoagulated on Eliquis. He does have a known history of obstructive sleep apnea, but is noncompliant with therapy. PHYSICAL EXAMINATION: VITAL SIGNS: Reviewed and were acceptable. GENERAL: The patient is a male, in no apparent distress, speaking in full sentences. HEENT: Normocephalic, atraumatic. Mucous membranes are moist and pink. Good mouth opening noted. Trachea is midline. CHEST: S1, S2 irregularly irregular. No murmurs, rubs or gallops were noted. LUNGS: Clear to auscultation bilaterally without appreciable wheezes, rales or rhonchi. ABDOMEN: Soft, nontender, nondistended. Positive bowel sounds. EXTREMITIES: There is no clubbing, cyanosis or edema. ASA Class: II DESCRIPTION OF PROCEDURE: After confirmation of informed consent, the patient's anesthesia plan was reviewed in detail. Etomidate was chosen. Risks and benefits were reviewed and the patient agreed to proceed. At 1143, the patient was given 8 mg of etomidate. The patient achieved an appropriate level of sedation and was given a 200 joule synchronized cardioversion by Dr. Maya at the bedside. Unfortunately, this was not successful in achieving normal sinus rhythm. The patient was monitored until 1156, at which time he reached his baseline mental status and function. The patient tolerated the procedure well. COMPLICATIONS: None ESTIMATED BLOOD LOSS: None RECOMMENDATIONS: Okay to recover in usual fashion. Procedures Pulmonary 9xxxx: [id number] Con Sedation
--- NOTE | 2023-07-27 13:19 | PRO.PCM_ITS ---
Procedure Report Date of Procedure: 07/27/23 DC cardioversion. 68-year-old male with a history of ischemic cardiomyopathy estimated ejection fraction of 25% who has been in chronic persistent atrial fibrillation. Patient is scheduled to undergo A-fib ablation and on recommendation of the elementary school reading teacher DC cardioversion at this time should be warranted before the ablation. Patient has been on uninterrupted anticoagulation. The patient was seen by Dr. Curarn of the critical care division. Anterior-posterior pads were applied after informed consent was obtained. 8 mg of intravenous etomidate was administered. 200 J of synchronized DC cardioversion energy biphasic was applied with no return to sinus rhythm. It was decided not to further cardiovert him. Conclusion: Unsuccessful DC cardioversion attempts. Follow-up as per office protocol and for him to undergo the PVI.
== END 2023-07-27 12:55 | disposition home or self-care (01) ==
LOC: CLSP 10:25
PROVIDERS: Nurse Practitioner Gerontology; PCP Physician Assistant; Referring Provider Internal Medicine Cardiovascular Disease; Visit Provider Internal Medicine Cardiovascular Disease
DX: I48.0 Paroxysmal atrial fibrillation (principal); I48.19 Other persistent atrial fibrillation; I25.10 Atherosclerotic heart disease of native coronary artery without angina pectoris; E78.5 Hyperlipidemia, unspecified; I10 Essential (primary) hypertension; I25.5 Ischemic cardiomyopathy
CPT/HCPCS: 36415; 71046; 80048; 92960; 93005; J7040

== ENCOUNTER → 2023-08-31 | Outpatient (CLI) | payer MEDICARE, SELFPAY ==
[2023-08-31 14:28] LABS: Absolute Lymphocyte Count 1.59 X10^3/uL (0.83-4.51); Absolute Neutrophil Count 3.8 X10^3/uL (2.0-7.7); Basophil# 0.05 X10^3/uL; Basophil% 0.8 % (0-1); Eosinophil# 0.01 X10^3/uL; Eosinophils% 0.2 % (0-5); Hematocrit 50.8 % (40-54); Hemoglobin 16.6 g/dL (13.0-16.5); Lymphocyte # 1.59 X10^3/ul (0.83-4.51); Lymphocyte % 25.9 % (19-41); Mean Corp Hgb Conc 32.7 g/dL (32-36); Mean Corpuscular Hgb 30.7 pg (27.0-32.0); Mean Corpuscular Volume 94.1 fL (80-94); Mean Platelet Vol. 10.5 fl (6.2-12.0); Monocyte# 0.67 X10^3/uL; Monocyte% 10.9 % (0-10); NRBC Flagged by Analyzer 0 % (0-5); Neutrophil # 3.79 X10^3/uL (2.7-7.7); Neutrophil % 61.7 % (47-70); Platelet Count 170 K/mm3 (150-450); RBC Distribution Width CV 13.8 % (11.6-14.6); RBC Distribution Width SD 47.3 fl (35.1-43.9); White Blood Count 6.1 K/mm3 (4.4-11.0)
[2023-08-31 14:51] LABS: Anion Gap 8 (5-15); BUN 22 mg/dL (7-18); Chloride 103 mmol/L (98-107); Creatinine, Serum 1.47 mg/dL (0.70-1.30); EST Glomerular Filtration Rate 51 mL/min (>60); Est Glom Filt Rate - Afr Amer 62 mL/min (>60); Glucose 96 mg/dL (74-106); Potassium 3.8 mmol/L (3.5-5.1); Sodium Level 140 mmol/L (136-145)
[2023-08-31 14:52] LABS: BNP,B-Type NATRIURETIC PEPTIDE 288.3 pg/mL (0-100)
--- OUTSIDE RECORDS SUMMARY | 2023-08-31 17:49 | XMS RPT_ITS | CCD ---
Author Name Unknown Address [address] [place] [address] Organization [facility] Care Team Providers Care Food And Beverage Order Clerk Name Role Phone GARO VELIZ Unavailable Unavailable RAGHAVDAYO POWELL Unavailable Unavailable Jaffe, Rhodahillary Díaz Unavailable Unavaila ble Jaffe, Rhoda Bre Unavailable Unavaila ble Rings Keegan Admitting Unavailable Rings Keegan Attending Unavailable Dayo Avilez Primary Care Unavailable NewbillMaggy Admitting Unavailable NewbillMaggy Attending Unavailable Raghav, Dayo A Primary Care Unavailable Newbill, Maggy Lira Admitting Unavailable Newbill, Maggy Lira Attending Unavailable Raghav, Dayo A Primary Care Unavailable Newbill, Maggy Lira Admitting Unavailable NewbillMaggy Attending Unavailable RaghavDayo powell A Primary Care Unavailable Guanakito Dsouza Attending Unavailable RaghavDayo powell A Primary Care Unavailable Tiki Lopez Admitting [...] Dr. Hipolito Camacho Referring Unavail able DOUG, METER ATTENDANT, DNP KARINA CLARK Attending Unava ilable Newbill, [...] Referral Unavailable Unavailable Beto Barnhart MD Unavailable [phone] Newbill PA-C, Maggy M Unavailable Newbill PA-C, Maggy M Primary Care Provider NEWBILL, MAGGY M Referring Unavailable NEWBILL, MAGGY M Primary Care Unavailable NEWBILL, MAGGY M Primary Care Unavailable NEWBILL, MAGGY M Attending Unavailable NEWBILL, MAGGY M Primary Care Unavailable KARINA CAMACOH Attending Unavailable NEWBILL, AMGGY M Primary Care Unavailable KOCHAR, ARSHNEEL Referring Unavailable KOCHAR, ARSHNEEL Attending Unavailable KOCHAR, ARSHNEEL Referring Unavailable KOCHAR, ARSHNEEL Referring Unavailable KOCHAR, ARSHNEEL Referring Unavailable KOCHAR, ARSHNEEL Referring Unavailable Allergies Allergy Classification Reported Allergen(s) Allergy Type Date of Onset Reaction(s) Facility (6 sources) bee pollen Allergy to substance (finding) [facility] Work Phone: (10 sources) Bee pollen; Translations: [BEE POLLEN] Drug Allergy 9 Other: See Comments [facility] (9 sources) ragwee, pollen [Other] Propensity to adverse reactions 6 [facility] (1 source) OTHER; Translations: [OTHER] Propensity to adverse reactions (disorder) 6 [facility] Repository Medications Current Medications Medication Drug Class(es) Dates Sig (Normalized) Sig (Original) 24 hr metoprolol succinate 50 mg extended release oral tablet (18 sources) beta-Adrenergic Cuauhtemoc Start: 09-02-2022 take 1 tablet by mouth twice daily metoprolol succinate XL (Toprol-XL) 50 mg 24 hr tablet Take 1 tablet (50 mg) by mouth 2 times a day. 0 09/02/2022 Active Completed/Discontinued Medications Medication Drug Class(es) Dates Sig (Normalized) Sig (Original) amiodarone hydrochloride 200 mg oral tablet (14 sources) Antiarrhythmic Start: 10-14-2019 take 1 tablet by mouth once daily amiodarone (PACERONE) 200 mg tablet Take 1 tablet by mouth once daily. 90 tablet 3 10/14/2019 Active Problems Active Problems Problem Classification Problem Date Documented Da te Episodic/Chronic Cardiac dysrhythmias (14 sources) Paroxysmal atrial fibrillation; Translations: [Paroxysmal atrial fibrillation] Onset: 12-28-2019 12-28-2019 Chronic Chronic kidney disease (6 sources) Chronic kidney disease stage 3B ; Translations: [Chronic kidney disease, Stage III (moderate)] Chronic Chronic kidney disease (4 sources) Chronic kidney disease; Translations: [Chronic kidney disease, stage 3b] Onset: 10-03-2022 Chronic ulcer of skin (4 sources) Non-pressure chronic ulcer of unspecified part of right lower leg with unspecified severity; Translations: [Non-pressure chronic ulcer of unspecified part of right lower leg with unspecified severity (CMS/HCC)] Onset: 06-29-2023 Chronic Congestive heart failure; nonhypertensive (15 sources) Heart failure with reduced ejection fraction; Translations: [Unspecified systolic (congestive) heart failure] Onset: 03-26-2018 03-26-2018 Chronic Coronary atherosclerosis and other heart disease (9 sources) Patient post percutaneous transluminal coronary angioplasty; Translations: [Coronary angioplasty status] 06-08-2015 Episodic Disorders of lipid metabolism (9 sources) Hyperlipidemia; Translations: [Hyperlipidemia, unspecified] Onset: 01-12-2002 07-03-2015 Chronic Essential hypertension (17 sources) Hypertensive disorder; Translations: [Unspecified essential hypertension] Onset: 01-12-2002 06-08-2015 Chronic Fracture of lower limb (20 sources) Closed fracture of distal fibula ; Translations: [Aftercare for healing traumatic fracture of lower leg] Onset: 10-22-2022 Episodic Joint disorders and dislocations; trauma-related (9 sources) Derangement of knee; Translations: [Other internal [...] Episodic Other nutritional; endocrine; and metabolic disorders (9 sources) Disorder of lipid metabolism; Translations: [Disorder of lipoprotein metabolism, unspecified] 06-08-2015 Chronic Other nutritional; endocrine; and metabolic disorders (9 sources) Obese class I; Translations: [Obesity, unspecified] [...] limb] Onset: 09-02-2022 Episodic Pulmonary heart disease (9 sources) Pulmonary embolism; Translations: [Other pulmonary embolism [...] te Episodic/Chronic Other non-epithelial cancer of skin (15 sources) History of malignant neoplasm of skin; Translations: [Personal history of other malignant neoplasm of skin] Onset: 02-02-2019 02-02-2019 Episodic Unclassified (2 sources) Onset: 06-29-2023 06-29-2023 Results Test Name Value Interpretation Reference Range Facil ity Vital Signs Date Time Vital Sign Value Performing Clinician Facility 06-29-2023 13:08-0500 Body height 185.4 cm Maggy [employer]C Work Phone: [facility] 06-29-2023 13:08-0500 Body mass index (BMI) [Ratio] 31.29 kg/m2 Maggy Leaky PA-C Work Phone: [facility] 06-29-2023 13:08-0500 Body temperature 97.11 [degF] Maggy obopayl PA-C Work Phone: [facility] 06-29-2023 13:08-0500 Body weight 107.59 kg Maggy Leaky PA-C Work Phone: [facility] 06-29-2023 13:08-0500 Diastolic blood pressure 88 mm[Hg] Maggy Leaky PA-C Work Phone: [facility] 06-29-2023 13:08-0500 Heart rate 69 /min Maggy Leaky PA-C Work Phone: [facility] 06-29-2023 13:08-0500 SaO2% (BldA) [Mass fraction] 94 % Maggy Arizmendi PA-C Work Phone: [facility] 06-29-2023 13:08-0500 Systolic blood pressure 126 mm[Hg] Maggy Arizmendi PA-C Work Phone: [facility] 06-17-2023 15:20-0500 Body height 185.4 cm Garland Escobar MD Work Phone: [facility] 06-17-2023 15:20-0500 Body weight 110.22 kg Garland Escobar MD Work Phone: [facility] 06-17-2023 15:20-0500 Diastolic blood pressure 81 mm[Hg] Garland Escobar MD Work Phone: [facility] 06-17-2023 15:20-0500 Heart rate 69 /min Garland Escobar MD Work Phone: [facility] 06-17-2023 15:20-0500 Systolic blood pressure 120 mm[Hg] Garland Escobar MD Work Phone: [facility] 01-28-2023 10:06-0400 Body mass index (BMI) [Ratio] 32.48 kg/m2 Maggy Arizmendi Work Phone: [facility] Work Phone: 01-28-2023 10:06-0400 Body surface area Derived from formula 2.35 m2 Maggy Arizmendi Work Phone: [facility] 3 DO Work Phone: 01-28-2023 10:06-0400 Body weight 111.68 kg Maggy Arizmendi Work Phone: [facility] 3 DO Work Phone: 01-28-2023 10:06-0400 Diastolic blood pressure 80 mm[Hg] Maggy M Newbill Work Phone: [facility] 3 DO Work Phone: 01-28-2023 10:06-0400 Heart rate 58 /min Maggy M Newbill Work Phone: [facility] 3 DO Work Phone: 01-28-2023 10:06-0400 SaO2% (BldA) [Mass fraction] 95 % Maggy M Newbill Work Phone: [facility] 3 DO Work Phone: 01-28-2023 10:06-0400 Systolic blood pressure 126 mm[Hg] Maggy M Newbill Work Phone: [facility] 3 DO Work Phone: 09-23-2022 13:33-0500 Body mass index (BMI) [Ratio] 33.33 kg/m2 Maggy Augusta Newbill Work Phone: [facility] Work Phone: 09-23-2022 13:33-0500 Body surface area Derived from formula 2.38 m2 Maggy Augusta Newbill Work Phone: [facility] Work Phone: 09-23-2022 13:33-0500 Body weight 114.58 kg Maggy M Newbill Work Phone: [facility] Work Phone: 09-23-2022 13:33-0500 Diastolic blood pressure 80 mm[Hg] Maggy M Newbill Work Phone: [facility] Work Phone: 09-23-2022 13:33-0500 Heart rate 49 /min Maggy M Newbill Work Phone: [facility] Work Phone: 09-23-2022 13:33-0500 SaO2% (BldA) [Mass fraction] 97 % Maggy Terrazas Work Phone: [facility] Work Phone: 09-23-2022 13:33-0500 Systolic blood pressure 102 mm[Hg] Maggy Terrazasl Work Phone: [facility] Work Phone: 09-02-2022 14:25-0500 Body height 185.42 cm Maggy Terrazasl Work Phone: [facility] Work Phone: 09-02-2022 14:25-0500 Body mass index (BMI) [Ratio] 33.19 kg/m2 Maggy Terrazasl Work Phone: [facility] Work Phone: 09-02-2022 14:25-0500 Body surface area Derived from formula 2.37 m2 Maggy Arizmendi Work Phone: [facility] Work Phone: 09-02-2022 14:25-0500 Body temperature 97.5 [degF] Maggy Arizmendi Work Phone: [facility] Work Phone: 09-02-2022 14:25-0500 Body weight 114.13 kg Maggy Arizmendi Work Phone: [facility] Work Phone: 09-02-2022 14:25-0500 Diastolic blood pressure 86 mm[Hg] Maggy Augusta Terrazasl Work Phone: [facility] Work Phone: 09-02-2022 14:25-0500 Heart rate 56 /min Maggy Terrazasl Work Phone: [facility] [place] Work Phone: 09-02-2022 14:25-0500 SaO2% (BldA) [Mass fraction] 99 % Maggy Arizmendi Work Phone: [facility] Work Phone: 09-02-2022 14:25-0500 Systolic blood pressure 148 mm[Hg] Maggy Arizmendi Work Phone: [facility] [place] Work Phone: Encounters Encounter Date Encounter Type Care Provider Facility Start: 08-26-2023 Telephone encounter Garland mcdaniels MD Work Phone: Cardiology Procedures Date Procedure Procedure Detail Performing Clinician Start: 08-26-2023 Antibody screen MARBELLA ESCOBAR Plan of Treatment Date Care Activity Detail Author Start: 12-27-2027 Lipid 1996 panel - Serum or Plasma Lipid Screening [facility] Start: 12-27-2027 Lipid panel [facility] Start: 08-26-2026 Diabetes Screening Diabetes Screening [facility] Start: 06-17-2026 Diabetes Screening Diabetes Screening [facility] Start: 06-17-2024 Thyroid stimulating hormone measurement TSH Level [facility] Start: 09-05-2023 Thyroid stimulating hormone measurement TSH Level [facility] Start: 09-02-2023 FUV, Provider: Maggy Arizmendi, Status: Pen, Time: 10:30 AM FUV, Provider: Maggy Arizmendi, Status: Pen, Time: 10:30 AM [facility] [place] Work Phone: Start: 09-02-2023 End: 09-02-2023 Patient encounter procedure 09/02/2023 10:30 AM EST Office Visit [facility] [place] [address] [place] [address] Maggy Arizmendi PA-C [address] [facility] [place] [address] [facility] Start: 08-20-2023 End: 06-30-2024 Basic metabolic 2000 panel - Serum or Plasma BASIC METABOLIC PNL Lab Routine Paroxysmal atrial fibrillation (HCC) Expected: 08/20/2023, Expires: 06/30/2024 [facility] Work Phone: Immunizations Immunization Date Immunization Notes Care Provider Jennifer damon 06-02-1993 hepatitis B vaccine, pediatric or pediatric/adolescent dosage Maggy M Newbill Work Phone: [facility] Work Phone: 12-29-1992 hepatitis B vaccine, pediatric or pediatric/adolescent dosage Maggy M Newbill Work Phone: [facility] Work Phone: 12-29-1992 TD(adult) unspecifie d formulation Maggy M Newbill Work Phone: [facility] Work Phone: 11-24-1992 hepatitis B vaccine, pediatric or pediatric/adolescent dosage Maggy M Newbill Work Phone: [facility] Work Phone: Payers Date Payer Category Payer Medicare [id number] 2022 Medicare [id number] 2017 Unknown 2015 Unknown [id number] 1957 Unknown [id number] 2.16.84 [id number] 1957 Unknown [id number] 2.16.84 0.1.608778.3.579.2 1957 Unknown [id number] 2.16.84 0.1.358281.3.579.2 1957 Unknown [id number] 2.16.84 0.1.564380.3.579.2. 1957 Unknown [id number] 2.16.84 0.1.102753.3.579.2.717 1957 Unknown [id number] 2.16.84 0.1.464945.3.579.2.717 1957 Unknown [id number] 2.16.8 40.1.986358.3.579.2.1069 1957 Unknown [id number] 2.16.8 40.1.070946.3.579.2.9 1957 Unknown [id number] 2.16.8 40.1.858473.3.579.2.1069 1957 Unknown [id number] 2.16.8 40.1.522090.3.579.2.9 1957 Unknown [id number] 2.16. 840.1.284431.3.579.2.356 1957 Unknown [id number] 2.16. 840.1.704898.3.579.2.356 1957 Unknown [id number] 2.16. 840.1.367362.3.579.2.356 1957 Unknown [id number] 2.16. 840.1.628896.3.579.2.356 1957 Unknown [id number] 2.16.84 0.1.709912.3.579.2.1243 1957 Unknown [id number] 2.16.8 40.1.583382.3.579.2.5 1957 Unknown [id number] 2.16.8 40.1.303415.3.579.2.1244 1957 Unknown [id number] 2.16.8 40.1.138134.3.579.2.1244 Social History Date Type Detail Facility Start: 12-19-2019 End: 06-17-2023 Patient consumes caffeinated coffee Patient consumes caffeinated coffee [facility] Start: 02-01-2018 End: 06-17-2023 Tobacco smoking status NHIS Never smoked tobacco [facility] Start: 02-01-2018 End: 06-17-2023 Tobacco use and exposure Former smokeless tobacco user [facility] End: 2018 History of tobacco use Chews Tobacco [facility] Start: 01-18-2020 End: 06-29-2023 Alcohol intake Ex-drinker (finding) [facility] Start: 12-19-2019 End: 06-17-2023 Alcohol Use Disorder Identification Test - Consumption [AUDIT-C] [facility] How often to you hav e a drink containing alcohol? Never [facility] Average Number of Drinks Not on file [facility] Start: 06-08-2015 End: 06-17-2023 Tobacco Comment 1 can every 4-5 days [facility] Start: 1955 Sex Assigned At Not on file [facility] Start: 06-17-2023 Alcohol intake Current drinker of alcohol (finding) [facility] Start: 06-17-2023 Alcohol Comment rare, few times a year [facility] Start: 06-29-2023 Tobacco use and exposure Smokeless tobacco non-user [facility] Work Phone: Start: 06-19-2023 End: 06-29-2023 Exposure to SARS-CoV-2 (event) Not sure [facility] Clinical Notes 04-26-2021 to 08-26-2023 Telephone Encounter - Lisset Carr RN - 08/26/2023 1:30 PM ESTTelephone Encounter - Fior Rodriguez RN - 08/24/2023 5:07 PM ESTTelephone Encounter - Lisset Carr RN - 06/30/2023 3:03 PM EST Note Date & Type Note Facility 08-26-2023 Miscellaneous Notes Due to change in physician's schedule, called patient to reschedule PVI ablation with Dr. Escobar currently scheduled on 09/10/23. New date of 10/09/23 with offered & accepted by patient. Needs Labs (CBC,BMP,T&S) on the day of procedure in prep room. Dr. Escobar will see patient on the day of procedure in prep room. Medication instructions reinforced. Stated understanding. documented in this encounter [facility] 08-26-2023 Note HNO ID: [id number] Author: DARRYL RODRÍGUEZ RT(R) Service: Radiology Author Type: Technologist Type: Progress Notes Filed: 08/26/2023 11:24 Note Text: Radiology Service Progress Note PATIENT NAME: Rudy Merritt DATE OF SERVICE: August 26, 2023 TIME: 11:18 AM PATIENT IDENTITY VERIFICATION COMPLETED USING TWO (2) IDENTIFIERS: Name and Date of confirmed by patient verbally. FALL SCREENING: Has the patient had 2 falls in the last year or 1 fall with injury or currently using an Ambulatory Assistive Device (Walker, Cane, Wheelchair, Crutches, etc.)? No PATIENT GENDER DATA: Male PATIENT RELEVANT IMPLANT DATA REVIEWED: Yes PATIENT PRESENTS WITH AN IMPLANTABLE OR ATTACHED LODGE OFFICER: No RADIOLOGY DEPARTMENT: General X-ray: Exam(s) Completed: Chest X-Ray PERIPHERAL IV DATA: Not applicable SIGNED BY: RT Renee(R) August 26, 2023 11:18 AM [facility] 08-24-2023 Miscellaneous Notes Left message for patient to hold Farxiga for 3 days prior to procedure and EP Scheduling number to call if patient has any questions. Fior Rodriguez RN, RN documented in this encounter [facility] 06-30-2023 Miscellaneous Notes The date of 09/10/23 with offered & accepted by patient. DCC is scheduled LOCALLY ON 07/27/23. Needs Labs (CBC,BMP,30 day T&S with Confirm) in [facility] within 30 days prior to procedure date - patient will coordinate. Dr. Escobar will see patient on the day of procedure in prep room. Medication instructions given, as indicated below. Stated understanding. ----- Message from Garland Escobar MD sent at 06/21/2023 2:03 PM EST ----- Regarding: PVI +/- Flutter Patient: Rudy Merritt EP Lab Procedure requested: Ablations PVI ablation CPT 93843 Anticoagulation Status: Eliquis (apixaban) Requesting Physician: Garland [...] 2023 2:03 PM documented in this encounter [facility] 06-29-2023 History of Present illness Narrative [...] failure type (CMS/HCC) documented in this encounter [facility] Work Phone: 06-22-2023 Miscellaneous Notes Called patient in attempt to schedule DCC as requested by Dr. Escoabr. The patient stated that he is going to have it done locally at [place]. Leonor Grant RN ----- Message from Garland Escobar MD sent at 06/21/2023 2:02 PM EST ----- Regarding: DCCV Please schedule patient for DCC. Timeframe: now Date of last H&P: 06/17/23 Three weeks uninterrupted anticoagulation: Yes MAVERICK needed: No Special instructions: None Garland Escobar MD June 21, 2023 2:02 PM documented in this encounter [facility] 06-17-2023 Note HNO ID: [id number] Author: Garland Escobar MD Service: ? Author Type: Physician Type: Progress Notes Filed: 06/21/2023 2:05 PM Note Text: [facility] Department of Cardiovascular Medicine SECTION OF CARDIAC PACING and ELECTROPHYSIOLOGY OUTPATIENT VISIT DATE June 17, 2023 OUTPATIENT VISIT TYPE NEW PRIMARY CARE PHYSICIAN: Dayo Avilez [address] [place] [address] REFERRING PHYSICIAN: SELF CHIEF COMPLAINT: Atrial fibrillation/flutter [...] Itching-No. Hematological: Eas (more content not included)... [facility] 06-17-2023 Instructions Garland Escobar MD - 06/17/2023 [...] heart squeeze function documented in this encounter [facility] 06-17-2023 History of Present illness Narrative Images from the original note were not included. [facility] Department of Cardiovascular Medicine SECTION OF CARDIAC PACING and ELECTROPHYSIOLOGY OUTPATIENT VISIT DATE June 17, 2023 OUTPATIENT VISIT TYPE NEW PRIMARY CARE PHYSICIAN: Dayo Avilez [address] [place] [address] [place] [address] REFERRING PHYSICIAN: SELF CHIEF COMPLAINT: Atrial fibrillation/flutter [...] Reactions Bee Pollen Other: See Comments sinus Carlose, Pollen [Oth* MEDICATIONS: metoprolol succinate ER (TOPROL [...] [facility] and has OPD with Dr. Ecsobar PRESENTING EGM: VS , irregular R-R intervals UNDERLYING RHYTHM: AFL per today's EKG BATTERY STATUS: Estimated time remaining to [facility] is 14 years COUNTERS SINCE: past one year ATRIAL ARRHYTHMIAS: no atrial diagnostics. On eliquis per [facility] VENTRICULAR ARRHYTHMIAS: There have been no ventricular [...] single chamber ICD - consider upgrade to [employer]-D, EKG today with QRS 150, left bundloid IVCD (S waves in V5/V6) I personally interviewed, confirmed and edited the above information as obtained by others. CONTACT INFORMATION: Garland Escobar MD documented in this encounter [facility] 06-15-2023 Miscellaneous Notes Referral and outside medical records scanned into [employer]. Referral routed to appointment desk for appropriate scheduling. documented in this encounter [facility] 09-17-2022 History of Present illness Narrative [...] breathHis blood pressure has been well controlled [facility] Work Phone: 04-26-2021 History [...] flex band for stretches this date. [facility] Work Phone: [facility] Diagnosis Atrial fibrillation, persistent (HCC)- Primary Atrial fibrillation Encounter for therapeutic drug monitoring Heart failure with reduced ejection fraction (HCC) Heart failure, unspecified [facility] Diagnosis 3+ pitting edema- Primary Acute stasis dermatitis of right lower extremity Stasis leg ulcer, right (CMS/HCC) Heart failure, unspecified HF chronicity, unspecified heart failure type (CMS/HCC) documented in this encounter [facility] Work Phone: Evaluation note* Diagnosis Paroxysmal atrial fibrillation (HCC)- Primary Atrial fibrillation [facility] Diagnosis Edema, unspecified documented in this encounter [facility] Work Phone: History of Present illness [...] of motion/joint mobility, strength and transfers. [facility] Work Phone: History of Present illness Narrative* Pt confirmed via and Full Name. * Pt presented with Tennis shoe on RLE and Pneumatic Boot on LLE this date. Edu to bring additional tennis shoe at next visits to allow for better performance of OKC exercises until weight bearing outside of boot is allowed. Difficulty with fine motor with marble black pickler. Added vasopneumatic device with cold at end of session to improve edema in Left Ankle with good response from pt. [facility] Work Phone: History of Present illness NarrativeAdded [...] today at his F/U of the persistent area. [facility] Work Phone: History of Present illness NarrativeEncouraged patient again this date to have the L LE looked at by . Area was not seeping today anddid not have dried blood but did have some scabbing. Progressed to standing exercises this date in the clinic to focus on more Wbing exercises. Fatigues quickly this date with the new exercises. Patient was challenged by new exercises. Held Game Ready d/t minimal swelling this date after consult with PT. [facility] Work Phone: History of Present illness NarrativePatient was able to complete PRE's better this date in standing vs last visit when he had a lot of discomfort. Improved ROM with heel and toe raises this date in the clinic. Cues to ambulate with feet facing forward d/t exaggerated ER of the LE's, L >R. [facility] Work [facility]: [place] of Present illness Narrative* Was able to add increased standing and proprioception exercises this date. Patient did have to takestanding rest breaks throughout. * Response to treatment: no change in pain, improved motor control and improved knowledge and understanding of condition. [facility] Work Phone: history of Present illness Narrative* Patient was fatigued [...] and improved knowledge and understanding of condition. [facility] Work Phone: history of Present illness Narrative* [...] done with therapy after final visit with [employer] UNDER[employer] MACHINE OPERATOR this upcoming Thursday. He does still have ROM deficits into Left ankle DF and PF, but has demonstrated improved range compared to evaluation. * Response to treatment: no change in pain, improved strength, improved motor control, improved posture, improved gait and improved knowledge and understanding of condition. [facility] Work Phone: History of Present illness Narrative* [...] done with therapy after final visit with [employer] UNDER[employer] MACHINE OPERATOR this upcoming Thursday. He does still have ROM deficits into Left ankle DF and PF, but has demonstrated improved range compared to evaluation. * Response to treatment: no change in pain, improved strength, improved motor control, improved posture, improved gait and improved knowledge and understanding of condition. [facility] Work Phone: History of Present illness Narrative* [...] and improved knowledge and understanding of condition. [facility] Work Phone: History of Present illness Narrative* Patient presents to establish care. * Patient has medical history of A-fib, [place], bilateral PEs, and hypertension currently managed with [...] not seen primary care in several years. [facility] Work Phone: History of Present illness Narrative* Patient presents to establish care. * Patient has medical history of A-fib, MN, bilateral PEs, and hypertension currently managed with [...] not seen primary care in several years. [facility] Work Phone: History of Present illness Narrative* [facility]. * Patient has medical history of A-fib, MN, bilateral PEs, and hypertension currently managed with [...] not seen primary care in several years. [facility] Work Phone: reason for referral (narrative)* Outpatient Procedure (Routine) - Authorized Specialty Diagnoses / Procedures Referred By Kasie gordon Referred To [facility] Diagnoses PAF (paroxysmal atrial fibrillation) (HCC) Procedures ECG COMPLETE ECG ROUTINE ECG W/LEAST 12 LDS W/I&R Garland Escobar MD [address] [place], [place] [id number] [facility] [place] [address] Referral ID Status Reason Start Date Expiration Date Visits Requested Visits Authorized [id number] Authorized Auto-Generat ed Referral 3 06/14/2024 1 1 [facility] for visit Narrative* Initial Evaluation . Left Ankle Sprain. * Referred by: Catie [facility]ahl [facility] Work Phone: Summary Purpose Family History No [...] Referral Specialty Diagnoses / Procedures Referred By Kasie gordon Referred To Contact Diagnoses Heart failure with reduced ejection fraction (HCC) Procedures CARDIOVASCULAR MEDICINE OP FOLLOW UP APPT ORDER Garland Escobar MD [address] [place] [address] Referral ID Status Reason Start Date Expiration Date Visits Requested Visits Authorized [id number] Ref Not Required PCP Requested Referral 06/21/2023 06/20/2024 1 1 Specialty Diagnoses / Procedures Referred By Contac t Referred To Contact [facility] Diagnoses Paroxysmal atrial fibrillation (HCC) Encounter for therapeutic drug monitoring Procedures SPIROMETRY BASELINE ONLY SPMTRY W/VC EXPIRATORY KAITLIN W/WO MXML VOL VNTJ Garland Escobar MD [address] [place] [address] [address] Referral ID Status Reason Start Date Expiration Date Visits Requested Visits Authorized [id number] Pending Review Auto-Generat ed Referral 06/21/2023 07/20/2024 1 1 Specialty Diagnoses / Procedures Referred By Contac t Referred To Contact [facility] Diagnoses Paroxysmal atrial fibrillation (HCC) Encounter for therapeutic drug monitoring Procedures LUNG DIFFUSION CAPACITY (DLCO) DIFFUSING CAPACITY Garland Escobar MD [address] [place] [address] [address] Referral ID Status Reason Start Date Expiration Date Visits Requested Visits Authorized [id number] Pending Review Auto-Generat ed Referral 06/21/2023 07/20/2024 1 1 Specialty Diagnoses / Procedures Referred By Contac t Referred To Contact Radiology Diagnoses 3+ pitting edema Acute stasis dermatitis of right lower extremity Stasis leg ulcer, right (CMS/HCC) Procedures XR chest 2 views Maggy Arizmendi PA-C [address] [facility] [place] [address] Referral ID Status Reason Start Date Expiration Date Visits Requested Visits Authorized [id number] Authorized Perform Procedure 3 06/28/2024 1 1 Specialty Diagnoses / Procedures Referred By Contac t Referred To Contact Radiology Diagnoses Edema, unspecified Procedures XR chest 2 views Maggy Arizmendi PA-C [address] [facility] [place] [address] Referral ID Status Reason Start Date Expiration Date Visits Requested Visits Authorized [id number] Authorized Perform Procedure 3 06/28/2024 1 1 Additional Source Comments (unrecognized sect ion and content) No Status Records FoundNo Status Records FoundNo Status Records FoundNo Status Records FoundNo Status Records FoundNo Status Records FoundNo Status Records FoundNo Status Records FoundNo Status Records FoundNo Status Records FoundNo Status Records Found INFORMATION SOURCE (unrecogn ized section and content) DATE CREATED AUTHOR AUTHOR'S ORGANIZ ATION 03/09/2018 [facility] DATE CREATED AUTHOR AUTHOR'S ORGANIZ ATION 11/14/2018 [facility] DATE CREATED AUTHOR AUTHOR'S ORGANIZ ATION 01/30/2019 [facility] DATE CREATED AUTHOR AUTHOR'S ORGANIZ ATION 10/26/2022 [facility] DATE CREATED AUTHOR AUTHOR'S ORGANIZ ATION 01/29/2023 [facility] DATE CREATED AUTHOR AUTHOR'S ORGANIZ ATION 01/29/2023 [facility] DATE CREATED AUTHOR AUTHOR'S ORGANIZ ATION 07/01/2023 [facility] DATE CREATED AUTHOR AUTHOR'S ORGANIZ ATION 07/05/2023 [facility] DATE CREATED AUTHOR AUTHOR'S ORGANIZ ATION 08/02/2023 [facility] DATE CREATED AUTHOR AUTHOR'S ORGANIZ ATION 08/28/2023 [facility] Source Comments (unrecognize d section and content) In the event this informatio n is protected by the [facility] Confidentiality of Alcohol and Drug Abuse Patient Records regulations: The Federal rules restrict any use of the information to criminally investigate or prosecute any alcohol or drug abuse patient.[facility] the event this information is protected by the Federal Confidentiality of Alcohol and Drug Abuse Patient Records regulations: The Federal rules restrict any use of the information to criminally investigate or prosecute any alcohol or drug abuse patient.[facility] the event this information is protected by the Federal Confidentiality of Alcohol and Drug Abuse Patient Records regulations: The Federal rules restrict any use of the information to criminally investigate or prosecute any alcohol or drug abuse patient.[facility] the event this information is protected by the Federal Confidentiality of Alcohol and Drug Abuse Patient Records regulations: The Federal rules restrict any use of the information to criminally investigate or prosecute any alcohol or drug abuse patient.[facility] the event this information is protected by the Federal Confidentiality of Alcohol and Drug Abuse Patient Records regulations: The Federal rules restrict any use of the information to criminally investigate or prosecute any alcohol or drug abuse patient.[facility] the event this information is protected by the Federal Confidentiality of Alcohol and Drug Abuse Patient Records regulations: The Federal rules restrict any use of the information to criminally investigate or prosecute any alcohol or drug abuse patient.[facility] the event this information is protected by the Federal Confidentiality of Alcohol and Drug Abuse Patient Records regulations: The Federal rules restrict any use of the information to criminally investigate or prosecute any alcohol or drug abuse patient.[facility] the event this information is protected by the Federal Confidentiality of Alcohol and Drug Abuse Patient Records regulations: The Federal rules restrict any use of the information to criminally investigate or prosecute any alcohol or drug abuse patient.[facility] the event this information is protected by the Federal Confidentiality of Alcohol and Drug Abuse Patient Records regulations: The Federal rules restrict any use of the information to criminally investigate or prosecute any alcohol or drug abuse patient.[facility] Reason for Visit (unrecogniz ed section [...] FA Specialty Diagnoses / Procedures Referred By Contac t Referred To Contact Radiology Diagnoses Edema, unspecified Procedures XR chest 2 views Maggy Arizmendi PA-C [address] [facility] [place] [address] Referral ID Status Reason Start Date Expiration Date Visits Requested Visits Authorized [id number] Authorized Perform Procedure 3 06/28/2024 1 1 Reason Comments Procedure EP: PVI/ AFL RFA (pr e procedure medication instructions) Reason Comments Appointment Rescheduled Due to change in physician's schedule Care Teams (unrecognized sec tion and content) Food And Beverage Order Clerk Relationship Specialty Start Date End Date Dayo Avilez MD [address] [place] [id number] PCP - General Family Medicine 03/18/18 No, Referral Referring 06/15/18 Beto Barnhart MD [address] [place] [address] Primary Staff Physician Cardiology 01/23/21 Food And Beverage Order Clerk Relationship Specialty Start Date End Date No, Referral Referring 06/15/18 Beto Barnhart MD [address] [place] [address] Primary Staff Physician Cardiology 01/23/21 Maggy Arizmendi PA-C [address] [facility] Physician [place], [place] [phone] Hematology/Oncology 06/17/23 Food And Beverage Order Clerk Relationship Specialty Start Date End Date No, Referral Referring 06/15/18 Beto Barnhart MD [address] [place] [address] Primary Staff Physician Cardiology 01/23/21 Maggy Arizmendi PA-C [address] [facility] [place] [address] Hematology/Oncology 06/17/23 Food And Beverage Order Clerk Relationship Specialty Start Date End Date No, Referral Referring 06/15/18 Beto Barnhart MD [address] [place] [address] Primary Staff Physician Cardiology 01/23/21 Maggy Arizmendi PA-C [address] [facility] Physician [place] [phone] Hematology/Oncology 06/17/23 Food And Beverage Order Clerk Relationship Specialty Start Date End Date Maggy Arizmendi PA-C [address] [facility] [place] [address] PCP - General 09/02/22 Food And Beverage Order Clerk Relationship Specialty Start Date End Date No, Referral Referring 06/15/18 Beto Barnhart MD [address] [place] [address] Primary Staff Physician Cardiology 01/23/21 Maggy Arizmendi PA-C [address] [facility] [place] [address] Hematology/Oncology 06/17/23 Food And Beverage Order Clerk Relationship Specialty Start Date End Date Maggy Arizmendi PA-C [address] [facility] [place] [address] PCP - General 09/02/22 Food And Beverage Order Clerk Relationship Specialty Start Date End Date No, Referral Referring 06/15/18 Beto Barnhart MD [address] [facility] [place] [address] Primary Staff Physician Cardiology 01/23/21 Maggy Arizmendi PA-C [address] [facility] [place] [address] Hematology/Oncology 06/17/23 Food And Beverage Order Clerk Relationship Specialty Start Date End Date No, Referral Referring 06/15/18 Beto Barnhart MD [address] [place] [address] Primary Staff Physician Cardiology 01/23/21 Maggy Arizmendi PA-C [address] [facility] [place] [address] Hematology/Oncology 06/17/23 FOR RECORDS PERTAINING TO PATIENTS WHO ARE [...] BE BASED ON THE PRIMARY CLINICAL RECORDS. [facility]. provides no warranty or guarantee of the accuracy or completeness of information in this document.
== END | disposition home or self-care (01) ==
LOC: LAB 13:42
PROVIDERS: PCP Internal Medicine; Referring Provider Physician Assistant Medical; Visit Provider Physician Assistant Medical
DX: I25.10 Atherosclerotic heart disease of native coronary artery without angina pectoris (principal); I50.23 Acute on chronic systolic (congestive) heart failure; I48.19 Other persistent atrial fibrillation; I25.5 Ischemic cardiomyopathy; Z79.01 Long term (current) use of anticoagulants; Z79.899 Other long term (current) drug therapy
CPT/HCPCS: 36415; 80048; 83880; 85025

== ENCOUNTER → 2023-09-24 | Outpatient (CLI) | payer MEDICARE, SELFPAY ==
--- NOTE | 2023-09-24 13:47 | ECHOLC_ITS ---
Reason For Study: Cardiomyopathy Procedure This was a limited 2D transthoracic echocardiogram. The study was technically difficult. Contrast injection was performed. Exam performed in department. Left Ventricle Normal LV size. The estimated ejection fraction is 20 %. There is moderate to severe global hypokinesis of the left ventricle. Right Ventricle Normal RV size. ICD or pacer leads identified within the right ventricle. Normal systolic function. Atria Normal left atrium. Normal right atrium. Mitral Valve Normal mitral valve. Tricuspid Valve Normal tricuspid valve. Mild to moderate (1-2+) tricuspid valve insufficiency. Pulmonary artery systolic pressure is 47 mmHg. Aortic Valve Trisinus/trileaflet aortic valve. Mild focal aortic valve calcification. Pulmonic Valve The pulmonic valve is not well visualized. Great Vessels Normal aortic root. The pulmonary is not well visualized. Normal inferior vena cava. Pericardium/Pleural No pericardial effusion. Medication 22 gauge I.V. with prn adaptor inserted into right arm. Diluted definity 2ml given slow IV push to enhance endocardial definition. MMode/2D Measurements & Calculations LVIDd: 5.3 cm IVSd: 0.80 cm LA dimension: 4.6 cm LVIDs: 4.7 cm LVPWd: 0.83 cm FS: 12.4 % LVAd ap4: 42.8 cm2 SV(MOD-sp4): 30.0 ml SV(sp4-el): 37.5 ml LVLd ap4: 8.8 cm EDV(MOD-sp4): 169.2 ml EDV(sp4-el): 176.1 ml LVAs ap4: 38.4 cm2 LVLs ap4: 9.0 cm ESV(MOD-sp4): 139.2 ml ESV(sp4-el): 138.6 ml EF(MOD-sp4): 17.7 % EF(sp4-el): 21.3 % Doppler Measurements & Calculations TR max gemma: 325.4 cm/sec TR max P.3 mmHg ECHO/Echo Limited w/Contrast Interpretation Summary Normal LV size. The estimated ejection fraction is 20 %. There is moderate to severe global hypokinesis of the left ventricle. Pulmonary artery systolic pressure is 47 mmHg. Contrast injection was performed. Ordering Physician: Jane Weinstein Referring Physician: Jane Weinstein Performed By: Luiz Funez RCS
--- OUTSIDE RECORDS SUMMARY | 2023-09-24 18:51 | XMS RPT_ITS | CCD ---
Author Name Unknown Address [address] [place] [address] Organization [facility] Care Team Providers Care Leaf Blender Name Role Phone GARO VELIZ Unavailable Unavailable [...] Dr. Hipolito Camacho Referring Unavail able DOUG, ELECTRONICS RESEARCH ENGINEER, DNP KARINA CLARK Attending Unava ilable Newbill, [...] Referral Unavailable Unavailable Beto Barnhart MD Unavailable Newbill PA-C, Maggy M Unavailable Newbill PA-C, Maggy M Primary Care Provider NEWBILL, MAGGY M Referring Unavailable NEWBILL, MAGGY M Primary Care Unavailable NEWBILL, MAGGY M Primary Care Unavailable NEWBILL, MAGGY M Attending Unavailable NEWBILL, MAGGY M Primary Care Unavailable KARINA CAMACHO Attending Unavailable NEWBILL, MAGGY M Primary Care Unavailable KOCHAR, ARSHNEEL Referring Unavailable KOCHAR, ARSHNEEL Attending Unavailable KOCHAR, ARSHNEEL Referring Unavailable KOCHAR, ARSHNEEL Referring Unavailable KOCHAR, ARSHNEEL Referring Unavailable KOCHAR, ARSHNEEL Referring Unavailable Allergies Allergy Classification Reported Allergen(s) Allergy Type Date of Onset Reaction(s) Facility (6 sources) bee pollen Allergy to substance (finding) [facility] Work Phone: (10 sources) Bee pollen; Translations: [BEE POLLEN] Drug Allergy 9 Other: See Comments [facility] (9 sources) ragwee, pollen [Other] Propensity to adverse reactions 6 [facility] (1 source) OTHER; Translations: [OTHER] Propensity to adverse reactions (disorder) 6 [facility] Repository Medications Current Medications Medication Drug [...] 06-29-2023 13:08-0500 Body height 185.4 cm Maggy Nihon Gigei-C Work Phone: [facility] 06-29-2023 13:08-0500 Body mass index (BMI) [Ratio] 31.29 kg/m2 Maggy OpenWhere PA-C Work Phone: [facility] 06-29-2023 13:08-0500 Body temperature 97.11 [degF] Maggy Easycausel PA-C Work Phone: [facility] 06-29-2023 13:08-0500 Body weight 107.59 kg Maggy OpenWhere PA-C Work Phone: [facility] 06-29-2023 13:08-0500 Diastolic blood pressure 88 mm[Hg] Maggy OpenWhere PA-C Work Phone: [facility] 06-29-2023 13:08-0500 Heart rate 69 /min Maggy OpenWhere PA-C Work Phone: [facility] 06-29-2023 13:08-0500 SaO2% (BldA) [Mass fraction] 94 % Maggy Arizmendi PA-C Work Phone: [facility] 06-29-2023 13:08-0500 Systolic blood pressure 126 mm[Hg] Maggy Arizmendi PA-C Work Phone: [facility] 06-17-2023 15:20-0500 Body height 185.4 cm Garland Escobar MD Work Phone: [facility] 06-17-2023 15:20-0500 Body weight 110.22 kg Garland Escobar MD Work Phone: [facility] 06-17-2023 15:20-0500 Diastolic blood pressure 81 mm[Hg] Garland Escobar MD Work Phone: [facility] 06-17-2023 15:20-0500 Heart rate 69 /min Garland Escobar MD Work Phone: [facility] 06-17-2023 15:20-0500 Systolic blood pressure 120 mm[Hg] Garland Escobar MD Work Phone: [facility] 01-28-2023 10:06-0400 Body mass index (BMI) [Ratio] 32.48 kg/m2 Maggy Arizmendi Work Phone: [facility] 3 DO Work Phone: 01-28-2023 10:06-0400 Body surface area Derived from formula 2.35 m2 Maggy Arizmendi Work Phone: [facility] Uli 3 DO Work Phone: 01-28-2023 10:06-0400 Body weight 111.68 kg Maggy Arizmendi Work Phone: [facility] Uli 3 DO Work Phone: 01-28-2023 10:06-0400 Diastolic blood pressure 80 mm[Hg] Maggy M Newbill Work Phone: [facility] Uli 3 DO Work Phone: 01-28-2023 10:06-0400 Heart rate 58 /min Maggy M Newbill Work Phone: [facility] Uli 3 DO Work Phone: 01-28-2023 10:06-0400 SaO2% (BldA) [Mass fraction] 95 % Maggy M Newbill Work Phone: [facility] 3 DO Work Phone: 01-28-2023 10:06-0400 Systolic blood pressure 126 mm[Hg] Maggy M Newbill Work Phone: [facility] 3 DO Work Phone: 09-23-2022 13:33-0500 Body mass index (BMI) [Ratio] 33.33 kg/m2 Maggy Augusta Newbill Work Phone: [facility] Work Phone: 09-23-2022 13:33-0500 Body surface area Derived from formula 2.38 m2 Maggy Augusta Newbill Work Phone: [facility] Work Phone: 09-23-2022 13:33-0500 Body weight 114.58 kg Maggy M Newbill Work Phone: [facility] Work Phone: 09-23-2022 13:33-0500 Diastolic blood pressure 80 mm[Hg] Maggy M Newbill Work Phone: [facility] Work Phone: 09-23-2022 13:33-0500 Heart rate 49 /min Maggy M Newbill Work Phone: [facility] Work Phone: 09-23-2022 13:33-0500 SaO2% (BldA) [Mass fraction] 97 % Maggy Terrazas Work Phone: [facility] Work Phone: 09-23-2022 13:33-0500 Systolic blood pressure 102 mm[Hg] Maggy Terrazasl Work Phone: [facility] Work Phone: 09-02-2022 14:25-0500 Body height 185.42 cm Maggy Terrazasl Work Phone: [facility] Work Phone: 09-02-2022 14:25-0500 Body mass index (BMI) [Ratio] 33.19 kg/m2 Maggy Terrazasl Work Phone: [facility] Work Phone: 09-02-2022 14:25-0500 Body surface area Derived from formula 2.37 m2 Maggy Arizmendi Work Phone: [facility] Work Phone: 09-02-2022 14:25-0500 Body temperature 97.5 [degF] Maggy Arizmendi Work Phone: [facility] Work Phone: 09-02-2022 14:25-0500 Body weight 114.13 kg Maggy Arizmendi Work Phone: [facility] Work Phone: 09-02-2022 14:25-0500 Diastolic blood pressure 86 mm[Hg] Maggy Augusta Terrazasl Work Phone: [facility] Work Phone: 09-02-2022 14:25-0500 Heart rate 56 /min Maggy Terrazasl Work Phone: [facility] Work Phone: 09-02-2022 14:25-0500 SaO2% (BldA) [Mass fraction] 99 % Maggy Arizmendi Work Phone: [facility] Work Phone: 09-02-2022 14:25-0500 Systolic blood pressure 148 mm[Hg] Maggy Arizmendi Work Phone: [facility] Work Phone: Encounters Encounter Date Encounter Type Care Provider Facility Start: 08-26-2023 Telephone encounter Garland mcdaniels MD Work Phone: Cardiology Procedures Date Procedure Procedure Detail Performing Clinician Start: 08-26-2023 Antibody screen MARBELLA ESCOBAR Plan of Treatment Date Care Activity Detail Author Start: 12-27-2027 Lipid 1996 panel - Serum or Plasma Lipid Screening [facility] Start: 12-27-2027 Lipid panel [facility] Start: 08-26-2026 Diabetes Screening Diabetes Screening [facility] Start: 06-17-2026 Diabetes Screening Diabetes Screening [facility] Start: 06-17-2024 Thyroid stimulating hormone measurement TSH Level [facility] Start: 09-05-2023 Thyroid stimulating hormone measurement TSH Level [facility] Start: 09-02-2023 FUV, Provider: Maggy Arizmendi, Status: Pen, Time: 10:30 AM FUV, Provider: Maggy Arizmendi, Status: Pen, Time: 10:30 AM [facility] Work Phone: Start: 09-02-2023 End: 09-02-2023 Patient encounter procedure 09/02/2023 10:30 AM EST Office Visit [facility] [address] [place] [address] Maggy Arizmendi PA-C [address] [facility] [place] [address] [facility] Start: 08-20-2023 End: 06-30-2024 Basic metabolic 2000 panel - Serum or Plasma BASIC METABOLIC PNL Lab Routine Paroxysmal atrial fibrillation (HCC) Expected: 08/20/2023, Expires: 06/30/2024 [facility] Work Phone: Immunizations Immunization Date Immunization Notes Care Provider Jennifer damon 06-02-1993 hepatitis B vaccine, pediatric or pediatric/adolescent dosage Maggy M Newbill Work Phone: [facility] Work Phone: 12-29-1992 hepatitis B vaccine, pediatric or pediatric/adolescent dosage Maggy M Newbill Work Phone: [facility] Work Phone: 12-29-1992 TD(adult) unspecifie d formulation Maggy M Newbill Work Phone: [facility] Work Phone: 11-24-1992 hepatitis B vaccine, pediatric or pediatric/adolescent dosage Maggy M Newbill Work Phone: [facility] Work Phone: Payers Date Payer Category Payer Medicare [id number] 2022 Medicare [id number] 2017 Unknown 2015 Unknown [id number] 1957 Unknown [id number] 2.16.84 [id number] 1957 Unknown [id number] 2.16.84 0.1.295105.3.579.2 1957 Unknown [id number] 2.16.84 0.1.603231.3.579.2 1957 Unknown [id number] 2.16.84 0.1.892879.3.579.2. 1957 Unknown [id number] 2.16.84 0.1.833776.3.579.2.717 1957 Unknown [id number] 2.16.84 0.1.550717.3.579.2.717 1957 Unknown [id number] 2.16.8 40.1.673516.3.579.2.1069 1957 Unknown [id number] 2.16.8 40.1.622078.3.579.2.9 1957 Unknown [id number] 2.16.8 40.1.868534.3.579.2.1069 1957 Unknown [id number] 2.16.8 40.1.981954.3.579.2.9 1957 Unknown [id number] 2.16. 840.1.121522.3.579.2.356 1957 Unknown [id number] 2.16. 840.1.466155.3.579.2.356 1957 Unknown [id number] 2.16. 840.1.733706.3.579.2.356 1957 Unknown [id number] 2.16. 840.1.503214.3.579.2.356 1957 Unknown [id number] 2.16.84 0.1.990251.3.579.2.1243 1957 Unknown [id number] 2.16.8 40.1.641328.3.579.2.5 1957 Unknown [id number] 2.16.8 40.1.305048.3.579.2.1244 1957 Unknown [id number] 2.16.8 40.1.000593.3.579.2.1244 Social History Date Type Detail Facility Start: 12-19-2019 End: 06-17-2023 Patient consumes caffeinated coffee Patient consumes caffeinated coffee [facility] Start: 02-01-2018 End: 06-17-2023 Tobacco smoking status NHIS Never smoked tobacco [facility] Start: 02-01-2018 End: 06-17-2023 Tobacco use and exposure Former smokeless tobacco user [facility] End: 2018 History of tobacco use Chews Tobacco [facility] Start: 01-18-2020 End: 06-29-2023 Alcohol intake Ex-drinker (finding) [facility] Start: 12-19-2019 End: 06-17-2023 Alcohol Use Disorder Identification Test - Consumption [AUDIT-C] [facility] How often to you hav e a drink containing alcohol? Never [facility] Average Number of Drinks Not on file [facility] Start: 06-08-2015 End: 06-17-2023 Tobacco Comment 1 can every 4-5 days [facility] Start: 1955 Sex Assigned At Not on file [facility] Start: 06-17-2023 Alcohol intake Current drinker of alcohol (finding) [facility] Start: 06-17-2023 Alcohol Comment rare, few times a year [facility] Start: 06-29-2023 Tobacco use and exposure Smokeless tobacco non-user [facility] Work Phone: Start: 06-19-2023 End: 06-29-2023 Exposure to SARS-CoV-2 (event) Not sure [facility] Clinical Notes 04-26-2021 to 08-26-2023 Telephone Encounter [...] reinforced. Stated understanding. documented in this encounter [facility] 08-26-2023 Note HNO ID: [id number] Author: DARRYL RODRÍGUEZ RT(R) Service: Radiology Author [...] PATIENT PRESENTS WITH AN IMPLANTABLE OR ATTACHED EXHAUST EMISSIONS AUTOMOTIVE TECHNICIAN: No RADIOLOGY DEPARTMENT: General X-ray: Exam(s) Completed: Chest X-Ray PERIPHERAL IV DATA: Not applicable SIGNED BY: RT Renee(R) August 26, 2023 11:18 AM [facility] 08-24-2023 Miscellaneous Notes Left message for patient to hold Farxiga for 3 days prior to procedure and EP Scheduling number to call if patient has any questions. Fior Rodriguez RN, RN documented in this encounter [facility] 06-30-2023 Miscellaneous Notes The date of [...] Lab Procedure requested: Ablations PVI ablation CPT 41284 Anticoagulation Status: Eliquis (apixaban) Requesting Physician: Garland [...] 2023 2:03 PM documented in this encounter [facility] 06-29-2023 History of Present illness Narrative [...] failure type (CMS/HCC) documented in this encounter [facility] Work Phone: 06-22-2023 Miscellaneous Notes Called patient in attempt to schedule DCC as requested by Dr. Escobar. The patient stated that he is going to have it done locally at [place]. Leonor Grant RN ----- Message from Garland Escobar MD sent at 06/21/2023 2:02 PM EST ----- Regarding: DCCV Please schedule patient for DCC. Timeframe: now Date of last H&P: 06/17/23 Three weeks uninterrupted anticoagulation: Yes MAVERICK needed: No Special instructions: None Garland Escobar MD June 21, 2023 2:02 PM documented in this encounter [facility] 06-17-2023 Note HNO ID: [id number] Author: Garland Escobar MD Service: ? Author Type: Physician Type: Progress Notes Filed: 06/21/2023 2:05 PM Note Text: [facility] Department of Cardiovascular Medicine SECTION OF CARDIAC PACING and ELECTROPHYSIOLOGY OUTPATIENT VISIT DATE June 17, 2023 OUTPATIENT VISIT TYPE NEW PRIMARY CARE PHYSICIAN: Dayo Avilez [address] [place] [address] REFERRING PHYSICIAN: SELF CHIEF COMPLAINT: Atrial fibrillation/flutter [...] Itching-No. Hematological: Eas (more content not included)... [facility] 06-17-2023 Instructions Garland Escobar MD - 06/17/2023 [...] heart squeeze function documented in this encounter [facility] 06-17-2023 History of Present illness Narrative Images from the original note were not included. [facility] Department of Cardiovascular Medicine SECTION OF CARDIAC PACING and ELECTROPHYSIOLOGY OUTPATIENT VISIT DATE June 17, 2023 OUTPATIENT VISIT TYPE NEW PRIMARY CARE PHYSICIAN: Dayo Avilez [address] [place] [address] [place] [address] REFERRING PHYSICIAN: SELF CHIEF COMPLAINT: Atrial fibrillation/flutter [...] 06/17/2023 PRESENTS FOR: patient is new to [facility] and has OPD with Dr. Escobar PRESENTING EGM: VS , irregular R-R intervals UNDERLYING RHYTHM: AFL per today's EKG BATTERY STATUS: Estimated time remaining to [facility] is 14 years COUNTERS SINCE: past one year ATRIAL ARRHYTHMIAS: no atrial diagnostics. On eliquis per [facility] VENTRICULAR ARRHYTHMIAS: There have been no ventricular [...] single chamber ICD - consider upgrade to LENS GRINDER-D, EKG today with QRS 150, left bundloid IVCD (S waves in V5/V6) I personally interviewed, confirmed and edited the above information as obtained by others. CONTACT INFORMATION: Garland Escobar MD documented in this encounter [facility] 06-15-2023 Miscellaneous Notes Referral and outside medical records scanned into [employer]. Referral routed to appointment desk for appropriate scheduling. documented in this encounter [facility] 09-17-2022 History of Present illness Narrative [...] breathHis blood pressure has been well controlled [facility] Work Phone: 04-26-2021 [...] flex band for stretches this date. [facility] Work Phone: [facility] Diagnosis Atrial fibrillation, persistent (HCC)- Primary Atrial fibrillation Encounter for therapeutic drug monitoring Heart failure with reduced ejection fraction (HCC) Heart failure, unspecified [facility] Diagnosis 3+ pitting edema- Primary Acute stasis dermatitis of right lower extremity Stasis leg ulcer, right (CMS/HCC) Heart failure, unspecified HF chronicity, unspecified heart failure type (CMS/HCC) documented in this encounter [facility] Work Phone: Evaluation note* Diagnosis Paroxysmal atrial fibrillation (HCC)- Primary Atrial fibrillation [facility] Diagnosis Edema, unspecified documented in this encounter [facility] Work Phone: History of Present illness Narrative* [...] of motion/joint mobility, strength and transfers. [facility] Work Phone: History of Present illness Narrative* Pt confirmed via and Full Name. * Pt presented with Tennis shoe on RLE and Pneumatic Boot on LLE this date. Edu to bring additional tennis shoe at next visits to allow for better performance of OKC exercises until weight bearing outside of boot is allowed. Difficulty with fine motor with marble potato picker. Added vasopneumatic device with cold at end of session to improve edema in Left Ankle with good response from pt. [facility] Work Phone: History of Present illness NarrativeAdded [...] F/U of the persistent area. [facility] Work Phone: History of Present illness NarrativeEncouraged [...] this date after consult with PT. [facility] Work Phone: History of Present illness NarrativePatient was able to complete PRE's better this date in standing vs last visit when he had a lot of discomfort. Improved ROM with heel and toe raises this date in the clinic. Cues to ambulate with feet facing forward d/t exaggerated ER of the LE's, L >R. [facility] Work Phone: Hisscjs of Present illness Narrative* Was able to add increased standing and proprioception exercises this date. Patient did have to takestanding rest breaks throughout. * Response to treatment: no change in pain, improved motor control and improved knowledge and understanding of condition. [facility] Work Phone: history of Present illness Narrative* [...] and improved knowledge and understanding of condition. [facility] Work Phone: history of Present illness Narrative* [...] done with therapy after final visit with DOCUMENTATION LEAD this upcoming Thursday. He does still have ROM deficits into Left ankle DF and PF, but has demonstrated improved range compared to evaluation. * Response to treatment: no change in pain, improved strength, improved motor control, improved posture, improved gait and improved knowledge and understanding of condition. [facility] Work Phone: History of Present illness Narrative* [...] done with therapy after final visit with DOCUMENTATION LEAD this upcoming Thursday. He does still have ROM deficits into Left ankle DF and PF, but has demonstrated improved range compared to evaluation. * Response to treatment: no change in pain, improved strength, improved motor control, improved posture, improved gait and improved knowledge and understanding of condition. [facility] Work Phone: History of Present illness Narrative* [...] and improved knowledge and understanding of condition. [facility] Work Phone: History of Present illness Narrative* Patient presents to establish care. * Patient has medical history of A-fib, CA, bilateral PEs, and hypertension currently managed with [...] not seen primary care in several years. [facility] Work Phone: History of Present illness Narrative* Patient presents to establish care. * Patient has medical history of A-fib, CA, bilateral PEs, and hypertension currently managed with [...] not seen primary care in several years. [facility] Work Phone: History of Present illness Narrative* Patient presents to [facility]. * Patient has medical history of A-fib, CA, bilateral PEs, and hypertension currently managed with [...] not seen primary care in several years. [facility] Work Phone: reason for referral (narrative)* Outpatient Procedure (Routine) - Authorized Specialty Diagnoses / Procedures Referred By Kasie gordon Ref[facility] Diagnoses PAF (paroxysmal atrial fibrillation) (HCC) Procedures ECG COMPLETE ECG ROUTINE ECG W/LEAST 12 LDS W/I&R Garland Escobar MD [address] [place], [place] [id number] [place] [address] Referral ID Status Reason Start Date Expiration Date Visits Requested Visits Authorized [id number] Authorized Auto-Generat ed Referral 3 06/14/2024 1 1 [facility] for visit Narrative* Initial Evaluation . Left Ankle Sprain. * Referred by: Catie Wahl [facility] Work Phone: Summary Purpose Family History No [...] FOLLOW UP APPT ORDER Garland Escobar MD [address] [place] [address] Referral ID Status Reason Start Date Expiration Date Visits Requested Visits Authorized [id number] Ref Not Required PCP Requested Referral 06/21/2023 06/20/2024 1 1 Specialty Diagnoses / Procedures Referred By Contac t Referred To Contact [facility] Diagnoses Paroxysmal atrial fibrillation (HCC) Encounter for therapeutic drug monitoring Procedures SPIROMETRY BASELINE ONLY SPMTRY W/VC EXPIRATORY KAITLIN W/WO MXML VOL VNTJ Garland Escobar MD [address] [place] [address] [address] Referral ID Status Reason Start Date Expiration Date Visits Requested Visits Authorized [id number] Pending Review Auto-Generat ed Referral 06/21/2023 07/20/2024 1 1 Specialty Diagnoses / Procedures Referred By Contac t Referred To Contact [facility] Diagnoses Paroxysmal atrial fibrillation (HCC) Encounter for therapeutic drug monitoring Procedures LUNG DIFFUSION CAPACITY (DLCO) DIFFUSING CAPACITY Garland Escobar MD [address] [place] [address] [address] Referral ID Status Reason Start Date Expiration Date Visits Requested Visits Authorized [id number] Pending Review Auto-Generat ed Referral 06/21/2023 07/20/2024 1 1 Specialty Diagnoses / Procedures Referred By Contac t Referred To Contact Radiology Diagnoses 3+ pitting edema Acute stasis dermatitis of right lower extremity Stasis leg ulcer, right (CMS/HCC) Procedures XR chest 2 views Maggy Arizmendi PA-C [address] [facility] [place] [address] Referral ID Status Reason Start Date Expiration Date Visits Requested Visits Authorized [id number] Authorized Perform Procedure 3 06/28/2024 1 1 Specialty Diagnoses / Procedures Referred By Contac t Referred To Contact Radiology Diagnoses Edema, unspecified Procedures XR chest 2 views Maggy Arizmendi PA-C [address] [facility] [place] [address] Referral ID Status Reason Start Date Expiration Date Visits Requested Visits Authorized [id number] Authorized Perform Procedure 3 06/28/2024 1 1 Additional Source Comments (unrecognized sect ion and content) No Status Records FoundNo Status Records FoundNo Status Records FoundNo Status Records FoundNo Status Records FoundNo Status Records FoundNo Status Records FoundNo Status Records FoundNo Status Records FoundNo Status Records FoundNo Status Records Found INFORMATION SOURCE (unrecogn ized section and content) DATE CREATED AUTHOR AUTHOR'S ORGANIZ ATION 03/09/2018 [facility] DATE CREATED AUTHOR AUTHOR'S ORGANIZ ATION 11/14/2018 Merged with [facility] DATE CREATED AUTHOR AUTHOR'S ORGANIZ ATION 01/30/2019 [facility] DATE CREATED AUTHOR AUTHOR'S ORGANIZ ATION 10/26/2022 Merged with [facility] DATE CREATED AUTHOR AUTHOR'S ORGANIZ ATION 01/29/2023 [facility] DATE CREATED AUTHOR AUTHOR'S ORGANIZ ATION 01/29/2023 [facility] DATE CREATED AUTHOR AUTHOR'S ORGANIZ ATION 07/01/[address] [facility] DATE CREATED AUTHOR AUTHOR'S ORGANIZ ATION 07/05/[address] [facility] [facility] DATE CREATED AUTHOR AUTHOR'S ORGANIZ ATION 08/02/2023 [facility] DATE CREATED AUTHOR AUTHOR'S ORGANIZ ATION 08/28/2023 [facility] Comments (unrecognize d section and content) In the event this informatio n is protected by the [facility] Confidentiality of Alcohol and Drug Abuse Patient Records regulations: The Federal rules restrict any use of the information to criminally investigate or prosecute any alcohol or drug abuse patient.[facility] the event this information is protected by the Federal Confidentiality of Alcohol and Drug Abuse Patient Records regulations: The Federal rules restrict any use of the information to criminally investigate or prosecute any alcohol or drug abuse patient.[facility] the event this information is protected by the Federal Confidentiality of Alcohol and Drug Abuse Patient Records regulations: The Federal rules restrict any use of the information to criminally investigate or prosecute any alcohol or drug abuse patient.[facility] the event this information is protected by the Federal Confidentiality of Alcohol and Drug Abuse Patient Records regulations: The Federal rules restrict any use of the information to criminally investigate or prosecute any alcohol or drug abuse patient.[facility] the event this information is protected by the Federal Confidentiality of Alcohol and Drug Abuse Patient Records regulations: The Federal rules restrict any use of the information to criminally investigate or prosecute any alcohol or drug abuse patient.[facility] the event this information is protected by the Federal Confidentiality of Alcohol and Drug Abuse Patient Records regulations: The Federal rules restrict any use of the information to criminally investigate or prosecute any alcohol or drug abuse patient.[facility] the event this information is protected by the Federal Confidentiality of Alcohol and Drug Abuse Patient Records regulations: The Federal rules restrict any use of the information to criminally investigate or prosecute any alcohol or drug abuse patient.[facility] the event this information is protected by the Federal Confidentiality of Alcohol and Drug Abuse Patient Records regulations: The Federal rules restrict any use of the information to criminally investigate or prosecute any alcohol or drug abuse patient.[facility] the event this information is protected by the Federal Confidentiality of Alcohol and Drug Abuse Patient Records regulations: The Federal rules restrict any use of the information to criminally investigate or prosecute any alcohol or drug abuse patient.[facility] Reason for Visit (unrecogniz ed section [...] chest 2 views Maggy Arizmendi PA-C [address] [facility] [place] [address] Referral ID Status Reason Start Date Expiration Date Visits Requested Visits Authorized [id number] Authorized Perform Procedure 3 06/28/2024 1 1 Reason Comments Procedure EP: PVI/ AFL RFA (pr e procedure medication instructions) Reason Comments Appointment Rescheduled Due to change in physician's schedule Care Teams (unrecognized sec tion and content) Leaf Blender Relationship Specialty Start Date End Date Dayo Avilez MD [address] [place] [id number] PCP - General Family Medicine 03/18/18 No, Referral Referring 06/15/18 Beto Barnhart MD [address] [place] [address] Primary Staff Physician Cardiology 01/23/21 Leaf Blender Relationship Specialty Start Date End Date No, Referral Referring 06/15/18 Beto Barnhart MD [address] [place] [address] Primary Staff Physician Cardiology 01/23/21 Maggy Arizmendi PA-C [address] [facility] Phys[facility] [place], [place] [id number] Hematology/Oncology 06/17/23 Leaf Blender Relationship Specialty Start Date End Date No, Referral Referring 06/15/18 Beto Barnhart MD [address] [place] [address] Primary Staff Physician Cardiology 01/23/21 Maggy Arizmendi PA-C [address] [facility] [place] [address] Hematology/Oncology 06/17/23 Leaf Blender Relationship Specialty Start Date End Date No, Referral Referring 06/15/18 Beto Barnhart MD [address] [place] [address] Primary Staff Physician Cardiology 01/23/21 Maggy Arizmendi PA-C [address] [facility] Physician [place] [phone] Hematology/Oncology 06/17/23 Leaf Blender Relationship Specialty Start Date End Date Maggy Arizmendi PA-C [address] [facility] [place] [address] PCP - General 09/02/22 Leaf Blender Relationship Specialty Start Date End Date No, Referral Referring 06/15/18 Beto Barnhart MD [address] [place] [address] Primary Staff Physician Cardiology 01/23/21 Maggy Arizmendi PA-C [address] [facility] [place] [address] Hematology/Oncology 06/17/23 Leaf Blender Relationship Specialty Start Date End Date Maggy Arizmendi PA-C [address] [facility] [place] [address] PCP - General 09/02/22 Leaf Blender Relationship Specialty Start Date End Date No, Referral Referring 06/15/18 [facility]o Barnhart MD [address] [facility] [address] Primary Staff Physician Cardiology 01/23/21 Maggy Arizmendi PA-C [address] [facility] [place] [address] Hematology/Oncology 06/17/23 Leaf Blender Relationship Specialty Start Date End Date No, Referral Referring 06/15/18 Beto Barnhart MD [address] [place] [address] Primary Staff Physician Cardiology 01/23/21 Maggy Arizmendi PA-C [address] [facility] [place] [address] Hematology/Oncology 06/17/23 FOR RECORDS PERTAINING TO PATIENTS [...] BE BASED ON THE PRIMARY CLINICAL RECORDS. [employer] [facility]. provides no warranty or guarantee of the accuracy or completeness of information in this document.
== END | disposition home or self-care (01) ==
PROVIDERS: PCP Internal Medicine; Referring Provider Nurse Practitioner Gerontology; Visit Provider Nurse Practitioner Gerontology
DX: R06.00 Dyspnea, unspecified (principal); I42.9 Cardiomyopathy, unspecified
CPT/HCPCS: 93308; Q9957; A4216; C8924

== ENCOUNTER 2024-02-29 17:56 | Emergency (ER) | payer MEDICARE, SELFPAY ==
[2024-02-29 17:57] VITALS: BP 157/88; PULSE 65; RESP 16; TEMP 36.3; O2SAT 99; BMI 30.9
[2024-02-29] MEDS: Morphine 4 MG/ML Syringe IV (22:26)
[2024-02-29] MEDS: Piperacil/Tazobactam 3.375 GM in 0.9% Normal Saline (50mL MB+) 50 ML IV (22:26)
[2024-02-29] MEDS: Ondansetron 4 MG/2 ML Vial IV (22:26)
[2024-02-29 22:35] VITALS: BP 114/86; PULSE 52; RESP 16; TEMP 36.8; O2SAT 97
[2024-02-29 22:35] LABS: Absolute Lymphocyte Count 1.62 X10^3/uL (0.83-4.51); Absolute Neutrophil Count 4.1 X10^3/uL (2.0-7.7); Basophil# 0.05 X10^3/uL; Basophil% 0.8 % (0-1); Eosinophil# 0.05 X10^3/uL; Eosinophils% 0.8 % (0-5); Hematocrit 47.7 % (40-54); Hemoglobin 16.1 g/dL (13.0-16.5); Lymphocyte # 1.62 X10^3/ul (0.83-4.51); Lymphocyte % 24.6 % (19-41); Mean Corp Hgb Conc 33.8 g/dL (32-36); Mean Corpuscular Hgb 30.8 pg (27.0-32.0); Mean Corpuscular Volume 91.4 fL (80-94); Mean Platelet Vol. 10.4 fl (6.2-12.0); Monocyte# 0.78 X10^3/uL; Monocyte% 11.9 % (0-10); NRBC Flagged by Analyzer 0 % (0-5); Neutrophil # 4.05 X10^3/uL (2.7-7.7); Neutrophil % 61.4 % (47-70); Platelet Count 185 K/mm3 (150-450); RBC Distribution Width SD 43.5 fl (35.1-43.9); Red Blood Count 5.22 M/mm3 (4.6-6.2); White Blood Count 6.6 K/mm3 (4.4-11.0)
--- NOTE | 2024-02-29 22:40 | RAD_ITS ---
INDICATION: ? osteo EXAMINATION/TECHNIQUE: X-RAY - LEFT XR Hand Min 3 Views 3 VIEWS COMPARISON: FINDINGS: SOFT TISSUES: There is soft tissue swelling to subcutaneous gas. No radiopaque foreign body. BONES/JOINTS: No acute fracture or subluxation.. Normal alignment. Preservation of the joint space.. No sclerotic or destructive changes observed. RAD/Hand Min 3 Views IMPRESSION: Soft tissue swelling. No radiographic evidence of osteomyelitis. Correlate with MRI if needed. Electronically Signed: Shekhar Tariq DO at 22:54 EDT ,
[2024-02-29 22:41] LABS: Erythrocyte Sedimentation Rate 12 mm/hr (0-20)
[2024-02-29 22:42] LABS: Anion Gap 2 (5-15); BUN 28 mg/dL (7-18); BUN/Creat Ratio 19.4 RATIO (10-20); Calcium,Total 9.4 mg/dL (8.5-10.1); Chloride 101 mmol/L (98-107); Creatinine, Serum 1.44 mg/dL (0.70-1.30); EST Glomerular Filtration Rate 52 mL/min (>60); Est Glom Filt Rate - Afr Amer 63 mL/min (>60); Estimated Creatinine Clearance 63.77 ml/min; Glucose 99 mg/dL (74-106); Potassium 3.8 mmol/L (3.5-5.1); Sodium Level 135 mmol/L (136-145)
[2024-02-29 22:57] LABS: Lactic Acid 1.2 mmol/L (0.4-1.9)
--- NOTE | 2024-02-29 23:27 | EX.ED.DYSGE1 ---
HPI History of Present Illness Chief Complaint: Edema Informant: patient and spouse/S.O. Narrative Narrative: Patient is a 69-year-old male with history of atrial fibrillation status post ablation but currently still on Eliquis. He states that he noticed he had some pain to the dorsal aspect of his left hand roughly 4 to 5 days ago. He states he does not member any trauma or potential injury to the hand prior to the pain beginning. He states he did not think much of it as he will occasionally get exacerbations of carpal tunnel with weather changes. However as time past he developed increased swelling and redness to the left hand and with concern for developing infection he comes in for evaluation. [facility] Medical History Atherosclerotic heart disease of [place] coronary artery without angina pectoris CAD in [place] artery Cardiomyopathy Essential hypertension HLD (hyperlipidemia) ICD (implantable cardioverter-defibrillator), single, in situ Ischemic cardiomyopathy New onset atrial fibrillation PAF (paroxysmal atrial fibrillation) Persistent atrial fibrillation Home Medications ?Medication ?Instructions ?Recorded ?Last Taken ?Type aspirin 81 mg chewable tablet 81 mg PO DAILY@0800 09/22/19 07/27/23 Rx cholecalciferol (vitamin D3) 50 6,000 unit PO DAILY SUPPLEMENT 01/25/20 03/27/20 History mcg (2,000 unit) capsule magnesium oxide 500 mg PO DAILY 05/22/22 Unknown History vitamin K2 45 mcg capsule 45 mcg PO DAILY 05/22/22 Unknown History amiodarone 200 mg tablet 200 mg PO DAILY heart #90 tabs 01/13/23 07/27/23 Rx dapagliflozin propanediol 10 mg 10 mg PO DAILY #30 tabs 04/17/23 Unknown Rx tablet (Farxiga) krill oil 500 mg capsule 1,000 mg PO DAILY 05/21/23 Unknown History nitroglycerin 0.4 mg sublingual 0.4 mg sublingual Q5M PRN CHEST 05/21/23 Unknown Rx tablet PAIN #25 tabs metoprolol succinate 50 mg 50 mg PO BID blood pressure #180 10/07/23 Unknown Rx tablet,extended release 24 hr tabs apixaban 5 mg tablet 5 mg PO BID blood thinner #180 tabs 11/18/23 Unknown Rx furosemide 40 mg tablet (Lasix) 40 mg PO BID 11/18/23 Unknown History pantoprazole 40 mg tablet,delayed 40 mg PO DAILY 11/18/23 Unknown History release spironolactone 25 mg tablet 25 mg PO DAILY #90 tabs 11/18/23 Unknown Rx amlodipine 5 mg tablet 5 mg PO DAILY #30 TABLETS 02/29/24 Unknown Rx clindamycin HCl 300 mg capsule 300 mg PO 4X/DAY 10 days #40 02/29/24 Unknown Rx (Cleocin HCl) CAPSULES oxycodone-acetaminophen 5 mg-325 1 tab PO Q6H PRN pain 3 days #12 02/29/24 Unknown Rx mg tablet (Percocet) tabs Allergy/AdvReac Type Severity Reaction Status Date / Time No Known Allergies Allergy Verified 02/29/24 17:57 Family History Father Heart disease Grandfather Diabetes Surgical History History of cardioversion (~11/05/21) S/P ablation of atrial fibrillation S/P PTCA (percutaneous transluminal coronary angioplasty) Social History Smoking Status: Never smoker alcohol intake: current alcohol intake frequency: holidays/special occasions only substance use type: does not use caffeine: Yes Type: coffee Number of servings: 1 ROS ROS ED Constitutional Constitutional ED: Denies chills or fever(s) ENT ENT ED: Denies sore throat Cardiovascular Cardiovascular: Denies chest pain Respiratory/Chest Respiratory/Chest: Denies cough or dyspnea Gastrointestinal Gastrointestinal: Denies abdominal pain, diarrhea, nausea or vomiting Genitourinary Genitourinary ED: Denies dysuria or hematuria Musculoskeletal Musculoskeletal: Reports other Details: Positive left hand pain and swelling Integumentary Reports other Details: Positive redness left hand ; Denies rash Neurologic Neurologic: Denies headache(s) Hematologic/Lymphatic Hematologic/Lymphatic: Reports easy bleeding and easy bruising EXAM Physical Exam Const Vital Signs: 02/29/24 17:57 02/29/24 22:35 02/29/24 23:30 Temperature 97.4 F L 98.3 F 97.8 F Temperature Source Temporal Oral Pulse Rate 65 52 L 48 L Respiratory Rate 16 16 16 Blood Pressure 157/88 H 114/86 H 111/69 Blood Pressure Mean 111 95 83 Pulse Ox 99 97 98 Oxygen Delivery Method Room Air Room Air Positive well nourished and well developed General Appearance ED: well developed HEENT Reports moist mucous membranes Eyes PERRL and EOMs intact bilaterally Neck supple Resp normal respiratory effort and clear to auscultation bilaterally Cardio regular rate and regular rhythm Extremity Extremity Narrative: Left upper extremity is neurovascularly intact. To the dorsal aspect of the left hand there is diffuse erythema and soft tissue swelling that extends from the MTPs to the wrist. There is no lymphangitic streaking. No obvious abscess formation. No bony deformity or joint effusion noted. Compartments are soft going against compartment syndrome Remainder the exam is normal Neuro oriented x3, CN's II-XII intact bilaterally and no sensory deficits noted Sensorium / Orientation: alert Motor Exam: strength 5/5 throughout Psych mental status grossly normal Skin Skin Narrative: Soft tissue swelling and erythema to the dorsal aspect of the left hand as documented above MDM MDM MDM Narrative Medical decision making narrative: Patient presented to the ER mildly hypertensive but otherwise with stable vitals. He reported pain to the left hand without trauma that increased in redness and swelling over the last few days. Differential diagnosis is for cellulitis versus abscess versus osteomyelitis. Secondary to his basic labs and a x-ray were obtained. Labs showed no leukocytosis or lactic acidosis or left shift. However his CRP was elevated at 73 consistent with inflammatory process. X-ray revealed no signs of bony injury such as fracture or osteomyelitis. Therefore at this time as the patient reports symptoms began without any type of trauma and there is asymmetric redness and swelling I do feel this is most likely cellulitis. As he did not have findings concerning for compartment syndrome or systemic infection or bony infection such as osteomyelitis I do not feel there is need for admission. Patient will be placed on antibiotics and is otherwise safe for discharge History & Record Review Discussion w/independent historian: Patient and Significant other Lab Data Attestation: I reviewed the patient's lab results. Labs: Laboratory Results - last 24 hr 02/29/24 22:23 WBC 6.6 RBC 5.22 Hgb 16.1 Hct 47.7 MCV 91.4 MCH 30.8 MCHC 33.8 RDW Std Deviation 43.5 RDW Coeff of Nichole 13.0 Plt Count 185 MPV 10.4 Immature Gran % (Auto) 0.500 Neut % (Auto) 61.4 Lymph % (Auto) 24.6 [place] % (Auto) 11.9 H Eos % (Auto) 0.8 Baso % (Auto) 0.8 Absolute Neuts (auto) 4.1 Absolute Lymphs (auto) 1.62 Nucleated RBC % 0 ESR 12 Sodium 135 L Potassium 3.8 Chloride 101 Carbon Dioxide 32.0 Anion Gap 2 L BUN 28 H Creatinine 1.44 H Estim Creat Clear Calc 63.77 Est GFR (MDRD) Af Amer 63 Est GFR (MDRD) Non-Af 52 L BUN/Creatinine Ratio 19.4 Glucose 99 Lactic Acid 1.2 Calcium 9.4 C-React Prot Ext Range 73.20 H Radiography Diagnostic Testing: Clinical Impression(s) from Imaging Studies Hand X-Ray 02/29/24 22:40 IMPRESSION: Soft tissue swelling. No radiographic evidence of osteomyelitis. Correlate with MRI if needed. Electronically Signed: Shekhar Tariq DO at 22:54 EDT Reading Location ID and State: [facility] / [place] Tel [phone], Service support , X-ray of the left hand as interpreted by the emergency medicine physician reveals no acute fracture or dislocation or retained foreign body Discharge Plan Triage Chief Complaint: Edema ED Provider: Hao Sheikh Dx/Rx/DC Orders Clinical Impression: Cellulitis of left hand, Essential hypertension, HLD (hyperlipidemia), shelter current use of anticoagulant Instructions: Cellulitis Dc Prescriptions: New clindamycin HCl [Cleocin HCl] 300 mg capsule 300 mg PO 4X/DAY 10 Days Qty: 40 0RF oxycodone-acetaminophen [Percocet] 5-325 mg tablet 1 tab PO Q6H PRN (Reason: pain) 3 Days Qty: 12 0RF No Action magnesium oxide 500 mg tablet 500 mg PO DAILY vitamin K2 45 mcg capsule 45 mcg PO DAILY krill oil 500 mg capsule 1,000 mg PO DAILY nitroglycerin 0.4 mg tablet, sublingual 0.4 mg SUBLINGUAL Q5M PRN (Reason: CHEST PAIN) Qty: 25 3RF amiodarone 200 mg tablet 200 mg PO DAILY Qty: 90 3RF furosemide [Lasix] 40 mg tablet 40 mg PO BID pantoprazole 40 mg tablet,delayed release (DR/EC) 40 mg PO DAILY apixaban 5 mg tablet 5 mg PO BID Qty: 180 3RF spironolactone 25 mg tablet 25 mg PO DAILY Qty: 90 3RF aspirin 81 MG tablet,chewable 81 mg PO DAILY@0800 0RF cholecalciferol (vitamin D3) 2,000 UNIT capsule 6,000 unit PO DAILY Farxiga 10 mg tablet 10 mg PO DAILY Qty: 30 11RF metoprolol succinate 50 mg tablet extended release 24 hr 50 mg PO BID Qty: 180 3RF amlodipine 5 mg tablet 5 mg PO DAILY Qty: 30 11RF Primary Care Provider: Alexandria Shanks Referrals: Alexandria Shanks, [Primary Care Provider] - Activity Restrictions/Additional Instructions: Please take your antibiotics as directed to resolve the infection of your left hand. If the redness and swelling continues to spread up the arm or you develop a fever or have any further concerns please return to the ER for repeat evaluation Print Language: Italian Disposition Disposition: Home, Self Care Discharge Date/Time: 02/29/24 23:40
[2024-02-29 23:30] VITALS: BP 111/69; PULSE 48; RESP 16; TEMP 36.6; O2SAT 98
== END 2024-02-29 23:40 | disposition home or self-care (01) ==
PROVIDERS: Emergency Provider Emergency Medicine; PCP Internal Medicine; Visit Provider Emergency Medicine
DX: L03.114 Cellulitis of left upper limb (principal); I48.0 Paroxysmal atrial fibrillation; I48.19 Other persistent atrial fibrillation; E78.5 Hyperlipidemia, unspecified; I25.10 Atherosclerotic heart disease of native coronary artery without angina pectoris; I10 Essential (primary) hypertension; Z79.01 Long term (current) use of anticoagulants; Z98.890 Other specified postprocedural states
CPT/HCPCS: 73130; 80048; 83605; 85025; 85652; 86140; 96365; 96375; 99283; J7050; A4216; J2405

== ENCOUNTER 2024-12-09 11:09 | Emergency (ER) | payer MEDICARE, SELFPAY ==
[2024-12-09 11:10] VITALS: BP 135/87; PULSE 67; RESP 20; TEMP 36.8; O2SAT 100; BMI 32.8
[2024-12-09] MEDS: oxyCODONE 5 MG Tablet PO (11:17)
--- NOTE | 2024-12-09 11:17 | ED.VIS.LOWEX ---
HPI History of Present Illness Chief Complaint: Lower Extremity Injury Informant: patient Narrative Narrative: Brought in by EMS from home for evaluation pain right hip right knee. Patient states 4 days ago bending down to clean the lawnmower when he felt cramping in his anterior leg. He states the following day symptoms started worsening. No direct injuries. No popping sensation. Yesterday pain on the lateral thigh. Has been using walker for last 2 days. He states he took ibuprofen last night however tries not to due to his heart history. He has had stents and is on Eliquis for paroxysmal A-fib. No fevers. Prior similar symptoms: No PFSH [facility] Medical History Persistent atrial fibrillation ICD (implantable cardioverter-defibrillator), single, in situ PAF (paroxysmal atrial fibrillation) Ischemic cardiomyopathy Atherosclerotic heart disease of [place] coronary artery without angina pectoris Essential hypertension HLD (hyperlipidemia) Cardiomyopathy CAD in [place] artery New onset atrial fibrillation Home Medications ?Medication ?Instructions ?Recorded ?Last Taken ?Type aspirin 81 mg chewable tablet 81 mg PO DAILY@0800 09/22/19 07/27/23 Rx cholecalciferol (vitamin D3) 50 6,000 unit PO DAILY SUPPLEMENT 01/25/20 03/27/20 History mcg (2,000 unit) capsule magnesium oxide 500 mg PO DAILY 05/22/22 Unknown History vitamin K2 45 mcg capsule 45 mcg PO DAILY 05/22/22 Unknown History krill oil 500 mg capsule 1,000 mg PO DAILY 05/21/23 Unknown History nitroglycerin 0.4 mg sublingual 0.4 mg sublingual Q5M PRN CHEST 05/21/23 Unknown Rx tablet PAIN #25 tabs metoprolol succinate 50 mg 50 mg PO BID blood pressure #180 10/07/23 Unknown Rx tablet,extended release 24 hr tabs spironolactone 25 mg tablet 25 mg PO DAILY #90 tabs 11/18/23 Unknown Rx amlodipine 5 mg tablet 5 mg PO DAILY please give 90 day 03/22/24 Unknown Rx supply #90 TABLETS apixaban 5 mg tablet 5 mg PO BID blood thinner #180 tabs 04/12/24 Unknown Rx dapagliflozin propanediol 10 mg 10 mg PO DAILY #90 tabs 08/05/24 Unknown Rx tablet (Farxiga) multivitamin (Daily Multi-Vitamin 1 tab PO QAM 09/20/24 Unknown History tablet) furosemide 40 mg tablet (Lasix) 40 mg PO BID #180 tabs 10/12/24 Unknown Rx oxycodone-acetaminophen 5 mg-325 1 tab PO Q6H PRN PRN Pain 3 days 12/09/24 Unknown Rx mg tablet #12 TABLETS Allergy/AdvReac Type Severity Reaction Status Date / Time No Known Allergies Allergy Verified 12/09/24 11:14 Family History Father Heart disease Grandfather Diabetes Surgical History S/P ablation of atrial fibrillation History of cardioversion (~11/05/21) S/P PTCA (percutaneous transluminal coronary angioplasty) Social History Smoking Status: Never smoker alcohol intake: current alcohol intake frequency: holidays/special occasions only substance use type: does not use caffeine: Yes Type: coffee Number of servings: 1 ROS ROS ED Constitutional Constitutional ED: Denies fever(s) Cardiovascular Cardiovascular: Denies chest pain Respiratory/Chest Respiratory/Chest: Denies cough Gastrointestinal Gastrointestinal: Denies diarrhea or vomiting Musculoskeletal Musculoskeletal: Reports other Details: Right knee and right hip pain Integumentary Denies rash or wounds Neurologic Neurologic: Denies weakness EXAM Physical Exam Const Vital Signs: 12/09/24 11:10 12/09/24 12:50 Temperature 98.2 F 98 F Temperature Source Oral Pulse Rate 67 81 Respiratory Rate 20 H 18 Blood Pressure 135/87 H 148/78 H Blood Pressure Mean 103 101 Pulse Ox 100 98 Oxygen Delivery Method Room Air Positive well nourished and well developed General Appearance ED: well developed HEENT normocephalic and atraumatic Eyes General Eye ED: Yes normal appearance of both eyes Neck full ROM Resp normal respiratory effort and normal air movement Cardio regular rate and regular rhythm GI soft to palpation Extremity Extremity Narrative: Right lower extremity: Straight leg test negative. No shortening or rotation of the leg. Negative logroll. There is tender along the lateral thigh along the IT band reproducible pain with forced adduction. Tender palpation along the quadriceps insertion, there is no defect in center mg intact. Soft compartments. No warmth no erythema of the skin. No patellar ligament tenderness. Soft calves. Pulses intact distally. Neuro oriented x3 Skin no rashes or lesions noted and no wounds MDM MDM MDM Narrative Medical decision making narrative: Interventions / MDM: Differential diagnosis: Quadricep strain, IT band strain Diagnosis considered but do not suspect: No clinical septic joint. No clinical quadriceps tendon or patellar ligament rupture. Patient. Fracture however x-ray negative. My EKG interpretation: N/A Imaging independently reviewed and interpreted by myself: Right hip and pelvis 3 views: Osteoarthritic changes noted no fractures. Right knee 4 views: Small joint effusion, no fractures. Also read by radiology. External documents reviewed: N/A Test considered but not ordered:N/A ED course: Patient clinical exam concerns for IT band strain along with quadricep strain. No clinical rupture, no clinical septic joint. Due to symptoms. 4 days ago worsening I will check imaging studies hip and right knee. Is on Eliquis therefore will avoid NSAIDs. Oxycodone ordered for which he has tolerated in the past. 1210: X-rays negative for fractures a small joint effusion right knee. Patient reported there was swelling of his thigh that moved down to his knee. No fevers. No redness. At this time still concern for inflammatory process. Chava wrap will be placed to the knee and thigh. He has seen [facility] in the past. Referred back to them. Short prescription for pain control. All questions were answered. Re-evaluation: stable Disposition discussed with patient/family/significant other: Patient and spouse Case discussed with consulting clinician: N/A This note was generated with [employer] dictation software. It may contain incorrect words, spelling, and punctuation that were not noted in checking the note before signing. Radiography Diagnostic Testing: Clinical Impression(s) from Imaging Studies Hip/Pelvis X-Ray 12/09/24 11:30 IMPRESSION: DEGENERATIVE OSTEOARTHROSIS. NO ACUTE FINDINGS. Reading Location: [facility] Knee X-Ray 12/09/24 11:30 IMPRESSION: DEGENERATIVE OSTEOARTHROSIS. NO ACUTE FINDINGS. Small joint effusion. Reading Location: [facility] Discharge Plan Triage Chief Complaint: Lower Extremity Injury ED Provider: Ayan Kenyon Dx/Rx/DC Orders Clinical Impression: Strain of right quadriceps, Iliotibial band syndrome of right side Instructions: IT Band Syndrome Tx, ED Knee Effusion, ED Muscle Strain, Extremity Prescriptions: New oxycodone-acetaminophen 5-325 mg tablet 1 tab PO Q6H PRN PRN (Reason: Pain) 3 Days Qty: 12 0RF No Action magnesium oxide 500 mg tablet 500 mg PO DAILY vitamin K2 45 mcg capsule 45 mcg PO DAILY krill oil 500 mg capsule 1,000 mg PO DAILY nitroglycerin 0.4 mg tablet, sublingual 0.4 mg SUBLINGUAL Q5M PRN (Reason: CHEST PAIN) Qty: 25 3RF spironolactone 25 mg tablet 25 mg PO DAILY Qty: 90 3RF multivitamin [Daily Multi-Vitamin] Tablet 1 tab PO QAM aspirin 81 MG tablet,chewable 81 mg PO DAILY@0800 0RF cholecalciferol (vitamin D3) 2,000 UNIT capsule 6,000 unit PO DAILY metoprolol succinate 50 mg tablet extended release 24 hr 50 mg PO BID Qty: 180 3RF amlodipine 5 mg tablet 5 mg PO DAILY Qty: 90 3RF apixaban 5 mg tablet 5 mg PO BID Qty: 180 3RF Farxiga 10 mg tablet 10 mg PO DAILY Qty: 90 3RF furosemide [Lasix] 40 mg tablet 40 mg PO BID Qty: 180 3RF Primary Care Provider: Care Physician,No Primary Referrals: Alexandria Shanks DO [Non-Staff] - Prieto Holt MD [Med Staff - Active Staff] - 3-5 Days Activity Restrictions/Additional Instructions: X-ray right hip and knee negative for fractures. Small joint effusion of the right knee. With injury no clinical rupture of your quadriceps tendon. Use Chava wrap for support. Use your walker for stability. Try Tylenol first if needed use the oxycodone. Follow-up with Dr. Holt. Print Language: American Disposition Disposition: Home, Self Care Discharge Date/Time: 12/09/24 12:51
--- NOTE | 2024-12-09 11:30 | RAD_ITS ---
PROCEDURE: HIP, UNI W/ PELVIS 2-3 VIEWS 12/09/2024 REASON FOR EXAM: PAIN TECHNIQUE: Three views of the right hip were obtained. COMPARISON: None FINDINGS: Bones: Unremarkable Joints: Mild degree of joint space narrowing. Soft tissues: Calcified phleboliths. Other: Disc space narrowing and degeneration of the lower lumbar spine. RAD/HIP, UNI W/ Pelvis 2-3 Views IMPRESSION: DEGENERATIVE OSTEOARTHROSIS. NO ACUTE FINDINGS. Reading Location: [facility]
--- NOTE | 2024-12-09 11:30 | RAD_ITS ---
PROCEDURE: KNEE 4 OR MORE VIEWS 12/09/2024 REASON FOR EXAM: Pain following injury. TECHNIQUE: 4 view(s) of the right knee knee COMPARISON: None FINDINGS: Bones: No fracture. No suspicious bone lesion. Joints: Mild degree of joint space narrowing of the lateral compartment of the knee joint. Effusion: Small joint effusion. Soft tissues: Soft tissues are unremarkable. Other: RAD/Knee 4 or More Views IMPRESSION: DEGENERATIVE OSTEOARTHROSIS. NO ACUTE FINDINGS. Small joint effusion. Reading Location: [place] [id number]
[2024-12-09 12:50] VITALS: BP 148/78; PULSE 81; RESP 18; TEMP 36.6; O2SAT 98
== END 2024-12-09 12:51 | disposition home or self-care (01) ==
PROVIDERS: Emergency Provider Emergency Medicine; Visit Provider Emergency Medicine
DX: S76.111A Strain of right quadriceps muscle, fascia and tendon, initial encounter (principal); I48.0 Paroxysmal atrial fibrillation; M76.31 Iliotibial band syndrome, right leg; X50.1XXA Overexertion from prolonged static or awkward postures, initial encounter; Y93.89 Activity, other specified; M16.11 Unilateral primary osteoarthritis, right hip; I10 Essential (primary) hypertension; I25.5 Ischemic cardiomyopathy; I25.10 Atherosclerotic heart disease of native coronary artery without angina pectoris; E78.5 Hyperlipidemia, unspecified; Z79.82 Long term (current) use of aspirin; Z79.01 Long term (current) use of anticoagulants; Z79.899 Other long term (current) drug therapy; Z95.810 Presence of automatic (implantable) cardiac defibrillator
CPT/HCPCS: 73502; 73564; 99284

== ENCOUNTER 2024-12-14 09:58 | Inpatient (IN) | payer MEDICARE, SELFPAY ==
[2024-12-14] VITALS (9 sets, daily range): BP systolic 118–147; BP diastolic 79–95; PULSE 76–94; RESP 16–24; TEMP 36.8–37.7; O2SAT 97–100; BMI 32.8; BMI 32.2
--- NOTE | 2024-12-14 10:58 | EKG12_ITS ---
Test Reason : Blood Pressure : */* mmHG Vent. Rate : 76 BPM Atrial Rate : 76 BPM P-R Int : 204 ms QRS Dur : 134 ms QT Int : 402 ms P-R-T Axes : 84 -40 82 degrees QTcB Int : 452 ms Sinus rhythm with Fusion complexes and Premature atrial complexes with Aberrant conduction Left axis deviation Left bundle branch block Abnormal ECG Confirmed by TOBIN LU ([id number]), photograph editor SCOTT BOURGEOIS ([id number]) on 12/19/2024 8:04:23 AM Referred By: Luiz Atwood Confirmed By: TOBIN LU
--- NOTE | 2024-12-14 10:58 | RAD_ITS ---
EXAM: XR Chest, 2 Views CLINICAL INDICATION: SHORTNESS OF BREATH TECHNIQUE: Frontal and lateral views of the chest. COMPARISON: No relevant prior studies available. FINDINGS: LUNGS AND PLEURAL SPACES: See below. HEART: Cardiomegaly with mild congestion. MEDIASTINUM: Unremarkable. Normal mediastinal contour. BONES/JOINTS: Unremarkable. No acute fracture. TUBES, LINES AND DEVICES: Left-sided cardiac pacemaker. RAD/Chest PA and Lateral IMPRESSION: Cardiomegaly with mild congestion. Reading Location: [facility]
--- NOTE | 2024-12-14 10:59 | VDLE_ITS ---
Reason For Study Reason For Study: Right leg swelling RIGHT GSV is normal. CFV is compressible, spontaneous, phasic, competent and demonstrates normal augmentation. FV is compressible, spontaneous, phasic, competent and demonstrates normal augmentation. POP V is compressible, spontaneous, phasic, competent and demonstrates normal augmentation. T/P Trunk is compressible. PTV is compressible. RT PerV is compressible. Large nonvascularized structure noted in the right popliteal fossa to mid calf. Procedure This is a venous duplex using B-mode, color flow and spectral Doppler. Exam performed portable in ED. A preliminary report was called and/or faxed to Dr. Atwood. VL/Venous Duplex US, Unilateral Interpretation Summary Deep veins of the right lower extremity are patent and compressible segmentally . There is no evidence of right lower extremity deep vein thrombosis. The right great saphenous vein appears patent a nd compressible segmentally. Large nonvascularized structure noted in the right popliteal fossa to mid calf. Ordering Physician: Luiz Atwood Performed By: Jacqui Cisse RVT
--- NOTE | 2024-12-14 11:14 | ED.VIS.DYS ---
HPI History of Present Illness Chief Complaint: Shortness of Breath Narrative Narrative: Chief complaint and HPI: Right lower extremity pain and swelling. 69-year-old male with past medical history of atrial fibrillation on Eliquis, CAD, CHF, HTN, HLD, history of PE/DVT presents for evaluation of right lower extremity pain and swelling. Patient states last week after bending down to clean the lawnmower he felt cramping in his right anterior thigh. He states the pain did not improve and he developed swelling in the knee so he presented to our emergency department. On chart review, he was given a narcotic prescription and discharged home. He had x-rays of the knee hip/pelvis performed that show no acute finding accepted joint effusion. Patient was discharged home to follow-up with orthopedics. Patient states since discharge she has had increased pain and swelling in the extremity. Now endorsing redness and warmth to the calf. Does not know when the redness began. Was seen in orthopedic office today and immediately sent to the emergency department. States he was not evaluated by the physician there. He denies any fever, chills, nausea, vomiting, numbness, tingling. Patient states that he has not been able to ambulate around the house secondary to the pain. Has not been showering. States that he stopped taking his Lasix the past several days given he was having difficulty getting to the bathroom. He states that he is mildly short of breath with ambulation but not at rest. Denies any chest pain. Review of systems: See HPI Medications: As listed on the chart Allergies: As listed on the chart PFSH: Per chart Vital signs: As listed on the chart. Reviewed. Physical exam: Gen: A&O x3, NAD Head: Normocephalic, atraumatic Eyes: No sclera icterus, conjunctiva clear ENT: Moist mucous membranes Neck: Trachea midline, No JVD CV: RRR, no murmurs Resp: Lungs CTA BL but decreased in the bilateral bases, no w/r/c GI: Abd soft, non-distended, non-tender, no r/r/g Musc: Limited range of motion of the right lower extremity secondary to pain and swelling. Patient has swelling from distal right thigh to the foot-2+ pitting edema, area of swelling is warm/erythematous/tender, most of the erythema is at the anterior calf/mid tib-fib area with ecchymosis, no crepitus or purulent, patient has unclean feet with chronic calluses-states he follows with podiatry, DP/PT pulses difficult to feel due to swelling-both dopplerable bilaterally Skin: Warm, dry Neuro: Alert, oriented, grossly intact, sensation intact Psych: Cooperative, appropriate mood and affect [facility] Medical History Persistent atrial fibrillation ICD (implantable cardioverter-defibrillator), single, in situ PAF (paroxysmal atrial fibrillation) Ischemic cardiomyopathy Atherosclerotic heart disease of [place] coronary artery without angina pectoris Essential hypertension HLD (hyperlipidemia) Cardiomyopathy CAD in [place] artery New onset atrial fibrillation Home Medications ?Medication ?Instructions ?Recorded ?Last Taken ?Type aspirin 81 mg chewable tablet 81 mg PO DAILY@0800 heart 09/22/19 07/27/23 Rx cholecalciferol (vitamin D3) 50 6,000 unit PO DAILY SUPPLEMENT 01/25/20 03/27/20 History mcg (2,000 unit) capsule magnesium oxide 500 mg PO DAILY follow 05/22/22 Unknown History vitamin K2 45 mcg capsule 45 mcg PO DAILY follow -up 05/22/22 Unknown History krill oil 500 mg capsule 1,000 mg PO DAILY follow up 05/21/23 Unknown History nitroglycerin 0.4 mg sublingual 0.4 mg sublingual Q5M PRN CHEST 05/21/23 Unknown Rx tablet PAIN #25 tabs metoprolol succinate 50 mg 50 mg PO BID blood pressure #180 10/07/23 Unknown Rx tablet,extended release 24 hr tabs spironolactone 25 mg tablet 25 mg PO DAILY follow up #90 tabs 11/18/23 Unknown Rx amlodipine 5 mg tablet 5 mg PO DAILY please give 90 day 03/22/24 Unknown Rx supply #90 TABLETS apixaban 5 mg tablet 5 mg PO BID blood thinner #180 tabs 04/12/24 Unknown Rx dapagliflozin propanediol 10 mg 10 mg PO DAILY follow-u[ #90 tabs 08/05/24 Unknown Rx tablet (Farxiga) multivitamin (Daily Multi-Vitamin 1 tab PO QAM follow up 09/20/24 Unknown History tablet) furosemide 40 mg tablet (Lasix) 40 mg PO BID #180 tabs 10/12/24 Unknown Rx oxycodone-acetaminophen 5 mg-325 1 tab PO Q6H PRN PRN Pain 3 days 12/09/24 Unknown Rx mg tablet #12 TABLETS Allergy/AdvReac Type Severity Reaction Status Date / Time No Known Allergies Allergy Verified 12/14/24 14:12 Family History Father Heart disease Grandfather Diabetes Surgical History S/P ablation of atrial fibrillation History of cardioversion (~11/05/21) S/P PTCA (percutaneous transluminal coronary angioplasty) Social History Smoking Status: Never smoker alcohol intake: current alcohol intake frequency: holidays/special occasions only substance use type: does not use caffeine: Yes Type: coffee Number of servings: 1 EXAM Physical Exam Const Vital Signs: 12/14/24 09:58 12/14/24 10:01 12/14/24 11:58 Temperature 98.4 F Temperature Source Oral Pulse Rate 76 80 Respiratory Rate 24 H 19 H Blood Pressure 136/88 H 129/81 H Blood Pressure Mean 104 97 Pulse Ox 100 97 Oxygen Delivery Method Room Air Room Air Room Air 12/14/24 13:00 12/14/24 15:00 Temperature 98.2 F Temperature Source Oral Pulse Rate 80 88 Respiratory Rate 18 16 Blood Pressure 118/79 142/80 H Blood Pressure Mean 92 100 Pulse Ox 100 100 Oxygen Delivery Method Room Air Room Air MDM MDM MDM Narrative Medical decision making narrative: 69-year-old male with past medical history of atrial fibrillation on Eliquis, CAD, CHF, HTN, HLD, history of PE/DVT presents for evaluation of right lower extremity pain and swelling. Patient developed pain in the leg several days ago after bending down. Was originally seen in the emergency department with unremarkable workup and plan to follow-up with orthopedics outpatient. Patient was following up in the office today and was sent to the emergency department. States he was supposed to see Dr. Holt in the office. Patient has significant swelling to the right lower extremity with erythema, warmth, tenderness. Associated symptoms also mild shortness of breath with exertion. However patient states that he has had difficulty performing his daily tasks of living as well as stopped taking his Lasix which is likely the cause of his shortness of breath. Differential diagnosis includes but is not limited to cellulitis, DVT, muscle tear/injury, CHF exacerbation, fracture. On chart review, patient previously had x-ray of the hip/pelvis as well as the knee. Will repeat x-ray of the knee given the increased swelling and pain as well as tib/fib but given that this is where the patient's erythema is concentrated with swelling. For concern of cellulitis, Unasyn and vancomycin ordered. Laboratory workup ordered including venous duplex. Will hold off on fluids given concern for mild CHF exacerbation. Patient is not hypotensive or meet sepsis criteria. Morphine and Zofran ordered for symptoms. EKG reviewed see below. CBC with leukocytosis of 14. No anemia. Platelets unremarkable. INR 1.8. ESR 28 and CRP 382. CMP without any significant electrolyte abnormality or IVETH. Patient has baseline transaminitis. Elevated alkaline phosphatase of 284. Patient not having abdominal pain. I was notified by the gas plant technician that venous duplex was negative for DVT however there was a complex fluid collection. This is not officially been read by a physician however given report, will get CT of the lower extremity to assess further. Troponin 22 and 23, delta less than 6. Patient not having chest pain. Patient was taken to the CT for imaging prior to x-rays being obtained therefore knee and hip/fib x-ray were canceled. Chest x-ray reviewed and shows mild vascular congestion. BNP elevated at 1919. Patient in mild CHF exacerbation. Likely from him not taking his Lasix. IV Lasix ordered. CT of the lower extremity shows a large joint effusion of the knee. There is a complex fluid collection which percents in the posterior medial aspect of the knee joint into the upper calf, measuring approximately 8 cm x 4 cm x 20 cm and extends along the medial head of the gastrocnemius muscle. Differential includes a Rausch's cyst with leaking components, hematoma or muscle strain with perimuscular hemorrhage. There is circumferential subcutaneous edema which extends from the mid calf into the foot, which can indicate venous stasis or cellulitis. Given patient originally had an injury concern is for hematoma or muscular strain with perimuscular hemorrhage. Given this finding, Dr. Kendrick with orthopedic surgery was contacted and patient was discussed. I informed Dr. Kendrick that I will be admitting the patient to the hospitalist service for his cellulitis however would like his recommendation for the fluid collection. No intervention needed at this time. If orthopedic consult is placed in the hospital, someone will evaluate the patient. Patient was updated of all results and the finding as well as the plan. Patient was discussed with hospitalist service who accepted admission. EKG: Interpreted by me/EM physician: EKG shows sinus rhythm with PACs. No acute ischemic changes. No left bundle branch block. Heart rate 67 Diagnostic: Interpreted by me/EM physician: Chest x-ray shows cardiomegaly with mild vascular congestion. No large effusion, no pneumothorax, no pneumonia. Radiology in agreement. Impression: 1. Right lower extremity cellulitis 2. Complex fluid collection of the right lower extremity concern for hematoma or muscle strain with perimuscular hemorrhage 3. Mild CHF exacerbation Lab Data Labs: Laboratory Results - last 24 hr 12/14/24 12/14/24 12:04 14:16 WBC 14.0 H RBC 4.31 L Hgb 13.3 Hct 39.8 L MCV 92.3 MCH 30.9 MCHC 33.4 RDW Std Deviation 48.0 H RDW Coeff of Nichole 14.0 Plt Count 277 MPV 10.5 Immature Gran % (Auto) 0.900 Neut % (Auto) 82.8 H Lymph % (Auto) 7.4 L [place] % (Auto) 8.6 Eos % (Auto) 0.1 Baso % (Auto) 0.2 Absolute Neuts (auto) 11.6 H Absolute Lymphs (auto) 1.03 Nucleated RBC % 0 ESR 28 H PT 21.4 H INR 1.8 APTT 36.0 Sodium 135 Potassium 4.7 Chloride 100 Carbon Dioxide 22.4 Anion Gap 13 BUN 19 Creatinine 1.10 Estim Creat Clear Calc 85.85 Est GFR (MDRD) Non-Af 74 BUN/Creatinine Ratio 17.0 Glucose 111 H Lactic Acid 1.5 Calcium 9.5 Total Bilirubin 0.81 AST 64 H ALT 71 H Alkaline Phosphatase 284 H Troponin T High Sens 22 Troponin T Hi Sens 2 Hr 23 H C-React Prot Ext Range 382.00 H NT pro BNP II 1919 H Total Protein 7.7 Albumin 2.9 L Globulin 4.8 H Albumin/Globulin Ratio 0.6 L Radiography Diagnostic Testing: Clinical Impression(s) from Imaging Studies Chest X-Ray 12/14/24 10:58 IMPRESSION: Cardiomegaly with mild congestion. Reading Location: [facility] Venous Doppler Study 12/14/24 10:59 Interpretation Summary Deep veins of the right lower extremity are patent and compressible segmentally. There is no evidence of right lower extremity deep vein thrombosis. The right great saphenous vein appears patent and compressible segmentally. Large nonvascularized structure noted in the right popliteal fossa to mid calf. Ordering Physician: Luiz Atwood Performed By: Jacqui Cisse RVT Lower Extremity CT 12/14/24 11:20 IMPRESSION: There is a large joint effusion of the knee. There is a complex fluid collection which extends from the posterior medial aspect of the knee joint into the upper calf, measuring approximately 8 cm in AP diameter, 4 cm in transverse dimension, by 20 cm in craniocaudal dimension, and extends along the medial head of the gastrocnemius. The differential includes a Rausch's cyst with leaking components, hematoma, or muscle strain with perimuscular hemorrhage. There is circumferential subcutaneous edema which extends from the mid calf into the foot, which can indicate venous stasis or cellulitis. Reading Location: [facility] Discharge Plan Disposition Disposition: Acute Care Hospital [facility] Discharge Date/Time: 12/14/24 16:26
--- NOTE | 2024-12-14 11:20 | CT_ITS ---
PROCEDURE: EXTREMITY LOWER WITH CONTRAST 12/14/2024 REASON FOR EXAM: PAIN, SWELLING, US SHOWS FLUID COLLECTION TECHNIQUE: Axial CT images of the right lower extremity obtained with intravenous contrast. Coronal and Sagittal reconstruction series were provided. CONTRAST: Contrast dose = not reported One or more dose reduction techniques were used (e.g., Automated exposure control, adjustment of the mA and/or kV according to patient size, use of iterative reconstruction technique). RADIATION DOSE SUMMARY: DLP: 2274.00 mGycm COMPARISON: None FINDINGS: Bones: There is no visible fracture. There are no suspicious bony lesions. There is a large joint effusion of the knee. There is a complex fluid collection which extends from the posterior medial aspect of the knee joint into the upper calf, measuring approximately 8 cm in AP diameter, 4 cm in transverse dimension, by 20 cm in craniocaudal dimension, and extends along the medial head of the gastrocnemius. There is no visible soft tissue air component. There is circumferential subcutaneous edema which extends from the mid calf into the foot, which can indicate venous stasis or cellulitis. There is no visible pathologic adenopathy. There is no significant arterial or venous contrast during the examination. Atherosclerotic calcifications are visible. There is no visible radiopaque foreign body. CT/Extremity Lower WITH Contrast IMPRESSION: There is a large joint effusion of the knee. There is a complex fluid collection which extends from the posterior medial asp ect of the knee joint into the upper calf, measuring approximately 8 cm in AP diameter, 4 cm in transverse dimension, by 2 0 cm in craniocaudal dimension, and extends along the medial head of the gastrocnemius. The differential includes a Rausch's cyst with leaking components, hematoma, or muscle strain with perimuscular hemorrhage. There is circumferential subcutaneous edema which extends from the mid calf int o the foot, which can indicate venous stasis or cellulitis. Reading Location: [facility]
[2024-12-14] MEDS: Ampicillin/Sulbactam 3 GM in 0.9% Normal Saline (100mL MB+) 100 ML IV ×3 (11:59→23:24)
[2024-12-14] MEDS: Ondansetron 4 MG/2 ML Vial IV (12:17)
[2024-12-14] MEDS: Morphine 4 MG/ML Syringe IV (12:17)
[2024-12-14] MEDS: Vancomycin HCl 2,000 MG in 0.9% Normal Saline (500mL Bag) 500 ML 250 MG IV (12:22)
[2024-12-14 12:24] LABS: Erythrocyte Sedimentation Rate 28 mm/hr (0-20)
[2024-12-14 12:30] LABS: Absolute Lymphocyte Count 1.03 X10^3/uL (0.83-4.51); Absolute Neutrophil Count 11.6 X10^3/uL (2.0-7.7); Basophil# 0.03 X10^3/uL; Basophil% 0.2 % (0-1); Eosinophil# 0.01 X10^3/uL; Eosinophils% 0.1 % (0-5); Hematocrit 39.8 % (40-54); Hemoglobin 13.3 g/dL (13.0-16.5); Lymphocyte # 1.03 X10^3/ul (0.83-4.51); Lymphocyte % 7.4 % (19-41); Mean Corp Hgb Conc 33.4 g/dL (32-36); Mean Corpuscular Hgb 30.9 pg (27.0-32.0); Mean Corpuscular Volume 92.3 fL (80-94); Mean Platelet Vol. 10.5 fl (6.2-12.0); Monocyte% 8.6 % (0-10); NRBC Flagged by Analyzer 0 % (0-5); Neutrophil # 11.62 X10^3/uL (2.7-7.7); Neutrophil % 82.8 % (47-70); Platelet Count 277 K/mm3 (150-450); Red Blood Count 4.31 M/mm3 (4.6-6.2)
[2024-12-14 12:39] LABS: International Normalized Ratio 1.8; Prothrombin Time (Protime)PT. 21.4 SECONDS (11.7-14.9)
[2024-12-14 12:51] LABS: Lactic Acid 1.5 mmol/L (0.0-2.0)
[2024-12-14 12:58] LABS: ALB/GLOB Ratio 0.6 RATIO (0.9-2.4); AST(SGOT) 64 U/L (<=37); Alanine Aminotransfer ALT/SGPT 71 U/L (<=46); Albumin, Serum 2.9 g/dL (3.4-4.8); Alkaline Phosphatase 284 U/L (40-129); Anion Gap 13 (5-15); BUN 19 mg/dL (4-19); Calcium,Total 9.5 mg/dL (7.6-11.0); Carbon Dioxide 22.4 mmol/L (21.0-32.0); Chloride 100 mmol/L (98-108); EST Glomerular Filtration Rate 74 (>60); Estimated Creatinine Clearance 85.85 ml/min (50-250); Globulin 4.8 g/dL (2.2-4.2); Glucose 111 mg/dL (70-99); Potassium 4.7 mmol/L (3.3-5.1); Pro- Brain NATRIURETIC PEPTIDE 1919 pg/mL (<=900); Protein, Total 7.7 g/dL (5.9-8.4); Sodium Level 135 mmol/L (133-145); Total Bilirubin 0.81 mg/dL (0.00-1.30); Troponin T High Sensitivity 22 ng/L (<=22)
[2024-12-14] MEDS: Furosemide 40 MG/4 ML Vial IV (13:44)
--- NOTE | 2024-12-14 14:03 | CM.ED ---
Social work Reason for referral: no PCP Referral source: case find This SW identified patient's lack of PCP and need for resources. This SW entered patient's room, introducing self and role at [facility]. Patient's , Mena, was bedside and patient gave permission to speak in front of Mena. Patient confirmed lacking a PCP and accepted resources of [facility] Provider Directory and Rosa Quezada information. Patient denied further needs at this time. Yesenia Alvarado, LEAD MECHANICAL ENGINEER, CAT OPERATOR
[2024-12-14 15:10] LABS: Troponin T High Sens 2 HR 23 ng/L (<=22)
--- NOTE | 2024-12-14 16:03 | PCM.HP.STD ---
[facility] - [facility] Date of Service: 12/14/24 Chief Complaint: Right leg redness and swelling. [facility] Narrative SADIQ DOYLE, is a 69 M who presents with right leg redness and swelling. On December 05, the patient bent over and felt a pop in his right leg and had increased pain and swelling.And presented to the emergency room here on the and was diagnosed with effusion and sent home. But continued get worse. Was referred over to Dr. Holt's office. Patient was seen briefly and with the redness on his leg, patient was sent to the emergency room. Patient notes that he is been having some chills but has not checked his temperature to see if he is had any fevers. Does have some lymphedematous changes but the redness is new over the past few days.'s patient underwent a CT of his lower extremity and was noted to have a large joint effusion of the knee and complex fluid collection extends from the posterior medial aspect of the knee joint into the upper calf measuring 8 x 4 x 20 cm. Also noted circumferential subcutaneous edema which extends from the mid calf into the foot. Patient received ampicillin/sulbactam and vancomycin. The ED physician was concerned about heart failure though the patient himself denies any shortness of breath though he states that his edema has increased primarily in his right leg but he notes that he has been intentionally not taking his diuretic so that he would not have to go to the bathroom as often because of the difficulty walking Dr. Kendrick, orthopedics was contacted from the emergency room and informed the emergency room physician that he would see the patient in consultation. [facility] Medical History Persistent atrial fibrillation ICD (implantable cardioverter-defibrillator), single, in situ PAF (paroxysmal atrial fibrillation) Ischemic cardiomyopathy Atherosclerotic heart disease of [place] coronary artery without angina pectoris Essential hypertension HLD (hyperlipidemia) Cardiomyopathy CAD in [place] artery New onset atrial fibrillation Home Medications ?Medication ?Instructions ?Recorded ?Last Taken ?Type aspirin 81 mg chewable tablet 81 mg PO DAILY@0800 09/22/19 07/27/23 Rx cholecalciferol (vitamin D3) 50 6,000 unit PO DAILY SUPPLEMENT 01/25/20 03/27/20 History mcg (2,000 unit) capsule magnesium oxide 500 mg PO DAILY 05/22/22 Unknown History vitamin K2 45 mcg capsule 45 mcg PO DAILY 05/22/22 Unknown History krill oil 500 mg capsule 1,000 mg PO DAILY 05/21/23 Unknown History nitroglycerin 0.4 mg sublingual 0.4 mg sublingual Q5M PRN CHEST 05/21/23 Unknown Rx tablet PAIN #25 tabs metoprolol succinate 50 mg 50 mg PO BID blood pressure #180 10/07/23 Unknown Rx tablet,extended release 24 hr tabs spironolactone 25 mg tablet 25 mg PO DAILY #90 tabs 11/18/23 Unknown Rx amlodipine 5 mg tablet 5 mg PO DAILY please give 90 day 03/22/24 Unknown Rx supply #90 TABLETS apixaban 5 mg tablet 5 mg PO BID blood thinner #180 tabs 04/12/24 Unknown Rx dapagliflozin propanediol 10 mg 10 mg PO DAILY #90 tabs 08/05/24 Unknown Rx tablet (Farxiga) multivitamin (Daily Multi-Vitamin 1 tab PO QAM 09/20/24 Unknown History tablet) furosemide 40 mg tablet (Lasix) 40 mg PO BID #180 tabs 10/12/24 Unknown Rx oxycodone-acetaminophen 5 mg-325 1 tab PO Q6H PRN PRN Pain 3 days 12/09/24 Unknown Rx mg tablet #12 TABLETS Allergy/AdvReac Type Severity Reaction Status Date / Time No Known Allergies Allergy Verified 12/14/24 14:12 Family History Father Heart disease Grandfather Diabetes Surgical History S/P ablation of atrial fibrillation History of cardioversion (~11/05/21) S/P PTCA (percutaneous transluminal coronary angioplasty) Social History Smoking Status: Never smoker alcohol intake: current alcohol intake frequency: holidays/special occasions only substance use type: does not use caffeine: Yes Type: coffee Number of servings: 1 ROS ROS Narrative All review of systems were negative except as mentioned above in the history of present illness and the other review of systems. Vital Signs Vital Signs Vital Signs: 12/14/24 09:58 12/14/24 10:01 12/14/24 11:58 Temperature 36.9 C Temperature Source Oral Pulse Rate 76 80 Respiratory Rate 24 H 19 H Blood Pressure 136/88 H 129/81 H Blood Pressure Mean 104 97 Pulse Ox 100 97 Oxygen Delivery Method Room Air Room Air Room Air 12/14/24 13:00 12/14/24 15:00 Temperature 36.8 C Temperature Source Oral Pulse Rate 80 88 Respiratory Rate 18 16 Blood Pressure 118/79 142/80 H Blood Pressure Mean 92 100 Pulse Ox 100 100 Oxygen Delivery Method Room Air Room Air Weight Weight: 113 kg Body Mass Index (BMI) 32.8 Physical Exam Narrative - Physical Exam General: Alert, Oriented x3, Cooperative HEENT: Atraumatic, PERRLA, EOMI, Normocephalic Oral: Moist Mucosa, No Gingival or Mucosal Lesions/ Ulcerations Neck: Supple, No JVD, no lymphadenopathy no thyromegaly. Lungs: Clear to auscultation, Normal air movement Cardiovascular: Regular rate, Normal S1, Normal S2, No murmurs Abdomen: Bowel Sounds Present, Soft, Non Tender, Non-Distended, No Hepato-splenomegaly Extremities: Bilateral lower extremity edema with the right being more swollen than the left. Does have some subtle venous stasis changes on the right but there also is circumferential erythema of the distal right lower extremity without any fluctuance. Patient does have a marked right knee effusion but is not warm. Skin: No rashes, No breakdown Musculoskeletal: No Tenderness to Palpation of Joints or Extremities Neurological: Moves all extremities spontaneously. Psych/Mental Status: Normal Affect, Appropriate Results Lab / Micro Data Attestation: I reviewed the patient's lab results. 12/14/24 12:04 12/14/24 12:04 Labs: Laboratory Results - last 24 hr 12/14/24 12:04: WBC 14.0 H, RBC 4.31 L, Hgb 13.3, Hct 39.8 L, MCV 92.3, MCH 30.9, MCHC 33.4, RDW Std Deviation 48.0 H, RDW Coeff of Nichole 14.0, Plt Count 277, MPV 10.5, Immature Gran % (Auto) 0.900, Neut % (Auto) 82.8 H, Lymph % (Auto) 7.4 L, [place] % (Auto) 8.6, Eos % (Auto) 0.1, Baso % (Auto) 0.2, Absolute Neuts (auto) 11.6 H, Absolute Lymphs (auto) 1.03, Nucleated RBC % 0, ESR 28 H, PT 21.4 H, INR 1.8, APTT 36.0, Sodium 135, Potassium 4.7, Chloride 100, Carbon Dioxide 22.4, Anion Gap 13, BUN 19, Creatinine 1.10, Estim Creat Clear Calc 85.85, Est GFR (MDRD) Non-Af 74, BUN/Creatinine Ratio 17.0, Glucose 111 H, Lactic Acid 1.5, Calcium 9.5, Total Bilirubin 0.81, AST 64 H, ALT 71 H, Alkaline Phosphatase 284 H, Troponin T High Sens 22, C-React Prot Ext Range 382.00 H, NT pro BNP II 1919 H, Total Protein 7.7, Albumin 2.9 L, Globulin 4.8 H, Albumin/Globulin Ratio 0.6 L 12/14/24 14:16: Troponin T Hi Sens 2 Hr 23 H Imaging Radiology Impression Chest X-Ray 12/14/24 10:58 IMPRESSION: Cardiomegaly with mild congestion. [facility] Lower Extremity CT 12/14/24 11:20 IMPRESSION: There is a large joint effusion of the knee. There is a complex fluid collection which extends from the posterior medial aspect of the knee joint into the upper calf, measuring approximately 8 cm in AP diameter, 4 cm in transverse dimension, by 20 cm in craniocaudal dimension, and extends along the medial head of the gastrocnemius. The differential includes a Rausch's cyst with leaking components, hematoma, or muscle strain with perimuscular hemorrhage. There is circumferential subcutaneous edema which extends from the mid calf into the foot, which can indicate venous stasis or cellulitis. Reading Location: [facility] Assessment & Plan Assessment/Plan (1) Cellulitis of right lower extremity: PLAN: May be related with the joint effusion and swelling he has posteriorly but he also has some chronic wounds that could been a source as well. Patient received ampicillin/sulbactam and vancomycin. Will continue those for now. Keep right leg elevated is much as possible. Monitor for clinical response to antibiotics. (2) Effusion, right knee: PLAN: Patient had elevated CRP and still elevated ESR as well. Clinically I do not suspect that it is infected but I be more concerned about a hemarthrosis given the pop that the patient heard roughly 10 days ago. Rather large fluid collection measuring 8 x 4 x 20 cm. I am concerned about hemarthrosis. Will consult orthopedics to offer recommendations what they think if it just matter of continued conservative management or if patient would require arthrocentesis or possibly something more. In the meantime, we will hold off on the patient's aspirin as well as the apixaban. PLAN: Plan Chronic conditions HFpEF: EF of 50% from 2D echocardiogram on January 20, 2024. I do not feel the patient is in acute heart failure exacerbation. Does have some slightly increased edema from his baseline but that was due to intentional noncompliance with his medications because he was having difficulty getting around because of his knee and did not want to get up have to put weight on that. Will resume his diuretics (furosemide and spironolactone, as well as the pegol flows and). I do not feel the patient is in acute exacerbation of heart failure at this time. Atrial fibrillation: Continue with metoprolol succinate. Holding off on apixaban given concern for possible hemarthrosis at this time. Obesity class I: Complicates care and recovery. VTE prophylaxis with left lower extremity SCDs. Holding off on chemical prophylaxis at this time given concern for hemarthrosis and avoiding right lower extremity SCD because of the large fluid collection in that leg as well as cellulitis. CODE STATUS: Addressed with the patient. Patient wishes to be full code. Charges/Coding Visit Charges Inpatient E&M: 07593 Init Hosp L3
--- NOTE | 2024-12-14 16:57 | PCM.RX.CS ---
Consult Antibiotic Management Pharmacy has been consulted to manage selected antibiotic: Vancomycin Type of Intervention Type of Consult: New start Suspected Infection Suspected Infection: Skin/Soft tissue Labs Labs: Sodium 135 mmol/L (133-145) 12/14/24 12:04 Potassium 4.7 mmol/L (3.3-5.1) 12/14/24 12:04 Chloride 100 mmol/L (98-108) 12/14/24 12:04 Carbon Dioxide 22.4 mmol/L (21.0-32.0) 12/14/24 12:04 Anion Gap 13 (5-15) 12/14/24 12:04 BUN 19 mg/dL (4-19) 12/14/24 12:04 Creatinine 1.10 mg/dL (0.70-1.20) 12/14/24 12:04 Est GFR (MDRD) Non-Af 74 (>60) 12/14/24 12:04 BUN/Creatinine Ratio 17.0 RATIO (10-20) 12/14/24 12:04 Glucose 111 mg/dL (70-99) H 12/14/24 12:04 Pharmacy Plan for Drug Dosing Pharmacy Plan for Drug Dosing: NEW START IV VANCOMYCIN Consulting Physician: Nam Indication: cellulitis Goal Trough: 15-20 mg/dL SrCr: 1.1 mg/dL CrCl: 85.8 mL/min Comments: given 2000mg loading dose in ER 12/14 @ 1222 Vancomycin Dose: Will start 2000mg Q12 12/15 @ 0000 and get a trough prior to 4th total dose per policy. Pending Level: 12/15/24 @ 2330 Pharmacy Service will continue to monitor and adjust dosing as required.
--- NOTE | 2024-12-14 17:05 | NURSING ---
pt states that he gets his home medication prescriptions filled from his Cardiology office- Dr. Maya office (which is closed)
[2024-12-14] MEDS: Furosemide 40 MG Tablet PO (17:27)
[2024-12-14] MEDS: 0.9% Saline Lock 10 ML Syringe IV (18:24)
[2024-12-14] MEDS: 0.9% Normal Saline (250mL Bag) 250 ML IV (18:24)
[2024-12-14] MEDS: Metoprolol(XL)Succ 50 MG Tablet PO (21:15)
[2024-12-15] MEDS: Vancomycin HCl 2,000 MG in 0.9% Normal Saline (500mL Bag) 500 ML 250 MG IV ×2 (00:29→12:09)
[2024-12-15 03:25] VITALS: BP 140/84; PULSE 97; RESP 16; TEMP 37.1; O2SAT 98
[2024-12-15] MEDS: Ampicillin/Sulbactam 3 GM in 0.9% Normal Saline (100mL MB+) 100 ML IV ×3 (05:04→17:39)
[2024-12-15 06:12] LABS: Absolute Lymphocyte Count 1.04 X10^3/uL (0.83-4.51); Absolute Neutrophil Count 10.8 X10^3/uL (2.0-7.7); Basophil# 0.06 X10^3/uL; Basophil% 0.5 % (0-1); Eosinophil# 0.02 X10^3/uL; Eosinophils% 0.2 % (0-5); Hematocrit 36.7 % (40-54); Hemoglobin 12.6 g/dL (13.0-16.5); Lymphocyte # 1.04 X10^3/ul (0.83-4.51); Lymphocyte % 7.9 % (19-41); Mean Corp Hgb Conc 34.3 g/dL (32-36); Mean Corpuscular Hgb 31.3 pg (27.0-32.0); Mean Corpuscular Volume 91.1 fL (80-94); Mean Platelet Vol. 9.9 fl (6.2-12.0); Monocyte# 1.09 X10^3/uL; Monocyte% 8.3 % (0-10); NRBC Flagged by Analyzer 0 % (0-5); Neutrophil # 10.84 X10^3/uL (2.7-7.7); Neutrophil % 82.3 % (47-70); Platelet Count 284 K/mm3 (150-450); RBC Distribution Width SD 47.3 fl (35.1-43.9); Red Blood Count 4.03 M/mm3 (4.6-6.2); White Blood Count 13.2 K/mm3 (4.4-11.0)
[2024-12-15 06:49] LABS: ALB/GLOB Ratio 0.6 RATIO (0.9-2.4); AST(SGOT) 57 U/L (<=37); Alanine Aminotransfer ALT/SGPT 61 U/L (<=46); Albumin, Serum 2.6 g/dL (3.4-4.8); Alkaline Phosphatase 285 U/L (40-129); Anion Gap 17 (5-15); BUN 20 mg/dL (4-19); BUN/Creat Ratio 16.8 RATIO (10-20); Calcium,Total 8.4 mg/dL (7.6-11.0); Carbon Dioxide 20.4 mmol/L (21.0-32.0); Chloride 100 mmol/L (98-108); Creatinine, Serum 1.17 mg/dL (0.70-1.20); EST Glomerular Filtration Rate 68 (>60); Estimated Creatinine Clearance 79.94 ml/min (50-250); Globulin 4.5 g/dL (2.2-4.2); Glucose 109 mg/dL (70-99); Protein, Total 7.1 g/dL (5.9-8.4); Sodium Level 137 mmol/L (133-145); Total Bilirubin 0.57 mg/dL (0.00-1.30)
[2024-12-15 08:35] VITALS: BP 122/70; PULSE 82; RESP 17; TEMP 36.9; O2SAT 99
[2024-12-15 08:40] VITALS: PULSE 82
[2024-12-15] MEDS: Empagliflozin 25 MG Tablet PO (08:40)
[2024-12-15] MEDS: Metoprolol(XL)Succ 50 MG Tablet PO ×2 (08:40→22:55)
[2024-12-15] MEDS: amLODIPine 5 MG Tablet PO (08:40)
[2024-12-15] MEDS: Furosemide 40 MG Tablet PO ×2 (08:41→16:45)
[2024-12-15] MEDS: Spironolactone 25 MG Tablet PO (08:41)
[2024-12-15] MEDS: Magnesium Chloride 64 MG Delay Rel.Tablet 128 MG PO (08:41)
[2024-12-15] MEDS: 0.9% Saline Lock 10 ML Syringe IV ×3 (08:43→22:54)
--- NOTE | 2024-12-15 11:40 | CASEMGMT ---
RN CM Face to Face with patient for initial transition planning/care coordination assessment. RN CM introduced self and role at [facility]. Patient lying in bed, alert and oriented, at bedside. Patient willing to participate in assessment and is able to answer all questions appropriately. Care providers, pharmacy, and demographics verified. Strata: 2 PCP: No PCP, list provided in ED Specialists: Francesco, stem frazer; Adán, visor installer; Doug, office messenger Preferred Pharmacy: [facility] Insurance: Shree VÁZQUEZ Prescription Benefit: yes Living Will/HPOA: yes, Mena Merritt LNOK: , daughter Living Arrangements: Patient lives with in a single story home with 3 steps and railing to enter the home. Patient states he was independent at home Transportation: self, DME/HHC: Patient has shower chair, raised toilet, cane, walker, and lift chair at home. No previous HHC or SNF. Patient wishes to discharge home, will monitor progress with therapy. CM discussed different levels or care at discharge including SNF, HHC, and outpatient therapy. Patient states he has no further needs or concerns at this time. CM to follow for discharge planning needs that may arise. Disposition Plan: TBD pending progress with therapy. Jacqui SALINAS, RN, CM
[2024-12-15] MEDS: 0.9% Normal Saline (250mL Bag) 250 ML IV (12:15)
--- NOTE | 2024-12-15 12:54 | CONS.ORTHO ---
HPI Consult Data Date of Consult: 12/15/24 HPI Narrative Reason for Consultation: Right knee pain HPI Narrative: SADIQ DOYLE, is a 69 M with a PMH of atrial fibrillation ( Eliquis) , CAD, CHF ( s/p ICD placement, Not MRI compatible), HTN, HLD, history of PE/DVT, who presents to the emergency room yesterday 12/14/2024 after being sent from orthopedics office due to concern of significant shortness of breath. Patient was in the orthopedics office for evaluation of right knee and right leg pain however he was unable to be evaluated due to severity of pain and shortness of breath he was experiencing. Office staff and Dr. Holt were concerned for patient and recommended that he go to the ER. Upon admission to the ER they did no further concern of right lower extremity significant edema and cellulitis likely from venous stasis and chronic wounds. Patient admitted to not taking his chronic diuretics for the past 3 to 4 days because of the fact his knee was hurting him so bad he did not want to get up and go to the bathroom as often as he would have to,so he stopped these on his own. His knee pain began approximately a week ago. He states he was underneath the mower trying to get the grass cleaned out of it and went to stand up felt a little bit of a pop however no major pain at that time until the next day. The next morning he had significant pain on the anterior and lateral aspect of the knee for which eventually did not go away. On 12/09/2024 he decided to go to the emergency room for this evaluation of this right knee pain. He was diagnosed with iliotibial band syndrome and recommended to follow-up with Dr. Holt which that appointment was scheduled on 12/14/2024. Dr. Holt was unable to further diagnose or evaluate the knee. Patient was afebrile in the office. Upon admission to the hospital blood cultures were taken, antibiotics vancomycin and Unasyn were started. Patient's knee and leg pain continued to worsen. CT of lower extremity 12/14/2024 revealed a fluid collection in the effusion approximately 8 cm in AP diameter, 4 cm in transverse dimension by 20 cm in craniocaudal dimension extending along the medial head of gastrocnemius with differential including Rausch's cyst, hematoma or muscle strain. ultrasound was performed to rule out LE DVT 12/14/24, which was negative. WBC 14.0 ESR 28 and CRP 382 orthopaedics consulted for further management of knee pain and effusion. [facility] Medical History Persistent atrial fibrillation ICD (implantable cardioverter-defibrillator), single, in situ PAF (paroxysmal atrial fibrillation) Ischemic cardiomyopathy Atherosclerotic heart disease of [place] coronary artery without angina pectoris Essential hypertension HLD (hyperlipidemia) Cardiomyopathy CAD in [place] artery New onset atrial fibrillation Home Medications ?Medication ?Instructions ?Recorded ?Last Taken ?Type aspirin 81 mg chewable tablet 81 mg PO DAILY@0800 heart 09/22/19 07/27/23 Rx cholecalciferol (vitamin D3) 50 6,000 unit PO DAILY SUPPLEMENT 01/25/20 03/27/20 History mcg (2,000 unit) capsule magnesium oxide 500 mg PO DAILY follow 05/22/22 Unknown History vitamin K2 45 mcg capsule 45 mcg PO DAILY follow -up 05/22/22 Unknown History krill oil 500 mg capsule 1,000 mg PO DAILY follow up 05/21/23 Unknown History nitroglycerin 0.4 mg sublingual 0.4 mg sublingual Q5M PRN CHEST 05/21/23 Unknown Rx tablet PAIN #25 tabs metoprolol succinate 50 mg 50 mg PO BID blood pressure #180 10/07/23 Unknown Rx tablet,extended release 24 hr tabs spironolactone 25 mg tablet 25 mg PO DAILY follow up #90 tabs 11/18/23 Unknown Rx amlodipine 5 mg tablet 5 mg PO DAILY please give 90 day 03/22/24 Unknown Rx supply #90 TABLETS apixaban 5 mg tablet 5 mg PO BID blood thinner #180 tabs 04/12/24 Unknown Rx dapagliflozin propanediol 10 mg 10 mg PO DAILY follow-u[ #90 tabs 08/05/24 Unknown Rx tablet (Farxiga) multivitamin (Daily Multi-Vitamin 1 tab PO QAM follow up 09/20/24 Unknown History tablet) furosemide 40 mg tablet (Lasix) 40 mg PO BID #180 tabs 10/12/24 Unknown Rx oxycodone-acetaminophen 5 mg-325 1 tab PO Q6H PRN PRN Pain 3 days 12/09/24 Unknown Rx mg tablet #12 TABLETS Allergy/AdvReac Type Severity Reaction Status Date / Time No Known Allergies Allergy Verified 12/14/24 14:12 Family History Father Heart disease Grandfather Diabetes Surgical History S/P ablation of atrial fibrillation History of cardioversion (~11/05/21) S/P PTCA (percutaneous transluminal coronary angioplasty) Social History Smoking Status: Never smoker alcohol intake: current alcohol intake frequency: holidays/special occasions only substance use type: does not use caffeine: Yes Type: coffee Number of servings: 1 Vital Signs Vital Signs Vital Signs: 12/14/24 13:00 12/14/24 15:00 12/14/24 16:25 Temperature 98.2 F 98.7 F Temperature Source Oral Pulse Rate 80 88 89 Respiratory Rate 18 16 18 Respiratory Effort Blood Pressure 118/79 142/80 H 135/86 H Blood Pressure Mean 92 100 102 Blood Pressure Source Blood Pressure Position Blood Pressure Location Pulse Ox 100 100 99 Oxygen Delivery Method Room Air Room Air 12/14/24 16:46 12/14/24 21:13 12/14/24 21:15 Temperature 98.5 F 99.9 F H Temperature Source Oral Oral Pulse Rate 91 94 94 Respiratory Rate 18 16 Respiratory Effort Blood Pressure 147/95 H 126/80 H 126/80 H Blood Pressure Mean 112 95 Blood Pressure Source Monitor Monitor Blood Pressure Position Semi-Fowlers Semi-Fowlers Blood Pressure Location Right Arm Right Arm Pulse Ox 100 97 Oxygen Delivery Method Room Air Room Air 12/14/24 21:15 12/15/24 03:25 12/15/24 03:25 Temperature 98.8 F Temperature Source Oral Pulse Rate 97 Respiratory Rate 16 Respiratory Effort Normal Non-Labored Normal Non-Labored Blood Pressure 140/84 H Blood Pressure Mean 102 Blood Pressure Source Monitor Blood Pressure Position Semi-Fowlers Blood Pressure Location Right Arm Pulse Ox 98 Oxygen Delivery Method Room Air Room Air Room Air 12/15/24 08:35 12/15/24 08:40 Temperature 98.5 F Temperature Source Oral Pulse Rate 82 82 Respiratory Rate 17 Respiratory Effort Blood Pressure 122/70 H Blood Pressure Mean 87 Blood Pressure Source Monitor Blood Pressure Position Semi-Fowlers Blood Pressure Location Right Arm Pulse Ox 99 Oxygen Delivery Method Room Air Weight Weight: 110.767 kg Body Mass Index (BMI) 32.2 Physical Exam Narrative AA&O x 3 satting well on RA no acute distress. no labored breathing. Right knee and lower extremity exam is limited due to severity of pain There is a 3+ knee effusion that is fluctuant and extremely painful to palpation There is a large well demarcated area of significant erythema of the right lower extremity which is outlined with a marker at this point in time. There is significant edema and 4+ pitting edema of the right lower extremity. There are noted several abrasions and scrapes and 1 area that is approximately 2 cm of a chronic ulceration. Left lower extremity with minimal edema maybe 1+ at the most. Mild erythema of the effusion The knee is globally tender to palpation and any movement Tolerates 0 flexion extension. Patient maintains at approximately 10 to 20 degrees flexed. Patient is able to wiggle all toes Cap refill less than 3 seconds Patient is able to flex at the hip though this causes significant pain in the knee. Procedure Note: Right knee aspiration - verbal consent obtained at bedside from patient and - sterile gloves were used to prep aspiration site of superior lateral patella. chlorhexidine prep used to sterilize skin. 18guage needle was used to aspirate knee. entered superior lateral patella. upon aspiration there was 40cc of fluid collected. fluid was very turbid, yellow/brown color with some blood tinge in the later syringe. there was a small collection of white thick substance which may have represented purulence, however there was no do pus on aspiration. -fluid was sent in a sterile syringe with sterile cap and appropriate lables - CHADD Ferguson was assisting during entire procedure - fluid sent directly to lab for analysis. Lab / Micro Data 12/15/24 05:57 12/15/24 05:57 Labs: Laboratory Results - last 24 hr 12/14/24 12:04: Sodium 135, Potassium 4.7, Chloride 100, Carbon Dioxide 22.4, Anion Gap 13, BUN 19, Creatinine 1.10, Estim Creat Clear Calc 85.85, Est GFR (MDRD) Non-Af 74, BUN/Creatinine Ratio 17.0, Glucose 111 H, Calcium 9.5, Total Bilirubin 0.81, AST 64 H, ALT 71 H, Alkaline Phosphatase 284 H, Troponin T High Sens 22, C-React Prot Ext Range 382.00 H, NT pro BNP II 1919 H, Total Protein 7.7, Albumin 2.9 L, Globulin 4.8 H, Albumin/Globulin Ratio 0.6 L 12/14/24 14:16: Troponin T Hi Sens 2 Hr 23 H 12/15/24 05:57: WBC 13.2 H, RBC 4.03 L, Hgb 12.6 L, Hct 36.7 L, MCV 91.1, MCH 31.3, MCHC 34.3, RDW Std Deviation 47.3 H, RDW Coeff of Nichole 14.0, Plt Count 284, MPV 9.9, Immature Gran % (Auto) 0.800, Neut % (Auto) 82.3 H, Lymph % (Auto) 7.9 L, [place] % (Auto) 8.3, Eos % (Auto) 0.2, Baso % (Auto) 0.5, Absolute Neuts (auto) 10.8 H, Absolute Lymphs (auto) 1.04, Nucleated RBC % 0, Sodium 137, Potassium 4.0, Chloride 100, Carbon Dioxide 20.4 L, Anion Gap 17 H, BUN 20 H, Creatinine 1.17, Estim Creat Clear Calc 79.94, Est GFR (MDRD) Non-Af 68, BUN/Creatinine Ratio 16.8, Glucose 109 H, Calcium 8.4, Total Bilirubin 0.57, AST 57 H, ALT 61 H, Alkaline Phosphatase 285 H, Total Protein 7.1, Albumin 2.6 L, Globulin 4.5 H, Albumin/Globulin Ratio 0.6 L Micro: Microbiology 12/14/24 11:50 Blood Culture (Wb) - Anticubital Left Bacteria Detection (PCR) - Final Coag Negative Staph 12/14/24 11:50 Blood Culture (Wb) - Anticubital Left Blood Culture - Preliminary Imaging Radiology Impression Chest X-Ray 12/14/24 10:58 IMPRESSION: Cardiomegaly with mild congestion. Reading Location: [facility] Venous Doppler Study 12/14/24 10:59 Interpretation Summary Deep veins of the right lower extremity are patent and compressible segmentally. There is no evidence of right lower extremity deep vein thrombosis. The right great saphenous vein appears patent and compressible segmentally. Large nonvascularized structure noted in the right popliteal fossa to mid calf. Ordering Physician: Luiz Atwood Performed By: Jacqui Cisse RVT Lower Extremity CT 12/14/24 11:20 IMPRESSION: There is a large joint effusion of the knee. There is a complex fluid collection which extends from the posterior medial aspect of the knee joint into the upper calf, measuring approximately 8 cm in AP diameter, 4 cm in transverse dimension, by 20 cm in craniocaudal dimension, and extends along the medial head of the gastrocnemius. The differential includes a Rausch's cyst with leaking components, hematoma, or muscle strain with perimuscular hemorrhage. There is circumferential subcutaneous edema which extends from the mid calf into the foot, which can indicate venous stasis or cellulitis. Reading Location: [facility] Assessment & Plan Assessment/Plan (1) Effusion, right knee: PLAN: Case was staffed with Dr. Carter who is on-call. 1. At this point in time there is concern for possible right knee septic arthritis. patient does have leukocytosis of 14.0 and 13.2 upon repeat labs. he remains afebrile. blood cultures gram stain with coag neg staph. remainder are still pending. 2. Knee aspiration performed at bedside after verbal consent was obtained. see procedure note 3. Continue antibiotics per primary for now 4. continue diuresis per primary, as cellulitis likely was exacerbated or due to chronic wounds/ venous stasis from him d/c home medication without recommendation. 5. Further recommendations pending aspiration results. 6. pain control with tylenol 1000mg every 8 hours, oxycodone q4-6 hrs prn. (2) Cellulitis of right lower extremity: Procedure Criteria Type of Procedure Procedure Type: Elective (Right knee aspiration) Elective Risks - COVID COVID Risk Discussion: The surgeon/proceduralist and patient have discussed in detail the risk of exposure to and/or potential harm posed by the COVID-19 virus with having a surgery/procedure at this time versus the risk of delaying the surgery/procedure. It is not possible to know either the risk of delaying the surgery or procedure or chance of getting an infection with perfect accuracy, but a joint decision was made between the patient and the surgeon/proceduralist to proceed at this time with the scheduled surgery/procedure as indicated on the consent form.
--- NOTE | 2024-12-15 14:03 | PN_ITS ---
Subjective Subjective Patient seen and examined. He had no active complaints. His right lower extremity remains swollen but is not as tender as it was. Review of systems otherwise negative. He has remained hemodynamically stable. Objective Data Objective Data Vital Signs: Vital Signs Temp Pulse Resp BP Pulse Ox O2 Del Method 98.5 F 82 17 122/70 H 99 Room Air 12/15/24 08:35 12/15/24 08:40 12/15/24 08:35 12/15/24 08:35 12/15/24 08:35 12/15/24 08:35 Oxygen Delivery Method Room Air Weight: 244 lb 3.2 oz Body Mass Index (BMI) 32.2 Intake & Output: Intake and Output for Last 24 Hours 12/13/24 12/14/24 12/15/24 23:59 23:59 23:59 Intake Total 1240.05 / 1240.05 1043.08 / 1043.08 Output Total 525 / 525 Balance 1240.05 / 1240.05 518.08 / 518.08 Lab / Micro Data 12/15/24 05:57 12/15/24 05:57 Labs: Laboratory Results - last 24 hr 12/14/24 12:04: C-React Prot Ext Range 382.00 H 12/14/24 14:16: Troponin T Hi Sens 2 Hr 23 H 12/15/24 05:57: WBC 13.2 H, RBC 4.03 L, Hgb 12.6 L, Hct 36.7 L, MCV 91.1, MCH 31.3, MCHC 34.3, RDW Std Deviation 47.3 H, RDW Coeff of Nichole 14.0, Plt Count 284, MPV 9.9, Immature Gran % (Auto) 0.800, Neut % (Auto) 82.3 H, Lymph % (Auto) 7.9 L, [place] % (Auto) 8.3, Eos % (Auto) 0.2, Baso % (Auto) 0.5, Absolute Neuts (auto) 10.8 H, Absolute Lymphs (auto) 1.04, Nucleated RBC % 0, Sodium 137, Potassium 4.0, Chloride 100, Carbon Dioxide 20.4 L, Anion Gap 17 H, BUN 20 H, Creatinine 1.17, Estim Creat Clear Calc 79.94, Est GFR (MDRD) Non-Af 68, BUN/Creatinine Ratio 16.8, Glucose 109 H, Calcium 8.4, Total Bilirubin 0.57, AST 57 H, ALT 61 H , Alkaline Phosphatase 285 H, Total Protein 7.1, Albumin 2.6 L, Globulin 4.5 H, Albumin/Globulin Ratio 0.6 L Micro: Microbiology 12/14/24 11:50 Blood Culture (Wb) - Anticubital Left Bacteria Detection (PCR) - Final Coag Negative Staph 12/14/24 11:50 Blood Culture (Wb) - Anticubital Left Blood Culture - Preliminary Radiography Diagnostic Testing: Radiology Impression Venous Doppler Study 12/14/24 10:59 Interpretation Summary Deep veins of the right lower extremity are patent and compressible segmentally. There is no evidence of right lower extremity deep vein thrombosis. The right great saphenous vein appears patent and compressible segmentally. Large nonvascularized structure noted in the right popliteal fossa to mid calf. Ordering Physician: Luiz Atwood Performed By: Jacqui Cisse RVT Physical Exam Const alert, oriented x3, no apparent distress and well nourished General Appearance: cooperative HEENT normocephalic, head/scalp atraumatic, moist oral mucous membranes and oropharynx normal Eyes PERRL and EOMs intact bilaterally Neck no lymphadenopathy and supple Lymph Lymphatic: no lymphadenopathy noted Resp normal respiratory effort, normal air movement and clear to auscultation bilaterally Cardio regular rate, regular rhythm, S1 normal heart sound, S2 normal heart sound and no murmurs GI normal to inspection, nondistended, normoactive bowel sounds, soft to palpation, non-tender and non-distended Extremity Extremity Narrative: RLE edematous, erythema from just above ankle to mid carroll, with a blister in the middle of the right carroll. Tender to touch, with differential warmth. Skin Skin Narrative: as under extremities Neuro CN's II-XII intact bilaterally, no focal motor deficits and no sensory deficits noted Motor Exam: strength 5/5 throughout and general weakness Psych thought process normal and cooperative Appearance: appropriate Assessment & Plan Assessment/Plan (1) Effusion, right knee: (2) Cellulitis of right lower extremity: PLAN: Plan #Cellulitis of the right lower extremity * Likely related to the joint effusion from ruptured bursa. * On IV vancomycin and Unasyn. * Orthopedic surgery consulted in light of the possible hemarthrosis. Likely aspirated the leg and okay with patient being placed on DVT prophylaxis. * PO tylenol, IV morphine and PO oxycodone prn for pain * duplex of the RLE was negative for any evidence of DVT. * #Right knee effusion * orthopedics on board. they did do an aspiration today and fluid sent for analysis and culture * PT/OT on board * per ortho, to keep NPO past midnight in case he needs to have surgery * #HFpEF: not in exacerbation. Has known EF of 50% from 2D echo in January 2024. We need to know if bronchodilators #A-fib: On metoprolol. Eliquis held on admission due to concerns about hemarthrosis #Class I obesity: BMI is 32.2. Complicates acute care, expected recovery and prognosis. DVT prophylaxis: Start on Lovenox for now. Charges/Coding Visit Charges Inpatient E&M: 54131 Subs Hosp L2
[2024-12-15 14:21] VITALS: BP 134/73; PULSE 88; RESP 18; TEMP 37.1; O2SAT 98
[2024-12-15 14:21] LABS: Pathologist Comment May follow
[2024-12-15] MEDS: Enoxaparin 40 MG/0.4 ML Syringe SC (14:50)
--- NOTE | 2024-12-15 15:10 | NURSING ---
spouse at bedside, makes comments about pt poor hygiene and odor at home. spouse states that pt sees Dr. Mccain 3-4x a year, however only washes his feet at home when they start to stink or I make him. He is walking around barefoot in all kinds of stuff . Discussion/education/active listening/reinforcement/reflection and feedback to pt/spouse about importance of foot care/hygiene and risks/ramifications/complications to poor hygiene and pt health. spouse verbalizes understanding, initially pt engages in conversation with nurse and pt spouse but then pt stops making eye contact with said nurse and stares at the TV instead and stops actively engaging in discussion.
[2024-12-15 17:17] LABS: AUTO B FLUID DILUENT BKGD CT WBC <0.1 RBC <0.01 (W<.1,R<.01)
[2024-12-15 17:18] LABS: CRYSTALS, BODY FLUID NO CRYSTALS SEEN; Color / Synovial Fluid Yellow (Pale Yellow); Source / Synovial Fluid RIGHT KNEE; Source- Body Fluid SYNOVIAL
[2024-12-15 17:19] LABS: Appearance /Synovial Fluid Turbid (CLEAR)
[2024-12-15 17:21] LABS: Synovial Fld Mononuclear WBC % 3.4 %; Synovial Fld Polynuclear WBC # 32.675 10^3/uL; Synovial Fld Polynuclear WBC % 96.6 %
[2024-12-15 17:22] LABS: Lymph 3 %; Monocyte /Synovial Fluid 2 %; Neutrophil 95 % (0-25)
[2024-12-15] MEDS: Acetaminophen 325 MG Tablet 650 MG PO (18:21)
[2024-12-15] MEDS: oxyCODONE 5 MG Tablet PO (18:21)
[2024-12-15 22:47] VITALS: BP 128/70; PULSE 88; RESP 16; TEMP 37; O2SAT 99
[2024-12-15 22:55] VITALS: BP 128/70; PULSE 88
[2024-12-16] VITALS (17 sets, daily range): BP systolic 115–176; BP diastolic 71–106; PULSE 74–99; RESP 16–20; TEMP 36.8–37.6; O2SAT 91–99; BMI 32.2
[2024-12-16 00:19] LABS: Vancomycin, Trough Level 22.7 ug/mL (5.0-15.0)
[2024-12-16] MEDS: Ampicillin/Sulbactam 3 GM in 0.9% Normal Saline (100mL MB+) 100 ML IV ×5 (00:28→23:45)
--- NOTE | 2024-12-16 00:30 | PCM.RX.CS ---
Consult Antibiotic Management Pharmacy has been consulted to manage selected antibiotic: Vancomycin Type of Intervention Type of Consult: Follow-up Labs Labs: Sodium 137 mmol/L (133-145) 12/15/24 05:57 Potassium 4.0 mmol/L (3.3-5.1) 12/15/24 05:57 Chloride 100 mmol/L (98-108) 12/15/24 05:57 Carbon Dioxide 20.4 mmol/L (21.0-32.0) L 12/15/24 05:57 Anion Gap 17 (5-15) H 12/15/24 05:57 BUN 20 mg/dL (4-19) H 12/15/24 05:57 Creatinine 1.17 mg/dL (0.70-1.20) 12/15/24 05:57 Est GFR (MDRD) Non-Af 68 (>60) 12/15/24 05:57 BUN/Creatinine Ratio 16.8 RATIO (10-20) 12/15/24 05:57 Glucose 109 mg/dL (70-99) H 12/15/24 05:57 Vancomycin Trough 22.7 ug/mL (5.0-15.0) H 12/15/24 23:15 Microbiology Microbiology: Microbiology 12/14/24 11:50 Blood Culture (Wb) - Anticubital Left Bacteria Detection (PCR) - Final Coag Negative Staph 12/14/24 11:50 Blood Culture (Wb) - Anticubital Left Blood Culture - Preliminary Goal Trough Goal Trough: 15-20 mcg/mL Pharmacy Plan for Drug Dosing Pharmacy Plan for Drug Dosing: Pharmacy Service will continue to monitor and adjust dosing as required. TROUGH 22.7 @ 11 HOURS. HOLD DOSE AND DRAW RANDOM LEVEL IN 8 HOURS Follow-Up Labs Follow-Up Labs: Trough: Vancomycin Date/Time Labs Ordered Labs to be done on [date and time ordered]: 12/16 @ [id number]
[2024-12-16] MEDS: Acetaminophen 325 MG Tablet 650 MG PO ×2 (04:31→21:27)
[2024-12-16 08:12] LABS: Absolute Lymphocyte Count 0.78 X10^3/uL (0.83-4.51); Absolute Neutrophil Count 8.7 X10^3/uL (2.0-7.7); Basophil# 0.05 X10^3/uL; Basophil% 0.5 % (0-1); Eosinophil# 0.03 X10^3/uL; Eosinophils% 0.3 % (0-5); Hematocrit 35.6 % (40-54); Lymphocyte # 0.78 X10^3/ul (0.83-4.51); Lymphocyte % 7.2 % (19-41); Mean Corp Hgb Conc 33.7 g/dL (32-36); Mean Corpuscular Hgb 30.8 pg (27.0-32.0); Mean Corpuscular Volume 91.5 fL (80-94); Mean Platelet Vol. 9.8 fl (6.2-12.0); Monocyte# 1.11 X10^3/uL; Monocyte% 10.3 % (0-10); NRBC Flagged by Analyzer 0 % (0-5); Neutrophil # 8.72 X10^3/uL (2.7-7.7); Neutrophil % 80.6 % (47-70); Platelet Count 294 K/mm3 (150-450); RBC Distribution Width CV 14.5 % (11.6-14.6); RBC Distribution Width SD 48.8 fl (35.1-43.9); Red Blood Count 3.89 M/mm3 (4.6-6.2); White Blood Count 10.8 K/mm3 (4.4-11.0)
[2024-12-16 08:40] LABS: Anion Gap 11 (5-15); BUN 22 mg/dL (4-19); BUN/Creat Ratio 16.4 RATIO (10-20); Calcium,Total 8.9 mg/dL (7.6-11.0); Carbon Dioxide 24.1 mmol/L (21.0-32.0); Chloride 99 mmol/L (98-108); Creatinine, Serum 1.31 mg/dL (0.70-1.20); EST Glomerular Filtration Rate 60 (>60); Glucose 129 mg/dL (70-99); Potassium 3.9 mmol/L (3.3-5.1); Sodium Level 134 mmol/L (133-145)
--- NOTE | 2024-12-16 08:59 | PHA.PHARE_ITS ---
Consult Antibiotic Management Pharmacy has been consulted to manage selected antibiotic: Vancomycin Type of Intervention Type of Consult: Follow-up Suspected Infection Suspected Infection: Skin/Soft tissue Prior Doses of Antibiotics Prior Doses of Antibiotics Received/Current Regimen: dose is currently being held due to a high trough but the most recent dose was 2 000mg q12h Labs Labs: Sodium 134 mmol/L (133-145) 12/16/24 07:50 Potassium 3.9 mmol/L (3.3-5.1) 12/16/24 07:50 Chloride 99 mmol/L (98-108) 12/16/24 07:50 Carbon Dioxide 24.1 mmol/L (21.0-32.0) 12/16/24 07:50 Anion Gap 11 (5-15) 12/16/24 07:50 BUN 22 mg/dL (4-19) H 12/16/24 07:50 Creatinine 1.31 mg/dL (0.70-1.20) H 12/16/24 07:50 Est GFR (MDRD) Non-Af 60 (>60) 12/16/24 07:50 BUN/Creatinine Ratio 16.4 RATIO (10-20) 12/16/24 07:50 Glucose 129 mg/dL (70-99) H 12/16/24 07:50 Vancomycin Trough 22.7 ug/mL (5.0-15.0) H 12/15/24 23:15 Random Vancomycin 16.0 ug/mL (0.0-15.0) H 12/16/24 07:50 Microbiology Microbiology: Microbiology 12/14/24 11:50 Blood Culture (Wb) - Anticubital Left Bacteria Detection (PCR) - Final Coag Negative Staph 12/14/24 11:50 Blood Culture (Wb) - Anticubital Left Blood Culture - Preliminary Coag Negative Staph Dosing Weight Weight used for dosin.8 kg Estimated Creatinine Clearance Estimated Creatinine Clearance: 71 ml/min Goal Trough Goal Trough: 15-20 mcg/mL Pharmacy Plan for Drug Dosing Pharmacy Plan for Drug Dosing: the vanc random level drawn at 07:50 was 16.0 mcg/ml. This is back below 20 so will resume dosing at a new dose of 1250mg IV q12h. Of note, the patient's SCr went up to 1.31 today from 1.17 yesterday so will be conservative with the new dose. Check a trough level before the 4th dose. Pharmacy Service will continue to monitor and adjust dosing as required. Follow-Up Labs Follow-Up Labs: Trough: Vancomycin Date/Time Labs Ordered Labs to be done on [date and time ordered]: 12/17/24 21:30
[2024-12-16] MEDS: Spironolactone 25 MG Tablet PO (09:23)
[2024-12-16] MEDS: Magnesium Chloride 64 MG Delay Rel.Tablet 128 MG PO (09:23)
[2024-12-16] MEDS: amLODIPine 5 MG Tablet PO (09:24)
[2024-12-16] MEDS: Metoprolol(XL)Succ 50 MG Tablet PO ×2 (09:24→21:27)
[2024-12-16] MEDS: Empagliflozin 25 MG Tablet PO (09:24)
[2024-12-16] MEDS: Furosemide 40 MG Tablet PO ×2 (09:24→17:51)
[2024-12-16] MEDS: Vancomycin HCl 1,250 MG in 0.9% Normal Saline (250mL Bag) 250 ML 167 MG IV ×2 (10:14→21:27)
--- NOTE | 2024-12-16 14:29 | PN_ITS ---
Subjective Subjective Patient seen and examined. She had no complaints. Review of systems otherwise negative. He is due for surgery by orthopedics on his right knee and right lower extremity today as the fluid aspirated from the knee yesterday appears to be infected. Review of systems otherwise negative. Objective Data Objective Data Vital Signs: Vital Signs Temp Pulse Resp BP Pulse Ox O2 Del Method 98.2 F 74 18 128/79 H 98 Room Air 12/16/24 09:06 12/16/24 09:24 12/16/24 09:06 12/16/24 09:24 12/16/24 09:06 12/16/24 09:46 Oxygen Delivery Method Room Air Weight: 244 lb 3.2 oz Body Mass Index (BMI) 32.2 Intake & Output: Intake and Output for Last 24 Hours 12/14/24 12/15/24 12/16/24 23:59 23:59 23:59 Intake Total 1240.05 / 1240.05 1703.33 / 1703.33 625 / 625 Output Total 1525 / 1525 1450 / 1450 Balance 1240.05 / 1240.05 178.33 / 178.33 -825 / -825 Lab / Micro Data 12/16/24 07:50 12/16/24 07:50 Labs: Laboratory Results - last 24 hr 12/15/24 12:35: Fluid Source Cancelled, Fluid Color Cancelled, Fluid Appearance Cancelled, Fluid WBC Cancelled, Fluid RBC Cancelled, Fluid Tot Cell Count Cancelled, Fld Polynuclear WBCs # Cancelled, Fld Polynuclear WBCs % Cancelled, Fluid Mononuclear WBCs Cancelled, Fld Mononuclear WBCs % Cancelled, Fluid Neutrophils Cancelled, Fluid Lymphocytes Cancelled, Fluid Monocytes Cancelled, Fluid Plasma Cells Cancelled, Fluid Macrophages Cancelled, Fld Mesothelial Cells Cancelled, Fluid Other Cells Cancelled, Fluid Crystals NO CRYSTALS SEEN, Fluid Crystal Source SYNOVIAL, Fl Crystal Path Review Will follow, Fl Pathologist Comment Cancelled, Fluid Comment 2 Cancelled, Synovial Source RIGHT KNEE, Synovial Color Yellow, Synovial Appearance Turbid, Synovial WBC 33.8450 H, S ynovial RBC 0.010 H, Synovial Tot Cell Ct 33.9300 H, Synov Polynuclear WBCs 32.675, Synov Mononuclear WBCs 1.170, Synovial Neutrophils 95 H, Synovial Lymphocytes 3, Synovial Monocytes 2, Synovial Polynuclear % 96.6, Synovial Mononuclear % 3.4, Synovial Path Comment May follow 12/15/24 23:15: Vancomycin Trough 22.7 H 12/16/24 07:50: WBC 10.8, RBC 3.89 L, Hgb 12.0 L, Hct 35.6 L, MCV 91.5, MCH 30.8, MCHC 33.7, RDW Std Deviation 48.8 H, RDW Coeff of Nichole 14.5, Plt Count 294, MPV 9.8, Immature Gran % (Auto) 1.100 H, Neut % (Auto) 80.6 H, Lymph % (Auto) 7.2 L, [place] % (Auto) 10.3 H, Eos % (Auto) 0.3, Baso % (Auto) 0.5, Absolute Neuts (auto) 8.7 H, Absolute Lymphs (auto) 0.78 L, Nucleated RBC % 0, Sodium 134, Potassium 3.9, Chloride 99, Carbon Dioxide 24.1, Anion Gap 11, BUN 22 H, C reatinine 1.31 H, Estim Creat Clear Calc 71.40, Est GFR (MDRD) Non-Af 60, BUN/Creatinine Ratio 16.4, Glucose 129 H, Calcium 8.9, Random Vancomycin 16.0 H Micro: Microbiology 12/15/24 12:35 Fluid - Synovial (joint) Gram Stain - Final 12/15/24 12:35 Fluid - Synovial (joint) Body Fluid Culture - Preliminary Staphylococcus aureus 12/14/24 12:04 Blood Culture (Wb) - Anticubital Left Blood Culture - Preliminary No growth in 48 hours. 12/14/24 11:50 Blood Culture (Wb) - Anticubital Left Bacteria Detection (PCR) - Final Coag Negative Staph 12/14/24 11:50 Blood Culture (Wb) - Anticubital Left Blood Culture - Preliminary Coag Negative Staph Physical Exam Const alert, oriented x3, no apparent distress and well nourished General Appearance: cooperative HEENT normocephalic, head/scalp atraumatic, moist oral mucous membranes and oropharynx normal Eyes PERRL and EOMs intact bilaterally Neck no lymphadenopathy and supple Lymph Lymphatic: no lymphadenopathy noted Resp normal respiratory effort, normal air movement and clear to auscultation bilaterally Cardio regular rate, regular rhythm, S1 normal heart sound, S2 normal heart sound and no murmurs GI normal to inspection, nondistended, normoactive bowel sounds, soft to palpation, non-tender and non-distended Extremity Extremity Narrative: RLE still edematous, erythema from just above ankle to mid carroll. Tender to touch, with differential warmth. Right knee also swollen, nontender, no erythema or differential warmth. Skin Skin Narrative: as under extremities Neuro CN's II-XII intact bilaterally, no focal motor deficits and no sensory deficits noted Motor Exam: strength 5/5 throughout and general weakness Psych thought process normal and cooperative Appearance: appropriate Assessment & Plan Assessment/Plan (1) Effusion, right knee: (2) Cellulitis of right lower extremity: PLAN: Plan #Cellulitis of the right lower extremity * Likely related to the joint effusion from ruptured bursa. * On IV vancomycin and Unasyn. * Orthopedic surgery on board. Had left leg knee aspiration done yesterday and fluid analysis showed markedly elevated WBC of 33,800 which is mainly neutrophilic. There is therefore concern for septic arthritis of the knee. * Duplex of the lower extremity was negative for any evidence of DVT. For surgery today by orthopedics. * PO tylenol, IV morphine and PO oxycodone prn for pain * #Right knee effusion * As above * #HFpEF: not in exacerbation. Has known EF of 50% from 2D echo in January 2024. Breathing treatments bronchodilators. #A-fib: On metoprolol. Eliquis held on admission due to concerns about hemarthrosis #Class I obesity: BMI is 32.2. Complicates acute care, expected recovery and prognosis. DVT prophylaxis: Started on Lovenox yesterday. To resume Eliquis for A-fib when okay with orthopedics. Charges/Coding Visit Charges Inpatient E&M: 02835 Subs Hosp L3
[2024-12-16] MEDS: Lactated Ringers 1,000 ML 15 ML IV (14:37)
--- NOTE | 2024-12-16 15:22 | PCM.PRE.AN2 ---
ASA Classification* ASA Classification ASA Classification: 3 Assessment & Plan Anesthesia* Anesthesia Assessment Anesthesia Assessment: Discussed sedation and/or anesthesia options, risks, benefits, and alternatives with patient/parents/legal guardian/POA. Questions invited. The patient/parents/legal guardian/POA seems to understand and agrees to proceed with anesthesia plan. Reviewed the physical assessment, medical history, allergy history and patient home medications list prior to surgery/procedure/anesthetic and documented any changes. Performed airway and anesthesia risk assessments. Anesthesia Type Anesthesia Type: General History Source History Obtained from:: Patient and Chart Anesthesia Focused Assessment* Temperature: 98.4 F Pulse Rate: 80 Blood Pressure: 125/85 Respiratory Rate: 16 Pulse Ox: 98 Oxygen Delivery Method: Room Air Airway Assessment Mouth opens: >3 cm Mallampati Score: III Teeth Condition: Chipped/Broken (Patient has multiple chipped and loose teeth.) and Missing (Patient has couple missing teeth.) Neck Range of motion (ROM): Limited ROM Focused Labs Anesthesia Preop lab: CBC WBC 10.8 K/mm3 (4.4-11.0) 12/16/24 07:50 12/16/24 RBC 3.89 M/mm3 (4.6-6.2) L 12/16/24 07:50 12/16/24 Hgb 12.0 g/dL (13.0-16.5) L 12/16/24 07:50 12/16/24 Hct 35.6 % (40-54) L 12/16/24 07:50 12/16/24 Plt Count 294 K/mm3 (150-450) 12/16/24 07:50 12/16/24 CHEMISTRY Potassium 3.9 mmol/L (3.3-5.1) 12/16/24 07:50 12/16/24 Sodium 134 mmol/L (133-145) 12/16/24 07:50 12/16/24 Magnesium 2.1 mg/dL (1.6-2.6) 10/16/21 09:51 10/16/21 BUN 22 mg/dL (4-19) H 12/16/24 07:50 12/16/24 Creatinine 1.31 mg/dL (0.70-1.20) H 12/16/24 07:50 12/16/24 Glucose 129 mg/dL (70-99) H 12/16/24 07:50 12/16/24 TSH 3.34 uIU/mL (0.358-3.74) 05/22/22 11:43 05/22/22 COAG PT 21.4 SECONDS (11.7-14.9) H 12/14/24 12:04 12/14/24 Pre-Assessment Diagnosis/Proposed Procedure Planned Operative Procedure(s): Right knee arthroscopy, irrigation and debridement, right leg. Anesthesia History Anesthesia History - treatment manager: Anesthesia History - treatment manager Hx Hospitalization Yes: 01/2020 chf 08/31/20 17:19 Any Problems With Anesthesia Yes: Has woken up while 12/16/24 00:40 under anesthesia Cholinesterase deficiency No 12/16/24 00:40 You/Your Family Experience No 12/16/24 00:40 fever (hyperthermia) with Relationship Recent Exposure to Contagious No 12/16/24 00:40 Disease Does patient have nerve No 12/16/24 00:40 stimulator Patient instructed to have No 12/16/24 00:40 device shut off --Does patient have Pacemaker Yes 12/16/24 07:32 or ICD? When Was Last Pacemaker Check Pt has ICD 12/16/24 00:40 QUESTION #4 FULL TEXT: You/Your Family Experience fever (hyperthermia) with Anesthesia Last Oral Intake Last Oral intake: Last Oral Intake NPO since 00:00 12/16/24 07:32 Meds taken in AM with sips of Yes 12/16/24 07:32 water? Meds patient instructed to Spironilactone, jardiance, 12/16/24 07:32 take am of surgery lasix, magnesium, amlodipine , metoprolol PONV PONV - treatment manager: PONV - treatment manager Female HX of Motion Sickness HX of N/V After Surgery Non-Smoker Duration of Surgery greater than 60 minutes Number of Risk Factors PONV Score Height & Weight Height & Weight: Anesthesia: Height & Weight Height 6 ft 1 in 12/16/24 07:32 Weight: 110.767 kg 12/16/24 07:32 Body Mass Index (BMI) 32.2 12/16/24 07:32 Respiratory Assessment Respiratory Assessment - treatment manager: Respiratory Tract Infection Hx - treatment manager Hx Respiratory Tract Infection No 12/16/24 00:40 STOP Sleep Apnea STOP Sleep Apnea - treatment manager: STOP Sleep Apnea - treatment manager Hx Hypertension Yes 12/16/24 14:58 Hx Sleep Apnea No 12/14/24 16:47 CPAP No: . 12/14/24 16:47 BIPAP No 12/14/24 16:47 Do you snore loudly (louder Yes 12/14/24 16:47 than talking or can be heard Do you often feel tired/ Yes 12/14/24 16:47 fatigued/ sleepy during daytime? Has anyone observed you stop Yes 12/14/24 16:47 breathing during sleep? STOP Results Positive 12/14/24 16:47 QUESTION #5 FULL TEXT : Do you snore loudly (louder than talking or can be heard through closed doors)? Tobacco Use History Tobacco Use History - treatment manager: Tobacco Use History - treatment manager Tobacco Use Smoking Status Never smoker 12/14/24 16:47 Hx Tobacco Use No 12/14/24 16:47 Years Smoking Packs Smoked per Day Smoking Cessation Date was within the last 15 years Hx Smoking Cessation Date Hx Smoking Cessation Counseling Hematologic Medial History Hematologic Hx - treatment manager: Hematologic Medical Hx - documentation billing clerk Hx of Blood Transfusion No 12/14/24 16:47 Hx of Transfusion in last 3 No 12/14/24 16:47 Months Date of Last Transfusion (if within last 3 months) Ever experience any problems No 12/14/24 16:47 with transfusion(s)? Specify any problems Hx of Preganancy in last 3 N/A 12/14/24 16:47 Months Nurse Filling Out Transfusion RKARPER 12/14/24 16:47 & Questions: Date: 12/14/24 12/14/24 16:47 Time: 16:48 12/14/24 16:47 Patient unable to answer at this time (ie. confused, unrespo /Reproduction History /Reproductive History - treatment manager: /Reproductive Hx- treatment manager Hx Now No 12/16/24 00:40 Gestational Age (in weeks): EDC: Hx Hx Para Hx Section SAB No 12/16/24 00:40 Active Medications Active Medications: Current Medications Generic Name Dose Route Start Last Admin Trade Name Freq PRN Reason Stop Dose Admin Acetaminophen 650 mg 12/14/24 16:39 12/16/24 04:31 Acetaminophen 325 Mg Tablet PO 650 mg Q6H PRN PRN Administration Pain 1-10 Or Fever >100.7 Amlodipine Besylate 5 mg 12/15/24 10:00 12/16/24 09:24 Amlodipine 5 Mg Tablet PO 5 mg DAILY SHAQUILLE Administration Protocol Empagliflozin 25 mg 12/15/24 10:00 12/16/24 09:24 Empagliflozin 25 Mg Tablet PO 25 mg DAILY SHAQUILLE Administration Enoxaparin Sodium 40 mg 12/15/24 14:25 12/15/24 14:50 Enoxaparin 40 Mg/0.4 Ml Syringe SC 40 mg DAILY SHAQUILLE Administration Furosemide 40 mg 12/14/24 18:00 12/16/24 09:24 Furosemide 40 Mg Tablet PO 40 mg BIDLX SHAQUILLE Administration Protocol Ampicillin Sodium/Sulbactam 100 mls @ 150 mls/hr 12/14/24 18:00 12/16/24 13:21 Sodium 3 gm/ Sodium Chloride IV Infused Q6 SHAQUILLE Infusion Vancomycin IV-PHARMACY TO DOSE 500 mls @ 250 mls/hr 12/14/24 16:39 1 each/ Sodium Chloride IV X1 PRN Rx to Dose Protocol Sodium Chloride 250 mls @ 15 mls/hr 12/14/24 16:40 12/15/24 14:26 IV 0 mls/hr .[id number] PRN Infusion Saline Flush Sodium Chloride 250 mls @ 15 mls/hr 12/14/24 16:40 IV .[id number] PRN Additional IVPB Infusion Vancomycin HCl 1,250 mg/ 275 mls @ 167 mls/hr 12/16/24 10:00 12/16/24 12:27 Sodium Chloride IV Infused Q12H SHAQUILLE Infusion Lactated Ringer's 1,000 mls @ 15 mls/hr 12/16/24 14:30 12/16/24 14:37 IV 15 mls/hr .Q48H SHAQUILLE Administration Magnesium Chloride 128 mg 12/15/24 10:00 12/16/24 09:23 Magnesium Chloride 64 Mg Delay Rel.Tablet PO 128 mg DAILY SHAQUILLE Administration Metoprolol Succinate 50 mg 12/14/24 22:00 12/16/24 09:24 Metoprolol(Xl)Succ 50 Mg Tablet PO 50 mg BID SHAQUILLE Administration Protocol Nitroglycerin 0.4 mg 12/14/24 16:49 Nitroglycerin (Inpatient Use) 0.4 Mg Tab.Subl SL Q5M PRN CARDIAC/CHEST PAIN Ondansetron HCl 4 mg 12/14/24 16:39 Ondansetron 4 Mg/2 Ml Vial IV Q8H PRN PRN NAUSEA/VOMITING Oxycodone HCl 2.5 - 5 mg 12/14/24 16:39 12/15/24 18:21 Oxycodone 5 Mg Tablet PO 5 mg Q4H PRN PRN Administration Pain Score 4-10 Sodium Chloride 10 - 40 ml 12/14/24 16:40 12/15/24 22:54 0.9% Saline Lock 10 Ml Syringe IV 20 ml UD PRN Administration SALINE FLUSH Spironolactone 25 mg 12/15/24 10:00 12/16/24 09:23 Spironolactone 25 Mg Tablet PO 25 mg DAILY SHAQUILLE Administration Protocol Vancomycin Protocol 1 lab 12/17/24 20:30 Vancomycin Trough/Random Due MC 12/17/24 22:30 DAILY [facility] Medical History Persistent atrial fibrillation ICD (implantable cardioverter-defibrillator), single, in situ PAF (paroxysmal atrial fibrillation) Ischemic cardiomyopathy Atherosclerotic heart disease of [place] coronary artery without angina pectoris Essential hypertension HLD (hyperlipidemia) Cardiomyopathy CAD in [place] artery New onset atrial fibrillation Home Medications ?Medication ?Instructions ?Recorded ?Last Taken ?Type aspirin 81 mg chewable tablet 81 mg PO DAILY@0800 heart 09/22/19 07/27/23 Rx cholecalciferol (vitamin D3) 50 6,000 unit PO DAILY SUPPLEMENT 01/25/20 03/27/20 History mcg (2,000 unit) capsule magnesium oxide 500 mg PO DAILY follow 05/22/22 Unknown History vitamin K2 45 mcg capsule 45 mcg PO DAILY follow -up 05/22/22 Unknown History krill oil 500 mg capsule 1,000 mg PO DAILY follow up 05/21/23 Unknown History nitroglycerin 0.4 mg sublingual 0.4 mg sublingual Q5M PRN CHEST 05/21/23 Unknown Rx tablet PAIN #25 tabs metoprolol succinate 50 mg 50 mg PO BID blood pressure #180 10/07/23 Unknown Rx tablet,extended release 24 hr tabs spironolactone 25 mg tablet 25 mg PO DAILY follow up #90 tabs 11/18/23 Unknown Rx amlodipine 5 mg tablet 5 mg PO DAILY please give 90 day 03/22/24 Unknown Rx supply #90 TABLETS apixaban 5 mg tablet 5 mg PO BID blood thinner #180 tabs 04/12/24 Unknown Rx dapagliflozin propanediol 10 mg 10 mg PO DAILY follow-u[ #90 tabs 08/05/24 Unknown Rx tablet (Farxiga) multivitamin (Daily Multi-Vitamin 1 tab PO QAM follow up 09/20/24 Unknown History tablet) furosemide 40 mg tablet (Lasix) 40 mg PO BID #180 tabs 10/12/24 Unknown Rx oxycodone-acetaminophen 5 mg-325 1 tab PO Q6H PRN PRN Pain 3 days 12/09/24 Unknown Rx mg tablet #12 TABLETS Allergy/AdvReac Type Severity Reaction Status Date / Time No Known Allergies Allergy Verified 12/14/24 14:12 Family History Father Heart disease Grandfather Diabetes Surgical History S/P ablation of atrial fibrillation History of cardioversion (~11/05/21) S/P PTCA (percutaneous transluminal coronary angioplasty) Social History Smoking Status: Never smoker alcohol intake: current alcohol intake frequency: holidays/special occasions only substance use type: does not use caffeine: Yes Type: coffee Number of servings: 1 Review of Systems (Anesthesia) ROS Narrative System reviewed and no additional complaints, except as documented.
[2024-12-16] MEDS: Epinephrine (1 mg/ml) 1 MG/ML VIAL (16:15)
[2024-12-16] MEDS: Bupiv/Epi 0.25% 30 ML Vial (16:15)
--- NOTE | 2024-12-16 16:20 | PCM.OPRPT ---
Operative Report (Standard) Operative Information Date of Procedure: 12/16/24 Pre-Operative Diagnosis: 1. Right knee septic arthritis 2. Right gastrocnemius intramuscular abscess versus fluid collection Post-Operative Diagnosis: 1. Right knee septic arthritis 2. Right gastrocnemius intramuscular hematoma Surgery/Procedure Performed: 1. Right knee arthroscopic irrigation and debridement 2. Evacuation of right gastrocnemius intramuscular hematoma instructor apparel manufacture: Yes Senior Software Developer: Bisi Jordan Tasks completed by portfolio assistant: Opening & closing Additional assistant art director?: No Type of Anesthesia: General RN Documented Start/Stop Times: Operation Date: 12/16/24 15:15 Case Time Into Pre-Op 12/16/24 14:33 Anesthesia Start 12/16/24 15:37 Into Room 12/16/24 15:37 Procedure Start 12/16/24 15:54 Procedure End 12/16/24 16:17 Procedure Start Time: 15:54 Procedure Stop Time: 16:17 Select all DRAINS/GRAFTS/IMPLANTS that apply: None Estimated Blood Loss: 150 cc Fluids Replaced: 700 cc crystalloid Specimen collected: No Description of surgery: Patient identified in preoperative holding her by name, medical record number, and date of . The operative extremity is marked. All questions answered the patient satisfaction. At time of his procedure, patient was brought to the operative suite positioned supine on a standard operative table. General anesthesia was induced and LMA placed. All bony prominences were well-padded. We then prepared the right lower extremity for surgery. A post was placed along patient's lateral thigh. We prepped draped the right lower extremity in normal, sterile orthopedic fashion. A timeout was then performed confirming the side, site, and operation to be performed. No concerns were voiced and elected proceed with surgery. Patient was receiving scheduled antibiotics on the floor and was not due for any antibiotics intraoperatively. I first of my attention to the right gastrocnemius fluid collection. An 18-gauge needle was used to identify the fluid collection. 30 cc of dark venous blood was aspirated. I then made a 2 cm incision along the posterior medial calf approximately 3 fingerbreadths inferior to the joint line. I bluntly dissected past the fascia with a hemostat and encountered a large hematoma. Coagulated blood and dark venous blood were encountered. Hematoma was evacuated and thoroughly irrigated. I then turned my attention of the knee. Standard anterolateral arthroscopy portal was established with 11 blade. Blunt tipped trocar was used to enter the knee joint and the knee was filled with normal saline with epinephrine. Diagnostic arthroscopy was commenced and demonstrated synovitis and turbid appearing fluid consistent with septic arthritis. Cartilage demonstrated mild grade I-II chondromalacia diffusely without any obvious prior intra-articular pathology. Medial and lateral meniscus were frayed but no obvious tearing. Intercondylar notch contents were unremarkable. Synovitis was debrided with arthroscopic shaver. 6 L of saline were irrigated through the knee. The arthroscopic instruments were removed. Portal sites were closed with interrupted [id number] 4-0 nylon suture. Medial calf incision was closed loosely with interrupted simple 2-0 nylon suture. Intra-articular block as well as a field block of the medial calf was administered with 30 cc studies total quarter percent bupivacaine with epinephrine. Bulky sterile compression dressing was applied. Patient was awakened from anesthesia and safely explained the operative suite. He was transferred to his hospital bed and subsequent to PACU in stable condition. He tolerated the procedure well without apparent complication. Postoperative plan: Weightbearing range of motion as tolerated right lower extremity and knee. Restart anticoagulant tomorrow. PT/OT ordered. Dressing changes as needed for saturation. Cultures growing Staph aureus. Defer to primary regarding antibiotic selection. Plan to follow-up as an outpatient in 2 weeks for suture removal and wound assessment. Continue diuresis to control swelling in the right lower extremity and encourage wound healing. No immediate plans to return to the operating room. Will follow. Surgical Findings: Intramuscular hematoma right gastrocnemius medial head. Septic arthritis findings of the right knee. Complications Complications: No Admit VTE Documentation VTE Present on Admission: No VTE Mechan Device Prophylaxis: SCD's VTE Pharm Prophylaxis ordered?: Yes
--- NOTE | 2024-12-16 16:27 | PCM.POST.ANE ---
Anesthesia: Postop Eval I Current Vital Signs Temperature: 98.4 F Pulse Rate: 92 Blood Pressure: 156/96 Respiratory Rate: 20 Pulse Ox: 99 Assessment Airway patent: Yes Spontaneous unlabored respirations: Yes nausea: No Vomiting: No Anesthesia Complication: No Fluid Hydration Crystalloid volume administer (ml): 700 Total IV fluid infused: 700 Progress Note Anesthesia document: Postop Eval 1 completed: Yes
--- NOTE | 2024-12-16 16:44 | POSTOPAN2_ITS ---
Anesthesia Postop Eval I Sum Postop Eval Completion status Anesthesia document: Postop Eval 1 completed: Yes Anesthesia Postop Eval I Summary Anesthesia Postop Eval I Summary: Anesthesia Postop Eval I: Assessment Summary Airway patent Yes 12/16/24 16:27 [email or web address] Spontaneous unlabored Yes 12/16/24 16:27 [email or web address] respirations Mental status nausea No 12/16/24 16:27 [email or web address] Vomiting No 12/16/24 16:27 [email or web address] Anesthesia Postop Eval I: Fluid Summary Crystalloid volume administer 700 12/16/24 16:27 [email or web address] (ml) Colloids volume administered ( ml) Blood Product volume administered (ml) Total IV fluid infused 700 12/16/24 16:27 [email or web address] Anesthesia Postop Eval I: Summary Notes Anesthesia Complication No 12/16/24 16:27 [email or web address] Anesthesia Complication Comment: Post-operative progress note Anesthesia: Postop Eval II Evaluation Mental status: Awake Pain Level: 3 nausea: No Vomiting: No
--- NOTE | 2024-12-16 16:44 | PCM.POSTANE2 ---
Anesthesia Postop Eval I Sum Postop Eval Completion status Anesthesia document: Postop Eval 1 completed: Yes Anesthesia Postop Eval I Summary Anesthesia Postop Eval I Summary: Anesthesia Postop Eval I: Assessment Summary Airway patent Yes 12/16/24 16:27 [email or web address] [email or web address] Spontaneous unlabored Yes 12/16/24 16:27 PULL [email or web address] respirations Mental status nausea No 12/16/24 16:27 PULL [email or web address] Vomiting No 12/16/24 16:27 PULL [email or web address] Anesthesia Postop Eval I: Fluid Summary Crystalloid volume administer 700 12/16/24 16:27 PULL [email or web address] (ml) Colloids volume administered ( ml) Blood Product volume administered (ml) Total IV fluid infused 700 12/16/24 16:27 [email or web address] [email or web address] Anesthesia Postop Eval I: Summary Notes Anesthesia Complication No 12/16/24 16:27 PULL [email or web address] Anesthesia Complication Comment: Post-operative progress note Anesthesia: Postop Eval II Evaluation Mental status: Awake Pain Level: 3 nausea: No Vomiting: No
--- NOTE | 2024-12-16 18:20 | NURSING ---
pt back from surgery, resting in bed, sean wrap to rle from toes to hip. agree w/karri assessment
[2024-12-16] MEDS: 0.9% Saline Lock 10 ML Syringe IV ×2 (21:33→21:42)
[2024-12-16] MEDS: 0.9% Normal Saline (250mL Bag) 250 ML 15 ML IV (23:46)
[2024-12-17] VITALS (7 sets, daily range): BP systolic 122–140; BP diastolic 79–94; PULSE 65–82; RESP 16–19; TEMP 36.4–36.9; O2SAT 96–98
[2024-12-17] MEDS: Ampicillin/Sulbactam 3 GM in 0.9% Normal Saline (100mL MB+) 100 ML IV ×4 (05:50→23:59)
[2024-12-17 06:39] LABS: Absolute Lymphocyte Count 0.95 X10^3/uL (0.83-4.51); Absolute Neutrophil Count 9.1 X10^3/uL (2.0-7.7); Basophil# 0.03 X10^3/uL; Basophil% 0.3 % (0-1); Hematocrit 38.5 % (40-54); Hemoglobin 12.5 g/dL (13.0-16.5); Lymphocyte # 0.95 X10^3/ul (0.83-4.51); Lymphocyte % 8.6 % (19-41); Mean Corp Hgb Conc 32.5 g/dL (32-36); Mean Corpuscular Hgb 30.3 pg (27.0-32.0); Mean Corpuscular Volume 93.2 fL (80-94); Mean Platelet Vol. 10.1 fl (6.2-12.0); Monocyte# 0.89 X10^3/uL; NRBC Flagged by Analyzer 0 % (0-5); Neutrophil % 81.8 % (47-70); Platelet Count 335 K/mm3 (150-450); RBC Distribution Width CV 14.4 % (11.6-14.6); Red Blood Count 4.13 M/mm3 (4.6-6.2); White Blood Count 11.1 K/mm3 (4.4-11.0)
[2024-12-17 08:01] LABS: Anion Gap 12 (5-15); BUN 21 mg/dL (4-19); BUN/Creat Ratio 18.8 RATIO (10-20); Calcium,Total 8.9 mg/dL (7.6-11.0); Carbon Dioxide 22.7 mmol/L (21.0-32.0); Chloride 101 mmol/L (98-108); Creatinine, Serum 1.13 mg/dL (0.70-1.20); EST Glomerular Filtration Rate 71 (>60); Estimated Creatinine Clearance 82.77 ml/min (50-250); Glucose 120 mg/dL (70-99); Sodium Level 136 mmol/L (133-145)
[2024-12-17] MEDS: Metoprolol(XL)Succ 50 MG Tablet PO ×2 (10:25→22:19)
[2024-12-17] MEDS: Enoxaparin 40 MG/0.4 ML Syringe SC (10:26)
[2024-12-17] MEDS: Magnesium Chloride 64 MG Delay Rel.Tablet 128 MG PO (10:26)
[2024-12-17] MEDS: Furosemide 40 MG Tablet PO ×2 (10:26→18:07)
[2024-12-17] MEDS: Empagliflozin 25 MG Tablet PO (10:26)
[2024-12-17] MEDS: Spironolactone 25 MG Tablet PO (10:27)
[2024-12-17] MEDS: Vancomycin HCl 1,250 MG in 0.9% Normal Saline (250mL Bag) 250 ML 167 MG IV (10:37)
[2024-12-17] MEDS: Acetaminophen 325 MG Tablet 650 MG PO ×2 (11:12→18:06)
[2024-12-17] MEDS: oxyCODONE 5 MG Tablet 10 MG PO ×2 (11:13→18:06)
--- NOTE | 2024-12-17 11:51 | PN.ORTHO_ITS ---
Subjective Subjective Patient seen and examined. Denies any new complaints. Feels minimal pain at rest but states repositioning is in the lower leg does cause severe pain. Pain at rest is controlled with current pain regimen. He has been up out of bed and is seated in the chair at time of my examination. He denies any fevers or chills, nausea or vomiting, chest pain or shortness of breath. Objective Data Objective Data Vital Signs: Vital Signs Temp Pulse Resp BP Pulse Ox O2 Del Method O2 Flow Rate 97.6 F L 73 18 131/81 H 96 Room Air 2 12/17/24 10:12/17/24 10:12/17/24 10:22 12/17/24 10:12/17/24 10:12/17/24 10:12/16/24 19:47 Oxygen Flow Rate (L/min) 2 Oxygen Delivery Method Room Air Weight: 244 lb 3.2 oz Body Mass Index (BMI) 32.2 Intake & Output: Intake and Output for Last 24 Hours 12/15/24 12/16/24 12/17/24 23:59 23:59 23:59 Intake Total 1703.33 / 1703.33 1150 / 2110 1491 / 1491 Output Total 1525 / 1525 1450 / 2975 1950 / 1950 Balance 178.33 / 178.33 -300 / -865 -459 / -459 Lab / Micro Data 12/17/24 06:14 12/17/24 06:14 Labs: Laboratory Results - last 24 hr 12/17/24 06:14: WBC 11.1 H, RBC 4.13 L, Hgb 12.5 L, Hct 38.5 L, MCV 93.2, MCH 30.3, MCHC 32.5, RDW Std Deviation 50.0 H, RDW Coeff of Nichole 14.4, Plt Count 335, MPV 10.1, Immature Gran % (Auto) 1.300 H, Neut % (Auto) 81.8 H, Lymph % (Auto) 8.6 L, [place] % (Auto) 8.0, Eos % (Auto) 0.0, Baso % (Auto) 0.3, Absolute Neuts (auto) 9.1 H, Absolute Lymphs (auto) 0.95, Nucleated RBC % 0, Sodium 136, Potassium 5.0, Chloride 101, Carbon Dioxide 22.7, Anion Gap 12, BUN 21 H, Creatinine 1.13, Estim Creat Clear Calc 82.77, Est GFR (MDRD) Non-Af 71, BUN/Creatinine Ratio 18.8, Glucose 120 H, Calcium 8.9 Micro: Microbiology 12/15/24 12:35 Fluid - Synovial (joint) Gram Stain - Final 12/15/24 12:35 Fluid - Synovial (joint) Body Fluid Culture - Preliminary Staphylococcus aureus 12/14/24 12:04 Blood Culture (Wb) - Anticubital Left Blood Culture - Preliminary No growth in 48 hours. 12/14/24 11:50 Blood Culture (Wb) - Anticubital Left Bacteria Detection (PCR) - Final Coag Negative Staph 12/14/24 11:50 Blood Culture (Wb) - Anticubital Left Blood Culture - Preliminary Coag Negative Staph Physical Exam Narrative General - A&Ox3, NAD. VSS/AF Right lower extremity -incisional dressing taken down. Mild amount of serosanguineous drainage from the calf incision otherwise clean dry and intact. Incision are well-approximated. No active drainage. Maintained erythema of the right lower leg. 2-3+ pitting edema still noted. SILT Sural, Saphenous, SPN, DPN, Tibial N. distributions. DP, PT 2+. BCR. DF, PF, EHL 5/5. Assessment & Plan Assessment/Plan (1) Septic arthritis of knee, right: QUALIFIERS: Septic arthritis organism: staphylococcal Qualified Code(s): M00.061 - Staphylococcal arthritis, right knee PLAN: POD# 1 s/p right knee arthroscopic I&D, evacuation of right calf hematoma - Pain control - Medicine following for medical management - PT/OT weightbearing, range of motion as tolerated right lower extremity - DVT PPX -okay to restart home Eliquis if deemed appropriate by primary service. - Stable from orthopedic standpoint. I will defer to primary regarding final home-going antibiotic recommendations. Continue diuresis and fluid restriction per primary. (2) Nontraumatic intramuscular hematoma:
--- NOTE | 2024-12-17 17:15 | PN.HOSP_ITS ---
Reason for Visit Reason for Visit: Diagnoses Cellulitis of right lower limb (12/14/24) Staphylococcal arthritis, right knee (12/14/24) Effusion, right knee (12/14/24) Nontraumatic hematoma of soft tissue (12/14/24) Objective Data Objective Data Vital Signs: Vital Signs Temp Pulse Resp BP Pulse Ox O2 Del Method O2 Flow Rate 98.5 F 75 19 H 122/79 H 98 Room Air 2 12/17/24 15:49 12/17/24 15:49 12/17/24 15:49 12/17/24 15:49 12/17/24 15:49 12/17/24 15:49 12/16/24 19:47 Oxygen Flow Rate (L/min) 2 Oxygen Delivery Method Room Air Weight: 244 lb 3.2 oz Body Mass Index (BMI) 32.2 Intake & Output: Intake and Output for Last 24 Hours 12/15/24 12/16/24 12/17/24 23:59 23:59 23:59 Intake Total 1703.33 / 1703.33 1150 / 2110 2514.25 / 2514.25 Output Total 1525 / 1525 1450 / 2975 2250 / 2250 Balance 178.33 / 178.33 -300 / -865 264.25 / 264.25 Lab / Micro Data 12/17/24 06:14 12/17/24 06:14 Labs: Laboratory Results - last 24 hr 12/17/24 06:14: WBC 11.1 H, RBC 4.13 L, Hgb 12.5 L, Hct 38.5 L, MCV 93.2, MCH 30.3, MCHC 32.5, RDW Std Deviation 50.0 H, RDW Coeff of Nichole 14.4, Plt Count 335, MPV 10.1, Immature Gran % (Auto) 1.300 H, Neut % (Auto) 81.8 H, Lymph % (Auto) 8.6 L, [place] % (Auto) 8.0, Eos % (Auto) 0.0, Baso % (Auto) 0.3, Absolute Neuts (auto) 9.1 H, Absolute Lymphs (auto) 0.95, Nucleated RBC % 0, Sodium 136, Potassium 5.0, Chloride 101, Carbon Dioxide 22.7, Anion Gap 12, BUN 21 H, Creatinine 1.13, Estim Creat Clear Calc 82.77, Est GFR (MDRD) Non-Af 71, BUN/Creatinine Ratio 18.8, Glucose 120 H, Calcium 8.9 Micro: Microbiology 12/15/24 12:35 Fluid - Synovial (joint) Gram Stain - Final 12/15/24 12:35 Fluid - Synovial (joint) Body Fluid Culture - Final Staphylococcus aureus 12/15/24 12:35 Fluid - Synovial (joint) Anaerobic Culture - Preliminary Checking for anaerobes, further studies to follow. 12/14/24 12:04 Blood Culture (Wb) - Anticubital Left Blood Culture - Preliminary No growth in 48 hours. 12/14/24 11:50 Blood Culture (Wb) - Anticubital Left Bacteria Detection (PCR) - Final Coag Negative Staph 12/14/24 11:50 Blood Culture (Wb) - Anticubital Left Blood Culture - Preliminary Coag Negative Staph Physical Exam Narrative Seen and examined. Discussed with orthopedic surgeon Dr. Carter. Pain in the right knee and calf area is very improved. Had I&D and evacuation of hematoma and debridement yesterday Physical exam General: Alert, Oriented x3, Cooperative HEENT: Atraumatic, PERRLA, EOMI, Normocephalic. Oral: No Gingival or Mucosal Lesions/ Ulcerations Neck: Supple, No JVD, Negative Carotid Bruits Chest wall/Lungs: Air entry diminished in bilateral lung bases. No crepitation/rhonchi Cardiovascular: Regular rate and rhythm, Normal S1,S2, No M/G/R Abdomen: Bowel Sounds Present, Soft, Non Tender, Non-Distended : No dysuria. No renal angle tenderness. No suprapubic tenderness. Extremities: Right leg has Chava wrap bandage from mid thigh below Skin: No rashes, No breakdown Musculoskeletal: Mild tenderness over right popliteal and calf area. Can move toes. Neurological: Cranial nerves II-XII grossly intact, DTR 2+/4. No acute focal neurological deficit. Psych/Mental Status: Normal Affect, Appropriate. Assessment & Plan Assessment/Plan (1) Effusion, right knee: (2) Cellulitis of right lower extremity: PLAN: Plan #Cellulitis of the right lower extremity * Likely related to the joint effusion from ruptured bursa. * On IV vancomycin and Unasyn. * Orthopedic surgery on board. Had left leg knee aspiration done yesterday and fluid analysis showed markedly elevated WBC of 33,800 which is mainly neutrophilic. There is therefore concern for septic arthritis of the knee. * Duplex of the lower extremity was negative for any evidence of DVT. For surgery today by orthopedics. * PO tylenol, IV morphine and PO oxycodone prn for pain 12/17: Patient had right gastrocnemius intramuscular hematoma with arthroscopic irrigation and debridement and evacuation of hematoma. Procedure was done on 12/16/2024. Postop diagnosis right knee septic arthritis. Continue IV antibiotic. Eliquis 5 mg twice daily resumed from today after discussion with orthopedic surgeon #Right knee effusion * As above * #HFpEF: not in exacerbation. Has known EF of 50% from 2D echo in January 2024. Breathing treatments bronchodilators. #A-fib: On metoprolol. Eliquis held on admission due to concerns about hemarthrosis #Class I obesity: BMI is 32.2. Complicates acute care, expected recovery and prognosis. DVT prophylaxis: Started on Lovenox yesterday. To resume Eliquis for A-fib when okay with orthopedics. Charges/Coding Visit Charges Inpatient E&M: 76869 Subs Hosp L2
[2024-12-17 21:55] LABS: Vancomycin, Trough Level 22.4 ug/mL (5.0-15.0)
--- NOTE | 2024-12-17 22:01 | PCM.RX.CS ---
Consult Antibiotic Management Pharmacy has been consulted to manage selected antibiotic: Vancomycin Type of Intervention Type of Consult: Follow-up Labs Labs: Sodium 136 mmol/L (133-145) 12/17/24 06:14 Potassium 5.0 mmol/L (3.3-5.1) 12/17/24 06:14 Chloride 101 mmol/L (98-108) 12/17/24 06:14 Carbon Dioxide 22.7 mmol/L (21.0-32.0) 12/17/24 06:14 Anion Gap 12 (5-15) 12/17/24 06:14 BUN 21 mg/dL (4-19) H 12/17/24 06:14 Creatinine 1.13 mg/dL (0.70-1.20) 12/17/24 06:14 Est GFR (MDRD) Non-Af 71 (>60) 12/17/24 06:14 BUN/Creatinine Ratio 18.8 RATIO (10-20) 12/17/24 06:14 Glucose 120 mg/dL (70-99) H 12/17/24 06:14 Vancomycin Trough 22.4 ug/mL (5.0-15.0) H 12/17/24 21:05 Random Vancomycin 16.0 ug/mL (0.0-15.0) H 12/16/24 07:50 Microbiology Microbiology: Microbiology 12/15/24 12:35 Fluid - Synovial (joint) Gram Stain - Final 12/15/24 12:35 Fluid - Synovial (joint) Body Fluid Culture - Final Staphylococcus aureus 12/15/24 12:35 Fluid - Synovial (joint) Anaerobic Culture - Preliminary Checking for anaerobes, further studies to follow. 12/14/24 12:04 Blood Culture (Wb) - Anticubital Left Blood Culture - Preliminary No growth in 48 hours. 12/14/24 11:50 Blood Culture (Wb) - Anticubital Left Bacteria Detection (PCR) - Final Coag Negative Staph 12/14/24 11:50 Blood Culture (Wb) - Anticubital Left Blood Culture - Preliminary Coag Negative Staph Goal Trough Goal Trough: 15-20 mcg/mL Pharmacy Plan for Drug Dosing Pharmacy Plan for Drug Dosing: Pharmacy Service will continue to monitor and adjust dosing as required. TROUGH 22.4 @ 10.5 HOURS. HOLD DOSE AND DRAW RANDOM LEVEL IN 8 HOURS Follow-Up Labs Follow-Up Labs: Trough: Vancomycin Date/Time Labs Ordered Labs to be done on [date and time ordered]: 12/18 @ 0500
[2024-12-17] MEDS: APIXABAN 5 MG TABLET PO (22:18)
[2024-12-18] VITALS (7 sets, daily range): BP systolic 125–140; BP diastolic 78–85; PULSE 70–79; RESP 16–20; TEMP 36.6–37.6; O2SAT 97–98
[2024-12-18 05:22] LABS: Absolute Lymphocyte Count 1.09 X10^3/uL (0.83-4.51); Absolute Neutrophil Count 6.6 X10^3/uL (2.0-7.7); Basophil# 0.06 X10^3/uL; Basophil% 0.7 % (0-1); Eosinophil# 0.02 X10^3/uL; Eosinophils% 0.2 % (0-5); Hematocrit 38.9 % (40-54); Hemoglobin 12.8 g/dL (13.0-16.5); Lymphocyte # 1.09 X10^3/ul (0.83-4.51); Lymphocyte % 12.3 % (19-41); Mean Corp Hgb Conc 32.9 g/dL (32-36); Mean Corpuscular Hgb 30.3 pg (27.0-32.0); Mean Platelet Vol. 9.8 fl (6.2-12.0); Monocyte# 0.98 X10^3/uL; Monocyte% 11.1 % (0-10); NRBC Flagged by Analyzer 0 % (0-5); Neutrophil # 6.56 X10^3/uL (2.7-7.7); Neutrophil % 74.3 % (47-70); Platelet Count 386 K/mm3 (150-450); RBC Distribution Width CV 14.5 % (11.6-14.6); RBC Distribution Width SD 49.2 fl (35.1-43.9); Red Blood Count 4.23 M/mm3 (4.6-6.2); White Blood Count 8.8 K/mm3 (4.4-11.0)
[2024-12-18 05:54] LABS: Anion Gap 14 (5-15); BUN 25 mg/dL (4-19); BUN/Creat Ratio 20.2 RATIO (10-20); Calcium,Total 8.7 mg/dL (7.6-11.0); Carbon Dioxide 23.6 mmol/L (21.0-32.0); Chloride 99 mmol/L (98-108); Creatinine, Serum 1.22 mg/dL (0.70-1.20); EST Glomerular Filtration Rate 65 (>60); Estimated Creatinine Clearance 76.66 ml/min (50-250); Glucose 116 mg/dL (70-99); Sodium Level 136 mmol/L (133-145)
[2024-12-18 06:09] LABS: Vancomycin, Random Level 17.5 ug/mL (0.0-15.0)
--- NOTE | 2024-12-18 06:20 | PHA.PHARE_ITS ---
Consult Antibiotic Management Pharmacy has been consulted to manage selected antibiotic: Vancomycin Type of Intervention Type of Consult: Follow-up Labs Labs: Sodium 136 mmol/L (133-145) 12/18/24 05:05 Potassium 4.0 mmol/L (3.3-5.1) 12/18/24 05:05 Chloride 99 mmol/L (98-108) 12/18/24 05:05 Carbon Dioxide 23.6 mmol/L (21.0-32.0) 12/18/24 05:05 Anion Gap 14 (5-15) 12/18/24 05:05 BUN 25 mg/dL (4-19) H 12/18/24 05:05 Creatinine 1.22 mg/dL (0.70-1.20) H 12/18/24 05:05 Est GFR (MDRD) Non-Af 65 (>60) 12/18/24 05:05 BUN/Creatinine Ratio 20.2 RATIO (10-20) H 12/18/24 05:05 Glucose 116 mg/dL (70-99) H 12/18/24 05:05 Vancomycin Trough 22.4 ug/mL (5.0-15.0) H 12/17/24 21:05 Random Vancomycin 17.5 ug/mL (0.0-15.0) H 12/18/24 05:05 Microbiology Microbiology: Microbiology 12/15/24 12:35 Fluid - Synovial (joint) Gram Stain - Final 12/15/24 12:35 Fluid - Synovial (joint) Body Fluid Culture - Final Staphylococcus aureus 12/15/24 12:35 Fluid - Synovial (joint) Anaerobic Culture - Preliminary Checking for anaerobes, further studies to follow. 12/14/24 12:04 Blood Culture (Wb) - Anticubital Left Blood Culture - Prelim inary No growth in 48 hours. 12/14/24 11:50 Blood Culture (Wb) - Anticubital Left Bacteria Detection (PCR) - Final Coag Negative Staph 12/14/24 11:50 Blood Culture (Wb) - Anticubital Left Blood Culture - Preliminary Coag Negative Staph Goal Trough Goal Trough: 15-20 mcg/mL Pharmacy Plan for Drug Dosing Pharmacy Plan for Drug Dosing: Pharmacy Service will continue to monitor and adjust dosing as required. RANDOM LEVEL 17.5 @ 18.5 HOURS. DECREASE DOSE TO 1GM Q12H AND DRAW TROUGH PRIOR TO 4TH DOSE Follow-Up Labs Follow-Up Labs: Trough: Vancomycin Date/Time Labs Ordered Labs to be done on [date and time ordered]: 12/19 @ 1800
[2024-12-18] MEDS: 0.9% Saline Lock 10 ML Syringe IV ×2 (06:22→18:15)
[2024-12-18] MEDS: Ampicillin/Sulbactam 3 GM in 0.9% Normal Saline (100mL MB+) 100 ML IV ×3 (06:22→19:24)
[2024-12-18] MEDS: Acetaminophen 325 MG Tablet 650 MG PO ×2 (06:29→14:09)
[2024-12-18] MEDS: oxyCODONE 5 MG Tablet 10 MG PO (06:29)
[2024-12-18] MEDS: 0.9% Normal Saline (250mL Bag) 250 ML 15 ML IV (07:13)
[2024-12-18] MEDS: Vancomycin IV 1,000 MG/200 ML BAG 200 MG IV ×2 (07:13→18:11)
[2024-12-18] MEDS: Metoprolol(XL)Succ 50 MG Tablet PO ×2 (08:56→21:11)
[2024-12-18] MEDS: Magnesium Chloride 64 MG Delay Rel.Tablet 128 MG PO (08:56)
[2024-12-18] MEDS: Furosemide 40 MG Tablet PO ×2 (08:57→18:10)
[2024-12-18] MEDS: APIXABAN 5 MG TABLET PO ×2 (08:57→21:11)
[2024-12-18] MEDS: amLODIPine 5 MG Tablet PO (08:57)
[2024-12-18] MEDS: Spironolactone 25 MG Tablet PO (08:58)
[2024-12-18] MEDS: Empagliflozin 25 MG Tablet PO (08:58)
--- NOTE | 2024-12-18 20:16 | PN.ORTHO_ITS ---
Subjective Subjective Patient seen and examined. Feels pain is improving. Able to walk to the bathroom today. Denies any fevers, chills, nausea vomiting, chest pain or shortness of breath. Objective Data Objective Data Vital Signs: Vital Signs Temp Pulse Resp BP Pulse Ox O2 Del Method O2 Flow Rate 99.7 F H 70 18 140/82 H 98 Room Air 2 12/18/24 13:58 12/18/24 14:01 12/18/24 13:58 12/18/24 13:58 12/18/24 13:58 12/18/24 13:58 12/16/24 19:47 Oxygen Flow Rate (L/min) 2 Oxygen Delivery Method Room Air Weight: 244 lb 3.2 oz Body Mass Index (BMI) 32.2 Intake & Output: Intake and Output for Last 24 Hours 12/16/24 12/17/24 12/18/24 23:59 23:59 23:59 Intake Total 1150 / 2110 3358.50 / 3358.50 800 / 800 Output Total 1450 / 2975 3925 / 3925 1974 / 1974 Balance -300 / -865 -566.50 / -566.50 -1175 / -1175 Lab / Micro Data 12/18/24 05:05 12/18/24 05:05 Labs: Laboratory Results - last 24 hr 12/17/24 21:05: Vancomycin Trough 22.4 H 12/18/24 05:05: WBC 8.8, RBC 4.23 L, Hgb 12.8 L, Hct 38.9 L, MCV 92.0, MCH 30.3, MCHC 32.9, RDW Std Deviation 49.2 H, RDW Coeff of Nichole 14.5, Plt Count 386, MPV 9.8, Immature Gran % (Auto) 1.400 H, Neut % (Auto) 74.3 H, Lymph % (Auto) 12.3 L , [place] % (Auto) 11.1 H, Eos % (Auto) 0.2, Baso % (Auto) 0.7, Absolute Neuts (auto) 6.6, Absolute Lymphs (auto) 1.09, Nucleated RBC % 0, Sodium 136, Potassium 4.0, Chloride 99, Carbon Dioxide 23.6, Anion Gap 14, BUN 25 H, C reatinine 1.22 H, Estim Creat Clear Calc 76.66, Est GFR (MDRD) Non-Af 65, B UN/Creatinine Ratio 20.2 H, Glucose 116 H, Calcium 8.7, Random Vancomycin 17.5 H Micro: Microbiology 12/15/24 12:35 Fluid - Synovial (joint) Gram Stain - Final 12/15/24 12:35 Fluid - Synovial (joint) Body Fluid Culture - Final Staphylococcus aureus 12/15/24 12:35 Fluid - Synovial (joint) Anaerobic Culture - Preliminary Checking for anaerobes, further studies to follow. 12/14/24 12:04 Blood Culture (Wb) - Anticubital Left Blood Culture - Preliminary No growth in 48 hours. 12/14/24 11:50 Blood Culture (Wb) - Anticubital Left Bacteria Detection (PCR) - Final Coag Negative Staph 12/14/24 11:50 Blood Culture (Wb) - Anticubital Left Blood Culture - Preliminary Coag Negative Staph Physical Exam Narrative General - A&Ox3, NAD. VSS/AF Right lower extremity -incisional dressing taken down. Minimal serosanguineous drainage from the calf incision otherwise clean dry and intact. Incision are well-approximated. No active drainage. Maintained erythema of the right lower leg. 2-3+ pitting edema still noted. SILT Sural, Saphenous, SPN, DPN, Tibial N. distributions. DP, PT 2+. BCR. DF, PF, EHL 5/5. Assessment & Plan Assessment/Plan (1) Nontraumatic intramuscular hematoma: (2) Septic arthritis of knee, right: QUALIFIERS: Septic arthritis organism: staphylococcal Qualified Code(s): M00.061 - Staphylococcal arthritis, right knee PLAN: POD# 2 s/p right knee arthroscopic I&D, evacuation of right calf hematoma - Pain control - Medicine following for medical management - PT/OT weightbearing, range of motion as tolerated right lower extremity - DVT PPX - home Eliquis - Stable from orthopedic standpoint for discharge when deemed appropriate by primary. I will defer to primary regarding final home-going antibiotic recommendations. Continue diuresis and fluid restriction per primary. I emphasized the importance of the patient finding a primary care physician. He does have established cardiology care. Discharge instructions: Range of motion, weightbearing as tolerated right lower extremity. Continue with strict elevation of the legs when he is not walking. May shower 1 week after surgery if no drainage. Dry sterile dressing changes daily and as needed for any saturation. Follow-up at [facility] 2 weeks postoperatively. I will sign off at this time. Please do not hesitate to call if any questions or concerns arise.
[2024-12-19] VITALS (9 sets, daily range): BP systolic 96–139; BP diastolic 56–80; PULSE 74–87; RESP 16–18; TEMP 36.7–37.5; O2SAT 95–100
[2024-12-19] MEDS: Ampicillin/Sulbactam 3 GM in 0.9% Normal Saline (100mL MB+) 100 ML IV ×5 (00:15→23:19)
[2024-12-19] MEDS: Acetaminophen 325 MG Tablet 650 MG PO ×3 (00:19→23:23)
[2024-12-19] MEDS: oxyCODONE 5 MG Tablet 10 MG PO ×3 (00:19→23:23)
[2024-12-19] MEDS: Vancomycin IV 1,000 MG/200 ML BAG 200 MG IV ×2 (05:12→20:22)
[2024-12-19 06:54] LABS: Absolute Lymphocyte Count 1.12 X10^3/uL (0.83-4.51); Absolute Neutrophil Count 5.8 X10^3/uL (2.0-7.7); Basophil# 0.05 X10^3/uL; Basophil% 0.6 % (0-1); Eosinophil# 0.03 X10^3/uL; Eosinophils% 0.4 % (0-5); Hematocrit 36.2 % (40-54); Lymphocyte # 1.12 X10^3/ul (0.83-4.51); Lymphocyte % 13.7 % (19-41); Mean Corp Hgb Conc 33.1 g/dL (32-36); Mean Corpuscular Hgb 30.7 pg (27.0-32.0); Mean Corpuscular Volume 92.6 fL (80-94); Mean Platelet Vol. 10.2 fl (6.2-12.0); Monocyte% 12.2 % (0-10); NRBC Flagged by Analyzer 0 % (0-5); Neutrophil # 5.83 X10^3/uL (2.7-7.7); Neutrophil % 71.3 % (47-70); Platelet Count 396 K/mm3 (150-450); RBC Distribution Width CV 14.7 % (11.6-14.6); RBC Distribution Width SD 50.3 fl (35.1-43.9); Red Blood Count 3.91 M/mm3 (4.6-6.2); White Blood Count 8.2 K/mm3 (4.4-11.0)
[2024-12-19 07:24] LABS: Anion Gap 13 (5-15); BUN 22 mg/dL (4-19); BUN/Creat Ratio 19.2 RATIO (10-20); Calcium,Total 8.6 mg/dL (7.6-11.0); Carbon Dioxide 24.7 mmol/L (21.0-32.0); Chloride 98 mmol/L (98-108); Creatinine, Serum 1.14 mg/dL (0.70-1.20); EST Glomerular Filtration Rate 70 (>60); Estimated Creatinine Clearance 82.04 ml/min (50-250); Glucose 114 mg/dL (70-99); Potassium 3.6 mmol/L (3.3-5.1); Sodium Level 136 mmol/L (133-145)
[2024-12-19] MEDS: Magnesium Chloride 64 MG Delay Rel.Tablet 128 MG PO (09:19)
[2024-12-19] MEDS: Metoprolol(XL)Succ 50 MG Tablet PO ×2 (09:19→20:24)
[2024-12-19] MEDS: APIXABAN 5 MG TABLET PO ×2 (09:19→20:24)
[2024-12-19] MEDS: Empagliflozin 25 MG Tablet PO (09:20)
[2024-12-19] MEDS: Spironolactone 25 MG Tablet PO (09:20)
[2024-12-19] MEDS: amLODIPine 5 MG Tablet PO (09:20)
[2024-12-19] MEDS: Furosemide 40 MG Tablet PO ×2 (09:20→18:52)
--- NOTE | 2024-12-19 10:53 | CASEMGMT ---
Discharge Planning A list of?SNF providers including quality and resource use data and consistent with the patient's preferred geographic region, medical needs, and insurance network was created in [employer] Guide.? This list was provided to the SW. Jessica Delarosa Discharge Planning Asst.
--- NOTE | 2024-12-19 11:03 | PN_ITS ---
Subjective Subjective Patient seen and examined. He complained of pain in his RLE after he had physical therapy. He denied any fever, chills, cough, chest pain, palpitations, dizziness, nausea, vomiting or any other symptoms. Review of systems is otherwise negative. Objective Data Objective Data Vital Signs: Vital Signs Temp Pulse Resp BP Pulse Ox O2 Del Method O2 Flow Rate 99 F 87 18 126/73 H 100 Room Air 2 12/19/24 09:07 12/19/24 09:19 12/19/24 09:07 12/19/24 09:19 12/19/24 09:07 12/19/24 09:09 12/16/24 19:47 Oxygen Flow Rate (L/min) 2 Oxygen Delivery Method Room Air Weight: 244 lb 3.2 oz Body Mass Index (BMI) 32.2 Intake & Output: Intake and Output for Last 24 Hours 12/17/24 12/18/24 12/19/24 23:59 23:59 23:59 Intake Total 3358.50 / 3358.50 900 / 900 950 / 950 Output Total 3925 / 3925 2375 / 2375 950 / 950 Balance -566.50 / -566.50 -1475 / -1475 0 / 0 Lab / Micro Data 12/19/24 06:16 12/19/24 06:16 Labs: Laboratory Results - last 24 hr 12/19/24 06:16: WBC 8.2, RBC 3.91 L, Hgb 12.0 L, Hct 36.2 L, MCV 92.6, MCH 30.7, MCHC 33.1, RDW Std Deviation 50.3 H, RDW Coeff of Nichole 14.7 H, Plt Count 396, MPV 10.2, Immature Gran % (Auto) 1.800 H, Neut % (Auto) 71.3 H, Lymph % (Auto) 13.7 L, [place] % (Auto) 12.2 H, Eos % (Auto) 0.4, Baso % (Auto) 0.6, Absolute Neuts (auto) 5.8, Absolute Lymphs (auto) 1.12, Nucleated RBC % 0, Sodium 136, Potassium 3.6, Chloride 98, Carbon Dioxide 24.7, Anion Gap 13, BUN 22 H, Creatinine 1.14, Estim Creat Clear Calc 82.04, Est GFR (MDRD) Non-Af 70, BUN/Creatinine Ratio 19.2, Glucose 114 H, Calcium 8.6 Micro: Microbiology 12/15/24 12:35 Fluid - Synovial (joint) Gram Stain - Final 12/15/24 12:35 Fluid - Synovial (joint) Body Fluid Culture - Final Staphylococcus aureus 12/15/24 12:35 Fluid - Synovial (joint) Anaerobic Culture - Final No anaerobic bacteria isolated. 12/14/24 11:50 Blood Culture (Wb) - Anticubital Left Bacteria Detection (PCR) - Final Coag Negative Staph 12/14/24 11:50 Blood Culture (Wb) - Anticubital Left Blood Culture - Final Coag Negative Staph 12/14/24 12:04 Blood Culture (Wb) - Anticubital Left Blood Culture - Preliminary No growth in 48 hours. Physical Exam Const alert, oriented x3 and no apparent distress General Appearance: cooperative and well developed HEENT normocephalic, head/scalp atraumatic, moist oral mucous membranes and oropharynx normal Eyes EOMs intact bilaterally Neck no lymphadenopathy and supple Lymph Lymphatic: no lymphedema noted Resp normal respiratory effort, normal air movement and clear to auscultation bilaterally Cardio regular rate, regular rhythm, S1 normal heart sound, S2 normal heart sound and no murmurs GI normal to inspection, nondistended, normoactive bowel sounds, soft to palpation and non-tender Extremity Extremity Narrative: RLE wrapped in bandage Skin Skin Narrative: as under extremities Neuro CN's II-XII intact bilaterally, no focal motor deficits and no sensory deficits noted Motor Exam: general weakness Psych thought process normal, cooperative and affect normal Appearance: appropriate Assessment & Plan Assessment/Plan (1) Septic arthritis of knee, right: QUALIFIERS: Septic arthritis organism: staphylococcal Qualified Code(s): M00.061 - Staphylococcal arthritis, right knee (2) Cellulitis of right lower extremity: PLAN: Plan #Cellulitis of the RLE with right lower extremity with cocnern for septic arthritis and infected hematoma * on IV vancomycin and unasyn. * orthopedics on board. He had knee aspiration done on admission fluid analysis showed elevated PC of 33,000. * Subsequently had irrigation debridement with evacuation of a right gastrocnemius intramuscular hematoma on 11/29/2024 and postop diagnosis was right knee septic arthritis * On IV vancomycin and Unasyn. * Consult ID due to concern for septic arthritis of the knee. * Synovial fluid cultures growing Staph aureus. * Blood cultures also grew coagulase-negative staph in 1 out of 2 samples. * #A-fib: On metoprolol. Eliquis resumed #Heart failure preserved ejection fraction: Not in exacerbation. Has known EF of 50%. Breathing treatments bronchodilators. #Class I obesity: BMI is 32.2. Complicates acute care, expected recovery and prognosis. DVT prophylaxis: on eliquis Disposition: * Patient was unable to get up and down the stairs with therapy today. * He will likely benefit from at least rehab. PT OT on board and case management also on board. Charges/Coding Visit Charges Inpatient E&M: 63869 Subs Hosp L2
--- NOTE | 2024-12-19 12:38 | CASEMGMT ---
Social Work- SW met with pt to discuss discharge planning. A list of SNF providers including quality and resource use data and consistent with the patient?s preferred geographic region, medical needs, and insurance network were provided from the [employer] Guide. Pt deferred decision-making to . SW called pt and verbally went over list per pt request. Pt selected [facility] as FOC. [facility] updated on referral request. SW remains available to follow. CHENG Patino
--- NOTE | 2024-12-19 12:49 | CASEMGMT ---
[facility]charge Planning [facility]. Jessica Delarosa DC Planning Asst.
--- NOTE | 2024-12-19 15:26 | CASEMGMT ---
Discharge Planning [facility] has accepted. Precert not started yet. SW updated. Jessica Delarosa DC Planning Asst.
--- NOTE | 2024-12-19 15:48 | CASEMGMT ---
Addendum entered by Aminata Orourke 12/19/24 16:12: Social Work SW let pt know she is going to [facility] and transport is set up for 8pm. Pt is agreeable. No further needs. CHARLINE Soni Original Note: Social Work [facility] accepted pt. Precert has not yet been started as the ID consult is still pending. SW let pt know that [facility] accepted pt. SW also called to let her know, message left to call SW back. CHARLINE Soni
--- NOTE | 2024-12-19 16:12 | CASEMGMT ---
Social Work [facility]. Precert has not yet been started as the ID consult is still pending. SW let pt know that [facility]. SW also called to let her know, message left to call SW back. She arrived to hospital a short time later. SW let her know that pt was accepted and precert will be started once we know pt's IV antibiotics from the infectious disease doctor. states understanding. CHARLINE Soni
--- NOTE | 2024-12-19 16:19 | CHAPLAIN ---
Type of Pastoral Visit _x__ Initial Visit ___ Follow-up Visit ___ On-call Visit ___ General Patient Visit ___ Spiritual Assessment ___ Family Conference ___ Bereavement ___ Rapid Response ___ Code Blue ___ Other (describe below) Pastoral Care Referral From _x__ Patient ___ Family ___ Nurse ___ Physician ___ [employer] [place] ___ State Attorney ___ Other (describe below) Sacrament/Intervention _x__ Active listening ___ Anointing ___ Faith ___ Bereavement ___ Communion _x__ Keerthi exploration ___ _x__ Life review _x__ Prayer ___ Reconciliation ___ Sacrament of Sick ___ Supportive presence ___ Wedding ___ Other (describe below) Pastoral Comments patient is welcoming and talkative; pt reviews his childhood voodoo experiences but admits that he does not attend any services or has a connection now; pt was disappointed to have this health need arise after getting my garden in and now I won't be able to tend it; pt knows he will be going to rehab facility for a time and acknowledges that he has accepted that fact; pt welcomes someone to talk with and a prayer to go with it
[2024-12-19 20:02] LABS: Vancomycin, Trough Level 15.1 ug/mL (5.0-15.0)
--- NOTE | 2024-12-19 20:38 | PCM.RX.CS ---
Consult Antibiotic Management Pharmacy has been consulted to manage selected antibiotic: Vancomycin Type of Intervention Type of Consult: Follow-up Suspected Infection Suspected Infection: Skin/Soft tissue Labs Labs: Sodium 136 mmol/L (133-145) 12/19/24 06:16 Potassium 3.6 mmol/L (3.3-5.1) 12/19/24 06:16 Chloride 98 mmol/L (98-108) 12/19/24 06:16 Carbon Dioxide 24.7 mmol/L (21.0-32.0) 12/19/24 06:16 Anion Gap 13 (5-15) 12/19/24 06:16 BUN 22 mg/dL (4-19) H 12/19/24 06:16 Creatinine 1.14 mg/dL (0.70-1.20) 12/19/24 06:16 Est GFR (MDRD) Non-Af 70 (>60) 12/19/24 06:16 BUN/Creatinine Ratio 19.2 RATIO (10-20) 12/19/24 06:16 Glucose 114 mg/dL (70-99) H 12/19/24 06:16 Vancomycin Trough 15.1 ug/mL (5.0-15.0) H 12/19/24 18:49 Random Vancomycin 17.5 ug/mL (0.0-15.0) H 12/18/24 05:05 Microbiology Microbiology: Microbiology 12/14/24 12:04 Blood Culture (Wb) - Anticubital Left Blood Culture - Final No growth in 5 days. 12/17/24 20:50 Urine, Clean Catch Urine Culture - Preliminary Culture exhibits no growth. 12/15/24 12:35 Fluid - Synovial (joint) Gram Stain - Final 12/15/24 12:35 Fluid - Synovial (joint) Body Fluid Culture - Final Staphylococcus aureus 12/15/24 12:35 Fluid - Synovial (joint) Anaerobic Culture - Final No anaerobic bacteria isolated. 12/14/24 11:50 Blood Culture (Wb) - Anticubital Left Bacteria Detection (PCR) - Final Coag Negative Staph 12/14/24 11:50 Blood Culture (Wb) - Anticubital Left Blood Culture - Final Coag Negative Staph Dosing Weight Weight used for dosin kg Goal Trough Goal Trough: 15-20 mcg/mL Pharmacy Plan for Drug Dosing Pharmacy Plan for Drug Dosing: VANCOMYCIN LEVEL RECEIVED Current Vancomycin Dose: 1000 MG Q12H Number of Doses Received: 3 Vancomycin Level: 15.1 Hours Since Last Dose: 13.5 Renal Function: 1.14 mg/dL, CrCl 82 ml/min Renal Function Trend: stable Lab/Micro: Vancomycin Plan/Comments: Given the delay in blood draw, and the level is therapeutic, will continue the dose Pharmacy Service will continue to monitor and adjust dosing as required. Pending Level: 12/21/2024 @0600 Follow-Up Labs Follow-Up Labs: Trough: Vancomycin Date/Time Labs Ordered Labs to be done on [date and time ordered]: 12/21/2024 @0600
[2024-12-20] MEDS: Ampicillin/Sulbactam 3 GM in 0.9% Normal Saline (100mL MB+) 100 ML IV (05:29)
[2024-12-20 05:42] VITALS: BP 123/77; PULSE 68; RESP 16; TEMP 37.1; O2SAT 97
[2024-12-20] MEDS: Vancomycin IV 1,000 MG/200 ML BAG 200 MG IV (06:29)
[2024-12-20 06:48] LABS: Absolute Lymphocyte Count 1.06 X10^3/uL (0.83-4.51); Absolute Neutrophil Count 6.8 X10^3/uL (2.0-7.7); Basophil# 0.09 X10^3/uL; Eosinophil# 0.03 X10^3/uL; Eosinophils% 0.3 % (0-5); Hematocrit 36.7 % (40-54); Hemoglobin 12.1 g/dL (13.0-16.5); Lymphocyte # 1.06 X10^3/ul (0.83-4.51); Lymphocyte % 11.6 % (19-41); Mean Corpuscular Hgb 30.4 pg (27.0-32.0); Mean Corpuscular Volume 92.2 fL (80-94); Mean Platelet Vol. 9.9 fl (6.2-12.0); Monocyte# 0.93 X10^3/uL; Monocyte% 10.2 % (0-10); NRBC Flagged by Analyzer 0 % (0-5); Neutrophil # 6.83 X10^3/uL (2.7-7.7); Neutrophil % 74.8 % (47-70); Platelet Count 406 K/mm3 (150-450); RBC Distribution Width CV 14.5 % (11.6-14.6); RBC Distribution Width SD 49.5 fl (35.1-43.9); Red Blood Count 3.98 M/mm3 (4.6-6.2); White Blood Count 9.1 K/mm3 (4.4-11.0)
[2024-12-20 07:23] LABS: Anion Gap 13 (5-15); BUN 22 mg/dL (4-19); BUN/Creat Ratio 20.1 RATIO (10-20); Calcium,Total 8.7 mg/dL (7.6-11.0); Carbon Dioxide 23.6 mmol/L (21.0-32.0); Chloride 100 mmol/L (98-108); EST Glomerular Filtration Rate 74 (>60); Estimated Creatinine Clearance 85.03 ml/min (50-250); Glucose 113 mg/dL (70-99); Potassium 3.7 mmol/L (3.3-5.1); Sodium Level 137 mmol/L (133-145)
[2024-12-20 09:21] VITALS: BP 116/79; PULSE 79; RESP 16; TEMP 36.8; O2SAT 99
[2024-12-20] MEDS: oxyCODONE 5 MG Tablet 10 MG PO ×2 (09:31→21:37)
[2024-12-20 09:32] VITALS: BP 116/79; PULSE 79
[2024-12-20] MEDS: APIXABAN 5 MG TABLET PO ×2 (09:32→21:40)
[2024-12-20] MEDS: Metoprolol(XL)Succ 50 MG Tablet PO ×2 (09:32→21:40)
[2024-12-20] MEDS: Magnesium Chloride 64 MG Delay Rel.Tablet 128 MG PO (09:33)
[2024-12-20] MEDS: amLODIPine 5 MG Tablet PO (09:33)
[2024-12-20] MEDS: Furosemide 40 MG Tablet PO ×2 (09:33→17:08)
[2024-12-20] MEDS: Spironolactone 25 MG Tablet PO (09:33)
[2024-12-20] MEDS: Empagliflozin 25 MG Tablet PO (09:33)
--- NOTE | 2024-12-20 10:26 | PCM.CONS.GEN ---
Assessment & Plan Assessment/Plan (1) Septic arthritis of knee, right: QUALIFIERS: Septic arthritis organism: staphylococcal Qualified Code(s): M00.061 - Staphylococcal arthritis, right knee PLAN: R knee MSSA septic arthitis - now s/p OR 12/16/[address] Carter for washout. Bcx neg. Will narrow to cefazolin, place picc, and d/c on 3 weeks cefazolin with weekly labs, ID followup in 2 weeks. D/w pillowcase cutter. Will follow, thank you HPI Consult Data Date of Consult: 12/20/24 HPI Narrative Reason for Consultation: septic arthritis HPI Narrative: SADIQ DOYLE, is a 69 M with h/o CAD, presented 12/14 with progressive R knee pain. On 12/05, bent down and felt a pop in R knee. Developed swelling, pain. Saw ED, dx with effusion, sx worsened with some redness and chills, saw ortho, sent to ED. Admitted on vanc/unasyn. Taken to OR 12/[address] Carter for I&D. Feeling better, pain improved. Full ROS performed and neg except as noted above. [facility] Medical History Persistent atrial fibrillation ICD (implantable cardioverter-defibrillator), single, in situ PAF (paroxysmal atrial fibrillation) Ischemic cardiomyopathy Atherosclerotic heart disease of [place] coronary artery without angina pectoris Essential hypertension HLD (hyperlipidemia) Cardiomyopathy CAD in [place] artery New onset atrial fibrillation Home Medications ?Medication ?Instructions ?Recorded ?Last Taken ?Type aspirin 81 mg chewable tablet 81 mg PO DAILY@0800 heart 09/22/19 07/27/23 Rx cholecalciferol (vitamin D3) 50 6,000 unit PO DAILY SUPPLEMENT 01/25/20 03/27/20 History mcg (2,000 unit) capsule magnesium oxide 500 mg PO DAILY follow 05/22/22 Unknown History vitamin K2 45 mcg capsule 45 mcg PO DAILY follow -up 05/22/22 Unknown History krill oil 500 mg capsule 1,000 mg PO DAILY follow up 05/21/23 Unknown History nitroglycerin 0.4 mg sublingual 0.4 mg sublingual Q5M PRN CHEST 05/21/23 Unknown Rx tablet PAIN #25 tabs metoprolol succinate 50 mg 50 mg PO BID blood pressure #180 10/07/23 Unknown Rx tablet,extended release 24 hr tabs spironolactone 25 mg tablet 25 mg PO DAILY follow up #90 tabs 11/18/23 Unknown Rx amlodipine 5 mg tablet 5 mg PO DAILY please give 90 day 03/22/24 Unknown Rx supply #90 TABLETS apixaban 5 mg tablet 5 mg PO BID blood thinner #180 tabs 04/12/24 Unknown Rx dapagliflozin propanediol 10 mg 10 mg PO DAILY follow-u[ #90 tabs 08/05/24 Unknown Rx tablet (Farxiga) multivitamin (Daily Multi-Vitamin 1 tab PO QAM follow up 09/20/24 Unknown History tablet) furosemide 40 mg tablet (Lasix) 40 mg PO BID #180 tabs 10/12/24 Unknown Rx oxycodone-acetaminophen 5 mg-325 1 tab PO Q6H PRN PRN Pain 3 days 12/09/24 Unknown Rx mg tablet #12 TABLETS cefazolin 2 gram intravenous 2 g IV Q8H 17 days 12/20/24 Unknown Rx solution Allergy/AdvReac Type Severity Reaction Status Date / Time No Known Allergies Allergy Verified 12/14/24 14:12 Family History Father Heart disease Grandfather Diabetes Surgical History S/P ablation of atrial fibrillation History of cardioversion (~11/05/21) S/P PTCA (percutaneous transluminal coronary angioplasty) Social History Smoking Status: Never smoker alcohol intake: current alcohol intake frequency: holidays/special occasions only substance use type: does not use caffeine: Yes Type: coffee Number of servings: 1 Physical Exam Const alert, oriented x3 and no apparent distress General Appearance: cooperative HEENT normocephalic and head/scalp atraumatic Eyes PERRL and EOMs intact bilaterally Neck supple and No nodes Resp normal air movement and clear to auscultation bilaterally Cardio regular rate and regular rhythm GI soft to palpation, non-tender and non-distended Extremity General Extremity: edema Skin Skin Narrative: RLE wrapped Neuro CN's II-XII intact bilaterally Lab / Micro Data Attestation: I reviewed the patient's lab results. 12/20/24 06:14 12/20/24 06:14 Labs: Laboratory Results - last 24 hr 12/19/24 18:49: Vancomycin Trough 15.1 H 12/20/24 06:14: WBC 9.1, RBC 3.98 L, Hgb 12.1 L, Hct 36.7 L, MCV 92.2, MCH 30.4, MCHC 33.0, RDW Std Deviation 49.5 H, RDW Coeff of Nichole 14.5, Plt Count 406, MPV 9.9, Immature Gran % (Auto) 2.100 H, Neut % (Auto) 74.8 H, Lymph % (Auto) 11.6 L, Travis % (Auto) 10.2 H, Eos % (Auto) 0.3, Baso % (Auto) 1.0, Absolute Neuts (auto) 6.8, Absolute Lymphs (auto) 1.06, Nucleated RBC % 0, Sodium 137, Potassium 3.7, Chloride 100, Carbon Dioxide 23.6, Anion Gap 13, BUN 22 H, Creatinine 1.10, Estim Creat Clear Calc 85.03, Est GFR (MDRD) Non-Af 74, BUN/Creatinine Ratio 20.1 H, Glucose 113 H, Calcium 8.7 Micro: Microbiology 12/17/24 20:50 Urine, Clean Catch Urine Culture - Final Culture exhibits no growth. 12/14/24 12:04 Blood Culture (Wb) - Anticubital Left Blood Culture - Final No growth in 5 days. 12/15/24 12:35 Fluid - Synovial (joint) Gram Stain - Final 12/15/24 12:35 Fluid - Synovial (joint) Body Fluid Culture - Final Staphylococcus aureus 12/15/24 12:35 Fluid - Synovial (joint) Anaerobic Culture - Final No anaerobic bacteria isolated. 12/14/24 11:50 Blood Culture (Wb) - Anticubital Left Bacteria Detection (PCR) - Final Coag Negative Staph 12/14/24 11:50 Blood Culture (Wb) - Anticubital Left Blood Culture - Final Coag Negative Staph
--- NOTE | 2024-12-20 11:02 | CASEMGMT ---
Discharge Planning Updates sent to [facility] with note to submit for precert. Jessica Delarosa DC Planning Asst.
--- NOTE | 2024-12-20 12:57 | PN_ITS ---
Subjective Subjective Patient seen and examined. He had no active complaints. Review of systems is otherwise negative. He is awaiting placement. He is for insertion of a PICC line today for moth exterminator antibiotics, per ID. Objective Data Objective Data Vital Signs: Vital Signs Temp Pulse Resp BP Pulse Ox O2 Del Method O2 Flow Rate 98.2 F 79 16 116/79 99 Room Air 2 12/20/24 09:21 12/20/24 09:32 12/20/24 09:21 12/20/24 09:32 12/20/24 09:21 12/20/24 09:38 12/16/24 19:47 Oxygen Flow Rate (L/min) 2 Oxygen Delivery Method Room Air Weight: 244 lb 3.2 oz Body Mass Index (BMI) 32.2 Intake & Output: Intake and Output for Last 24 Hours 12/18/24 12/19/24 12/20/24 23:59 23:59 23:59 Intake Total 900 / 900 2000 / 2000 650 / 650 Output Total 2375 / 2375 3100 / 3100 400 / 400 Balance -1475 / -1475 -1100 / -1100 250 / 250 Lab / Micro Data 12/20/24 06:14 12/20/24 06:14 Labs: Laboratory Results - last 24 hr 12/19/24 18:49: Vancomycin Trough 15.1 H 12/20/24 06:14: WBC 9.1, RBC 3.98 L, Hgb 12.1 L, Hct 36.7 L, MCV 92.2, MCH 30.4, MCHC 33.0, RDW Std Deviation 49.5 H, RDW Coeff of Nichole 14.5, Plt Count 406, MPV 9.9, Immature Gran % (Auto) 2.100 H, Neut % (Auto) 74.8 H, Lymph % (Auto) 11.6 L , Bureau % (Auto) 10.2 H, Eos % (Auto) 0.3, Baso % (Auto) 1.0, Absolute Neuts (auto) 6.8, Absolute Lymphs (auto) 1.06, Nucleated RBC % 0, Sodium 137, Potassium 3.7, Chloride 100, Carbon Dioxide 23.6, Anion Gap 13, BUN 22 H, Creatinine 1.10, Estim Creat Clear Calc 85.03, Est GFR (MDRD) Non-Af 74, B UN/Creatinine Ratio 20.1 H, Glucose 113 H, Calcium 8.7 Micro: Microbiology 12/17/24 20:50 Urine, Clean Catch Urine Culture - Final Culture exhibits no growth. 12/14/24 12:04 Blood Culture (Wb) - Anticubital Left Blood Culture - Final No growth in 5 days. 12/15/24 12:35 Fluid - Synovial (joint) Gram Stain - Final 12/15/24 12:35 Fluid - Synovial (joint) Body Fluid Culture - Final Staphylococcus aureus 12/15/24 12:35 Fluid - Synovial (joint) Anaerobic Culture - Final No anaerobic bacteria isolated. 12/14/24 11:50 Blood Culture (Wb) - Anticubital Left Bacteria Detection (PCR) - Final Coag Negative Staph 12/14/24 11:50 Blood Culture (Wb) - Anticubital Left Blood Culture - Final Coag Negative Staph Physical Exam Const alert, oriented x3, no apparent distress and well nourished General Appearance: cooperative and well developed HEENT normocephalic, head/scalp atraumatic, moist oral mucous membranes and oropharynx normal Eyes PERRL and EOMs intact bilaterally Neck no lymphadenopathy and supple Lymph Lymphatic: no lymphadenopathy noted and no lymphedema noted Resp normal respiratory effort, normal air movement and clear to auscultation bilaterally Cardio regular rate, regular rhythm, S1 normal heart sound, S2 normal heart sound and no murmurs GI normal to inspection, nondistended, normoactive bowel sounds, soft to palpation, non-tender and non-distended Extremity Extremity Narrative: RLE wrapped in bandage Skin Skin Narrative: as under extremities Neuro CN's II-XII intact bilaterally, no focal motor deficits and no sensory deficits noted Motor Exam: strength 5/5 throughout and general weakness Psych thought process normal, cooperative and affect normal Appearance: appropriate Assessment & Plan Assessment/Plan (1) Septic arthritis of knee, right: QUALIFIERS: Septic arthritis organism: staphylococcal Qualified Code(s): M00.061 - Staphylococcal arthritis, right knee (2) Cellulitis of right lower extremity: PLAN: Plan #Cellulitis of the RLE with right lower extremity with concern for septic arthritis and infected hematoma * on IV vancomycin and unasyn. * orthopedics on board. He had knee aspiration done on admission fluid analysis showed elevated PC of 33,000. * Subsequently had irrigation debridement with evacuation of a right gastrocnemius intramuscular hematoma on 11/29/2024 and postop diagnosis was right knee septic arthritis * Was on IV vancomycin and Unasyn. Antibiotics now narrowed down to IV cefazolin per ID. * Synovial fluid cultures growing Staph aureus. * Blood cultures also grew coagulase-negative staph in 1 out of 2 samples. * per ID, to have PICC line inserted for moth exterminator antibiotics. * #A-fib: On metoprolol. on eliquis #Chronic Heart failure preserved ejection fraction: Not in exacerbation. Has known EF of 50%. Breathing treatments bronchodilators. #Class I obesity: BMI is 32.2. Complicates acute care, expected recovery and prognosis. DVT prophylaxis: on eliquis Disposition: * will need placement for moth exterminator antibiotics. PICC line to be inserted today. Awaiting placement. Charges/Coding Visit Charges Inpatient E&M: 76590 Subs Hosp L2
[2024-12-20 14:50] VITALS: BP 135/77; PULSE 78; RESP 18; TEMP 37.2; O2SAT 96
[2024-12-20] MEDS: Cefazolin 2 GM in 0.9% Normal Saline (100mL Bag) 100 ML IV ×2 (16:02→21:36)
[2024-12-20] MEDS: 0.9% Saline Lock 10 ML Syringe IV ×2 (16:02→21:35)
[2024-12-20] MEDS: 0.9% Normal Saline (250mL Bag) 250 ML 15 ML IV (16:03)
[2024-12-20] MEDS: Acetaminophen 325 MG Tablet 650 MG PO (16:12)
[2024-12-20 21:34] VITALS: BP 112/71; PULSE 80; RESP 18; TEMP 37.4; O2SAT 98
[2024-12-20 21:40] VITALS: BP 112/71; PULSE 80
[2024-12-21 04:25] VITALS: BP 118/76; PULSE 68; RESP 18; TEMP 36.7; O2SAT 100
[2024-12-21] MEDS: 0.9% Saline Lock 10 ML Syringe IV (05:20)
[2024-12-21] MEDS: Acetaminophen 325 MG Tablet 650 MG PO ×2 (05:20→20:53)
[2024-12-21] MEDS: oxyCODONE 5 MG Tablet 10 MG PO ×2 (05:20→14:39)
[2024-12-21] MEDS: Cefazolin 2 GM in 0.9% Normal Saline (100mL Bag) 100 ML IV ×3 (05:21→20:56)
[2024-12-21 06:47] LABS: Absolute Lymphocyte Count 1.14 X10^3/uL (0.83-4.51); Basophil# 0.06 X10^3/uL; Basophil% 0.7 % (0-1); Eosinophil# 0.04 X10^3/uL; Eosinophils% 0.5 % (0-5); Hematocrit 36.5 % (40-54); Hemoglobin 12.1 g/dL (13.0-16.5); Lymphocyte # 1.14 X10^3/ul (0.83-4.51); Lymphocyte % 13.6 % (19-41); Mean Corp Hgb Conc 33.2 g/dL (32-36); Mean Corpuscular Hgb 30.1 pg (27.0-32.0); Mean Corpuscular Volume 90.8 fL (80-94); Monocyte# 0.94 X10^3/uL; Monocyte% 11.2 % (0-10); NRBC Flagged by Analyzer 0 % (0-5); Neutrophil # 5.99 X10^3/uL (2.7-7.7); Neutrophil % 71.6 % (47-70); Platelet Count 468 K/mm3 (150-450); RBC Distribution Width CV 14.5 % (11.6-14.6); RBC Distribution Width SD 48.2 fl (35.1-43.9); Red Blood Count 4.02 M/mm3 (4.6-6.2); White Blood Count 8.4 K/mm3 (4.4-11.0)
[2024-12-21 07:39] LABS: Anion Gap 14 (5-15); BUN 23 mg/dL (4-19); BUN/Creat Ratio 18.7 RATIO (10-20); Calcium,Total 8.8 mg/dL (7.6-11.0); Carbon Dioxide 21.9 mmol/L (21.0-32.0); Chloride 99 mmol/L (98-108); Creatinine, Serum 1.25 mg/dL (0.70-1.20); EST Glomerular Filtration Rate 63 (>60); Estimated Creatinine Clearance 74.82 ml/min (50-250); Glucose 122 mg/dL (70-99); Sodium Level 135 mmol/L (133-145)
[2024-12-21 08:52] VITALS: PULSE 66
[2024-12-21] MEDS: amLODIPine 5 MG Tablet PO (08:52)
[2024-12-21] MEDS: APIXABAN 5 MG TABLET PO ×2 (08:52→21:13)
[2024-12-21] MEDS: Spironolactone 25 MG Tablet PO (08:52)
[2024-12-21] MEDS: Furosemide 40 MG Tablet PO ×2 (08:52→17:42)
[2024-12-21] MEDS: Metoprolol(XL)Succ 50 MG Tablet PO ×2 (08:52→20:55)
[2024-12-21] MEDS: Empagliflozin 25 MG Tablet PO (08:53)
[2024-12-21] MEDS: Magnesium Chloride 64 MG Delay Rel.Tablet 128 MG PO (08:53)
[2024-12-21 09:21] VITALS: BP 121/63; PULSE 66; RESP 16; TEMP 36.7; O2SAT 97
[2024-12-21 09:33] LABS: Pathologist Review Reviewed
--- NOTE | 2024-12-21 12:55 | PN_ITS ---
Subjective Subjective Patient seen and examined. He had no complaints this morning. He had a PICC line inserted yesterday. He is awaiting placement. Review systems otherwise negative. Objective Data Objective Data Vital Signs: Vital Signs Temp Pulse Resp BP Pulse Ox O2 Del Method O2 Flow Rate 98.1 F 66 16 121/63 H 97 Room Air 2 12/21/24 09:21 12/21/24 09:21 12/21/24 09:21 12/21/24 09:21 12/21/24 09:21 12/21/24 09:12/16/24 19:47 Oxygen Flow Rate (L/min) 2 Oxygen Delivery Method Room Air Weight: 244 lb 3.2 oz Body Mass Index (BMI) 32.2 Intake & Output: Intake and Output for Last 24 Hours 12/19/24 12/20/24 12/21/24 23:59 23:59 23:59 Intake Total 1999 / 1999 1785 / 1785 210 / 210 Output Total 3100 / 3100 1150 / 1150 1200 / 1200 Balance -1100 / -1100 635 / 635 -990 / -990 Lab / Micro Data 12/21/24 06:24 12/21/24 06:24 Labs: Laboratory Results - last 24 hr 12/15/24 12:35: Fl Crystal Path Review Reviewed 12/21/24 06:24: WBC 8.4, RBC 4.02 L, Hgb 12.1 L, Hct 36.5 L, MCV 90.8, MCH 30.1, MCHC 33.2, RDW Std Deviation 48.2 H, RDW Coeff of Nichole 14.5, Plt Count 468 H, MPV 10.0, Immature Gran % (Auto) 2.400 H, Neut % (Auto) 71.6 H, Lymph % (Auto) 13.6 L, [place] % (Auto) 11.2 H, Eos % (Auto) 0.5, Baso % (Auto) 0.7, Absolute Neuts (auto) 6.0, Absolute Lymphs (auto) 1.14, Nucleated RBC % 0, Sodium 135, Potassium 4.0, Chloride 99, Carbon Dioxide 21.9, Anion Gap 14, BUN 23 H, C reatinine 1.25 H, Estim Creat Clear Calc 74.82, Est GFR (MDRD) Non-Af 63, BUN/Creatinine Ratio 18.7, Glucose 122 H, Calcium 8.8 Micro: Microbiology 12/17/24 20:50 Urine, Clean Catch Urine Culture - Final Culture exhibits no growth. 12/14/24 12:04 Blood Culture (Wb) - Anticubital Left Blood Culture - Final No growth in 5 days. 12/15/24 12:35 Fluid - Synovial (joint) Gram Stain - Final 12/15/24 12:35 Fluid - Synovial (joint) Body Fluid Culture - Final Staphylococcus aureus 12/15/24 12:35 Fluid - Synovial (joint) Anaerobic Culture - Final No anaerobic bacteria isolated. 12/14/24 11:50 Blood Culture (Wb) - Anticubital Left Bacteria Detection (PCR) - Final Coag Negative Staph 12/14/24 11:50 Blood Culture (Wb) - Anticubital Left Blood Culture - Final Coag Negative Staph Physical Exam Const alert, oriented x3, no apparent distress and well nourished General Appearance: cooperative and well developed HEENT normocephalic, head/scalp atraumatic, moist oral mucous membranes and oropharynx normal Eyes PERRL and EOMs intact bilaterally Neck supple Lymph Lymphatic: no lymphedema noted Resp normal respiratory effort, normal air movement and clear to auscultation bilaterally Cardio regular rate, regular rhythm, S1 normal heart sound, S2 normal heart sound and no murmurs GI normal to inspection, nondistended, normoactive bowel sounds, soft to palpation, non-tender and non-distended Extremity Extremity Narrative: RLE wrapped in bandage Skin Skin Narrative: as under extremities. PICC line in situ in [facility] Neuro CN's II-XII intact bilaterally, no focal motor deficits and no sensory deficits noted Motor Exam: strength 5/5 throughout and general weakness Psych thought process normal, cooperative and affect normal Appearance: appropriate Assessment & Plan Assessment/Plan (1) Septic arthritis of knee, right: QUALIFIERS: Septic arthritis organism: staphylococcal Qualified Code(s): M00.061 - Staphylococcal arthritis, right knee (2) Cellulitis of right lower extremity: PLAN: Plan #Cellulitis of the RLE with right lower extremity with concern for septic arthritis and infected hematoma * orthopedics on board. He had knee aspiration done on admission fluid analysis showed elevated PC of 33,000. * Subsequently had irrigation debridement with evacuation of a right gastrocnemius intramuscular hematoma on 11/29/2024 and postop diagnosis was right knee septic arthritis * Was on IV vancomycin and Unasyn. Antibiotics now narrowed down to IV cefazolin per ID. * Synovial fluid cultures growing Staph aureus. * Blood cultures also grew coagulase-negative staph in 1 out of 2 samples. * Had PICC line inserted yesterday. To have 3 weeks of IV cefazolin with weekly labs per ID. Follow-up with ID in 2 weeks. * #A-fib: On metoprolol. on eliquis #Chronic Heart failure preserved ejection fraction: Not in exacerbation. Has known EF of 50%. Breathing treatments bronchodilators. #Class I obesity: BMI is 32.2. Complicates acute care, expected recovery and prognosis. DVT prophylaxis: on eliquis Disposition: * Awaiting placement. Charges/Coding Visit Charges Inpatient E&M: 90176 Subs Hosp L2
[2024-12-21 15:21] VITALS: BP 119/85; PULSE 70; RESP 16; TEMP 36.6; O2SAT 98
[2024-12-21 20:55] VITALS: BP 113/76; PULSE 82
[2024-12-21] MEDS: 0.9% Normal Saline (250mL Bag) 250 ML 15 ML IV (20:56)
[2024-12-21 21:17] VITALS: BP 113/76; PULSE 82; RESP 18; TEMP 36.8; O2SAT 99
[2024-12-22 02:30] VITALS: BP 113/62; PULSE 72; RESP 16; TEMP 36.2; O2SAT 97
[2024-12-22] MEDS: Cefazolin 2 GM in 0.9% Normal Saline (100mL Bag) 100 ML IV ×2 (05:19→14:10)
[2024-12-22 06:21] LABS: Basophil# 0.06 X10^3/uL; Basophil% 0.8 % (0-1); Eosinophil# 0.06 X10^3/uL; Eosinophils% 0.8 % (0-5); Hematocrit 35.4 % (40-54); Hemoglobin 11.5 g/dL (13.0-16.5); Lymphocyte % 18.6 % (19-41); Mean Corp Hgb Conc 32.5 g/dL (32-36); Mean Corpuscular Hgb 29.8 pg (27.0-32.0); Mean Corpuscular Volume 91.7 fL (80-94); Mean Platelet Vol. 9.8 fl (6.2-12.0); NRBC Flagged by Analyzer 0 % (0-5); Neutrophil # 4.97 X10^3/uL (2.7-7.7); Neutrophil % 65.9 % (47-70); Platelet Count 462 K/mm3 (150-450); RBC Distribution Width CV 14.6 % (11.6-14.6); RBC Distribution Width SD 49.5 fl (35.1-43.9); Red Blood Count 3.86 M/mm3 (4.6-6.2); White Blood Count 7.5 K/mm3 (4.4-11.0)
[2024-12-22 07:06] LABS: Anion Gap 13 (5-15); BUN 24 mg/dL (4-19); BUN/Creat Ratio 20.3 RATIO (10-20); Calcium,Total 8.6 mg/dL (7.6-11.0); Carbon Dioxide 22.9 mmol/L (21.0-32.0); Chloride 100 mmol/L (98-108); Creatinine, Serum 1.18 mg/dL (0.70-1.20); EST Glomerular Filtration Rate 68 (>60); Estimated Creatinine Clearance 79.26 ml/min (50-250); Glucose 99 mg/dL (70-99); Potassium 4.1 mmol/L (3.3-5.1); Sodium Level 136 mmol/L (133-145)
[2024-12-22] MEDS: oxyCODONE 5 MG Tablet 10 MG PO (08:18)
--- NOTE | 2024-12-22 08:18 | CASEMGMT ---
Discharge Planning Updates sent to [facility]. Precert remains pending. [facility] Jessica Delarosa DC Planning Asst.
[2024-12-22] MEDS: Spironolactone 25 MG Tablet PO (08:19)
[2024-12-22] MEDS: APIXABAN 5 MG TABLET PO (08:19)
[2024-12-22] MEDS: Empagliflozin 25 MG Tablet PO (08:19)
[2024-12-22] MEDS: amLODIPine 5 MG Tablet PO (08:20)
[2024-12-22] MEDS: Furosemide 40 MG Tablet PO (08:20)
[2024-12-22] MEDS: Magnesium Chloride 64 MG Delay Rel.Tablet 128 MG PO (08:20)
[2024-12-22 08:21] VITALS: BP 99/65; PULSE 72
[2024-12-22 09:10] VITALS: BP 99/65; PULSE 72; RESP 18; TEMP 36.3; O2SAT 99
--- NOTE | 2024-12-22 11:02 | CASEMGMT ---
[facility] has obtained auth to admit. Jessica Delarosa DC Planning Asst.
--- NOTE | 2024-12-22 11:54 | CASEMGMT ---
Social Work- SW received notice that precert has been obtained. SW updated pt and pt of pending discharge. SW provided address of SNF to . ERIC remains available to follow. CHENG Patino
--- NOTE | 2024-12-22 13:46 | DCINST_ITS ---
Discharge Instructions Diet Discharge Diet: Low fat / Low cholesterol DC O2, CPAP, BIPAP needs Home O2 Discharge instructions: No Dressing / Incision Discharge Activity: Return to Normal Activity Weight Bearing Status: Weight bearing as tolerated Dressing / Incision Call your doctor if you observe: Fever of 101 or Higher, Shortness of breath, Dizziness, Swelling in the ankles and Chest pain Follow Up Care Test Results: Test results from this visit will be discussed in further detail at your follow- up appointment, if applicable. Discharge Plan Admission Admit Date/Time: 12/14/24 15:57 Primary Reason for Your Visit: cellulitis of the RLE Attending Provider: Elena Biswas Primary Care Provider: Care Physician,No Primary Consulting Providers: Fernando Browning; Philippe Kendrick; Elena Biswas; Alo Gomez; Farhan Jones Instructions Patient Instructions: Cellulitis, Septic Arthritis Ch Additional Instructions / Restrictions: to have weekly CBC and BMP in the SNF; results to be sent to PCP and ID to determine if any adjustment of antibiotics is needed. Discharge Orders/Prescriptions Prescriptions: New cefazolin 2 gram recon soln 2 g IV Q8H 17 Days Rx Instructions: stop date 01/06/25. Dx: septic arthritis. Weekly bmp, cbc, and esr. Fax to [phone]. Routine picc care per protocol. Continued magnesium oxide 500 mg tablet 500 mg PO DAILY vitamin K2 45 mcg capsule 45 mcg PO DAILY krill oil 500 mg capsule 1,000 mg PO DAILY nitroglycerin 0.4 mg tablet, sublingual 0.4 mg SUBLINGUAL Q5M PRN (Reason: CHEST PAIN) Qty: 25 3RF spironolactone 25 mg tablet 25 mg PO DAILY Qty: 90 3RF multivitamin [Daily Multi-Vitamin] Tablet 1 tab PO QAM aspirin 81 MG tablet,chewable 81 mg PO DAILY@0800 0RF cholecalciferol (vitamin D3) 2,000 UNIT capsule 6,000 unit PO DAILY oxycodone-acetaminophen 5-325 mg tablet 1 tab PO Q6H PRN PRN (Reason: Pain) 3 Days Qty: 12 0RF metoprolol succinate 50 mg tablet extended release 24 hr 50 mg PO BID Qty: 180 3RF amlodipine 5 mg tablet 5 mg PO DAILY Qty: 90 3RF apixaban 5 mg tablet 5 mg PO BID Qty: 180 3RF dapagliflozin propanediol [Farxiga] 10 mg tablet 10 mg PO DAILY Qty: 90 3RF furosemide [Lasix] 40 mg tablet 40 mg PO BID Qty: 180 3RF Referrals / Follow Up: Krzysztof Martino MD [Med Staff - Active Staff] - Within 2 Weeks (see to establish PCP care) Philippe Kendrick MD [Med Staff - Active Staff] - Within 2 Weeks Care Physician,No Primary [Primary Care Provider] - Disposition Disposition (needs filled in before D/C Order can be placed): [facility]
--- NOTE | 2024-12-22 13:47 | DS.PCM_ITS ---
Providers Date of Admission: 12/14/24 Date of Discharge: 12/22/24 Primary Care Physician: Frida Primary [facility] Phys Consultations 12/14/24 16:39 Consult: Orthopedics Routine Consulting Provider: Philippe Kendrick Reason for Consult: suspected right knee hemarthrosis EMERGENT Consult: No Notified: Yes Date Notified: 12/14/24 Time Notified: 16:02 Method of Notification: ED Physician Initiated 12/19/24 11:16 Consult: Infectious Disease Routine Consulting Provider: Farhan Jones Reason for Consult: right knee septic arthritis EMERGENT Consult: No Notified: Yes Date Notified: 12/19/24 Time Notified: 11:16 Method of Notification: Text Reason For Visit: RLE CELLUTITIS Diagnosis Discharge Diagnosis (1) Septic arthritis of knee, right: Status: Acute Code(s): M00.9 - Pyogenic arthritis, unspecified Qualifiers: Septic arthritis organism: staphylococcal Qualified Code(s): M00.061 - Staphylococcal arthritis, right knee (2) Cellulitis of right lower extremity: Status: Acute Code(s): L03.115 - Cellulitis of right lower limb Plan #Cellulitis of the RLE with right lower extremity with concern for septic arthritis and infected hematoma * orthopedics on board. He had knee aspiration done on admission fluid analysis showed elevated PC of 33,000. * Subsequently had irrigation debridement with evacuation of a right gastrocnemius intramuscular hematoma on 11/29/2024 and postop diagnosis was right knee septic arthritis * Was on IV vancomycin and Unasyn. Antibiotics now narrowed down to IV cefazolin per ID. * Synovial fluid cultures growing Staph aureus. * Blood cultures also grew coagulase-negative staph in 1 out of 2 samples. * Had PICC line inserted yesterday. To have 3 weeks of IV cefazolin with weekly labs per ID. Follow-up with ID in 2 weeks. * #A-fib: On metoprolol. on eliquis #Chronic Heart failure preserved ejection fraction: Not in exacerbation. Has known EF of 50%. Breathing treatments bronchodilators. #Class I obesity: BMI is 32.2. Complicates acute care, expected recovery and prognosis. DVT prophylaxis: on eliquis Disposition: * Awaiting placement. Medications at Discharge Home Medications aspirin 81 mg chewable tablet 81 mg PO DAILY@0800 heart 09/22/19 cholecalciferol (vitamin D3) 50 mcg (2,000 unit) capsule 6,000 unit PO DAILY SUPPLEMENT 01/25/20 magnesium oxide 500 mg PO DAILY follow 05/22/22 vitamin K2 45 mcg capsule 45 mcg PO DAILY follow -up 05/22/22 krill oil 500 mg capsule 1,000 mg PO DAILY follow up 05/21/23 nitroglycerin 0.4 mg sublingual tablet 0.4 mg sublingual Q5M PRN CHEST PAIN #25 tabs 05/21/23 metoprolol succinate 50 mg tablet,extended release 24 hr 50 mg PO BID blood pressure #180 tabs 10/07/23 spironolactone 25 mg tablet 25 mg PO DAILY follow up #90 tabs 11/18/23 amlodipine 5 mg tablet 5 mg PO DAILY please give 90 day supply #90 TABLETS 03/22/24 apixaban 5 mg tablet 5 mg PO BID blood thinner #180 tabs 04/12/24 dapagliflozin propanediol 10 mg tablet (Farxiga) 10 mg PO DAILY follow-u[ #90 tabs 08/05/24 multivitamin (Daily Multi-Vitamin tablet) 1 tab PO QAM follow up 09/20/24 furosemide 40 mg tablet (Lasix) 40 mg PO BID #180 tabs 10/12/24 cefazolin 2 gram intravenous solution 2 g IV Q8H 17 days 12/20/24 oxycodone-acetaminophen 5 mg-325 mg tablet 1 tab PO Q6H PRN PRN Pain 30 days #90 TABLETS 12/22/24 Hospital Course Operations - (Right knee arthroscopic irrigation and debridement and evacuation of right gastrocnemius intramuscular hematoma) Procedures None Summary of Care Provided Minutes Spent on Discharge: 47 Hospital Course: Patient is a 69-year-old male with a past medical history as outlined who was admitted through the ED on 12/04/2024 with complaint of redness and swelling of the right lower extremity. He said about 9 days prior to admission he bent over and felt a pop in his right leg and had increased pain and swelling. He came to the ED on 12/09/2024 and was diagnosed with effusion and sent home but symptoms continue to worsen. He was therefore referred to orthopedic surgery. He went to orthopedic surgeon on the day of admission and was sent to the ED due to concerns about cellulitis. He admitted to chills but denied any fever. He also had swelling of the right lower extremity. CT of the right lower extremity showed a large joint effusion of the knee and complex fluid collection extending from the posterior medial aspect of the knee joint into the upper calf measuring about 8 x 4 x 20 cm. He also has circumferential subcutaneous edema which extended from the calf into the foot. He was admitted to be managed for cellulitis of the right lower extremity and started on IV vancomycin and Unasyn. He had right knee aspiration done and fluid analysis showed evidence of septic arthritis. Duplex of the right lower extremity was negative for any evidence of DVT. He was therefore taken into surgery and had right knee arthroscopic irrigation and debridement with evacuation of right gastrocnemius intramuscular hematoma. Wound cultures grew MSSA. Antibiotics were narrowed down to IV cefazolin. Blood cultures also grew coagulase-negative staph in 1 out of 2 samples. He had a PICC line inserted and per ID was to be on 3 weeks of IV cefazolin with weekly CBC and BMP. Patient was therefore discharged to long-term facility on 12/22/2024. He is to follow-up with his PCP and follow-up with ID and orthopedic surgery within 1 to 2 weeks. Patient was seen and examined prior to discharge. Patient felt for quite frustrated this morning as he felt he had been in the hospital for too long. He said he had been told by his that [facility] required documents to be sent to them but this had not been sent in so that made him visibly upset. Patient was however apologetic about his conduct towards this hospitalist and attributed to his frustration and being in the hospital for a long time. This hospitalist expressed understanding and empathy. He had no active complaints otherwise. Labs and vitals reviewed. Home medication reviewed and reconciled. Physical Exam Const alert, oriented x3, no apparent distress and well nourished General Appearance: cooperative, comfortable and well developed Exam Limitations: no limitations HEENT normocephalic, head/scalp atraumatic, hearing grossly normal bilaterally, moist oral mucous membranes and oropharynx normal Mouth: oral and palatal mucosa normal Eyes EOMs intact bilaterally and conjunctivae normal Neck supple Lymph Lymphatic: no lymphedema noted Resp normal respiratory effort, normal air movement and clear to auscultation bilaterally Cardio regular rate, regular rhythm, S1 normal heart sound, S2 normal heart sound and no murmurs GI normal to inspection, nondistended, normoactive bowel sounds, soft to palpation, non-tender and non-distended Extremity Extremity Narrative: RLE wrapped in bandage Skin Skin Narrative: as under extremities. PICC line in situ in LUE Neuro oriented x3, CN's II-XII intact bilaterally, no focal motor deficits and no sensory deficits noted Sensorium / Orientation: awake and alert Motor Exam: general weakness Psych thought process normal, cooperative and affect normal Appearance: appropriate Weight / BMI Weight Weight: 244 lb 3.2 oz Body Mass Index (BMI) 32.2 ABG / Lab / Microbiology Data 12/22/24 05:44 12/22/24 05:44 Laboratory: Laboratory Results - last 24 hr 12/22/24 05:44: WBC 7.5, RBC 3.86 L, Hgb 11.5 L, Hct 35.4 L, MCV 91.7, MCH 29.8, MCHC 32.5, RDW Std Deviation 49.5 H, RDW Coeff of Nichole 14.6, Plt Count 462 H, MPV 9.8, Immature Gran % (Auto) 1.900 H, Neut % (Auto) 65.9, Lymph % (Auto) 18.6 L, Morgan % (Auto) 12.0 H, Eos % (Auto) 0.8, Baso % (Auto) 0.8, Absolute Neuts (auto) 5.0, Absolute Lymphs (auto) 1.40, Nucleated RBC % 0, Sodium 136, Potassium 4.1, Chloride 100, Carbon Dioxide 22.9, Anion Gap 13, BUN 24 H, Creatinine 1.18, Estim Creat Clear Calc 79.26, Est GFR (MDRD) Non-Af 68, B UN/Creatinine Ratio 20.3 H, Glucose 99, Calcium 8.6 Microbiology: Microbiology 12/17/24 20:50 Urine, Clean Catch Urine Culture - Final Culture exhibits no growth. 12/14/24 12:04 Blood Culture (Wb) - Anticubital Left Blood Culture - Final No growth in 5 days. 12/15/24 12:35 Fluid - Synovial (joint) Gram Stain - Final 12/15/24 12:35 Fluid - Synovial (joint) Body Fluid Culture - Final Staphylococcus aureus 12/15/24 12:35 Fluid - Synovial (joint) Anaerobic Culture - Final No anaerobic bacteria isolated. 12/14/24 11:50 Blood Culture (Wb) - Anticubital Left Bacteria Detection (PCR) - Final Coag Negative Staph 12/14/24 11:50 Blood Culture (Wb) - Anticubital Left Blood Culture - Final Coag Negative Staph D/C Instructions Discharge Diet: Low fat / Low cholesterol Discharge Activity: Return to Normal Activity Weight Bearing Status: Weight bearing as tolerated Call your doctor if you observe: Fever of 101 or Higher, Shortness of breath, Dizziness, Swelling in the ankles and Chest pain DC O2, CPAP, BIPAP Needs Home O2 Discharge instructions: No DC home with Oxygen: No Meaningful Use Info Meaningful Use Meaningful Use Diagnoses (Choose all that apply): None applicable Ischemic Stroke Statin Dosing Therapy Reference: STATIN DOSE THERAPY REFERENCE: * Patients > 75 years receive moderate or high dose statin therapy. * Patients 75 years or YOUNGER should receive HIGH intensity statin dose unless contraindicated. You will be required to document reason for non-treatment if statin daily dose does not meet guidelines. HIGH DOSE STATIN THERAPY DAILY Atorvastatin > than or = to 40 mg Rosuvastatin > than or = to 20 mg Amlodipine + Atorvastatin > than or = to 2.5/40 mg Ezetimibe + Simvastatin 10/80 mg Simvastatin 80mg Discharge Plan Admission Admit Date/Time: 12/14/24 15:57 Primary Reason for Your Visit: cellulitis of the RLE Attending Provider: Elena Biswas Primary Care Provider: Care Physician,No Primary Consulting Providers: Fernando Browning; Philippe Kendrick; Elena Biswas; Alo Gomez; Farhan Jones Instructions Patient Instructions: Cellulitis, Septic Arthritis Ch Additional Instructions / Restrictions: to have weekly CBC and BMP in the SNF; results to be sent to PCP and ID to determine if any adjustment of antibiotics is needed. Discharge Orders/Prescriptions Prescriptions: New cefazolin 2 gram recon soln 2 g IV Q8H 17 Days Rx Instructions: stop date 01/06/25. Dx: septic arthritis. Weekly bmp, cbc, and esr. Fax to [phone]. Routine picc care per protocol. Continued magnesium oxide 500 mg tablet 500 mg PO DAILY vitamin K2 45 mcg capsule 45 mcg PO DAILY krill oil 500 mg capsule 1,000 mg PO DAILY nitroglycerin 0.4 mg tablet, sublingual 0.4 mg SUBLINGUAL Q5M PRN (Reason: CHEST PAIN) Qty: 25 3RF spironolactone 25 mg tablet 25 mg PO DAILY Qty: 90 3RF multivitamin [Daily Multi-Vitamin] Tablet 1 tab PO QAM aspirin 81 MG tablet,chewable 81 mg PO DAILY@0800 0RF cholecalciferol (vitamin D3) 2,000 UNIT capsule 6,000 unit PO DAILY metoprolol succinate 50 mg tablet extended release 24 hr 50 mg PO BID Qty: 180 3RF amlodipine 5 mg tablet 5 mg PO DAILY Qty: 90 3RF apixaban 5 mg tablet 5 mg PO BID Qty: 180 3RF dapagliflozin propanediol [Farxiga] 10 mg tablet 10 mg PO DAILY Qty: 90 3RF furosemide [Lasix] 40 mg tablet 40 mg PO BID Qty: 180 3RF No Action oxycodone-acetaminophen 5-325 mg tablet 1 tab PO Q6H PRN PRN (Reason: Pain) 30 Days Qty: 90 0RF Referrals / Follow Up: Krzysztof Martino MD [Med Staff - Active Staff] - Within 2 Weeks (see to establish PCP care) Philippe Kendrick MD [Med Staff - Active Staff] - Within 2 Weeks Care Physician,No Primary [Primary Care Provider] - Disposition Disposition (needs filled in before D/C Order can be placed): Care Home Facility Charges/Coding Visit Charges Inpatient E&M: 64352 Disch Hosp >30min
[2024-12-22] MEDS: 0.9% Saline Lock 10 ML Syringe IV (14:10)
--- NOTE | 2024-12-22 14:21 | TREXTCAR_ITS ---
Diet Diet Order/Speech Therapy: INPATIENT Hospital Diet / Speech Therapy Order(s) 12/17/24 03:33 Diet: Cardiac - Heart Healthy Fluid restriction:: 1500 mL Diet Comments: 1500ml fluid restriction Routine Orders/Code Status Enema Type: Fleetz Enema Frequency: Daily PRN Suppository Type: Dulcolax 10mg Suppository Frequency: Daily PRN DC O2, CPAP, BIPAP needs Home O2 Discharge instructions: No Wound(s) right knee: Wound Type: Surgical Incision Therapies Weight Bearing: Weight bearing as tolerated Physical Therapy: Eval and Treat Occupational Therapy: Eval and Treat Problem/Diagnosis (1) Septic arthritis of knee, right: Status: Acute Code(s): M00.9 - Pyogenic arthritis, unspecified (2) Cellulitis of right lower extremity: Status: Acute Code(s): L03.115 - Cellulitis of right lower limb Plan #Cellulitis of the RLE with right lower extremity with concern for septic arthritis and infected hematoma * orthopedics on board. He had knee aspiration done on admission fluid analysis showed elevated PC of 33,000. * Subsequently had irrigation debridement with evacuation of a right gastrocnemius intramuscular hematoma on 11/29/2024 and postop diagnosis was right knee septic arthritis * Was on IV vancomycin and Unasyn. Antibiotics now narrowed down to IV cefazolin per ID. * Synovial fluid cultures growing Staph aureus. * Blood cultures also grew coagulase-negative staph in 1 out of 2 samples. * Had PICC line inserted yesterday. To have 3 weeks of IV cefazolin with weekly labs per ID. Follow-up with ID in 2 weeks. * #A-fib: On metoprolol. on eliquis #Chronic Heart failure preserved ejection fraction: Not in exacerbation. Has known EF of 50%. Breathing treatments bronchodilators. #Class I obesity: BMI is 32.2. Complicates acute care, expected recovery and prognosis. DVT prophylaxis: on eliquis Disposition: * Awaiting placement. Allergies/Procedures Done in Hospital Allergies No Known Allergies Allergy (Verified 12/14/24 14:12) Procedures: - (right knee arthroscopic irrigation & debridement, evac of rt gastrocnemius IM hematoma) Type of Care/Length of Stay Estimated LOS: Convalescent Care Less Than 30 days Type of Care Needed: Skilled Rehab Potential: Good Prognosis: Good Additional Orders/Day of Discharge Day of Discharge: 12/22/24 Dietary and Speech Recommendations Dietitian Recommendations/Changes: Continue Cardiac diet with fluid restriction per MD to manage medical conditions. Discharge Plan Admission Admit Date/Time: 12/14/24 15:57 Primary Reason for Your Visit: cellulitis of the RLE Attending Provider: Elena Biswas Primary Care Provider: Care Physician,No Primary Consulting Providers: Fernando Browning; Philippe Kendrick; Elena Biswas; Alo Gomez; Farhan Jones Instructions Patient Instructions: Cellulitis, Septic Arthritis Ch Additional Instructions / Restrictions: to have weekly CBC and BMP in the SNF; results to be sent to PCP and ID to determine if any adjustment of antibiotics is needed. Discharge Orders/Prescriptions Prescriptions: New cefazolin 2 gram recon soln 2 g IV Q8H 17 Days Rx Instructions: stop date 01/06/25. Dx: septic arthritis. Weekly bmp, cbc, and esr. Fax to [phone]. Routine picc care per protocol. Continued magnesium oxide 500 mg tablet 500 mg PO DAILY vitamin K2 45 mcg capsule 45 mcg PO DAILY krill oil 500 mg capsule 1,000 mg PO DAILY nitroglycerin 0.4 mg tablet, sublingual 0.4 mg SUBLINGUAL Q5M PRN (Reason: CHEST PAIN) Qty: 25 3RF spironolactone 25 mg tablet 25 mg PO DAILY Qty: 90 3RF multivitamin [Daily Multi-Vitamin] Tablet 1 tab PO QAM aspirin 81 MG tablet,chewable 81 mg PO DAILY@0800 0RF cholecalciferol (vitamin D3) 2,000 UNIT capsule 6,000 unit PO DAILY oxycodone-acetaminophen 5-325 mg tablet 1 tab PO Q6H PRN PRN (Reason: Pain) 3 Days Qty: 12 0RF metoprolol succinate 50 mg tablet extended release 24 hr 50 mg PO BID Qty: 180 3RF amlodipine 5 mg tablet 5 mg PO DAILY Qty: 90 3RF apixaban 5 mg tablet 5 mg PO BID Qty: 180 3RF dapagliflozin propanediol [Farxiga] 10 mg tablet 10 mg PO DAILY Qty: 90 3RF furosemide [Lasix] 40 mg tablet 40 mg PO BID Qty: 180 3RF Referrals / Follow Up: Krzysztof Martino MD [Med Staff - Active Staff] - Within 2 Weeks (see to establish PCP care) Philippe Kendrick MD [Med Staff - Active Staff] - Within 2 Weeks Care Physician,No Primary [Primary Care Provider] - Disposition Disposition (needs filled in before D/C Order can be placed): Nursing Home Facility (1) Septic arthritis of knee, right Qualifiers: Septic arthritis organism: staphylococcal Qualified Code(s): M00.061 - Staphylococcal arthritis, right knee
--- NOTE | 2024-12-22 14:28 | CASEMGMT ---
Social Work Precert has been obtained.? Physician updated and pt is ready for discharge today.? 7000 convalescent form completed in [facility]. SW met with pt and they are agreeable to discharge plan as stated above.? DCA advised of discharge; DCA to make final arrangements and notifications. Disposition: [facility], skilled level of care under convalescent stay. CHENG Patino
[2024-12-22 15:00] VITALS: BP 112/68; PULSE 86; RESP 16; TEMP 36.6; O2SAT 98
--- NOTE | 2024-12-22 15:22 | CASEMGMT ---
Discharge Planning Discharge orders, signed med list, and transport time sent to [facility]. Physicians will transport pt by wheelchair at 4p. Nursing, SW, and pt updated. Pt states he will update his . Jessica Delarosa DC Planning Asst.
--- NOTE | 2024-12-22 15:32 | NURSING ---
Nurse to nurse report given to Maryellen at [facility].
== END 2024-12-22 16:45 | disposition skilled nursing facility (03) | DRG 486 ==
LOC: ED 15:42 → MS3 16:11
PROVIDERS: Physician Assistant Surgical; Student in an Organized Health Care Education/Training Program; Emergency Provider Surgery; Referring Provider Surgery; Visit Provider Student in an Organized Health Care Education/Training Program
PROC: 0SBC4ZZ Excision of Right Knee Joint, Percutaneous Endoscopic Approach (ICD-10-PCS; CPT 29870; principal; 2024-12-16 14:55)
DX: M00.061 Staphylococcal arthritis, right knee (principal); I50.32 Chronic diastolic (congestive) heart failure; M25.061 Hemarthrosis, right knee; L03.115 Cellulitis of right lower limb; I11.0 Hypertensive heart disease with heart failure; E66.811 Obesity, class 1; I48.91 Unspecified atrial fibrillation; M79.81 Nontraumatic hematoma of soft tissue; I87.8 Other specified disorders of veins; I25.10 Atherosclerotic heart disease of native coronary artery without angina pectoris; I25.5 Ischemic cardiomyopathy; E78.5 Hyperlipidemia, unspecified; B95.61 Methicillin susceptible Staphylococcus aureus infection as the cause of diseases classified elsewhere; M65.961 Unspecified synovitis and tenosynovitis, right lower leg; T50.1X6A Underdosing of loop [high-ceiling] diuretics, initial encounter; Z91.148 Patient's other noncompliance with medication regimen for other reason; Z68.32 Body mass index [BMI] 32.0-32.9, adult; Z79.82 Long term (current) use of aspirin; Z79.01 Long term (current) use of anticoagulants; Z79.899 Other long term (current) drug therapy; Z86.718 Personal history of other venous thrombosis and embolism; Z95.810 Presence of automatic (implantable) cardiac defibrillator
CPT/HCPCS: 36415; 36569; 71046; 73701; 80048; 80053; 80202; 83605; 83880; 84484; 85025; 85610; 85652; 85730; 86140; 87040; 87070; 87075; 87077; 87086; 87149; 87186; 87205; 89050; 89051; 89060; 93005; 93971; 97110; 97116; 97162; 97166; 97530; 97535; 99285; Q9967; A4216; J0295; J1938; J2405

== ENCOUNTER 2025-01-10 10:00 | Outpatient (RCR) | payer MEDICARE, SELFPAY ==
[2025-01-04 09:31] VITALS: BP 135/88; PULSE 74; RESP 18; TEMP 35.8; BMI 29.8
--- NOTE | 2025-01-04 11:33 | PCM.WC.HP ---
History of Present Illness Date of Service: 01/04/25 Chief Complaint: Right carroll scab History of Wound: 70-year-old white male who had a right knee replacement and then it got infected and had to have it drained he is on a PICC line at this point and is [facility]. Prior to that he had had problems with his right leg he had had a stent put in his heart and since then he has not had any swelling but he was having swelling in his lower extremities and developed a lot of peripheral vascular disease with petechiae and discoloration to the lower extremities. And he states that it hemorrhaged from that spot also. Patient is on blood thinning medication of Eliquis for his A-fib. [facility] Medical History Nontraumatic intramuscular hematoma Septic arthritis of knee, right Effusion, right knee Cellulitis of right lower extremity Persistent atrial fibrillation ICD (implantable cardioverter-defibrillator), single, in situ PAF (paroxysmal atrial fibrillation) Ischemic cardiomyopathy Atherosclerotic heart disease of [place] coronary artery without angina pectoris Essential hypertension HLD (hyperlipidemia) Cardiomyopathy CAD in [place] artery New onset atrial fibrillation Home Medications ?Medication ?Instructions ?Recorded ?Last Taken ?Type aspirin 81 mg chewable tablet 81 mg PO DAILY@0800 heart 09/22/19 07/27/23 Rx cholecalciferol (vitamin D3) 50 6,000 unit PO DAILY SUPPLEMENT 01/25/20 03/27/20 History mcg (2,000 unit) capsule magnesium oxide 500 mg PO DAILY follow 05/22/22 Unknown History vitamin K2 45 mcg capsule 45 mcg PO DAILY follow -up 05/22/22 Unknown History krill oil 500 mg capsule 1,000 mg PO DAILY follow up 05/21/23 Unknown History nitroglycerin 0.4 mg sublingual 0.4 mg sublingual Q5M PRN CHEST 05/21/23 Unknown Rx tablet PAIN #25 tabs metoprolol succinate 50 mg 50 mg PO BID blood pressure #180 10/07/23 Unknown Rx tablet,extended release 24 hr tabs spironolactone 25 mg tablet 25 mg PO DAILY follow up #90 tabs 11/18/23 Unknown Rx amlodipine 5 mg tablet 5 mg PO DAILY please give 90 day 03/22/24 Unknown Rx supply #90 TABLETS apixaban 5 mg tablet 5 mg PO BID blood thinner #180 tabs 04/12/24 Unknown Rx dapagliflozin propanediol 10 mg 10 mg PO DAILY follow-u[ #90 tabs 08/05/24 Unknown Rx tablet (Farxiga) multivitamin (Daily Multi-Vitamin 1 tab PO QAM follow up 09/20/24 Unknown History tablet) furosemide 40 mg tablet (Lasix) 40 mg PO BID #180 tabs 10/12/24 Unknown Rx cefazolin 2 gram intravenous 2 g IV Q8H 17 days 12/20/24 Unknown Rx solution oxycodone-acetaminophen 5 mg-325 1 tab PO Q6H PRN PRN Pain 30 days 12/22/24 Unknown Rx mg tablet #90 TABLETS amiodarone 200 mg tablet 200 mg PO DAILY 01/04/25 Unknown History aspirin 81 mg capsule 81 mg PO DAILY 01/04/25 Unknown History Allergy/AdvReac Type Severity Reaction Status Date / Time No Known Allergies Allergy Verified 12/14/24 14:12 Family History Father Heart disease Grandfather Diabetes Surgical History S/P ablation of atrial fibrillation History of cardioversion (~11/05/21) S/P PTCA (percutaneous transluminal coronary angioplasty) Social History Smoking Status: Never smoker alcohol intake: current alcohol intake frequency: holidays/special occasions only substance use type: does not use caffeine: Yes Type: coffee Number of servings: 1 ROS Constitutional Constitutional: Reports systems reviewed and no addt'l complaints, except as documented Eyes Eyes: Reports systems reviewed and no addt'l complaints, except as documented ENT HEENT: Reports systems reviewed and no addt'l complaints, except as documented Cardiovascular Cardiovascular: Reports systems reviewed and no addt'l complaints, except as documented Respiratory/Chest Respiratory/Chest: Reports systems reviewed and no addt'l complaints, except as documented Gastrointestinal Gastrointestinal: Reports systems reviewed and no addt'l complaints, except as documented Genitourinary Genitourinary: Reports systems reviewed and no addt'l complaints, except as documented Musculoskeletal Musculoskeletal: Reports systems reviewed and no addt'l complaints, except as documented Integumentary Integumentary: Reports other Details: Scab on the right carroll from a previous peripheral vascular incident. Petechiae and slight swelling to the right lower leg Neurologic Neurologic: Reports systems reviewed and no addt'l complaints, except as documented Psychiatric Psychiatric: Reports systems reviewed and no addt'l complaints, except as documented Endocrine Endocrinology: Reports systems reviewed and no addt'l complaints, except as documented Hematologic/Lymphatic Hematologic/Lymphatic: Reports systems reviewed and no addt'l complaints, except as documented Allergic/Immunologic Allergic/Immunologic: Reports systems reviewed and no addt'l complaints, except as documented Vital Signs Vital Signs Vital Signs: 01/04/25 09:31 Temperature 96.4 F L Temperature Source Temporal Pulse Rate 74 Respiratory Rate 18 Blood Pressure 135/88 H Blood Pressure Mean 103 Blood Pressure Source Monitor Blood Pressure Position Semi-Fowlers Blood Pressure Location Left Arm Weight Weight: 226 lb Body Mass Index (BMI) 29.8 Physical Exam Const oriented x3 General Appearance: cooperative Exam Limitations: no limitations HEENT normocephalic Head and Scalp: normal to inspection Face and Sinus: normal facial exam Nose: external nose normal General Ear: hearing grossly impaired Eyes General Eye: normal appearance of both eyes Neck full ROM General: normal visual inspection Resp normal respiratory effort Effort and Inspection: able to speak in complete sentences Auscultation: clear to auscultation bilaterally Cardio regular rate and regular rhythm Palpation: normal PMI Rate: regular rate Rhythm: regular rhythm GI Palpation: soft and no hepatosplenomegaly Back/Spine Cervical Spine: cervical ROM normal Thoracic Spine / Upper Back: normal to inspection Lumbar Spine / Lower Back: normal to inspection Extremity General Extremity: normal exam except as noted Skin No no petechiae General Skin Exam: no breakdown, elasticity normal, petechiae, venous stasis and dermatitis Lesions: no lesions Neuro oriented x3 Psych Appearance: grossly normal Speech: normal speech Thought Content: normal thought content Judgement: judgement good Debridement Note Debridement Note No debridement was completed: No debridement was completed today Post-Debridement Measurements and Additional Note: Post-Debridement Measurements/Treatment KARSTEN - Nurse 1 - General Ulcer Assessment Start: 01/04/25 09:28 Freq: Status: Active Protocol: VIVIANA Activity Type Activity Date Activity User E-sign Co-sign Detail Recorded Client Recorded Date Recorded By Document 01/04/25 09:31 RB [id number] 01/04/25 09:43 RB 01/04/25 09:31 WC - Today's Visit Information Type of service Initial Visit Arrival Mode Wheelchair Transfer Assistance Manual Patient Identification Verified (Name & Yes ) Patient Requires Transmission-Based No Precautions Height and Weight Height 6 ft 1 in Weight 226 lb Weight in Pounds 226.0 lbs Body Mass Index (BMI) 29.8 BMI Classification Overweight Vital Signs Temperature (97.8 F-99.1 F) 96.4 F L Temperature Source Temporal Pulse Rate (60-100) 74 Pulse Location Monitor Respiratory Rate (12-18) 18 Respiratory rate source Observation Blood Pressure (90/60-120/80) 135/88 H Blood Pressure Mean 103 Source Monitor Position Semi-Fowlers Blood Pressure Location Left Arm History Since Last Visit- (Skip if this is Patient's initial visit) Have you changed medications since your No last visit? Any new allergies or adverse reactions No Had a fall/change in ADL's that may No increase risk of falls Signs or symptoms of abuse and/or No neglect since last visit Have you been in the hospital since your Yes last visit? Has dressing in place as prescribed No Has compression in place as prescribed N/A Has offloadiing in place as prescribed N/A Experienced any changes in pain level or No management Left Footwear Slipper Right Footwear Slipper Pain Scale: 0-10 Numeric Is Patient Pain Free? Yes Lower Extremity Assessment/ Foot Assessment/ Toe Nail Assessment Right -Popliteal Doppler Inaudible -Posterior Tibial Palpable No -Posterior Tibial Doppler Inaudible -Dorsalis Pedis Palpable No -Extremity Color Normal -Hair Growth on Legs Yes -Hair Growth on Toes No -Temperature of Extremity Cool -Capillary Refill Less than 3 Seconds -Dependent Rubor No -Blanched when Elevated No -Lipodermatosclerosis No -Other Deformity No -Prior Foot Ulcer No -Charcot Joint No -Prior Amputation No -Thick Yes -Discolored Yes -Deformed Yes -Improper Length & Hygeine No Left -Posterior Tibial Palpable No -Posterior Tibial Doppler Inaudible -Dorsalis Pedis Palpable No -Dorsalis Pedis Doppler Monophasic -Extremity Color Hemosiderin -Hair Growth on Legs Yes -Hair Growth on Toes No -Temperature of Extremity Cool -Capillary Refill Greater than 3 Seconds -Dependent Rubor No -Blanched when Elevated No -Lipodermatosclerosis No -Other Deformity No -Prior Foot Ulcer No -Charcot Joint No -Prior Amputation No -Thick Yes -Discolored Yes -Deformed Yes -Improper Length & Hygeine No Neuropathy Assessment Feet - Top Side and Bottom <Entered> (a) Communication Assessment Preferred language Wolof Bee Robber Required No Able to Read Yes Able to Write Yes Communication Tools None Caregiver Communication Skills No Impairment Impairment Right Hearing Abillity Normal Left Hearing Abillity Normal Visual Assistive Devices Glasses Teaching Assessment Preferences Verbal,Written, Demonstration Barriers to Learning None Readiness To Learn Good Willingness to Engage in Self Management Med Activies Readiness to Engage in Self Management Med Activities Anxiety Level Calm Cooperation Cooperative Perception Coherent Interest in Health Problem Asks Questions Education Importance Acknowledges Need Does Patient Smoke tobacco or other No substances Smoking Status Never smoker Is Patient Diabetic No Functional Assessment Recent Decline in Ability to Perform Denies Any Declines Assistive Device With Patient No Culture/[place]ahai/Customer Care Associate Cultural/[place] Needs that may affect No Treatment Plan Would you allow our hospital nursing program coordinator to No meet you for the purpose of spiritual/ emotional support? Customer Care Associate to contact place of judaism No Teaching: Wound Center *Welcome to the Wound Center -Person Taught Patient -Teaching Method Discussion, Demonstration -Response to teaching Verbalize Understanding (a) 1 - - throughout 2 - + on. left toe only WC - Nurse 1 - General Ulcer Measurement Start: 01/04/25 09:28 Freq: Status: Active Protocol: Activity Type Activity Date Activity User E-sign Co-sign Detail Recorded Client Recorded Date Recorded By Document 01/04/25 09:31 RB [id number] 01/04/25 09:43 RB 01/04/25 09:31 Wound Center Nurse 1 R LE anterior -Combined with other wound No -Current Size (cm) - Length 0.1 -Current Size (cm) - Width 0.1 -Current Size (cm) - Depth 0.1 -Total Square Cm 0.01 -Photo Taken Yes -Tunneling No -Undermining/Tunneling No -Circular Undermining No -Exudate Amt None Present -Wound Margin Distinct, Outline Attached -Granulation Amt None Present (0 %) -Slough/Fibrin Yes -Necrosis Amt Large (67-100%) -Necrotic Tissue Type Eschar -Structure Exposed N/A -Texture (Radha-wound Skin Appearance) Assessed -Moisture (Radha-wound Skin Appearance) Assessed -Color (Radha-wound Skin Appearance) Hemosiderin Staining -Temperature (Radha-wound Skin No Abnormality Appearance) (Pt Warm) -Tenderness on Palpation (Radha-wound No Skin Appearance) -Ulcer Cleansing Wound Cleanser -Foul Odor after Cleansing No -Anesthetic Used 5% Lidocaine Gel Lower Limb Edema Present Yes Right Calf (cm) 39 Right Ankle (cm) 23.2 Left Calf (cm) 37.5 Left Ankle (cm) 23.2 - Nurse 2 - General Ulcer CM Notes Start: 01/04/25 09:28 Freq: Status: Active Protocol: Activity Type Activity Date Activity User E-sign Co-sign Detail Recorded Client Recorded Date Recorded By Document 01/04/25 10:00 [facility] [id number] 01/04/25 10:08 [facility] 01/04/25 10:00 Wound Center Nurse 2 R LE anterior -Time 10:01 -Post Debridement (cm) - Length 0 -Post Debridement (cm) - Width 0 -Post Debridement (cm) - Depth 0 -Total Square (Post) (cm) 0 -Area of Debridement (cm) - Length 0 -Area of Debridement (cm) - Width 0 -Total Square (Area) (cm) 0 -Tunneling No -Undermining/Tunneling No -Circular Undermining No -Wound Comment(s) not open Pain Scale: 0-10 Numeric Is Patient Pain Free? Yes - Nurse 3 - General Ulcer D/C NN Start: 01/04/25 09:28 Freq: Status: Active Protocol: Activity Type Activity Date Activity User E-sign Co-sign Detail Recorded Client Recorded Date Recorded By Document 01/04/25 10:29 DL [id number] 01/04/25 10:29 DL 01/04/25 10:29 Wound Care Center Nurse 3 RLE -Tubular Bandage Double Layer -Size of Tubigrip Used Size E -Size E ($) 2 Treatment Response Procedure Tolerated Well Pain Scale: 0-10 Numeric Is Patient Pain Free? 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 (4) PAD (peripheral artery disease): CODE(S): I73.9 - Peripheral vascular disease, unspecified
--- NOTE | 2025-01-05 09:40 | WC ---
PHOTO 01/04/25 DOROTAE
--- NOTE | 2025-01-10 09:58 | VDLE_ITS ---
Reason For Study Reason For Study: RLE Wound RIGHT LEFT GSV is normal. CFV is compressible, spontaneous, phasic, competent, CFV is compressible, spontaneous, phasic, competent and demonstrates normal augmentation. and demonstrates normal augmentation. FV is compressible, spontaneous, phasic, competent and demonstrates normal augmentation. POP V is compressible, spontaneous, phasic, competent and demonstrates normal augmentation. T/P Trunk is compressible. PTV is compressible. RT PerV is compressible. SFJ is competent and measures 0.69 cm. GSV proximal thigh measures 0.55 cm. GSV at knee measures 0.48 x 0.54 cm. GSV is competent throughout. SSV at junction is competent and measures 0.20 cm. Procedure This is a venous duplex using B-mode, color flow and spectral Doppler. Exam performed in department. The exam was diagnostic. VL/Venous Duplex US, Unilateral Interpretation Summary Deep veins of the right lower extremity are patent and compressible segmentally . There is no evidence of right lower extremity deep vein thrombosis. Valvular competence appears intact within the p roximal deep venous system on the right . The right great saphenous vein appears patent and compressible segmentally. The right sapheno-femoral junction is competent . The right great saphenous vein appears segmentally competent. The r ight small saphenous vein is patent and competent. The left common femoral vein is patent and compressible . Ordering Physician: Rita Oscar Referring Physician: Rita Oscar Performed By: Anthony Peterson, RVT
--- NOTE | 2025-01-10 09:59 | ART_ITS ---
Reason For Study Reason For Study: RLE Wound Procedure A bilateral lower extremity continuous wave Doppler with analog waveform analysis,segmental pressures,and ankle brachial indexes without exercise. Left Segmental Pressures Left brachial= 127mmHg. Left posterior tibial artery = >254mmHg. Left dorsalis pedis artery = 149mmHg. Left digit = 101 mmHg. The left posterior tibial artery waveforms are triphasic. The left dorsalis pedis waveforms are triphasic. Right Segmental Pressures Right brachial= 120mmHg. Right posterior tibial artery = >254mmHg. Right dorsalis pedis artery = 142mmHg. Right digit = 87 mmHg. The right posterior tibial artery waveforms are triphasic. The right dorsalis pedis waveforms are triphasic. Indices The right ankle brachial index by the posterior tibial artery is N/C. The right ankle brachial index by the dorsalis pedis is 1.12. The right digital-brachial index is 0.69. The left ankle brachial index by the posterior tibial artery is N/C. The left ankle brachial index by the dorsalis pedis is 1.17. The left digital-brachial index is 0.80. VL/Lower Ext Art Exam w/o Exercis Interpretation Summary Right ERNESTINA 1.12, normal. Doppler/PVR waveforms of the right leg normal at rest. TBI diminished, pedal/digit disease vs spasm. Left ERNESTINA 1.17, normal. TBI and Doppler/PVR waveforms of the left leg normal at rest. Ordering Physician: Caro Marie Referring Physician: CARO MARIE SCRAP KETTLE TENDER-C Performed By: Anthony Peterson RVT
--- NOTE | 2025-01-12 13:14 | WC ---
CARO CARCAMO REVIEWED PT'S RECENT VASCULAR STUDIES. REPORTS THAT RESULTS ARE NORMAL. ATTEMPTED TO NOTIFY PT. HAD TO LEAVE MSG TO CALL FACILITY FOR UPDATE.
== END 2025-01-16 23:59 | disposition home or self-care (01) ==
LOC: WC 10:00
PROVIDERS: Referring Provider Nurse Practitioner; Visit Provider Nurse Practitioner
DX: I73.9 Peripheral vascular disease, unspecified (principal); I48.91 Unspecified atrial fibrillation; I87.2 Venous insufficiency (chronic) (peripheral); Z79.01 Long term (current) use of anticoagulants
CPT/HCPCS: 93923; 93971; 99213; G0463

== ENCOUNTER → 2025-06-09 | Outpatient (CLI) | payer MEDICARE, SELFPAY ==
--- NOTE | 2025-06-09 12:50 | ECHOCS_ITS ---
Reason For Study Reason For Study: CHF` Procedure This was a 2D Doppler, Color Flow transthoracic echocardiogram. The study was technically difficult. Contrast injection was performed. Exam performed in department. Left Ventricle Normal LV size. The left ventricular ejection fraction is 45 %. Mild to moderate segmental systolic dysfunction (see wall motion). Stage 1 diastolic dysfunction. Mid-Posterior: Severely Hypokinetic. Infero-Basal: Akinetic. Mid-Inferior: Akinetic. The rest of the wall segments are normal. Right Ventricle Normal RV size. Normal systolic function. Atria Normal left atrium. Normal right atrium. Mitral Valve Normal mitral valve. Mild (1+) eccentric mitral valve insufficiency. Tricuspid Valve Normal tricuspid valve. Mild (1+) tricuspid valve insufficiency. Pulmonary artery systolic pressure is 26 mmHg. Aortic Valve Trisinus/trileaflet aortic valve. Mild focal aortic valve calcification. Pulmonic Valve Normal pulmonic valve. Great Vessels Normal aortic root. The pulmonary artery is normal size. Inferior vena cava collapse with respiration. Pericardium/Pleural No pericardial effusion. Medication 22 gauge I.V. with prn adaptor inserted into right arm. Diluted definity 2.0ml given slow IV push to enhance endocardial definition. MMode/2D Measurements & Calculations LVIDd: 6.2 cm IVSd: 1.0 cm Ao root diam: 3.8 cm LVIDs: 4.6 cm LVPWd: 1.0 cm RVDd: 3.7 cm FS: 26.0 % LAV(MOD-bp): 52.3 ml LVAd ap4: 42.7 cm2 LVAd ap2: 35.0 cm2 LAV(MOD-bp) Indexed: 22.7 ml/m2 LVLd ap4: 10.1 cm LVLd ap2: 9.5 cm LAV(MOD-sp2): 50.5 ml EDV(MOD-sp4): 148.1 ml EDV(MOD-sp2): 107.7 ml LAV(MOD-sp4): 50.1 ml EDV(sp4-el): 153.0 ml EDV(sp2-el): 109.5 ml LVAs ap4: 33.2 cm2 LVAs ap2: 23.9 cm2 LVLs ap4: 9.7 cm LVLs ap2: 8.1 cm ESV(MOD-sp4): 95.4 ml ESV(MOD-sp2): 59.1 ml ESV(sp4-el): 96.6 ml ESV(sp2-el): 59.8 ml EF(MOD-sp4): 35.6 % EF(MOD-sp2): 45.1 % EF(sp4-el): 36.9 % SV(MOD-sp4): 52.7 ml SV(MOD-sp2): 48.6 ml SV(sp4-el): 56.4 ml SI(MOD-sp4): 22.9 ml/m2 SI(MOD-sp2): 21.1 ml/m2 LA A4 area: 18.6 cm2 LA dimension(2D): 4.7 cm RA A4 area: 16.9 cm2 TAPSE: 2.2 cm Time Measurements MV dec time: 0.24 sec Doppler Measurements & Calculations MV E max mynor: 43.7 cm/sec Lat Peak E' Mynor: 10.7 cm/sec Med Peak E' Mynor: 4.6 cm/sec MV A max mynor: 61.3 cm/sec E/E' lat: 4.1 E/E' med: 9.5 MV E/A: 0.71 MV V2 max: 62.6 cm/sec MV P1/2t max mynor: 60.7 cm/sec Ao V2 max: 118.3 cm/sec MV max P.6 mmHg MV P1/2t: 130.5 msec Ao max P.6 mmHg MV V2 mean: 38.3 cm/sec MV dec slope: 136.2 cm/sec2 Ao V2 mean: 81.0 cm/sec MV mean P.65 mmHg MVA(P1/2t): 1.7 cm2 Ao mean P.0 mmHg MV V2 VTI: 25.5 cm Ao V2 VTI: 26.9 cm AV (velocity ratio): 0.74 LV V1 max: 85.6 cm/sec PA V2 max: 99.6 cm/sec TR max mynor: 240.4 cm/sec LV V1 max P.9 mmHg TR max P.1 mmHg LV V1 mean P.5 mmHg LV V1 mean: 56.8 cm/sec LV V1 VTI: 20.0 cm ECHO/Echo Complete W/ Contrast Interpretation Summary Normal LV size. The left ventricular ejection fraction is 45 %. Mild to moderate segmental systolic dysfunction (see wall motion). Stage 1 diastolic dysfunction. Ordering Physician: Jasper Maya Referring Physician: TIANNA PCP Performed By: Wendy Roque, RDCS, RVT
== END | disposition home or self-care (01) ==
LOC: CVS 12:48
PROVIDERS: Referring Provider Internal Medicine Cardiovascular Disease; Visit Provider Internal Medicine Cardiovascular Disease
DX: I25.5 Ischemic cardiomyopathy (principal)
CPT/HCPCS: 93306; Q9957; A4216; C8929